=== PATIENT | male | born 1945 | race Caucasian/White ===

== ENCOUNTER → 2020-06-19 11:12 | Outpatient (CLI) | payer MEDICARE, BC, SELFPAY ==
--- NOTE | 2020-06-19 11:21 | XR_ITS ---
PROCEDURE: XR LUMBAR SPINE MIN 4V CLINICAL INDICATION: LOW BACK PAIN AT MULTIPLE SITES COMPARISON: CR PELAP PELVIS AP ONLY from 03/05/2016 FINDINGS: Prior lumbosacral surgery with 2 transverse screws extending from right to left through both SI joints. There has been total left hip prosthesis placement and right hip hemiarthroplasty with 2 screws superior to the hemiarthroplasty 1 of which is fractured Multilevel facet sclerosis and hypertrophy from L1-S1. There is degenerative disc disease at L4-5. Suspected multilevel canal stenosis from L2-S1 worse at L4-5 and L5-S1. No acute fracture or dislocation. IMPRESSION: Severe facet arthritic changes with osteosclerosis and degenerative disc disease with postsurgical changes Postsurgical changes of the pelvis with a fractured screw in the right super acetabular region Dictated by: Juan Alcocer MD 06/19/2020 17:52 Juan Alcocer MD in [place] 06/19/2020 17:52
== END ==
PROVIDERS: PCP Internal Medicine Adolescent Medicine; Visit Provider Internal Medicine Adolescent Medicine
DX: M54.5 Low back pain (principal)
CPT/HCPCS: 72110

== ENCOUNTER → 2020-06-27 13:45 | Outpatient (CLI) | payer MEDICARE, BC, SELFPAY ==
--- NOTE | 2020-06-27 13:47 | CT_ITS ---
PROCEDURE: CT LUMBAR SPINE WO CON CLINICAL HISTORY: LOW BACK PAIN lbp with walking COMPARISON: CR XR LUMBAR SPINE MIN 4V from 06/19/2020 TECHNIQUE: Axial images obtained with sagittal and coronal reformats. All CT scans at the facility use one or more dose reduction, viz: automated exposure control, ma/kV adjustment per patient size (including targeted exams where dose is matched to indication, i.e. head), or iterative reconstruction technique. FINDINGS: There is good alignment. There is multilevel thoracic and lumbar spondylosis. T10-T11: Degenerative disc disease with mild facet hypertrophic change. There is prominent osteophyte along the left costovertebral junction not completely imaged. There is mild bilateral foraminal narrowing. T11-T12: Degenerative disc disease with facet facet hypertrophy with bilateral lateral recess narrowing and bilateral foraminal narrowing greater on the left. There is bulging disc at this level. T12-L1: Unremarkable L1-L2: Mild bulging disc with facet and ligamentum hypertrophy with lateral bridging osteophyte. L2-L3: Moderate to severe right-sided facet and ligamentum hypertrophy and moderate left-sided facet hypertrophy with moderate right-sided lateral recess narrowing, moderate right foraminal narrowing and mild left lateral recess and foraminal narrowing. L3-L4: Severe facet hypertrophic change right greater than left with ligamentum hypertrophy with canal stenosis with moderate right-sided and mild left-sided foraminal narrowing. There is severe canal stenosis at 6 mm with severe bilateral lateral recess narrowing. There is bulging disc also present at this level which is eccentric toward the left L4-5: Degenerative disc disease with concentric bulging disc with severe facet and ligamentum hypertrophy with canal stenosis and moderate to severe bilateral foraminal narrowing. There is moderate bilateral lateral recess narrowing. L5-S1: Bulging disc with severe facet and ligamentum hypertrophy. Postsurgical changes with prior laminectomy at S1. There is severe bilateral lateral recess and foraminal narrowing. There are 2 large transverse screws extending from the right ilium to the left ilium through the S1 segment and through both SI joints with prominent artifact from the large screws. Incidental note is made sigmoid colon diverticulosis. There is atrophy of the right ileo psoas muscle and there are bilateral renal calculi. IMPRESSION: Abnormal CT of the lumbar spine. There is multilevel lumbar spondylosis with bulging disc and severe facet and ligamentum hypertrophy with lateral recess narrowing, foraminal narrowing and canal stenosis. Please see above for detailed description at each level. There are postsurgical changes at the S1 region. Incidental note made of sigmoid diverticulosis and bilateral renal calculi Dictated by: Juan Alcocer MD 06/29/2020 19:30 Juan Alcocer MD in [facility] 06/29/2020 19:30
== END ==
PROVIDERS: PCP Internal Medicine Adolescent Medicine; Visit Provider Internal Medicine Adolescent Medicine
DX: M54.5 Low back pain (principal)
CPT/HCPCS: 72131

== ENCOUNTER 2020-12-19 10:01 | Outpatient (RCR) | payer MEDICARE, BC, SELFPAY | END 2021-03-10 10:47 | disposition home or self-care (01) | LOC: PT 10:01 | PROVIDERS: Visit Provider Internal Medicine Cardiovascular Disease | DX: Z95.1 Presence of aortocoronary bypass graft (principal); Z95.2 Presence of prosthetic heart valve | CPT/HCPCS: 93798 ==

== ENCOUNTER 2021-03-20 15:31 | Outpatient (CLI) | payer MEDICARE, BC, SELFPAY ==
[2021-03-20 15:47] VITALS: BMI 36.8
[2021-03-20 16:20] VITALS: BP 107/63; PULSE 68; RESP 18; TEMP 36.4; O2SAT 97
[2021-03-20 16:29] LABS: Basophils % 0.4 % (0.1-2.0); Eosinophils # 0.2 K/mm3 (0.0-0.4); Eosinophils % 1.7 % (0.1-12.0); Hematocrit 33.9 % (42.0-52.0); Hemoglobin 10.6 g/dL (14.1-18.0); Lymphocytes # 0.8 K/mm3 (0.7-4.5); Mean Corpuscular HGB Conc 31.2 g/dL (31.8-35.4); Mean Corpuscular Hemoglobin 28.4 pg (27.0-31.2); Mean Corpuscular Volume 91.1 fl (80-94); Mean Platelet Volume 9.2 fl (7.4-10.4); Monocytes # 0.8 K/mm3 (0.1-1.0); Monocytes % 7.3 % (1.7-9.3); Neutrophils # 8.5 K/mm3 (1.8-7.8); Neutrophils % 82.7 % (37.0-80.0); Platelet Count 185 K/mm3 (142-424); Red Blood Count 3.72 M/mm3 (4.60-6.20); Red Cell Distribution Width 17.2 % (11.5-17.5); White Blood Count 10.3 K/mm3 (4.8-10.8)
[2021-03-20 16:34] LABS: Anion Gap 14.2 mEq/L (5-15); Blood Urea Nitrogen 20 mg/dl (9-20); Calcium 8.4 mg/dl (8.4-10.2); Carbon Dioxide 25 mmol/L (22.0-30.0); Chloride 103 mmol/L (98-107); Creatinine Clearance Estimated 108 mL/min (50-200); Estimated Glomerular Filt Rate 95 ml/min (>60); GFR (African American) 115 ML/MIN (>60); Glucose 131 mg/dl (74-100); Potassium 4.2 mmoL/L (3.5-5.1); Sodium 138 mmol/L (136-145)
--- NOTE | 2021-03-20 16:47 | XR_ITS ---
PROCEDURE INFORMATION: Exam: XR Abdomen Exam date and time: 03/20/2021 4:47 PM Age: 75 years old Clinical indication: Abdominal pain; Generalized; Additional info: Post op abd. Pain TECHNIQUE: Imaging protocol: XR of the abdomen. Views: Frontal supine view of the abdomen. 1 View. COMPARISON: CT LUMBAR SPINE WO CON 06/27/2020 1:48 PM FINDINGS: Heart/Mediastinum: Postsurgical changes seen the heart rate line mild bibasilar atelectasis and a calcification projects over the right upper quadrant. It measures about 15 mm. It was seen on prior. Gastrointestinal tract: A few loops of mildly distended small bowel are seen. Bones/joints: Orthopedic hardware seen in the pelvis. Fractured screw in the right acetabulum again seen. IMPRESSION: Several mildly dilated loops of small bowel are seen. Favor ileus over obstruction.
--- NOTE | 2021-03-20 17:03 | PC.NURSE ---
radiology with pt to obtain kub.
--- NOTE | 2021-03-20 17:23 | PC.NURSE ---
Dr. Cerna contacted concerning current pt condition, review of labs and kub study. Pt ivf's complete, contacting md to see what the next step in poc would be prior to d/c.
--- NOTE | 2021-03-20 17:29 | PC.NURSE ---
Dr. Cerna spoke with pt's concerning results of tests. states that pt should use a glycerin suppository to facilitate bowel activity-pt may use at home after d/c. Pt given a radiology disc of kub study to take. recommended that pt f/u with surgeon at [facility] if symptoms get worse. Pt refuses to be transferred at this time and wishes to go home.
[2021-03-20 17:34] VITALS: BP 139/68; PULSE 71; RESP 18; O2SAT 98
== END 2021-03-20 17:51 | disposition home or self-care (01) ==
LOC: RAD 15:35
PROVIDERS: PCP Internal Medicine Adolescent Medicine; Visit Provider Internal Medicine Adolescent Medicine
DX: R10.84 Generalized abdominal pain (principal)
CPT/HCPCS: 74018; 80048; 85025; 96360

== ENCOUNTER → 2021-03-21 12:10 | Outpatient (CLI) | payer MEDICARE, BC, SELFPAY ==
[2021-03-21 12:30] VITALS: BP 150/76; PULSE 86; RESP 18; O2SAT 95
[2021-03-21 13:40] VITALS: BP 123/64; PULSE 79; RESP 18
== END ==
PROVIDERS: PCP Internal Medicine Adolescent Medicine; Visit Provider Colon & Rectal Surgery
DX: E86.0 Dehydration (principal); R11.0 Nausea
CPT/HCPCS: 96360; 96375; J2405

== ENCOUNTER 2021-03-22 10:45 | Outpatient (CLI) | payer MEDICARE, BC, SELFPAY ==
[2021-03-22 11:20] VITALS: BP 96/53; PULSE 74; RESP 18; O2SAT 94
== END 2021-03-22 12:25 | disposition home or self-care (01) ==
LOC: INF 10:48
PROVIDERS: PCP Internal Medicine Adolescent Medicine; Visit Provider Colon & Rectal Surgery
DX: E86.0 Dehydration (principal)
CPT/HCPCS: 96360

== ENCOUNTER 2021-03-23 10:28 | Outpatient (CLI) | payer MEDICARE, BC, SELFPAY | END 2021-03-23 11:53 | disposition home or self-care (01) | LOC: INF 10:29 | PROVIDERS: PCP Internal Medicine Adolescent Medicine; Visit Provider Colon & Rectal Surgery | DX: E86.0 Dehydration (principal) | CPT/HCPCS: 96360; 96361 ==

== ENCOUNTER → 2021-03-24 13:51 | Outpatient (CLI) | payer MEDICARE, BC, SELFPAY ==
[2021-03-24 14:15] LABS: Chloride 99 mmol/L (98-107)
[2021-03-24 14:16] LABS: Potassium 3.8 mmoL/L (3.5-5.1); Sodium 134 mmol/L (136-145)
[2021-03-24 14:18] LABS: Blood Urea Nitrogen 15 mg/dl (9-20); Estimated Glomerular Filt Rate 95 ml/min (>60); GFR (African American) 115 ML/MIN (>60)
[2021-03-24 14:19] LABS: Anion Gap 12.8 mEq/L (5-15); Calcium 8.3 mg/dl (8.4-10.2); Carbon Dioxide 26 mmol/L (22.0-30.0); Glucose 104 mg/dl (74-100)
[2021-03-24 14:21] LABS: Basophils % 0.3 % (0.1-2.0); Eosinophils % 0.8 % (0.1-12.0); Hemoglobin 9.7 g/dL (14.1-18.0); Lymphocytes # 0.6 K/mm3 (0.7-4.5); Lymphocytes % 12.6 % (10-50); Mean Corpuscular HGB Conc 31.4 g/dL (31.8-35.4); Monocytes # 0.6 K/mm3 (0.1-1.0); Monocytes % 12.8 % (1.7-9.3); Neutrophils # 3.2 K/mm3 (1.8-7.8); Neutrophils % 73.5 % (37.0-80.0); Platelet Count 165 K/mm3 (142-424); Red Blood Count 3.48 M/mm3 (4.60-6.20); White Blood Count 4.4 K/mm3 (4.8-10.8)
== END ==
PROVIDERS: Visit Provider Colon & Rectal Surgery
DX: E86.0 Dehydration (principal)
CPT/HCPCS: 36415; 80048; 85025

== ENCOUNTER 2022-12-05 21:44 | Emergency (ER) | payer MEDICARE, BC, SELFPAY ==
[2022-12-05 21:45] VITALS: BP 150/77; PULSE 67; RESP 16; TEMP 36.8; O2SAT 96; BMI 40.8
[2022-12-05 21:56] VITALS: BP 154/75; PULSE 65; O2SAT 95
[2022-12-05 22:01] VITALS: BP 150/77; PULSE 64; O2SAT 95
--- NOTE | 2022-12-05 22:05 | CT_ITS ---
PROCEDURE INFORMATION: Exam: CT Abdomen And Pelvis Without Contrast Exam date and time: 12/05/2022 10:21 PM Age: 77 years old Clinical indication: Abdominal pain; Flank; Right; Additional info: RT flank pain TECHNIQUE: Imaging protocol: Computed tomography of the abdomen and pelvis without contrast. Radiation optimization: All CT scans at this facility use at least one of these dose optimization techniques: automated exposure control; mA and/or kV adjustment per patient size (includes targeted exams where dose is matched to clinical indication); or iterative reconstruction. REPORTING DATA: Count of CT and Cardiac NM exams in prior 12 months: This patient has received 0 known CTs and 0 known cardiac nuclear medicine studies in the 12 months prior to the current study. COMPARISON: CR XR KUB 03/20/2021 5:03 PM FINDINGS: Lungs: Bibasilar subsegmental atelectasis in visualized thorax. Liver: Normal. No mass. Gallbladder and bile ducts: Solitary calcified gallstones with mild gallbladder wall thickening. Pancreas: Normal. No ductal dilation. Spleen: Normal. No splenomegaly. Adrenal glands: Normal. No mass. Kidneys and ureters: Mild hydroureter without identifiable ureteral calculus. Scattered bilateral nonobstructive renal calculi measuring up to 0.4 cm right kidney. Can not evaluate for distal ureteral calculus secondary to susceptibility artifacts obscure pelvic basin. Stomach and bowel: Postsurgical changes compatible with partial colonic resection. Sigmoid colonic diverticula without obvious pericolonic fat stranding. Appendix: Appendix not visualized. Intraperitoneal space: Unremarkable. No free air. No significant fluid collection. Vasculature: Atherosclerotic calcification of aortoiliac arteries. Atherosclerotic calcification thoracic aorta and coronary arteries in visualized thorax. Lymph nodes: Unremarkable. No enlarged lymph nodes. Urinary bladder: Urinary bladder suboptimally visualized and evaluated. Can not evaluate for urinary bladder calculus secondary to susceptibility artifacts obscuring pelvic basin. Reproductive: Unremarkable as visualized. Bones/joints: Pelvic basin suboptimally visualized and evaluated secondary to susceptibility artifacts from bilateral hip prostheses and bilateral sacroiliac fixation hardware. Soft tissues: Lower mid anterior abdominal wall defect with fat herniation only defect measures 3.2 cm. IMPRESSION: 1. Mild right hydroureter without obstructive ureteral calculus identified in visualized segment. However, distal ureter and urinary bladder suboptimally visualized and evaluated secondary to susceptibility artifact from hip and sacroiliac joint hardware artifact. Can not evaluate for calculus in obscured areas pelvis. 2. Cholelithiasis with questionable mild gallbladder wall thickening. 3. Anterior abdominal wall fatty herniation. 4. Colonic diverticulosis.
--- NOTE | 2022-12-05 22:20 | PC.NURSE ---
Attempted IV site, blood collected for labs. Patient requested no further sticks at this time. Reports extremely hard stick. Reported to pt's nurse.
[2022-12-05 22:23] LABS: Basophils % 0.5 % (0.1-2.0); Eosinophils # 0.2 K/mm3 (0.0-0.4); Eosinophils % 3.1 % (0.1-12.0); Hematocrit 40.3 % (42.0-52.0); Hemoglobin 13.5 g/dL (14.1-18.0); Lymphocytes # 1.2 K/mm3 (0.7-4.5); Lymphocytes % 16.2 % (10-50); Mean Corpuscular HGB Conc 33.5 g/dL (31.8-35.4); Mean Corpuscular Hemoglobin 30.7 pg (27.0-31.2); Mean Corpuscular Volume 91.7 fl (80-94); Monocytes # 0.8 K/mm3 (0.1-1.0); Monocytes % 10.6 % (1.7-9.3); Neutrophils % 69.4 % (37.0-80.0); Platelet Count 130 K/mm3 (142-424); Red Cell Distribution Width 14.3 % (11.5-17.5); White Blood Count 7.3 K/mm3 (4.8-10.8)
[2022-12-05 22:32] LABS: Alanine Aminotransferase 55 U/L (12-78); Albumin Level 4.5 g/dl (3.5-5.0); Albumin/Globulin Ratio 1.6 (1.1-1.8); Alkaline Phosphatase 74 U/L (38-126); Amylase 64 U/L (30-110); Anion Gap 20.4 mEq/L (5-15); Aspartate Amino Transferase 39 U/L (17-59); Bilirubin,Total 0.8 mg/dl (0.2-1.3); Blood Urea Nitrogen 18 mg/dl (9-20); Calcium 8.7 mg/dl (8.4-10.2); Carbon Dioxide 23 mmol/L (22.0-30.0); Chloride 95 mmol/L (98-107); Creatinine Clearance Estimated 117 mL/min (50-200); Estimated Glomerular Filt Rate 82 ml/min (>60); GFR (African American) 100 ML/MIN (>60); Globulin 2.8 g/dL (1.3-3.2); Glucose 206 mg/dl (74-100); Lipase 140 U/L (23-300); Potassium 4.4 mmoL/L (3.5-5.1); Sodium 134 mmol/L (136-145); Total Protein,Serum 7.3 g/dl (6.3-8.2)
[2022-12-05 22:35] LABS: Microscopic, Urine URINE MICROSCOPIC (MICROSCOPIC)
[2022-12-05 22:38] LABS: C-Reactive Protein 17.7 mg/L (0-4)
[2022-12-05 22:39] LABS: Appearance,Urine CLEAR (Clear); Bilirubin,Urine Negative (Negative); Blood, Urine Negative (Negative); Color,Urine YELLOW (Yellow); Glucose,Urine (UA) 2+ (Negative); Ketones,Urine TRACE (Negative); Leukocyte Esterase,Urine Negative (Negative); Nitrate,Urine Negative (Negative); PH,Urine 5.5 (5.0-8.5); Protein,Urine Negative (Negative); Specific Gravity, Urine >= 1.030 (1.005-1.030); Urobilinogen,Urine 0.2 EU/dl (0.2)
[2022-12-05 22:53] LABS: Squamous Epithelial Cell,Urine Occasional #/hpf (0-5)
[2022-12-05 22:54] LABS: Erythrocyte Sedimentation Rate 16 mm/hr (0-20)
[2022-12-05 22:59] LABS: Acetone, Serum (Rapid) None Detected (None Detect)
--- NOTE | 2022-12-05 23:51 | HMH.EDABDPAI ---
Discharge Plan Disposition Patient Disposition: Home, Self-Care Prescriptions Prescriptions: No Action atorvastatin 80 mg tablet 80 mg PO DAILY Label Comments: TAKE 1 TABLET BY MOUTH EVERY NIGHT carvedilol 12.5 mg tablet 12.5 mg PO BID Label Comments: TAKE 1 TABLET BY MOUTH TWICE DAILY isosorbide mononitrate 30 mg tablet extended release 24 hr 30 mg PO DAILY Label Comments: TAKE 1 TABLET BY MOUTH DAILY ascorbic acid (vitamin C) 500 mg tablet 500 mg PO DAILY Label Comments: TAKE 1 TABLET BY MOUTH EVERY DAY aspirin 81 mg tablet,chewable 81 mg PO DAILY Label Comments: TAKE 1 TABLET BY MOUTH ONCE DAILY ramipril 10 mg capsule 10 mg PO DAILY Label Comments: TAKE 1 CAPSULE BY MOUTH DAILY Referrals Follow up/Referrals: Dez Cerna MD [Primary Care Provider] - See instructions Jose Aguilar MD [Referring] - See instructions Clinical Impressions Clinical Impression: Renal colic on right side Instructions Patient Instructions: DI for Kidney Stones Discharge ED Provider: Raj (ED)Jori Abdominal Pain HPI General Chief Complaint: Abdominal Pain Stated Complaint: back pain Time Seen by Provider: 12/05/22 23:51 Mode of Arrival: Ambulatory Source of Information: Patient and Medical Record Limitations: No Limitations Description of Symptoms (Recalled from ER Triage Doc. by RN): pt c/o rt flank pain that started around 8pm History of Present Illness HPI narrative: acute rt flank pain tonight - no fever/rash or trauma and no known kidney stone complaint: flank pain Onset (ago): hour(s) Consistency: intermittent Location: R flank Severity: moderate Quality: sharp Associated symptoms: denies other symptoms Related Data Home Medications Medication Instructions Recorded Confirmed ascorbic acid (vitamin C) 500 mg 500 mg PO DAILY Supplement 12/05/22 12/05/22 tablet aspirin 81 mg chewable tablet 81 mg PO DAILY heart health 12/05/22 12/05/22 atorvastatin 80 mg tablet 80 mg PO DAILY High cholesterol 12/05/22 12/05/22 carvedilol 12.5 mg tablet 12.5 mg PO BID High blood pressure 12/05/22 12/05/22 isosorbide mononitrate 30 mg 30 mg PO DAILY High blood pressure 12/05/22 12/05/22 tablet,extended release 24 hr ramipril 10 mg capsule 10 mg PO DAILY High blood pressure 05/13/23 05/13/23 Allergies Allergy/AdvReac Type Severity Reaction Status Date / Time No Known Allergies Allergy Unverified 07/13/17 14:25 [facility] Disclaimer: The information contained in this section may have been updated after the patient was seen, as this information can be updated by other users. Social History Smoking Status: Never smoker alcohol intake: never current occupational status: retired Travel in the last 8 weeks: None ROS Obtained: Yes All systems reviewed & no additional complaints except as documented Physical Exam General General appearance: alert Head Head exam: normocephalic Eye Eye exam: Present PERRL and EOMI ENT ENT exam: Present mucous membranes moist Neck Neck exam: Present trachea midline Respiratory Respiratory exam: Absent respiratory distress Cardiovascular Cardiovascular exam: Present regular rate Abdominal Exam Abdominal exam: Present soft; Absent tenderness, guarding or rebound Extremities Exam Extremities exam: Present full ROM Back Exam Back exam: Absent CVA tenderness (R) Neurological Exam Neurological exam: Present alert, oriented X3 and CN II-XII intact; Absent motor sensory deficit Psychiatric Psychiatric exam: Present normal affect Skin Skin exam: Absent rash Medical Decision Making Medical Records Medical records reviewed: Yes I reviewed the patient's medical records. Nigel Inquiry Pt receiving controlled substance: No Vital Signs: 12/05/22 21:45 12/05/22 21:56 12/05/22 22:01 Temperature 98.3 F Temperature Source Oral Pulse Rate 65 64 Pulse Rate [Right] 67 Re
[2022-12-06 00:20] LABS: Hemoglobin A1C 7.8 % (4.0-6.0)
--- NOTE | 2022-12-06 00:41 | PC.NURSE ---
called grade foreman to prepare a disc of ct images
[2022-12-06 00:48] VITALS: BP 147/78; PULSE 61; RESP 16; TEMP 36.8; O2SAT 96
== END 2022-12-06 00:55 | disposition home or self-care (01) ==
PROVIDERS: Emergency Provider Emergency Medicine; PCP Internal Medicine Adolescent Medicine
DX: N23 Unspecified renal colic (principal); R10.9 Unspecified abdominal pain; M54.9 Dorsalgia, unspecified
CPT/HCPCS: 74176; 80053; 81001; 82009; 82150; 83036; 83690; 84145; 85025; 85651; 86140; 96361; 96374; 96375; 99285; J2405

== ENCOUNTER 2025-02-10 00:18 | Emergency (ER) | payer MEDICARE, BC, SELFPAY ==
--- OUTSIDE RECORDS SUMMARY | 2024-10-28 17:30 | XMS_ITS ---
Author Organization [facility] Address [address] [place] [address] Care Team Providers Care Licensed Psychologist Manager Name Role Phone Dez Cerna Primary Care Provider Migration, Provider Unavailable Unavailable REASON FOR VISIT [facility] To [facility] Conversion Encounter Medications Medication SIG (Take, [...] Active Encounters Encounter Location Date Provider Diagnosis [facility] [address] [place] [address] 10/28/2024 Provider Migration Plan Of Treatment Medication Medication Name Sig Start Date Stop Date Notes NGOZI CHILDRENS ASPIRIN 81 MG TAKE 1 TABLET BY MOUTH ONCE DAILY; Duration: 90 DAYS *Please review for potential replacement for e-prescription and drug interaction check* Next Appt Details Provider Name:Dez Cerna, 04/25/2025 09:00:00 AM, [facility] [address], [address], [place], [address], Progress Notes * Everette BOO WDOB:[birth year] (79 yo M)Acc No.[id number]:10/28/2024 Patient: Everette GRAY Provider: Vicky Blackwood :1945 A ge:78 Y S ex:Male Date:10/28/2024 Address:[address] [place] [address], [id number] Pcp:Dez Cerna Subjective: * Chief Complaints: * [facility] * Medical History: * Medications: [...] Electronic signature of Alexandra glasgow Migration on 02/10/2025 at 12:34 AM EDT Sign off status: Pending * Provider: Vicky koenig Migration Date: 0 10/28/2024 Generated for Shayy kimble/Alem/Federicoitting on: 0 02/10/2025 12:34 AM EDT
--- OUTSIDE RECORDS SUMMARY | 2024-12-20 04:45 | XMS_ITS ---
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 Name Role Phone Dez Cerna Primary Care Provider [phone] Allergies No Known Allergies Results Component Value Reference Range Notes LIPID PANEL, STANDARD (7600) Reviewed date:12/25/2024 09:39:56 AM Interpretation: Performing Lab:CB, [employer] [id number], [id number] Nish Squires Notes/Report: NON-FASTING; NON-FASTING; NON-FASTING; NON-FASTING CHOLESTEROL, TOTAL 91 <200 mg/dL HDL CHOLESTEROL 27 > OR = 40 mg/dL TRIGLYCERIDES 281 <150 mg/dL If a non-fasting specimen was collected, consider repeat triglyceride testing on a fasting specimen if clinically indicated. Ilene et al. J. of Clin. Lipidol. 2015;9:129-169. LDL-CHOLESTEROL 31 Reference range: <100 Desirable range <100 mg/dL for primary prevention; <70 mg/dL for patients with CHD or diabetic patients with > or = 2 CHD risk factors. LDL-C is now calculated using the Nuria calculation, which is a validated novel method providing better accuracy than the Friedewald equation in the estimation of LDL-C. Jorge Luis MCNAMARA et al. EUGENIO. 2013;310(19): 0128-0439 (http://education.[employer].Stayhound/faq/UQE724) CHOL/HDLC RATIO 3.4 <5.0 (calc) NON HDL CHOLESTEROL 64 <130 mg/dL (calc) For patients with diabetes plus 1 major ASCVD risk factor, treating to a non-HDL-C goal of <100 mg/dL (LDL-C of <70 mg/dL) is considered a therapeutic option. [facility] ([id number] Reviewed date:12/25/2024 09:39:56 AM Interpretation: Performing Lab:RICO [employer] [id number] [facility], [id number] Nish Squires Notes/Report: NON-FASTING; NON-FASTING; NON-FASTING; NON-FASTING GLUCOSE 124 65-99 mg/dL Fasting reference interval For someone without known diabetes, a glucose value between 100 and 125 mg/dL is consistent with prediabetes and should be confirmed with a follow-up test. UREA NITROGEN (BUN) 15 7-25 mg/dL CREATININE 0.63 0.70-1.28 mg/dL EGFR 98 > OR = 60 mL/min/1.73m2 BUN/CREATININE RATIO 24 6-22 (calc) SODIUM 135 135-146 mmol/L POTASSIUM 4.5 3.5-5.3 mmol/L CHLORIDE 101 98-110 mmol/L CARBON DIOXIDE 24 20-32 mmol/L CALCIUM 9.3 8.6-10.3 mg/dL PROTEIN, TOTAL 7.3 6.1-8.1 g/dL ALBUMIN 4.9 3.6-5.1 g/dL GLOBULIN 2.4 1.9-3.7 g/dL (calc) ALBUMIN/GLOBULIN RATIO 2.0 1.0-2.5 (calc) BILIRUBIN, TOTAL 1.0 0.2-1.2 mg/dL ALKALINE PHOSPHATASE 71 35-144 U/L AST 21 10-35 U/L ALT 30 9-46 U/L CBC (INCLUDES DIFF/PLT) (639 9) Reviewed date:12/25/2024 09:39:56 AM Interpretation: Performing Lab:[facility] [employer], [facility] SystemWkelPQ[address] Nish Squires Notes/Report: NON-FASTING; NON-FASTING; NON-FASTING; NON-FASTING WHITE BLOOD CELL COUNT 6.2 3.8-10.8 Thousand/ uL RED BLOOD CELL COUNT 5.21 4.20-5.80 Million/uL HEMOGLOBIN 15.6 13.2-17.1 g/dL HEMATOCRIT 48.2 38.5-50.0 % MCV 92.5 80.0-100.0 fL MCH 29.9 27.0-33.0 pg MCHC 32.4 32.0-36.0 g/dL For adults, a slight decrease in the calculated MCHC value (in the range of 30 to 32 g/dL) is most likely not clinically significant; however, it should be interpreted with caution in correlation with other red cell parameters and the patient's clinical condition. RDW 13.0 11.0-15.0 % PLATELET COUNT 155 140-400 Thousand/uL MPV 10.8 7.5-12.5 fL ABSOLUTE NEUTROPHILS 4514 0480-7401 cells/uL ABSOLUTE LYMPHOCYTES 708 539-6068 cells/uL ABSOLUTE MONOCYTES 744 200-950 cells/uL ABSOLUTE EOSINOPHILS 174 15-500 cells/uL ABSOLUTE BASOPHILS 43 0-200 cells/uL NEUTROPHILS 72.8 LYMPHOCYTES 11.7 MONOCYTES 12.0 EOSINOPHILS 2.8 BASOPHILS 0.7 HEMOGLOBIN A1c (496) Reviewed date:12/25/2024 09:39:57 AM Interpretation: Performing Lab:CB, [facility] [address], [facility] [id number] Nish Squires Notes/Report: NON-FASTING; NON-FASTING; NON-FASTING; NON-FASTING HEMOGLOBIN A1c 6.9 <5.7 % For someone without known diabetes, a hemoglobin A1c value of 6.5% or greater indicates that they may have diabetes and this should be confirmed with a follow-up test. For someone with known diabetes, a value <7% indicates that their diabetes is well controlled and a value greater than or equal to 7% indicates suboptimal control. A1c targets should be individualized based on duration of diabetes, age, comorbid conditions, and other considerations. Currently, no consensus exists regarding use of hemoglobin A1c for diagnosis of diabetes for children. REASON FOR VISIT 4 month f/u, lt side pain x 3 weeks, c/o when he coughs, his hernia pops out Medications Medication SIG (Take, Route, Frequency, Duration) Notes Start Date End Date Status Xyzal Allergy 24HR 5 MG 1 po Once a day; Duration: 30 days 11/20/2024 Active Promethazine-DM 6.25-15 MG/5ML 5 mL orally every 6 hours; Duration: 10 days 11/20/2024 Active Fluticasone Propionate 50 MCG/ACT 2 spray(s) intranasally once a day; Duration: 30 day(s) 11/20/2024 Active NGOZI CHILDRENS ASPIRIN 81 MG TAKE 1 TABLET BY MOUTH ONCE DAILY; Duration: 90 DAYS *Please review for potential replacement for e-prescription and drug interaction check* Active Jardiance 25 MG 1 tab(s) orally once a day (in the morning); Duration: 90 days Active Co Q-10 100 MG 1 cap(s) orally once a day; Duration: 90 days Active Carvedilol 12.5 MG 1 tab(s) orally 2 times a day; Duration: 90 days Active Ramipril 10 MG 1 cap(s) orally once a day; Duration: 90 days Active Isosorbide Mononitrate ER 30 MG 1 tab(s) orally once a day (in the morning) Active Vitamin C 500 MG TAKE 1 TABLET BY MOUTH EVERY DAY; Duration: 90 Active Atorvastatin Calcium 80 MG 1 tab(s) orally once a day; Duration: 90 days Active Fish Oil 500 MG 1 cap(s) orally once a day Active Social History Tobacco Use: Social History Observation Description Date Details (start date - stop date) Never Smoker NA - NA Smoking: Question Answer Notes Are you a: nonsmoker Problems Problem Type SNOMED Code ICD Code Onset Dates Problem Status W/U Status Risk Notes Problem Sciatica (10228295) Left sciatic nerve pain (M54.32) Active confirmed Vital Signs Temperature 97.6 degrees Fahrenheit 12/21/19 25 Blood pressure systolic 126 mm Hg 12/21/19 25 Blood pressure diastolic 72 mm Hg 025 Heart Rate 78 /min 12/20/2024 Height 5' 9 in 12/20/2024 Weight 256.4 lbs 12/20/2024 BMI 37.86 kg/m2 12/20/2024 Encounters Encounter Location Date Provider Diagnosis [facility] [place] [address] [facility] [address] [place] [address] 12/20/2024 Dez Cerna Hypertension, essent ial I10 ; Hyperlipemia, idiopathic familial E78.5 ; Type 2 diabetes mellitus with other circulatory complications E11.59 ; 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 ; Ventral hernia without obstruction or gangrene K43.9 and Left sciatic nerve pain M54.32 Assessments Encounter Date Diagnosis (ICD Code) Assessment Notes Treatment Notes Treatment Clinical Notes Section Notes 12/20/2024 Hypertension, essential (ICD-10 - I10) Continue current regimen, BP looks good today 12/20/2024 Hyperlipemia, idiopathic familial (ICD-10 - E78.5) Continue current regimen, labs obtained today 12/20/2024 Type 2 diabetes mellitus with other circulatory complications (ICD-10 - E11.59) Continue current regimen, labs obtained today 12/20/2024 Atherosclerotic heart disease of redding coronary artery without angina pectoris (ICD-10 - I25.10) Follows with cardiology in [place], last appointment was in 12/20/2024 Ventral hernia without obstruction or gangrene (ICD-10 - K43.9) No signs of strangulation Educated patients of concerning findings to look out for No intervention neccesary at this time, wear abdominal belt or binder when lifting and continue with breathing through activity 12/20/2024 Left sciatic nerve pain (ICD-10 - M54.32) Exercise is the best remedy at this time, continue with walks daily Plan Of Treatment Treatment Notes Assessment Notes Hypertension, essential Continue current regimen, BP looks good today Hyperlipemia, idiopathic familial Contin ue current regimen, labs obtained today Type 2 diabetes mellitus wit h other circulatory complications Continue current regimen, labs obtained today Atherosclerotic heart diseas e of redding coronary artery without angina pectoris Follows with cardiology in [place], last appointment was in August Ventral hernia without obstr uction or gangrene No signs of strangulation Educated patients of concerning findings to look out for No intervention neccesary at this time, wear abdominal belt or binder when lifting and continue with breathing through activity Left sciatic nerve pain Exercise is the best remedy at this time, continue with walks daily Next Appt Details Follow Up: 3 Months, Reason: Provider Name:Dez Cerna, 04/25/2025 09:00:00 AM, [address], [place], [address], Progress Notes * Everette BOO WDOB:[birth year] (79 yo M)Acc No.[id number]:12/20/2024 Progress Notes Patient: Everette GRAY Provider: Annika Cerna MD :1945 A ge:79 Y S ex:Male Date:12/20/2024 Address:[address], [place], [place]-[id number] Subjective: * Chief Complaints: * 1 . 4 month f/u. 2. Lt side pain x 3 weeks. 3. C/o when he coughs, his hernia pops out. * HPI: g en: Mr. Boo is a 79 year old male presenting to clinic for 4 month follow-up and concerns about left sided pain and hernia. He has noticed worsening left-sided hip pain radiating down to his foot. He has been using tylenol which has been helping. 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 He had similar pain in his right side that improved with exercise. He reports after his abdominal surgery, he noticed a hernia on the left side of his abdomen. His started noticing over the past few weeks that when he coughs the hernia will pop out. He does not have any pain related to the hernia. He reports he has been taking all medications without any concerns. He continues to follow with cardiology in [place] with his last appointment being in August. At this time, the well service floorperson reported from a cardiac standpoint he is doing well. * Medical History: H ypertension, Hypercholestrolemia, CAD (quadruple bypass), Valve replacement, Aortic aneurysm, Pacemaker, Left hand injury-4 digits amputated, Cardiac stent, Negative cologuard test 06/11 - c-scope 04/16 with polyps - 3 year f/u recommended. * Surgical History: o pen heart surgery 2005, bilatateral hip replacement , chest tube, screws in pelvis 02/2016, colonoscopy 2010 with tubular adenoma , Cardiac stent , Heart Cath 10/13, colectomy 02/2021. * Hospitalization/Major Diagno stic Procedure: a ll above surgeries , [facility]-chest tube, screws in pelvis 02/2016, [facility] 02/2016, colectomy 02/2021. * Family History: F ather: , CAD. M other: , CAD. P aternal Grand Father: . P aternal Grand Mother: . M aternal Grand Father: . M aternal Grand Mother: . P aternal uncle: , CAD. P aternal aunt: . M aternal uncle: . S iblings: alive, 1 brother CAD. C edwarden: alive. 5 brother(s) . 3 son(s) , 2 daughter(s) - healthy. . * Social History: S moking: no A re you a: n onsmoker. R ecreational drug use: no. Exercise: yes, farm, walk. Home smoke detector use: yes, Tea and pepsi on occasion. Caffeine: no. Living Will: Yes. Alcohol: no. Sexually active: yes. Travel outside [place]: no. 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 * Medications: T aking Fish Oil 500 [...] cap(s) orally once a day , Taking Vitamin C 500 MG Tablet TAKE 1 TABLET BY MOUTH EVERY DAY , Taking Jardiance 25 MG Tablet 1 tab(s) orally once a day (in the morning) , Taking NGOZI CHILDRENS ASPIRIN 81 MG TABLET, CHEWABLE TAKE 1 TABLET BY MOUTH ONCE DAILY , Notes to Pharmacist: *Please review for potential replacement for e-prescription and drug interaction check*, Taking Promethazine-DM 6.25-15 MG/5ML Syrup 5 mL orally every 6 hours , Taking Xyzal Allergy 24HR 5 MG Tablet 1 po Once a day , Taking Fluticasone Propionate 50 MCG/ACT Suspension 2 spray(s) intranasally once a day , Medication List reviewed and reconciled with the patient * Allergies: N .K.D.A. Objective: * Vitals: N urse: jl, Pain: 8-lt side, Temp: 97.6, RR: 20, HR: 78, BP: 126/72, Ht: 5' 9 , Wt: 256.4, BMI:37.86. * Examination: G eneral Examination: General P leasant and Cooperative, NAD on RA,. Heart: R egular Rate and Rhythm, no murmur, rubs or gallops. Lungs: L CTAB, No wheezes, crackles or rhonchi, Good air movement,. Abdomen: L eft-sided ventral hernia, no tenderness to palpation. Skin: w ithout acute rashes. Extremities: n ormal ROM,, no clubbing, swelling in left foot. Psych N ormal Mood/Affect. Assessment: * Assessment: 1. H ypertension, essential - I10 (Primary) 2 . H yperlipemia, idiopathic familial - E78.5 3 . T ype 2 diabetes mellitus with other circulatory complications - E11.59 4 . 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 V entral hernia without obstruction or gangrene - K43.9 6 . L eft sciatic nerve pain - M54.32 Plan: * Treatment: 2. H yperlipemia, idiopathic familial L AB: LIPID PANEL, STANDARD (7600) Value Reference Range T RIGLYCERIDES 281 H <150 - mg/dL * C HOLESTEROL, TOTAL 91 <200 - mg/dL * H DL CHOLESTEROL 27 L > OR = 40 - mg/dL * L DL-CHOLESTEROL 31 - mg/dL (calc) * C HOL/HDLC RATIO 3.4 <5.0 - (calc) * N ON HDL CHOLESTEROL 64 <130 - mg/dL (calc) * Robyn Tabares 12/25/2024 09: 39:36 AM EDT > pts , Kaylah Huntley lab was reviewed by Robyn Tabares on 12/25/2024 at 09:39 AM EDT ?LAB: COMPREHENSIVE METABOLIC PANEL (53058)* Value Reference Range G LUCOSE 124 H 65-99 - mg/dL * U OUSMANE NITROGEN (BUN) 15 7-25 - mg/dL * C REATININE 0.63 L 0.70-1.28 - mg/dL * B UN/CREATININE RATIO 24 H 6-22 - (calc) * S ODIUM 135 135-146 - mmol/L * P OTASSIUM 4.5 3.5-5.3 - mmol/L * C HLORIDE 101 98-110 - mmol/L * C ARBON DIOXIDE 24 20-32 - mmol/L * C ALCIUM 9.3 8.6-10.3 - mg/dL * P ROTEIN, TOTAL 7.3 6.1-8.1 - g/dL * A LBUMIN 4.9 3.6-5.1 - g/dL * G LOBULIN 2.4 1.9-3.7 - g/dL (calc ) * A LBUMIN/GLOBULIN RATIO 2.0 1.0-2.5 - (calc) * B ILIRUBIN, TOTAL 1.0 0.2-1.2 - mg/dL * A LKALINE PHOSPHATASE 71 35-144 - U/L * A ST 21 10-35 - U/L * A LT 30 9-46 - U/L * E GFR 98 > OR = 60 - mL/min/1 .73m2 * Robyn Tabares 12/25/2024 09: 39:36 AM EDT > pts , Kaylah Huntley lab was reviewed by Robyn Tabares on 12/25/2024 at 09:39 AM EDT ?LAB: CBC (INCLUDES DIFF/PLT) (2650)* Value Reference Range W EDWARD BLOOD CELL COUNT 6.2 3.8-10.8 - Thousan d/uL * R ED BLOOD CELL COUNT 5.21 4.20-5.80 - Million/ uL * H EMOGLOBIN 15.6 13.2-17.1 - g/dL * H EMATOCRIT 48.2 38.5-50.0 - % * M CV 92.5 80.0-100.0 - fL * M CH 29.9 27.0-33.0 - pg * M CHC 32.4 32.0-36.0 - g/dL * R DW 13.0 11.0-15.0 - % * P LATELET COUNT 155 140-400 - Thousand/u L * N EUTROPHILS 72.8 - % * A BSOLUTE NEUTROPHILS 4514 5954-7863 - cells/uL * L YMPHOCYTES 11.7 - % * A BSOLUTE LYMPHOCYTES 725 L 850-3900 - cells/uL * M ONOCYTES 12.0 - % * A BSOLUTE MONOCYTES 744 200-950 - cells/uL * E OSINOPHILS 2.8 - % * A BSOLUTE EOSINOPHILS 174 15-500 - cells/uL * B ASOPHILS 0.7 - % * A BSOLUTE BASOPHILS 43 0-200 - cells/uL * M PV 10.8 7.5-12.5 - fL * Robyn Tabares 12/25/2024 09: 39:36 AM EDT > pts , Kaylah Huntley lab was reviewed by Robyn Tabares on 12/25/2024 at 09:39 AM EDT ?LAB: HEMOGLOBIN A1c (496)* Value Reference Range H EMOGLOBIN A1c 6.9 H <5.7 - % * Robyn Tabares 12/25/2024 09: 39:36 AM EDT > pts , Kaylah Huntley lab was reviewed by Robyn Tabares on 12/25/2024 at 09:39 AM EDT Notes: Continue current regimen, labs obtained today??3.?Type 2 diabetes mellitus with other circulatory complications?LAB: LIPID PANEL, STANDARD (7600)* Value Reference Range T RIGLYCERIDES 281 H <150 - mg/dL * C HOLESTEROL, TOTAL 91 <200 - mg/dL * H DL CHOLESTEROL 27 L > OR = 40 - mg/dL * L DL-CHOLESTEROL 31 - mg/dL (calc) * C HOL/HDLC RATIO 3.4 <5.0 - (calc) * N ON HDL CHOLESTEROL 64 <130 - mg/dL (calc) * Robyn Tabares 12/25/2024 09: 39:36 AM EDT > pts , Kaylah Huntley lab was reviewed by Robyn Tabares on 12/25/2024 at 09:39 AM EDT ?LAB: COMPREHENSIVE METABOLIC PANEL (45235)* Value Reference Range G LUCOSE 124 H 65-99 - mg/dL * U OUSMANE NITROGEN (BUN) 15 7-25 - mg/dL * C REATININE 0.63 L 0.70-1.28 - mg/dL * B UN/CREATININE RATIO 24 H 6-22 - (calc) * S ODIUM 135 135-146 - mmol/L * P OTASSIUM 4.5 3.5-5.3 - mmol/L * C HLORIDE 101 98-110 - mmol/L * C ARBON DIOXIDE 24 20-32 - mmol/L * C ALCIUM 9.3 8.6-10.3 - mg/dL * P ROTEIN, TOTAL 7.3 6.1-8.1 - g/dL * A LBUMIN 4.9 3.6-5.1 - g/dL * G LOBULIN 2.4 1.9-3.7 - g/dL (calc ) * A LBUMIN/GLOBULIN RATIO 2.0 1.0-2.5 - (calc) * B ILIRUBIN, TOTAL 1.0 0.2-1.2 - mg/dL * A LKALINE PHOSPHATASE 71 35-144 - U/L * A ST 21 10-35 - U/L * A LT 30 9-46 - U/L * E GFR 98 > OR = 60 - mL/min/1 .73m2 * Robyn Tabares 12/25/2024 09: 39:36 AM EDT > pts , Kaylah Huntley lab was reviewed by Robyn Tabares on 12/25/2024 at 09:39 AM EDT ?LAB: CBC (INCLUDES DIFF/PLT) (9848)* Value Reference Range W EDWARD BLOOD CELL COUNT 6.2 3.8-10.8 - Thousan d/uL * R ED BLOOD CELL COUNT 5.21 4.20-5.80 - Million/ uL * H EMOGLOBIN 15.6 13.2-17.1 - g/dL * H EMATOCRIT 48.2 38.5-50.0 - % * M CV 92.5 80.0-100.0 - fL * M CH 29.9 27.0-33.0 - pg * M CHC 32.4 32.0-36.0 - g/dL * R DW 13.0 11.0-15.0 - % * P LATELET COUNT 155 140-400 - Thousand/u L * N EUTROPHILS 72.8 - % * A BSOLUTE NEUTROPHILS 4514 4111-4695 - cells/uL * L YMPHOCYTES 11.7 - % * A BSOLUTE LYMPHOCYTES 725 L 850-3900 - cells/uL * M ONOCYTES 12.0 - % * A BSOLUTE MONOCYTES 744 200-950 - cells/uL * E OSINOPHILS 2.8 - % * A BSOLUTE EOSINOPHILS 174 15-500 - cells/uL * B ASOPHILS 0.7 - % * A BSOLUTE BASOPHILS 43 0-200 - cells/uL * M PV 10.8 7.5-12.5 - fL * Rayshawn Robyn Chen 12/25/2024 09: 39:36 AM EDT > pts , Kaylah Huntley lab was reviewed by Robyn Tabares on 12/25/2024 at 09:39 AM EDT ?LAB: HEMOGLOBIN A1c (496)* Value Reference Range H EMOGLOBIN A1c 6.9 H <5.7 - % * Robyn Tabares 12/25/2024 09: 39:36 AM EDT > pts , Kaylah Huntley lab was reviewed by Robyn Tabares on 12/25/2024 at 09:39 AM EDT Notes: Continue current regimen, labs obtained today??4.?Atherosclerotic heart disease of redding coronary artery without angina pectoris?LAB: LIPID PANEL, STANDARD (7600)* Value Reference Range T RIGLYCERIDES 281 H <150 - mg/dL * C HOLESTEROL, TOTAL 91 <200 - mg/dL * H DL CHOLESTEROL 27 L > OR = 40 - mg/dL * L DL-CHOLESTEROL 31 - mg/dL (calc) * C HOL/HDLC RATIO 3.4 <5.0 - (calc) * N ON HDL CHOLESTEROL 64 <130 - mg/dL (calc) * Robyn Tabares 12/25/2024 09: 39:36 AM EDT > pts , Kaylah Huntley lab was reviewed by Robyn Tabares on 12/25/2024 at 09:39 AM EDT ?LAB: COMPREHENSIVE METABOLIC PANEL (66200)* Value Reference Range G LUCOSE 124 H 65-99 - mg/dL * U OUSMANE NITROGEN (BUN) 15 7-25 - mg/dL * C REATININE 0.63 L 0.70-1.28 - mg/dL * B UN/CREATININE RATIO 24 H 6-22 - (calc) * S ODIUM 135 135-146 - mmol/L * P OTASSIUM 4.5 3.5-5.3 - mmol/L * C HLORIDE 101 98-110 - mmol/L * C ARBON DIOXIDE 24 20-32 - mmol/L * C ALCIUM 9.3 8.6-10.3 - mg/dL * P ROTEIN, TOTAL 7.3 6.1-8.1 - g/dL * A LBUMIN 4.9 3.6-5.1 - g/dL * G LOBULIN 2.4 1.9-3.7 - g/dL (calc ) * A LBUMIN/GLOBULIN RATIO 2.0 1.0-2.5 - (calc) * B ILIRUBIN, TOTAL 1.0 0.2-1.2 - mg/dL * A LKALINE PHOSPHATASE 71 35-144 - U/L * A ST 21 10-35 - U/L * A LT 30 9-46 - U/L * E GFR 98 > OR = 60 - mL/min/1 .73m2 * Robyn Tabares 12/25/2024 09: 39:36 AM EDT > pts , Kaylah Huntley lab was reviewed by Robyn Tabares on 12/25/2024 at 09:39 AM EDT ?LAB: CBC (INCLUDES DIFF/PLT) (5700)* Value Reference Range W EDWARD BLOOD CELL COUNT 6.2 3.8-10.8 - Thousan d/uL * R ED BLOOD CELL COUNT 5.21 4.20-5.80 - Million/ uL * H EMOGLOBIN 15.6 13.2-17.1 - g/dL * H EMATOCRIT 48.2 38.5-50.0 - % * M CV 92.5 80.0-100.0 - fL * M CH 29.9 27.0-33.0 - pg * M CHC 32.4 32.0-36.0 - g/dL * R DW 13.0 11.0-15.0 - % * P LATELET COUNT 155 140-400 - Thousand/u L * N EUTROPHILS 72.8 - % * A BSOLUTE NEUTROPHILS 4514 2852-8859 - cells/uL * L YMPHOCYTES 11.7 - % * A BSOLUTE LYMPHOCYTES 725 L 850-3900 - cells/uL * M ONOCYTES 12.0 - % * A BSOLUTE MONOCYTES 744 200-950 - cells/uL * E OSINOPHILS 2.8 - % * A BSOLUTE EOSINOPHILS 174 15-500 - cells/uL * B ASOPHILS 0.7 - % * A BSOLUTE BASOPHILS 43 0-200 - cells/uL * M PV 10.8 7.5-12.5 - fL * Robyn Tabares Gustavo 12/25/2024 09: 39:36 AM EDT > pts , Kaylah Huntley lab was reviewed by Robyn Tabares on 12/25/2024 at 09:39 AM EDT ?LAB: HEMOGLOBIN A1c (496)* Value Reference Range H EMOGLOBIN A1c 6.9 H <5.7 - % * Robyn Tabares Gustavo 12/25/2024 09: 39:36 AM EDT > pts , Kaylah Huntley lab was reviewed by Robyn Tabares on 12/25/2024 at 09:39 AM EDT Notes: Follows with cardiology in [place], last appointment was in August?? 5.?Ventral hernia without obstruction or gangrene? Notes: No signs of strangulation Educated patients of concerning findings to look out for No intervention neccesary at this time, wear abdominal belt or binder when lifting and continue with breathing through activity??6.?Left sciatic nerve pain ? Notes: Exercise is the best remedy at this time, continue with walks daily ?? * Follow Up: 3 Months * * Sign off status: Completed true * Provider: Annika Cerna MD Date: 0 12/20/2024 Generated for Shayy kimble/Alem/eTcristinasmitting on: 0 02/10/2025 12:33 AM EDT History and Physical Notes * HPI (History of Present Illness) Category Sub-Category Detail Notes Category Not es gen Mr. Boo is a 79 year old male presenting to clinic for 4 month follow-up and concerns about left sided pain and hernia. He has noticed worsening left-sided hip pain radiating down to his foot. He has been using tylenol which has been helping. 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 He had similar pain in his right side that improved with exercise. He reports after his abdominal surgery, he noticed a hernia on the left side of his abdomen. His started noticing over the past few weeks that when he coughs the hernia will pop out. He does not have any pain related to the hernia. He reports he has been taking all medications without any concerns. He continues to follow with cardiology in [place] with his last appointment being in August. At this time, the well service floorperson reported from a cardiac standpoint he is doing well. Examination Category Sub-Category Detail Notes Category Not es General Examination Heart: Regular Rate and Rhythm, no murmur, rubs or gallops Lungs: LCTAB, No wheezes, c rackles or rhonchi, Good air movement, Abdomen: Left-sided ventral h ernia, no tenderness to palpation Extremities: normal ROM,, no club dejon, swelling in left foot Skin: without acute rashes General Pleasant and Cooper[place] tive, NAD on RA, Psych Normal Mood/Affect
[2025-02-10] VITALS (9 sets, daily range): BP systolic 120–171; BP diastolic 59–87; PULSE 62–72; RESP 14–18; TEMP 36.6–36.8; O2SAT 94–98; BMI 37.3
--- OUTSIDE RECORDS SUMMARY | 2025-02-10 00:32 | XMS_ITS | Encounter Summary ---
Author Organization [employer] ([place], [place], [place], [place]) Address [address] [place] [address] Care Team Providers Care Field Auditor Name Role Phone Unavailable Primary Care Provider Unavailabl e Encounter Details Date Type Department Care Team (Late st Contact Info) Description 03/27/2021 Transcribed Document [facility] [place] Family Medicine [address] [place] [address] ProviderLele MD [facility] [place] [address] Social History Tobacco Use Types Packs/Day Years Used Date Smoking Tobacco: Never Assessed Sex and Gender Information Value Date Recorded Sex Assigned at Male 01/20/2022 1:57 PM CDT Legal Sex Male 1:57 PM CDT Gender Identity Male 01/20/2022 1:57 PM CDT Sexual Orientation Not on file documented as of this encounter Miscellaneous Notes * Cerner Conversion Note - Lele ProviderMD - 03/27/2021 12:19 PM CDT Evaluation, Physical Therapy Entered On: 03/28/2021 15:16 EDT Performed On: 03/28/2021 14:01 EDT by MARIBEL JARAMILLO, PT Student General Information, PT Visit Type, PT : Initial evaluation Patient Orders : Order Date Order Ordering 03/27/2021 12:19 PT Evaluation and Treatment Ordered By: LAUREN KENDALL MD-INT Active Diagnoses : 03/26/2021 12:00 Abdominal pain 03/26/2021 12:00 Abnormal diagnostic test Therapy Diagnosis, PT : Pt presents with generalized weakness and deconditioning secondary to s/p lapraotomy and small bowel obstruction Onset of Problem, PT : 03/26/2021 EDT Admission Date : 03/26/2021 19:17 Co-treated by, PT : Physical Therapist Personal Devices : Personal Devices No Devices Recorded Assistive Devices : Assistive Devices No Devices Recorded General Information Comment, PT : Dx: S/p exploratory lapraotomy Hx: Colectomy for colon cancer, L hand partial amputation. MARIBEL JARAMILLO PT Student - 03/28/2021 15:10 EDT General Status Patient Received Status : Supine in bed Treatment Start Time : 03/28/2021 13:43 EDT MARIBEL JARAMILLO PT Student - 03/28/2021 15:19 EDT Patient Left Status : Up in chair, Family/Visitors at bedside, All needs met and within reach CHAPIN INIGUEZ, PT - 03/28/2021 15:56 EDT RN/PCT Informed Comment : Nsg Ok'd Nsg contacted after session of pt left sitting upright in chair and that linens need to be changed. Treatment End Time : 03/28/2021 14:01 EDT Treatment Time : 18 Minute(s) MARIBEL JARAMILLO PT Student - 03/28/2021 15:19 EDT History and Environment Living Situation, Therapy : Home Patient Lives With : Spouse Persons Assisting Patient at Home : Spouse Persons Providing Information : Patient, Spouse Home Setup : One story Stairs : No Railing Inside : No Railing Outside : No MARIBEL JARAMILLO PT Student - 03/28/2021 15:19 EDT Prior Level of Function PT GRID Prior LOF Ambulation, Household : Independent Prior LOF Ambulation, Community : Independent Prior LOF Bed Mobility : Independent Prior LOF Toileting : Independent Prior LOF Transfer : Independent MARIBEL JARAMILLO PT Student - 03/28/2021 15:19 EDT Intervention Summary O2 Pre-Intervention : Room air SpO2 Pre-Intervention : 98 % BP Systolic Post-intervention : 126 mmHg BP Diastolic Post-intervention : 78 mmHg O2 Post-Intervention : Room air SpO2 Post-Intervention : 97 % MARIBEL JARAMILLO PT Student - 03/28/2021 15:19 EDT Lower Extremity RLE Active ROM : WFL LLE Active ROM : WFL MARIBEL JARAMILLO PT Student - 03/28/2021 15:19 EDT Lower Extremity Comment : MMT was not performed, but pt was able to sit to stand with min assist, experiencing some dizziness, and able to ambulate to door with min assist. CHAPIN INIGUEZ, PT - 03/28/2021 15:56 EDT Functional Mobility Mobility Grid Sit to Stand : Rehab Minimal assistance (Comment: Ax2 experienced short period of dizziness [MARIBEL JARAMILLO PT Student - 03/28/2021 15:19 EDT] ) Stand to Sit : Rehab Moderate assistance MARIBEL JARAMILLO PT Student - 03/28/2021 15:19 EDT Bed Roll Left : Rehab Minimal assistance Supine to Sit : Rehab Minimal assistance (Comment: Ax2 experienced short period of dizziness. [MARIBEL JARAMILLO PT Student - 03/28/2021 15:19 EDT] ) CHAPIN INIGUEZ, PT - 03/28/2021 15:56 EDT Sit to Stand Device : Belt, gait Stand to Sit Device : Belt, gait MARIBEL JARAMILLO PT Student - 03/28/2021 15:19 EDT Gait Training/Assessment, PT Gait Assistance Level : Assist, minimal Walking Distance : 20 feet (to door and back) MARIBEL JARAMILLO PT Student - 03/28/2021 15:19 EDT Ambulatory Devices : None, Gait belt CHAPIN INIGUEZ, PT - 03/28/2021 15:56 EDT Gait Deviations : Yes Left Lower Gait Deviation : Lesly, decreased Right Lower Gait Deviation : Lesly, decreased Stair Assist : Unable to assess/activity not appropriate MARIBEL JARAMILLO PT Student - 03/28/2021 15:19 EDT Wheelchair Mobility Wheelchair Mobility : Unable to assess/activity not appropriate MARIBEL JARAMILLO PT Student - 03/28/2021 15:19 EDT Cognition Assessment, PT Orientation : Oriented x 4 Attention Assessment : Present MARIBEL JARAMILLO PT Student - 03/28/2021 15:19 EDT Edu Topics Physical Therapy Education Grid Gait Training : Returns demonstration Role of Physical Therapy : Verbalizes understanding MARIBEL JARAMILLO PT Student - 03/28/2021 15:19 EDT Indication Assesessment, PT Physical Therapy Indicated : Yes PT Problem List : Impaired, activities daily living, Impaired, bed mobility, Impaired, endurance tolerance, Impaired, gait, Impaired, strength, Impaired, transfers Potential Barriers To Therapy : Acuity of Illness Rehabilitation Potential : Good MARIBEL JARAMILLO PT Student - 03/28/2021 15:19 EDT Plan of Care, PT PT Tx Plan/Goals Established w Patient : Yes MARIBEL JARAMILLO PT Student - 03/28/2021 15:19 EDT PT Frequency Rehab : Daily CHAPIN INIGUEZ, PT - 03/28/2021 15:56 EDT PT Duration Rehab : Fourteen days PT Treatments Planned : Balance training, Bed mobility training, Caregiver training, Gait training, Safety education, Therapeutic exercises, Transfer training MARIBEL JARAMILLO, PT Student - 03/28/2021 15:19 EDT Short Term Goals Mobility/Bed Mobility STG PT Grid Goal #1 Goal #2 Activity : Sit to stand Supine to sit Assist : Supervision or set-up Supervision or set-up Date to Meet : 04/04/2021 EDT 04/04/2021 EDT Goal Status : Initial goal Initial goal MARIBEL JARAMILLO PT Student - 03/28/2021 15:19 EDT MARIBEL JARAMILLO, PT Student - 03/28/2021 15:19 EDT Ambulation STG Grid Goal #1 Device : Belt, gait Distance : 100ft Assist : Supervision or set-up Date to Meet : 04/04/2021 EDT Goal Status : Intial Goal MARIBEL JARAMILLO PT Student - 03/28/2021 15:19 EDT Fci Goals Mobility/Bed Mobility LTG PT Grid Goal #1 Goal #2 Activity : Sit to stand Supine to sit Assist : Independent, complete Independent, complete Date to Meet : 04/11/2021 EDT 04/11/2021 EDT Goal Status : Intial Goal Intial Goal Comment : See goals below MARIBEL JARAMILLO PT Student - 03/28/2021 15:19 EDT MARIBEL JARAMILLO PT Student - 03/28/2021 15:19 EDT Ambulation LTG Grid Goal #1 Device : None Distance : 200ft Assist : Independent, complete Date to Meet : 04/11/2021 EDT Goal Status : Intial Goal MARIBEL JARAMILLO PT Student - 03/28/2021 15:19 EDT Patient/Geoscience Specialist PT LTG Grid Goal #1 Goal : 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 Date to Meet : 04/11/2021 EDT Goal Status : Intial Goal MARIBEL JARAMILLO PT Student - 03/28/2021 15:19 EDT Treatment Note Subjective Comment : Pt reports he will return home after this hospitalization and would like to be able to get back on his tractor. Additional Objective Information : Sit up at EOB with Minimal assistance and gait belt and ambulated to door and back to chair with assist of 2. Patient's donned his L hand prosthesis. CHAPIN INIGUEZ, PT - 03/28/2021 15:56 EDT Assessment : Pt presents today with deconditioning and is motivated to return home. Pt will benefit from skilled therapy to improve conditioning and functional mobility to progress towards PLOF. MARIBEL JARAMILLO PT Student - 03/28/2021 15:19 EDT Plan for Treatment : Continue PT treatment. PT has reviewed and agrees with note. CHAPIN INIGUEZ, PT - 03/28/2021 15:56 EDT Pain Assessment Pain Scaled Used : 0-10 Pain scale Pain Score Pre-Intervention : 0 Pain Comment : Patient did not state having pain. MARIBEL JARAMILLO PT Student - 03/28/2021 15:19 EDT Image 1 - Images currently included in the form version of this document have not been included in the text rendition version of the form. Anticipated Discharge Needs, OT/PT Anticipated Discharge to : Home, independently Anticipated Home Equipment : None MARIBEL JARAMILLO PT Student - 03/28/2021 15:[address] [facility] PT Charges PT Eval Moderate Complexity : 1 MARIBEL JARAMILLO PT Student - 03/28/2021 15:19 EDT documented in this encounter Plan of Treatment Not on file documented as of this encounter Visit Diagnoses Not on filedocumented in this encounter
--- OUTSIDE RECORDS SUMMARY | 2025-02-10 00:32 | XMS_ITS | Encounter Summary ---
Author Organization [employer] ([place], [place], [place], [place]) Address [address] [place] [id number] Care Team Providers Care Card Clothier Name Role Phone Unavailable Primary Care Provider Unavailabl e Encounter Details Date Type Department Care Team (Late st Contact Info) Description 03/27/2021 Transcribed Document [facility] [place] Family Medicine [address] [place] [address] ProviderLele MD [address] [place] [address] Social History Tobacco Use Types Packs/Day Years Used Date Smoking Tobacco: Never Assessed Sex and Gender Information Value Date Recorded Sex Assigned at Male 01/20/2022 1:57 PM CDT Legal Sex Male 1:57 PM CDT Gender Identity Male 01/20/2022 1:57 PM CDT Sexual Orientation Not on file documented as of this encounter Miscellaneous Notes * Cerner Conversion Note - Historical ProviderMD - 03/27/2021 12:35 PM CDT UM Authorization Entered On: 03/27/2021 12:36 EDT Performed On: 03/27/2021 12:35 EDT by MANUEL HARTMAN RN Primary Insurance Authorization Authorization and Policy Numbers : Insurance 1 Health Plan: MEDICARE Policy Number: [id number] Authorization Number: Insurance 2 Health Plan: [employer] Policy Number: [id number] Authorization Number: Insurance Primary Name : MEDICARE Policy Number: [id number] Authorized Service Begin Date-Primary : 03/26/2021 EDT Historical Authorization Comments-Primary : No Authorization Comments Found MANUEL HARTMAN RN - 03/27/2021 12:35 EDT Electronically signed by F[facility] Conversion Signal Timer Cerner at 11/11/2022 6:33 PM CDT documented in this encounter Plan of Treatment Not on file documented as of this encounter Visit Diagnoses Not on filedocumented in this encounter
--- OUTSIDE RECORDS SUMMARY | 2025-02-10 00:32 | XMS_ITS | Encounter Summary ---
Author Organization [employer] ([place], [place], [place]) Address [address] [place] [id number] Care Team Providers Care Sessions Clerk Name Role Phone Unavailable Primary Care Provider Unavailabl e Encounter Details Date Type Department Care Team (Late st Contact Info) Description 03/27/2021 Transcribed Document [facility] Radiology 1 [place] [address] Kwame Hackett MD [address] [place] [address] [address] [id number] Social History Tobacco Use Types Packs/Day Years Used Date Smoking Tobacco: Never Assessed Sex and Gender Information Value Date Recorded Sex Assigned at Male 01/20/2022 1:57 PM CDT Legal Sex Male 1:57 PM CDT Gender Identity Male 01/20/2022 1:57 PM CDT Sexual Orientation Not on file documented as of this encounter Miscellaneous Notes * Cerner Conversion Note - Kwame Hackett MD - 03/27/2021 1:22 PM EDT Patient: KEMI BOO Age: 75 years Sex: Male : 1945 Associated Diagnoses: None Author: KWAME HACKETT MD-INT Basic Information Source of history: Self, Spouse, Medical record. Chief Complaint Abdominal pain History of Present Illness Very pleasant 75-year-old white male who was recently diagnosed with colon cancer underwent a robotic right colectomy done on 03/12/[address] Jaime subsequently discharged home. Patient was seen and evaluated by Dr. Jaime in the office patient started complaining of diffuse abdominal pain with mildly distended abdomen. An outpatient CT scan abdomen and pelvis preformed results came back consistent with high-grade small bowel obstruction. Subsequently patient underwent exploratory Laparoscopy/laparotomy with laparotomy with excision of ischemic omentum, repair enterostomy and small bowel. Preformed subsequently patient admitted to the hospital for further management. Currently complaining of mild diffuse abdominal pain intensity 3/10. Nasogastric tube as well as Lai catheter in place. Discussed with his at the bedside Review of Systems Constitutional: Fatigue. Eye: Negative. Ear/Nose/Mouth/Throat: Negative. Respiratory: No shortness of breath, No cough. Cardiovascular: Negative. Gastrointestinal: Nausea, No vomiting, No diarrhea. Genitourinary: Negative. Hematology/Lymphatics: Negative. Endocrine: Negative. Immunologic: Negative. Musculoskeletal: Negative. Integumentary: Negative. Neurologic: Alert and oriented X4. Psychiatric: Anxiety. Health Status Allergies: Allergic Reactions (Selected) No Known Allergies, No qualifying data available , No qualifying data available Current medications: (Selected) Inpatient Medications Ordered Dextrose 5% with 0.45% NaCl and KCl 20 mEq/L 1,000 mL: 75 mL/Hr, IntraVENous DuoNeb 0.5 mg-2.5 mg/3 mL inhalation solution: 3 mL, Nebulized Inhalation, RT_Q6H, PRN: Shortness of Breath Fish Oil: 1,000 mg, Oral, Daily MiraLax: 17 Gram, Oral, Daily, PRN: Constipation Mylanta: 30 mL, Oral, Q6H, PRN: Heartburn Nitrostat: 0.4 mg, SubLINgual, Q5Min, PRN: Chest Pain Normal Saline Flush: 10 mL, IV Push, Q12H Pepcid: 20 mg, Oral, BID Reglan: 10 mg, IV Push, QID Theragran: 1 Tab, Oral, Daily acetaminophen: 1,000 mg, Oral, Q6H aspirin: 81 mg, Oral, Daily atorvastatin: 80 mg, Oral, At Bedtime carvedilol: 12.5 mg, Oral, BID cholecalciferol: 5,000 Units, Oral, Daily cloNIDine: 0.1 mg, Oral, Q4H, PRN: Hypertension diazePAM: 5 mg, IV Push, Q6H, PRN: Other (See Comment) heparin: 5,000 Units, SubCutaneous, Q8H hydrALAZINE: 10 mg, IV Push, Q4H, PRN: Hypertension ketorolac: 15 mg, IV Push, Q6H lisinopril: 20 mg, Oral, Daily morphine: 2 mg, IV Push, Q2H, PRN: Pain (Severe 7-10) multivitamin: 1 Tab, Oral, Daily ondansetron: 4 mg, IV Push, Q6H, PRN: Nausea/Vomiting oxyCODONE: 5 mg, Oral, Q6H, PRN: Pain (Moderate 4-6) tamsulosin: 0.4 mg, Oral, At Bedtime Documented Medications Documented Aspir-Low 81 mg oral delayed release tablet: 1 Tab, Oral, Daily, 0 Refill(s) Co-Q10 100 mg oral capsule: 1 Cap, Oral, Daily, 30 Cap, 0 Refill(s) Fish Oil 1000 mg oral capsule: 1 Cap, Oral, Daily, 0 Refill(s) MiraLax: 17 Gram, Oral, Daily, PRN: Constipation, 0 Refill(s) Nitrostat 0.4 mg sublingual tablet: 1 Tab, SubLINgual, Q5Min, not to exceed 3 doses/15 min--if pain persists, seek medical attention, PRN: as needed for chest pain, 25 Tab, 0 Refill(s) Vitamin B Complex oral capsule: 1 Cap, Oral, Daily, 30 Cap, 0 Refill(s) Vitamin C 500 mg oral tablet, chewable: 1 Tab, Chew, Daily, 0 Refill(s) Vitamin D3 5000 units oral capsule: 1 Cap, Oral, Daily, with food, 100 Cap, 0 Refill(s) atorvastatin 80 mg oral tablet: 1 Tab, Oral, At Bedtime, 0 Refill(s) carvedilol 12.5 mg oral tablet: 1 Tab, Oral, BID, 60 Tab, 0 Refill(s) multivitamin: 1 Tab, Oral, Daily, 0 Refill(s) ramipril 10 mg oral capsule: 1 Tab, Oral, Daily, 0 Refill(s) tamsulosin 0.4 mg oral capsule: 1 Cap, Oral, At Bedtime, 0 Refill(s), Medications (26) Active Scheduled: (15) #NaCl 0.9% *FLUSH* inj 10 mL 10 mL, IV Push, Q12H acetaminophen 500 mg tab 1,000 mg 2 Tab, Oral, Q6H aspirin EC 81 mg tab 81 mg 1 Tab, Oral, Daily atorvastatin 40 mg tab 80 mg 2 Tab, Oral, At Bedtime carvedilol 12.5 mg tab 12.5 mg 1 Tab, Oral, BID cholecalciferol 5,000 unit tab 5,000 Units 1 Tab, Oral, Daily famotidine 20 mg tab 20 mg 1 Tab, Oral, BID heparin 5,000 units/1 mL inj 5,000 Units 1 mL, SubCutaneous, Q8H ketorolac 30 mg/1 mL inj 15 mg 0.5 mL, IV Push, Q6H lisinopril 20 mg tab 20 mg 1 Tab, Oral, Daily metoclopramide 10 mg/2 mL inj 10 mg 2 mL, IV Push, QID multiple vitamin (Thera) tab 1 Tab, Oral, Daily multiple vitamin (Thera) tab 1 Tab, Oral, Daily omega-3 fish oil 1,000 mg cap 1,000 mg 1 Cap, Oral, Daily tamsulosin CR 0.4 mg cap 0.4 mg 1 Cap, Oral, At Bedtime Continuous: (1) D5/NaCl 0.45%-KCl 20 mEq 1,000 mL 1,000 mL, IntraVENous, 75 mL/Hr PRN: (10) al hydrox/mag hydrox/simeth 30 mL liq 30 mL, Oral, Q6H albuterol-ipratropium inh 3 mL 3 mL, Nebulized Inhalation, RT_Q6H cloNIDine 0.1 mg tab 0.1 mg 1 Tab, Oral, Q4H diazepam 10 mg/2 mL inj syr 5 mg 1 mL, IV Push, Q6H hydrALAZINE 20 mg/1 mL inj 10 mg 0.5 mL, IV Push, Q4H morphine 2 mg/1 ml inj 2 mg 1 mL, IV Push, Q2H nitroglycerin 0.4 mg tab # 25 btl 0.4 mg 1 Tab, SubLINgual, Q5Min ondansetron 4 mg/2 mL inj 4 mg 2 mL, IV Push, Q6H oxyCODONE 5 mg tab 5 mg 1 Tab, Oral, Q6H polyethylene glycol 3350 pwd 17 g pkt 17 Gram 1 Packet, Oral, Daily , Home Medications (13) Active Aspir-Low 81 mg oral delayed release tablet 81 mg = 1 Tab, Oral, Daily atorvastatin 80 mg oral tablet 80 mg = 1 Tab, Oral, At Bedtime carvedilol 12.5 mg oral tablet 12.5 mg = 1 Tab, Oral, BID Co-Q10 100 mg oral capsule 100 mg = 1 Cap, Oral, Daily Fish Oil 1000 mg oral capsule 1,000 mg = 1 Cap, Oral, Daily MiraLax 17 Gram, PRN, Oral, Daily multivitamin 1 Tab, Oral, Daily Nitrostat 0.4 mg sublingual tablet 0.4 mg = 1 Tab, PRN, SubLINgual, Q5Min ramipril 10 mg oral capsule 1 Tab, Oral, Daily tamsulosin 0.4 mg oral capsule 0.4 mg = 1 Cap, Oral, At Bedtime Vitamin B Complex oral capsule 1 Cap, Oral, Daily Vitamin C 500 mg oral tablet, chewable 500 mg = 1 Tab, Chew, Daily Vitamin D3 5000 units oral capsule 125 mcg = 1 Cap, Oral, Daily Problem list: Medical At risk for sleep apnea / IMO [id number] / Confirmed, Active Problems (8) Amputation d/t trauma Angina Arthritis At risk for sleep apnea Hyperlipidemia Hypertension Nocturia Stented coronary artery Family history. Positive for coronary artery disease in both his father and his mother Histories Past Medical History: No active or resolved past medical history items have been selected or recorded. Procedure history: Colectomy ([id number]) on 03/12/2021 at 75 Years. pacemaker implant - [facility]. cardiac catheterization with pci. aortic valve replaced, pig valve. CABG x4. left hand surgery. bilateral hip replacement. neva placed in pelvis. aortic valve replacement replacement. pacemaker replacement. Colonoscopy ([id number]). Social History Social & Psychosocial Habits Alcohol 07/23/2020 Date/Time of Last Drink 200503/04/2021 Alcohol Use History, Social Habits No Alcohol Use in Last Twelve Months No Substance Abuse 07/23/2020 Recreational Drug Use History No 03/04/2021 Recreational Drug Use History No Recreational Drug Use Last 12 Months No Tobacco 07/23/2020 Month Tobacco Last Used quit smoking 1980 03/04/2021 Smoking Status Former smoker, quit more Smokeless Tobacco Status Former smokeless tobacco Smokeless Tobacco Use History Chewing tobacco, None Month Tobacco Last Used quit cigarettes . quit chewing tobacco a couple years later Second Hand Smoke Exposure No . Physical Examination VS/Measurements Vitals Signs (last 24 hrs) Last Charted Minimum Maximum Temp 98.2 (MAR 27 04:00) 97.0 (MAR 26 13:02) 99.1 (MAR 26 14:00) Mon HR 96 (MAR 27 04:00) 60 (MAR 26 17:15) 96 (MAR 27 04:00) Periph HR 72 (MAR 26 14:35) 72 (MAR 26 14:35) 86 (MAR 26 13:02) Resp Rate H 24 (MAR 26 18:30) 16 (MAR 26 14:35) H 25 (MAR 26 18:15) SBP H 148 (MAR 27 04:00) 110 (MAR 26 17:40) H 149 (MAR 26 14:35) DBP H 92 (MAR 27 04:00) L 56 (MAR 26 18:00) H 92 (MAR 27 04:00) MAP 105 (MAR 27 04:00) 80 (MAR 26 17:20) 105 (MAR 27 04:00) SpO2 94 (MAR 27 08:48) L 92 (MAR 27 04:00) 100 (MAR 26 17:20) General: Alert and oriented, No acute distress. Eye: Pupils are equal, round and reactive to light, Extraocular movements are intact. HENT: Normocephalic, Normal hearing, Nasogastric tube in place. Neck: Supple, Non-tender. Respiratory: Lungs are clear to auscultation, Respirations are non-labored. Cardiovascular: Normal rate, Regular rhythm, No murmur, No edema. Gastrointestinal: Soft, Non-tender, Non-distended, No organomegaly. Genitourinary: Lai catheter in place. Lymphatics: No lymphadenopathy neck, axilla, groin. Musculoskeletal: Normal range of motion, Normal strength, No tenderness, No swelling, No deformity. Integumentary: Warm, Dry, Intact, No pallor. Neurologic: Alert, Oriented, Normal motor function, No focal deficits, Cranial Nerves II-XII are grossly intact. Psychiatric: Cooperative, Appropriate mood & affect. Review / Management Results review: Labs (Last four charted values) WBC H 10.7 (MAR 27) L 2.3 (MAR 26) 4.9 (MAR 26) HB L 11.4 (MAR 27) L 11.6 (MAR 26) L 9.9 (MAR 26) HCT L 35.5 (MAR 27) L 38.2 (MAR 26) L 31.5 (MAR 26) Plt 222 (MAR 27) 277 (MAR 26) 205 (MAR 26) Na L 132 (MAR 27) L 134 (MAR 26) L 134 (MAR 26) K 4.1 (MAR 27) 4.0 (MAR 26) 3.7 (MAR 26) Cl 102 (MAR 27) L 100 (MAR 26) L 99 (MAR 26) CO2 L 19 (MAR 27) 24 (MAR 26) 25 (MAR 26) BUN H 24 (MAR 27) 17 (MAR 26) 17 (MAR 26) Cr 0.80 (MAR 27) 0.80 (MAR 26) 0.70 (MAR 26) Glu R H 203 (MAR 27) 106 (MAR 26) 87 (MAR 26) Ca L 8.0 (MAR 27) L 8.0 (MAR 26) 8.6 (MAR 26) AST 31 (MAR 26) ALT 30 (MAR 26) ALK P 79 (MAR 26) T Bili H 1.4 (MAR 26) PTN 6.8 (MAR 26) ALB L 2.9 (MAR 26) , MAR 27 05:59 L 132 102 H 24 / H 203 4.1 L 19 0.80 \ MAR 27 05:59 \ L 11.4 / H 10.7 222 / L 35.5 \. Radiology results Radiology Results (Last 48 hours) [id number] -- 03/26/2021 19:17 CT Abdomen Pelvis W (03/26/2021 10:17) Result: CT SCAN OF THE ABDOMEN AND PELVIS WITH CONTRAST HISTORY: Colon cancer, status post partial colectomy 2 weeks ago.COMPARISON: February 21, 2020.PROCEDURE: The patient was injected with IV contrast. Oral contrast wasadministered. Axial images were obtained from the lung bases to thepubic symphysis by computed tomography. This study was performed withtechniques to keep radiation doses as low as reasonably achievable,(ALARA). Individualized dose reduction techniques using automatedexposure control or adjustment of mA and/or kV according to the patientsize were employed.FINDINGS: ABDOMEN: The lung bases demonstrate small bilateral pleural effusionsand bibasilar atelectasis. The heart is normal in size. The liverparenchyma is homogeneous. There is a small to moderate amount ofascites. There are densely calcified gallstones gallbladder. The spleenis unremarkable. No adrenal mass is present. The pancreas is normal. Thekidneys are normal. The aorta is normal in caliber. There are multiplemildly dilated small bowel loops measuring up to 4.4 cm in the midabdomen. The colon is decompressed. The distal small bowel appearsdecompressed. The exact point of transition is unclear.There are markedsurgical clips in the right lower quadrant.PELVIS: Imaging evaluation of the pelvis is significantly compromiseddue to extensive orthopedic hardware, bilateral hip prostheses, andtransverse screws securing the SI joints. The appendix is notidentified. The urinary bladder is unremarkable. There is nosignificant free fluid or adenopathy.IMPRESSION: 1. Abnormally dilated proximal and mid small bowel with decompresseddistal small bowel consistent with either high-grade partial or completesmall bowel obstruction.2. Gallstones in the gallbladder.3. Small to moderate amount of ascites.Images reviewed, interpreted, and dictated by Dr. Terry Gauthier.Transcribed by Radha Carty PA-C.I have personally viewed, interpreted and dictated the examination. Ihave read and agree with the above final transcribed report. Medication Changes from Previous Midnight to Current New Medications: acetaminophen 1,000 mg, Oral, Tab, Q6H, order duration: 2 Day(s), Routine, Start 03/26/21 18:00:00 EDT, Stop 03/28/21 12:00:00 EDT, 03/26/21 17:37:00 EDT RAQUEL JAIME MD-PRO Al hydroxide/Mg hydroxide/simethicone (Mylanta) 30 mL, Oral, Liquid, Q6H, PRN for Heartburn, Routine, Start 03/27/21 12:49:00 EDT KWAME HACKETT MD-INT albuterol-ipratropium (DuoNeb 0.5 mg-2.5 mg/3 mL inhalation solution) 3 mL, Nebulized Inhalation, Inh, RT_Q6H, PRN for Shortness of Breath, Routine, Start 03/27/21 12:49:00 EDT KWAME HACKETT MD-INT aspirin 81 mg, Oral, EC Tab, Daily, Routine, Start 03/27/21 11:59:00 EDT, 03/27/21 11:59:00 EDT KWAME HACKETT MD-INT atorvastatin 80 mg, Oral, Tab, At Bedtime, Routine, Start 03/27/21 21:00:00 EDT, 03/27/21 11:59:00 EDT KWAME HACKETT MD-INT carvedilol 12.5 mg, Oral, Tab, BID, Routine, Start 03/27/21 11:59:00 EDT, 03/27/21 11:59:00 EDT KWAME HACKETT MD-INT cholecalciferol 5,000 Units, Oral, Tab, Daily, Start 03/27/21 11:43:00 EDT DANI BATISTA MD cloNIDine 0.1 mg, Oral, Tab, Q4H, PRN for Hypertension, Routine, Start 03/27/21 12:49:00 EDT, 03/27/21 12:49:00 EDT KWAME HACKETT MD-INT diazePAM 5 mg, IV Push, Inj, Q6H, PRN for Other (See Comment), Routine, Start 03/26/21 17:37:00 EDT, 03/26/21 17:37:00 EDT RAQUEL JAIME MD-PRO famotidine (Pepcid) 20 mg, Oral, Tab, BID, Routine, Start 03/27/21 12:49:00 EDT, 03/27/21 12:49:00 EDT KWAME HACKETT MD-INT heparin 5,000 Units, SubCutaneous, Inj, Q8H, Routine, Start 03/26/21 17:37:00 EDT, 03/26/21 17:37:00 EDT RAQUEL JAIME MD-PRO hydrALAZINE 10 mg, IV Push, Inj, Q4H, PRN for Hypertension, Routine, Start 03/27/21 12:49:00 EDT, 03/27/21 12:49:00 EDT KWAME HACKETT MD-INT ketorolac 15 mg, IV Push, Inj, Q6H, order duration: 48 Hour(s), Routine, Start 03/26/21 18:00:00 EDT, Stop 03/28/21 12:00:00 EDT, 03/26/21 17:37:00 EDT RAQUEL JAIME MD-PRO lisinopril 20 mg, Oral, Tab, Daily, Routine, Start 03/27/21 11:59:00 EDT, 03/27/21 11:59:00 EDT KWAME HACKETT MD-INT metoclopramide (Reglan) 10 mg, IV Push, Inj, QID, Routine, Start 03/26/21 17:38:00 EDT, 03/26/21 17:38:00 EDT RAQUEL JAIME MD-PRO morphine 2 mg, IV Push, Inj, Q2H, PRN for Pain (Severe 7-10), Routine, Start 03/26/21 17:37:00 EDT, 03/26/21 17:37:00 EDT RAQUEL JAIME MD-PRO multivitamin 1 Tab, Oral, Tab, Daily, Routine, Start 03/27/21 11:59:00 EDT KWAME HACKETT MD-INT multivitamin (Theragran) 1 Tab, Oral, Tab, Daily, Start 03/27/21 11:44:00 EDT DANI BATISTA MD nitroglycerin (Nitrostat) 0.4 mg, SubLINgual, Tab, Q5Min, PRN for Chest Pain, Routine, Start 03/27/21 11:59:00 EDT, 03/27/21 11:59:00 EDT KWAME HACKETT MD-INT omega-3 polyunsaturated fatty acids (Fish Oil) 1,000 mg, Oral, Cap, Daily, Routine, Start 03/27/21 11:59:00 EDT, 03/27/21 11:59:00 EDT KWAME HACKETT MD-INT ondansetron 4 mg, IV Push, Inj, Q6H, PRN for Nausea/Vomiting, Routine, Start 03/26/21 17:37:00 EDT, 03/26/21 17:37:00 EDT RAQUEL JAIME MD-PRO oxyCODONE 5 mg, Oral, Tab, Q6H, PRN for Pain (Moderate 4-6), Routine, Start 03/26/21 17:37:00 EDT, 03/26/21 17:37:00 EDT RAQUEL JAIME MD-PRO polyethylene glycol 3350 (MiraLax) 17 Gram, Oral, Powder, Daily, PRN for Constipation, Routine, Start 03/27/21 12:49:00 EDT KWAME HACKETT MD-INT potassium chloride 1,000 mL (Dextrose 5% with 0.45% NaCl and KCl 20 mEq/L 1,000 mL) 1,000 mL, Bag Volume (mL) = 1,000, IntraVENous, Rate = 75 mL/Hr, start date 03/27/21 7:42:00 EDT, Routine, Please start this late morning., 2.41, m2 RAQUEL JAIME MD-PRO sodium chloride (Normal Saline Flush) 10 mL, IV Push, Inj, Q12H, Routine, Start 03/27/21 12:49:00 EDT KWAME HACKETT MD-INT tamsulosin 0.4 mg, Oral, CR Cap, At Bedtime, Routine, Start 03/27/21 21:00:00 EDT, 03/27/21 11:59:00 EDT KWAME HACKETT MD-INT Discontinued Medications: albuterol-ipratropium (albuterol-ipratropium 2.5 mg-0.5 mg/3 mL inhalation solution) 3 mL, Nebulized Inhalation, Inh, 1-Time, PRN for Wheezing, STAT, Start 03/26/21 16:28:00 EDT TEVIN DOS SANTOS MD-ANS fentaNYL 25 mcg, IV Push, Inj, Q10Min, PRN for Pain (Moderate 4-6), Routine, Start 03/26/21 16:58:00 EDT, 03/26/21 16:58:00 EDT TEVIN DOS SANTOS MD-ANS fentaNYL 25 mcg, IV Push, Inj, 1-Time, PRN for Pain (Severe 7-10), Routine, Start 03/26/21 16:58:00 EDT, 03/26/21 16:58:00 EDT TEVIN DOS SANTOS MD-ANS hydrALAZINE 2.5 mg, IV Push, Inj, Q10Min, order duration: 8 Time(s), PRN for Hypertension, STAT, Start 03/26/21 16:28:00 EDT, Stop Limited # of times, 03/26/21 16:28:00 EDT TEVIN DOS SANTOS MD-ANS HYDROmorphone 0.25 mg, IV Push, Inj, Q10Min, PRN for Pain (Moderate 4-6), Routine, Start 03/26/21 16:58:00 EDT, 03/26/21 16:58:00 EDT TEVIN DOS SANTOS MD-ANS HYDROmorphone 0.5 mg, IV Push, Inj, Q10Min, PRN for Pain (Severe 7-10), Routine, Start 03/26/21 16:58:00 EDT, 03/26/21 16:58:00 EDT TEVIN DOS SANTOS MD-ANS labetalol 2.5 mg, IV Push, Inj, Q10Min, PRN for Hypertension, Routine, Start 03/26/21 16:58:00 EDT, 03/26/21 16:58:00 EDT TEVIN DOS SANTOS MD-ANS Lactated Ringers Injection intravenous solution 1,000 mL 1,000 mL, Bag Volume (mL) = 1,000, IntraVENous, Rate = 50 mL/Hr, start date 03/26/21 14:52:00 EDT, Routine, 2.41, m2 RAQUEL JAIME MD-PRO magnesium sulfate 2 Gram 50 mL, IV Piggyback, Inj, 1-Time, PRN for Pain (Severe 7-10), STAT, Start 03/26/21 16:28:00 EDT, 25 mL/Hr, Infuse Over: 2 Hour(s), 03/26/21 16:28:00 EDT TEVIN DOS SANTOS MD-ANS ondansetron 4 mg, IV Push, Inj, 1-Time, PRN for Nausea/Vomiting, Routine, Start 03/26/21 16:58:00 EDT, 03/26/21 16:58:00 EDT TEVIN DOS SANTOS MD-ANS oxyCODONE 5 mg, Oral, Tab, 1-Time, PRN for Pain (Moderate 4-6), Routine, Start 03/26/21 16:58:00 EDT, 03/26/21 16:58:00 EDT TEVIN DOS SANTOS MD-ANS potassium chloride 1,000 mL (Dextrose 5% with 0.45% NaCl and KCl 20 mEq/L 1,000 mL) 1,000 mL, Bag Volume (mL) = 1,000, IntraVENous, Rate = 125 mL/Hr, start date 03/26/21 17:37:00 EDT, Routine, 2.41, m2 RAQUEL JAIME MD-PRO Impression and Plan High-grade small bowel obstruction Likely mechanical. Status post recent laparoscopic colectomy. Status post exploratory laparotomy with excision of ischemic omentum., Repair enterostomy and small bowel. Continue NGT Continue IV fluid. Monitor electrolytes and replace. Pain management. Advance diet as per colorectal recommendations Initiate incentive spirometry. Physical therapy evaluation. Colon cancer. Status post robotic right colectomy on 03/12/2021. Coronary artery disease. Status post CABG. Resume home medications. Status post aortic valve replacement. GI and DVT prophylaxis. Physical therapy evaluation CODE STATUS Full code Spent 45 minutes documented in this encounter Plan of Treatment Not on file documented as of this encounter Visit Diagnoses Not on filedocumented in this encounter
--- OUTSIDE RECORDS SUMMARY | 2025-02-10 00:32 | XMS_ITS | Encounter Summary ---
Author Organization [employer] ([place], [place], [place], [place]) Address [address] [place] [id number] Care Team Providers Care Qc Chemist Name Role Phone Unavailable Primary Care Provider Unavailabl e Encounter Details Date Type Department Care Team (Late st Contact Info) Description 03/28/2021 Transcribed Document [facility] Family Medicine [address] [place] [address] ProviderLele MD [address] [place] [address] Social History Tobacco Use Types Packs/Day Years Used Date Smoking Tobacco: Never Assessed Sex and Gender Information Value Date Recorded Sex Assigned at Male 01/20/2022 1:57 PM CDT Legal Sex Male 1:57 PM CDT Gender Identity Male 01/20/2022 1:57 PM CDT Sexual Orientation Not on file documented as of this encounter Miscellaneous Notes * Cerner Conversion Note - Historical ProviderMD - 03/28/2021 5:00 AM CDT Chart Check - Review Order Profile Entered On: 03/28/2021 5:24 EDT Performed On: 03/28/2021 5:00 EDT by Ludin Breen, RN Chart Check Powerplans Initiated/Discontinued as Appropriate : Yes All Active Orders Reviewed : Yes Ludin Breen, PRITESH - 03/28/2021 5:24 EDT Electronically signed by Félix [facility] Conversion Brush Washer Cerner at 11/11/2022 6:54 PM CDT documented in this encounter Plan of Treatment Not on file documented as of this encounter Visit Diagnoses Not on filedocumented in this encounter
--- OUTSIDE RECORDS SUMMARY | 2025-02-10 00:32 | XMS_ITS | Encounter Summary ---
Author Organization [employer] ([place], [place], [place], [place]) Address [address] [place] [address] Care Team Providers Care Cook Fry Name Role Phone Unavailable Primary Care Provider Unavailabl e Encounter Details Date Type Department Care Team (Late st Contact Info) Description 03/28/2021 Transcribed Document [facility] [place] [address] [place] [address] ProviderLele MD [address] [place] [address] Social History Tobacco Use Types Packs/Day Years Used Date Smoking Tobacco: Never Assessed Sex and Gender Information Value Date Recorded Sex Assigned at Male 01/20/2022 1:57 PM CDT Legal Sex Male 1:57 PM CDT Gender Identity Male 01/20/2022 1:57 PM CDT Sexual Orientation Not on file documented as of this encounter Miscellaneous Notes * Cerner Conversion Note - Lele ProviderMD - 03/28/2021 12:00 AM CDT Pain Assessment Entered On: 03/28/2021 5:23 EDT Performed On: 03/28/2021 0:17 EDT by Ludin Breen RN Intervention Information: ketorolac Performed by Ludin Breen RN on 03/27/2021 23:47:00 EDT ketorolac,15mg IV Push,Left Antecubital Emery Pain Assessment Pain Assessment : Follow-up assessment Pain Scale Goal : 4 Pain Scale Used : 0-10 Scale Assume Pain Present : Yes Opioid Adverse Effects : Not applicable Pain Improved by Intervention : Yes Ludin Breen RN - 03/28/2021 5:22 EDT Pain Scale Intensity : 2 Ludin Breen RN - 03/28/2021 5:22 EDT Image 4 - Images currently included in the form version of this document have not been included in the text rendition version of the form. Electronically signed by Félix, [facility] Conversion Design Engineering Specialist Cerner at 11/11/2022 6:51 PM CDT documented in this encounter Plan of Treatment Not on file documented as of this encounter Visit Diagnoses Not on filedocumented in this encounter
--- OUTSIDE RECORDS SUMMARY | 2025-02-10 00:32 | XMS_ITS | Encounter Summary ---
Author Organization [employer] ([place], [place], [place], [place]) Address [address] [place] [address] Care Team Providers Care Police Matron Name Role Phone Unavailable Primary Care Provider Unavailabl e Encounter Details Date Type Department Care Team (Late st Contact Info) Description 03/28/2021 Transcribed Document [facility] [place] Family Medicine [facility] [place] [address] ProviderLele MD [facility] [place] [address] Social History Tobacco Use Types Packs/Day Years Used Date Smoking Tobacco: Never Assessed Sex and Gender Information Value Date Recorded Sex Assigned at Male 01/20/2022 1:57 PM CDT Legal Sex Male 1:57 PM CDT Gender Identity Male 01/20/2022 1:57 PM CDT Sexual Orientation Not on file documented as of this encounter Miscellaneous Notes * Cerner Conversion Note - Lele Shah MD - 03/28/2021 11:24 AM CDT On Going Discharge Planning Entered On: 03/28/2021 11:26 EDT Performed On: 03/28/2021 11:24 EDT by YANCI FERRERA RN-Data Warehousing ManagerPug Machine Operator Progress Note Discharge Arrangements : Patient Post-Acute Information Patient Name: KEMI BOO Gender: Male : 49 Age: 75 Years No Post-Acute Placement(s) Listed No Post-Acute Service(s) Listed No Cur[place]pan Referral(s) Listed Barriers to Discharge Identified : Clinical Condition of Patient Barriers to Discharge Unresolved : Clinical Condition of Patient Patient Discharge Goal : Home Is the Patient Meeting Medical Necessity : Yes YANCI FERRERA RN-Data Warehousing Manager - 03/28/2021 11:24 EDT Narrative Progress Note Narrative Progress Note : RRS: High. Boost: 3. LOS: 2 days. ELOS: 3 days. COVID Neg 03/26/2021. Chart reviewed. NG tube remains in place, clear liquid diet. Continue to wait on bowel function to return. No needs anticipated for home. CM will follow. YANCI FERRERA, RN-Data Warehousing Manager - 03/28/2021 11:27 EDT documented in this encounter Plan of Treatment Not on file documented as of this encounter Visit Diagnoses Not on filedocumented in this encounter
--- OUTSIDE RECORDS SUMMARY | 2025-02-10 00:32 | XMS_ITS | Encounter Summary ---
Author Organization [employer] ([place], [place], [place], [place]) Address [address] [place] [address] Care Team Providers Care Legal Investigator Name Role Phone Unavailable Primary Care Provider Unavailabl e Encounter Details Date Type Department Care Team (Late st Contact Info) Description 03/12/2021 Transcribed Document [facility] [place] Family Medicine [address] [place] [address] ProviderLele MD [address] [place] [address] Social History Tobacco Use Types [...] Conversion Note - Lele Shah MD - 03/12/2021 12:00 PM CDT Pain Assessment Entered On: 03/12/2021 15:10 EDT Performed On: 03/12/2021 14:04 EDT by WILMAN PUGA RN Intervention Information: acetaminophen Performed by WILMAN PUGA RN on 03/12/2021 13:04:00 EDT acetaminophen,1000mg Oral Pain Assessment Pain Assessment : Follow-up assessment Pain Scale Goal : 4 Pain Scale Used : 0-10 Scale Quality : Tender Pain Improved by Intervention : Yes WILMAN PUGA RN - 03/12/2021 15:09 EDT Pain Scale Intensity : 3 WILMAN PUGA RN - 03/12/2021 15:09 EDT Image 4 - Images currently included in the form version of this document have not been included in the text rendition version of the form. Electronically signed by Iglesai Heard Conversion Correction Officer [facility] Cerner at 11/11/2022 6:55 PM CDT documented in this encounter Plan of Treatment Not on file documented as of this encounter Visit Diagnoses Not on filedocumented in this encounter
--- OUTSIDE RECORDS SUMMARY | 2025-02-10 00:32 | XMS_ITS | Encounter Summary ---
Author Organization [employer] ([place], [place], [place], [place]) Address [address] [place] [address] Care Team Providers Care Water Plant Operator Name Role Phone Unavailable Primary Care Provider Unavailabl e Encounter Details Date Type Department Care Team (Late st Contact Info) Description 03/28/2021 Transcribed Document [facility] [place] [address] [place] [address] ProviderLele MD [address] [place] [address] Social History Tobacco Use Types [...] On: 03/28/2021 5:23 EDT Performed On: 03/28/2021 0:47 EDT by Ludin Breen RN Intervention Information: acetaminophen Performed by Ludin Breen RN on 03/27/2021 23:47:00 EDT acetaminophen,1000mg Oral Pain Assessment Pain Assessment : Follow-up assessment Pain Scale Goal : 4 Pain Scale Used : 0-10 Scale Opioid Adverse Effects : Not applicable Pain Improved by Intervention : Yes Ludin Breen RN - 03/28/2021 5:23 EDT Pain Scale Intensity : 2 Ludin Breen RN - 03/28/2021 5:23 EDT Image 4 - Images currently included in the form version of this document have not been included in the text rendition version of the form. Electronically signed by Iglesia Heard Conversion Sr. Vendor Management Associate Cerner at 11/11/2022 6:51 PM CDT documented in this encounter Plan of Treatment Not on file documented as of this encounter Visit Diagnoses Not on filedocumented in this encounter
--- OUTSIDE RECORDS SUMMARY | 2025-02-10 00:32 | XMS_ITS | Encounter Summary ---
Author Organization [employer] ([place], [place], [place], [place]) Address [address] [place] [id number] Care Team Providers Care Intelligence Officer Name Role Phone Unavailable Primary Care Provider Unavailabl e Encounter Details Date Type Department Care Team (Late st Contact Info) Description 03/27/2021 Transcribed Document [facility] [place] Family Medicine [address] [place] [address] ProviderLele MD [address] [place] [address] Social History Tobacco Use Types [...] Conversion Note - Historical ProviderMD - 03/27/2021 6:00 PM CDT Pain Assessment Entered On: 03/27/2021 19:57 EDT Performed On: 03/27/2021 18:27 EDT by Cynthia Aguilar RN Intervention Information: ketorolac Performed by Cynthia Aguilar RN on 03/27/2021 17:57:00 EDT ketorolac,15mg IV Push,Left Antecubital [place]man Pain Assessment Pain Assessment : Follow-up assessment Cynthia Aguilar RN - 03/27/2021 19:57 EDT documented in this encounter Plan of Treatment Not on file documented as of this encounter Visit Diagnoses Not on filedocumented in this encounter
--- OUTSIDE RECORDS SUMMARY | 2025-02-10 00:32 | XMS_ITS | Encounter Summary ---
Author Organization [employer] ([place], [place], [place], [place]) Address [address] [place] [id number] Care Team Providers Care Black Topper Name Role Phone Unavailable Primary Care Provider Unavailabl e Encounter Details Date Type Department Care Team (Late st Contact Info) Description 03/27/2021 Transcribed Document [facility] [place] Family Medicine [address] [place] [address] ProviderLele MD [address] [place] [address] Social History Tobacco Use Types [...] Conversion Note - Historical ProviderMD - 03/27/2021 5:00 PM CDT Chart Check - Review Order Profile Entered On: 03/27/2021 16:28 EDT Performed On: 03/27/2021 17:00 EDT by Cynthia Aguilar RN Chart Check Powerplans Initiated/Discontinued as Appropriate : Yes All Active Orders Reviewed : Yes Cynthia Aguilar RN - 03/27/2021 16:28 EDT Electronically signed by Félix [facility] Conversion Handcrew Foreman Cerner at 11/11/2022 6:43 PM CDT documented in this encounter Plan of Treatment Not on file documented as of this encounter Visit Diagnoses Not on filedocumented in this encounter
--- OUTSIDE RECORDS SUMMARY | 2025-02-10 00:32 | XMS_ITS | Encounter Summary ---
Author Organization [employer] ([place], [place], [place], [place]) Address [address] [place] [address] Care Team Providers Care Conventional Machinist Name Role Phone Unavailable Primary Care Provider Unavailabl e Encounter Details Date Type Department Care Team (Late st Contact Info) Description 03/27/2021 Transcribed Document [facility] [place] [address] [place] [address] ProviderLele MD [address] [place] [address] Social History Tobacco Use Types [...] Conversion Note - Historical ProviderMD - 03/27/2021 7:58 PM CDT Event Note Entered On: 03/27/2021 20:01 EDT Performed On: 03/27/2021 19:58 EDT by Cynthia Aguilar RN Event Note Event Date/Time : 03/27/2021 19:58 EDT Description of Event : Lai removed at 1330. Patient assisted to sit in chair for majority of afternoon. Patient ambulated in room with assist. Patient unable to void on own. Bladder scan at 1930 revealed <100 mL urine retention. No indication to straight cath patient at this time. Communicated this to retail shift supervisor RNLudin. Fluids maintained at 125 mL/hr since patient was unable to void. Cynthia Aguilar RN - 03/27/2021 19:58 EDT Electronically signed by Félix [facility] Conversion Operations Recruiter Jonel at 11/11/2022 6:48 PM CDT documented in this encounter Plan of Treatment Not on file documented as of this encounter Visit Diagnoses Not on filedocumented in this encounter
--- OUTSIDE RECORDS SUMMARY | 2025-02-10 00:32 | XMS_ITS | Encounter Summary ---
Author Organization [employer] [facility] ([place], [place], [place], [place]) Address [address] [place] [address] Care Team Providers Care Art Specialist Name Role Phone Unavailable Primary Care Provider Unavailabl e Encounter Details Date Type Department Care Team (Late st Contact Info) Description 03/28/2021 Transcribed Document [facility] [place] Family Medicine [facility] [place] [address] ProviderLele MD [facility] [place] [address] Social History Tobacco Use Types [...] Conversion Note - Lele ProviderMD - 03/28/2021 4:03 PM CDT Treatment Intervention, PT Entered On: 03/29/2021 16:21 EDT Performed On: 03/29/2021 16:19 EDT by ASHLEIGH COELLO PT General Information, PT Visit Type, PT : Treatment Note Patient Orders : Order Date Order Ordering 03/27/2021 12:19 PT Evaluation and Treatment Ordered By: LAUREN KENDALL MD-INT 03/28/2021 16:03 PT Additional Treatment Ordered By: CHAPIN INIGUEZ PT Active Diagnoses : 03/26/2021 12:00 Abdominal pain 03/26/2021 12:00 Abnormal diagnostic test Therapy Diagnosis, PT : Pt presents with generalized weakness and deconditioning secondary to s/p lapraotomy and small bowel obstruction Admission Date : 03/26/2021 19:17 Personal Devices : Personal Devices No Devices Recorded Assistive Devices : Assistive Devices No Devices Recorded ASHLEIGH COELLO PT - 03/29/2021 16:19 EDT General Status Patient Received Status : Supine in bed Treatment Start Time : 03/29/2021 13:20 EDT Patient Left Status : Up in chair, All needs met and within reach Treatment End Time : 03/29/2021 13:52 EDT Treatment Time : 32 Minute(s) ASHLEIGH COELLO, PT - 03/29/2021 16:19 EDT Functional Mobility Mobility Grid Supine to Sit : Rehab Moderate assistance Sit to Stand : Rehab Minimal assistance (Comment: x 2 [ASHLEIGH COELLO, PT - 03/29/2021 16:21 EDT] ) Stand to Sit : Rehab Minimal assistance ASHLEIGH COELLO, PT - 03/29/2021 16:21 EDT Gait Training/Assessment, PT Weight Bearing Status : Full Gait Assistance Level : Assist, minimal Walking Distance : x 1-2, 20' in room then transferred to chair Ambulatory Devices : Gait belt, Walker, front wheel ASHLEIGH COELLO, PT - 03/29/2021 16:21 EDT Activity Tolerance, PT Activity Comment : Continues to improve ASHLEIGH COELLO PT - 03/29/2021 16:21 EDT Cognitive Treatment, PT Orientation : Oriented x 4 Follows Basic Command Findings, PT : yes ASHLEIGH COELLO PT - 03/29/2021 16:21 EDT Edu Topics Physical Therapy Education Grid Role of Physical Therapy : Returns demonstration Therapeutic Exercises : Returns demonstration Use of Assistive Device : Returns demonstration, Needs reinforcement ASHLEIGH COELLO PT - 03/29/2021 16:21 EDT Plan of Care, PT PT Tx Plan/Goals Established w Patient : Yes ASHLEIGH COELLO PT - 03/29/2021 16:21 EDT Short Term Goals Mobility/Bed Mobility STG PT Grid Goal #1 Goal #2 Activity : Sit to stand Supine to sit Assist : Supervision or set-up Supervision or set-up Date to Meet : 04/04/2021 EDT 04/04/2021 EDT Goal Status : Progressing, continue Progressing, continue ASHLEIGH COELLO, PT - 03/29/2021 16:21 EDT ASHLEIGH COELLO PT - 03/29/2021 16:21 EDT Ambulation STG Grid Goal #1 Device : Belt, gait Distance : 100ft Assist : Supervision or set-up Date to Meet : 04/04/2021 EDT Goal Status : Progressing, continue ASHLEIGH COELLO, PT - 03/29/2021 16:21 EDT Residential Goals Mobility/Bed Mobility LTG PT Grid Goal #1 Goal #2 Activity : Sit to stand Supine to sit Assist : Independent, complete Independent, complete Date to Meet : 04/11/2021 EDT 04/11/2021 EDT Goal Status : Intial Goal Intial Goal Comment : See goals below ASHLEIGH COELLO, PT - 03/29/2021 16:21 EDT ASHLEIGH COELLO, PT - 03/29/2021 16:21 EDT Ambulation LTG Grid Goal #1 Device : None Distance : 200ft Assist : Independent, complete Date to Meet : 04/11/2021 EDT Goal Status : Intial Goal ASHLEIGH COELLO, PT - 03/29/2021 16:21 EDT Patient/Credit Support Specialist PT LTG Grid Goal #1 Goal : 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 Date to Meet : 04/11/2021 EDT Goal Status : Intial Goal ASHLEIGH COELLO, PT - 03/29/2021 16:21 EDT Treatment Note Subjective Comment : Patient initally declines secondary to needing pain medicine or his valium prior to working with PT. With encouragement patient agrees. (pain med due in 45 minutes). States his pain is 5-6/10. Nsg okays to disconnect NG tube during PT. Patient's Response to Treatment : Stable, cooperative Additional Objective Information : Supine to sit rolling to left, mod assist x 1. WHile EOB pt had posterior lean - worked on gentle forward trunk flexion and WB thru bilateral feet. Pt donned left hand prosthetic. Sit to stand, hand held x 2, pt ambulated to door and back to chair, transferred to chair. While PT changed bed linens (soiled) pt performed AROM bilateral UE's and LE's. Assessment : Patient slowly progressing with mobility and endurance. Needs encouragement. Plan for Treatment : Per POC ASHLEIGH COELLO, PT - 03/29/2021 16:21 EDT Pain Assessment Pain Scaled Used : 0-10 Pain scale Pain Score Pre-Intervention : 5 Pain Score Post-Intervention. : 5 ASHLEIGH COELLO, PT - 03/29/2021 16:21 EDT Image 1 - Images currently included in the form version of this document have not been included in the text rendition version of the form. Anticipated Discharge Needs, OT/PT Anticipated Discharge to : Home, with home health ASHLEIGH COELLO, PT - 03/29/2021 16:21 EDT [place] PT Charges PT Therap. Exercise 15 min : 1 PT Ther Activities Ea 15 Min : 1 ASHLEIGH COELLO, PT - 03/29/2021 16:21 EDT Electronically signed by Félix, [facility] Conversion Design Drafter Cerner at 11/13/2022 11:32 AM CDT documented in this encounter Plan of Treatment Not on file documented as of this encounter Visit Diagnoses Not on filedocumented in this encounter
--- OUTSIDE RECORDS SUMMARY | 2025-02-10 00:32 | XMS_ITS | Encounter Summary ---
Author Organization [employer] ([place], [place], [place], [place]) Address [address] [place] [address] Care Team Providers Care Director Acute Name Role Phone Unavailable Primary Care Provider Unavailabl e Encounter Details Date Type Department Care Team (Late st Contact Info) Description 03/28/2021 Transcribed Document [facility] [place] Family Medicine [address] [place] [address] ProviderLele MD [address] [place] [address] Social History Tobacco Use Types [...] Conversion Note - Lele ProviderMD - 03/28/2021 9:53 PM CDT Pain Assessment Entered On: 03/30/2021 3:28 EDT Performed On: 03/29/2021 3:11 EDT by Eduard Arboleda NON EMP RN Intervention Information: acetaminophen Performed by Ludin Breen RN on 03/29/2021 02:11:00 EDT acetaminophen,650mg Oral,Pain (Mild 1-3) Pain Assessment Pain Assessment : Follow-up assessment Pain Scale Goal : 4 Pain Scale Used : 0-10 Scale Pain Improved by Intervention : Yes Eduard Arboleda NON EMP RN - 03/30/2021 3:27 EDT Pain Scale Intensity : 1 Eduard Arboleda NON EMP RN - 03/30/2021 3:27 EDT Image 4 - Images currently included in the form version of this document have not been included in the text rendition version of the form. Electronically signed by Félix, [facility] Conversion Records And Tape Recordings Engineer Cerner at 11/11/2022 6:33 PM CDT documented in this encounter Plan of Treatment Not on file documented as of this encounter Visit Diagnoses Not on filedocumented in this encounter
--- OUTSIDE RECORDS SUMMARY | 2025-02-10 00:32 | XMS_ITS | Encounter Summary ---
Author Organization [employer] ([place], [place], [place], [place]) Address [address] [place] [address] Care Team Providers Care Lorry Weigher Name Role Phone Unavailable Primary Care Provider Unavailabl e Encounter Details Date Type Department Care Team (Late st Contact Info) Description 03/12/2021 Transcribed Document [facility] [place] [address] [place] [address] ProviderLele MD [place] [address] Social History Tobacco Use Types [...] Note - Lele Shah MD - 03/12/2021 12:26 PM CDT Patient: KEMI BOO Age: 75 years Sex: Male : 1945 Associated Diagnoses: None Author: ANNA CAMEJO MD-INT Basic Information ADMISSION HISTORY AND PHYSICAL DATE OF ADMISSION: Admit Date 03/12/2021 06:52 PRIMARY CARE PROVIDER: Primary Care Provider SULLY BLANKENSHIP (REF)ELROY Chief Complaint 1. colon cancer 2. Abdominal pain History of Present Illness This is a 75-year-old white male who was found to have colon cancer patient was referred to colorectal surgery. Patient underwent robotic colectomy 03/12/2021. Patient is seen and evaluated in the recovery room. Abdominal pain is controlled Review of Systems Constitutional: No fever, No chills, No weakness. Eye: No recent visual problem, No discharge. Ear/Nose/Mouth/Throat: No decreased hearing, No nasal congestion, No sore throat. Respiratory: No shortness of breath, No cough, No sputum production, No wheezing. Cardiovascular: No chest pain, No peripheral edema. Gastrointestinal: No nausea, No vomiting, No diarrhea, No heartburn, No abdominal pain, No hematemesis. Genitourinary: No dysuria, No hematuria. Hematology/Lymphatics: No bruising tendency. Endocrine: No excessive thirst, No polyuria, No cold intolerance. Immunologic: Not immunocompromised, No recurrent fevers. Musculoskeletal: No neck pain, No muscle pain. Integumentary: No rash, No pruritus, No dryness. Neurologic: No numbness, No tingling. Psychiatric: No anxiety, No depression, Not suicidal. VASCULAR: No claudication Health Status Allergies: Allergic Reactions (Selected) No Known Allergies, No qualifying data available Current medications: (Selected) Inpatient Medications Ordered Dextrose 5% with 0.45% NaCl and KCl 20 mEq/L 1,000 mL: 125 mL/Hr, IntraVENous HYDROmorphone: 0.25 mg, IV Push, Q10Min, PRN: Pain (Moderate 4-6) HYDROmorphone: 0.5 mg, IV Push, Q10Min, PRN: Pain (Severe 7-10) Lactated Ringers Injection intravenous solution 1,000 mL: 20 mL/Hr, IntraVENous Pepcid: 20 mg, IV Push, BID acetaminophen: 1,000 mg, Oral, Q6H alvimopan: 12 mg, Oral, BID carvedilol: 12.5 mg, Oral, BID cloNIDine: 0.1 mg, Oral, Q3H, PRN: Hypertension diazePAM: 5 mg, IV Push, Q6H, PRN: Other (See Comment) fentaNYL: 25 mcg, IV Push, 1-Time, PRN: Pain (Severe 7-10) fentaNYL: 25 mcg, IV Push, Q10Min, PRN: Pain (Moderate 4-6) heparin: 5,000 Units, SubCutaneous, Q8H hydrALAZINE: 10 mg, IV Push, Q3H, PRN: Hypertension ketorolac: 15 mg, IV Push, Q6H morphine: 2 mg, IV Push, Q2H, PRN: Pain (Severe 7-10) nitroglycerin: 0.4 mg, SubLINgual, Q5Min, PRN: Chest Pain ondansetron: 4 mg, IV Push, 1-Time, PRN: Nausea/Vomiting ondansetron: 4 mg, IV Push, Q6H, PRN: Nausea/Vomiting oxyCODONE: 5 mg, Oral, 1-Time, PRN: Pain (Moderate 4-6) oxyCODONE: 5 mg, Oral, Q6H, PRN: Pain (Moderate 4-6) tamsulosin: 0.4 mg, Oral, At Bedtime Documented Medications Documented Co-Q10: 100 mg, Oral, Daily, 0 Refill(s) Fish Oil: 1,000 mg, Oral, Daily, 0 Refill(s) MiraLax: 17 Gram, Oral, Daily, PRN: Constipation, 0 Refill(s) Vitamin B Complex oral capsule: 1 Cap, Oral, Daily, 30 Cap, 0 Refill(s) Vitamin C: 500 mg, Oral, Daily, 0 Refill(s) Vitamin D3: 5,000 Int Units, Oral, Daily, 0 Refill(s) aspirin: 81 mg, Oral, Daily, 0 Refill(s) atorvastatin 40 mg oral tablet: 1 Tab, Oral, At Bedtime, 0 Refill(s) carvedilol 12.5 mg oral tablet: 1 Tab, Oral, BID, 0 Refill(s) multivitamin: 1 Tab, Oral, Daily, 0 Refill(s) nitroglycerin: 0.4 mg, SubLINgual, Q5Min, PRN: Chest Pain, 0 Refill(s) ramipril 5 mg oral capsule: 1 Cap, Oral, Daily, 0 Refill(s) tamsulosin 0.4 mg oral capsule: 1 Cap, Oral, At Bedtime, 0 Refill(s), Medications (22) Active Scheduled: (7) acetaminophen 500 mg tab 1,000 mg 2 Tab, Oral, Q6H alvimopan 12 mg cap 12 mg 1 Cap, Oral, BID carvedilol 12.5 mg tab 12.5 mg 1 Tab, Oral, BID famotidine 20 mg/2 mL inj 20 mg 2 mL, IV Push, BID heparin 5,000 units/1 mL inj 5,000 Units 1 mL, SubCutaneous, Q8H ketorolac 30 mg/1 mL inj 15 mg 0.5 mL, IV Push, Q6H tamsulosin CR 0.4 mg cap 0.4 mg 1 Cap, Oral, At Bedtime Continuous: (2) D5/NaCl 0.45%-KCl 20 mEq 1,000 mL 1,000 mL, IntraVENous, 125 mL/Hr lactated ringers 1,000 mL 1,000 mL, IntraVENous, 20 mL/Hr PRN: (13) cloNIDine 0.1 mg tab 0.1 mg 1 Tab, Oral, Q3H diazepam 10 mg/2 mL inj syr 5 mg 1 mL, IV Push, Q6H fentaNYL 100 mcg/2 mL inj 25 mcg 0.5 mL, IV Push, Q10Min fentaNYL 100 mcg/2 mL inj 25 mcg 0.5 mL, IV Push, 1-Time hydrALAZINE 20 mg/1 mL inj 10 mg 0.5 mL, IV Push, Q3H HYDROmorphone 1 mg/1 mL inj 0.25 mg 0.25 mL, IV Push, Q10Min HYDROmorphone 1 mg/1 mL inj 0.5 mg 0.5 mL, IV Push, Q10Min morphine 2 mg/1 ml inj 2 mg 1 mL, IV Push, Q2H nitroglycerin 0.4 mg tab # 25 btl 0.4 mg 1 Tab, SubLINgual, Q5Min ondansetron 4 mg/2 mL inj 4 mg 2 mL, IV Push, 1-Time ondansetron 4 mg/2 mL inj 4 mg 2 mL, IV Push, Q6H oxyCODONE 5 mg tab 5 mg 1 Tab, Oral, 1-Time oxyCODONE 5 mg tab 5 mg 1 Tab, Oral, Q6H Problem list: Medical At risk for sleep apnea / IMO [id number] / Confirmed, Active Problems (8) Amputation d/t trauma Angina Arthritis At risk for sleep apnea Hyperlipidemia Hypertension Nocturia Stented coronary artery Histories Past Medical History: No active or resolved past medical history items have been selected or recorded. Family History: No family history items have been selected or recorded., Significant for hypertension Procedure history: pacemaker implant - [facility]. cardiac catheterization with pci. aortic valve replaced, pig valve. CABG x4. left hand surgery. bilateral hip replacement. neva placed in pelvis. aortic valve replacement replacement. pacemaker replacement. Colonoscopy ([id number]). Social History Social & Psychosocial Habits Alcohol 07/23/2020 Date/Time of Last Drink 200503/04/2021 Alcohol Use History, Social Habits No Alcohol Use in Last Twelve Months No Substance Abuse 07/23/2020 Recreational Drug Use History No 03/04/2021 Recreational Drug Use History No Recreational Drug Use Last 12 Months No Tobacco 07/23/2020 Month Tobacco Last Used quit smoking 197903/04/2021 Smoking Status Former smoker, quit more Smokeless Tobacco Status Former smokeless tobacco Smokeless Tobacco Use History Chewing tobacco, None Month Tobacco Last Used quit cigarettes . quit chewing tobacco a couple years later Second Hand Smoke Exposure No . Physical Examination VS/Measurements Vitals Signs (last 24 hrs) Last Charted Minimum Maximum Temp 98.4 (MAR 12 11:30) 98.4 (MAR 12 11:30) 98.3 (MAR 12 06:00) Mon HR 60 (MAR 12 11:50) 60 (MAR 12 10:43) 65 (MAR 12:) Resp Rate 16 (MAR 12 11:50) L 12 (MAR 12 11:00) 18 (MAR 12:) SBP 111 (MAR 12 11:50) 101 (MAR 12 11:00) H 178 (MAR 12:) DBP L 56 (MAR 12 11:50) L 50 (MAR 12 11:00) 75 (MAR 12:) MAP 77 (MAR 12 11:50) 72 (MAR 12 11:00) 112 (MAR 12:) SpO2 95 (MAR 12 11:50) 95 (MAR 12 06:00) 100 (MAR 12:) General: Alert and oriented, No acute distress. Eye: Pupils are equal, round and reactive to light, Extraocular movements are intact, Normal conjunctiva. HENT: Ear: Within normal limits. Nose: Both nostrils, Within normal limits. Neck: Supple, Non-tender, No jugular venous distention, No lymphadenopathy, No thyromegaly. Respiratory: Breath sounds are equal, Symmetrical chest wall expansion, No chest wall tenderness. Respirations: Not tachypneic. Pattern: Regular. Breath sounds: Bilateral, No rales present, No rhonchi present, No wheezes present. Breath sounds: No rales present. Cardiovascular: S1, S2, No murmur, Non-displaced PMI. Arterial pulses: Bilateral, Posterior tibial, Dorsalis pedis, 3+. Capillary refill: Within normal limits. Gastrointestinal: Soft, Non-tender, Non-distended, Normal bowel sounds, No organomegaly. Genitourinary: No costovertebral angle tenderness. Musculoskeletal: Normal range of motion, Normal strength, No tenderness, No swelling. Integumentary: Warm. Neurologic: Alert, Oriented, Normal sensory, Normal motor function, Cranial Nerves II-XII are grossly intact. Cognition and Speech: Oriented, Speech clear and coherent. Psychiatric: Cooperative, Appropriate mood & affect. Review / Management Results review: Labs (Last four charted values) WBC 4.1 (MAR 05) HB L 10.5 (MAR 05) HCT L 33.6 (MAR 05) Plt L 153 (MAR 05) Na 137 (MAR 05) K 4.1 (MAR 05) Cl 106 (MAR 05) CO2 26 (MAR 05) BUN 16 (MAR 05) Cr 0.70 (MAR 05) Glu R 97 (MAR 05) Ca 9.1 (MAR 05) . Radiology results No qualifying data available RADIOLOGIC IMAGING: No Radiology Results Found Impression and Plan ASSESSMENT AND PLANS: Robotic right colectomy for colon cancer Colon cancer status post colectomy Subjective abdominal pain currently controlled Dehydration. Gentle IV hydration postoperatively Aortic Valve replacement Pacemaker Essential hypertension. Resume Coreg. Temporarily hold lisinopril. Monitor vital signs Gastrointestinal ( GI ) prophylaxis : I started the patient on Pepcid DEEP VEIN THROMBOSIS ( DVT ) prophylaxis: Placed on subcutaneous heparin per surgery I placed the patient on sequential compression devices ( Compression Boots ) while in bed. CODE STATUS: FULL code. TIME SPENT : 45 minutes in evaluation documented in this encounter Plan of Treatment Not on file documented as of this encounter Visit Diagnoses Not on filedocumented in this encounter
--- OUTSIDE RECORDS SUMMARY | 2025-02-10 00:32 | XMS_ITS | Encounter Summary ---
Author Organization [employer] ([place], [place], [place], [place]) Address [address] [place] [address] Care Team Providers Care Wireless Architect Name Role Phone Unavailable Primary Care Provider Unavailabl e Encounter Details Date Type Department Care Team (Late st Contact Info) Description 03/27/2021 Transcribed Document [facility] [place] [address] [place] [address] ProviderLele MD [address] [place] [address] Social History Tobacco Use Types [...] Conversion Note - Historical ProviderMD - 03/27/2021 12:00 PM CDT Pain Assessment Entered On: 03/27/2021 16:32 EDT Performed On: 03/27/2021 14:18 EDT by Cynthia Aguilar RN Intervention Information: acetaminophen Performed by Cynthia Aguilar RN on 03/27/2021 13:18:00 EDT acetaminophen,1000mg Oral Pain Assessment Pain Assessment : Follow-up assessment Cynthia Aguilar RN - 03/27/2021 16:32 EDT documented in this encounter Plan of Treatment Not on file documented as of this encounter Visit Diagnoses Not on filedocumented in this encounter
--- OUTSIDE RECORDS SUMMARY | 2025-02-10 00:32 | XMS_ITS | Encounter Summary ---
Author Organization [employer] ([place], [place], [place], [place]) Address [address] [place] [address] Care Team Providers Care Chef Head Name Role Phone Unavailable Primary Care Provider Unavailabl e Encounter Details Date Type Department Care Team (Late st Contact Info) Description 03/27/2021 Transcribed Document [facility] [place] [address] [place] [address] ProviderLele MD [address] [place] [address] Social History Tobacco Use Types [...] Conversion Note - Historical ProviderMD - 03/27/2021 8:33 AM CDT ED Event Note Entered On: 03/27/2021 8:33 EDT Performed On: 03/27/2021 8:33 EDT by Tere Duckworth RN ED Event Note ED Event Date/Time : 03/27/2021 8:33 EDT ED Description of Event : Pt remains on ED board. Per notes - patient went to OR yesterday approx 13:30. Tere Duckworth RN - 03/27/2021 8:33 EDT documented in this encounter Plan of Treatment Not on file documented as of this encounter Visit Diagnoses Not on filedocumented in this encounter
--- OUTSIDE RECORDS SUMMARY | 2025-02-10 00:32 | XMS_ITS | Encounter Summary ---
Author Organization [employer] ([place], [place], [place], [place]) Address [address] [place] [address] Care Team Providers Care Department Of Sociology Chair Name Role Phone Unavailable Primary Care Provider Unavailabl e Encounter Details Date Type Department Care Team (Late st Contact Info) Description 03/27/2021 Transcribed Document [facility] [place] [address] [place] [address] ProviderLele MD [address] [place] [address] Social History Tobacco Use Types [...] Conversion Note - Lele Shah MD - 03/27/2021 1:17 PM CDT Initial Discharge Planning Entered On: 03/27/2021 13:22 EDT Performed On: 03/27/2021 13:17 EDT by YANCI FERRERA RN-Culinary Worker Initial Assessment I Previously Documented Living Environment : No qualifying data available. Patient Lives With : Spouse Emergency Contact #1 : Kaylah Boo Emergency Contact #1 Phone Number : [phone] Emergency Contact #1 Relationship : spouse Emergency Contact #2 : * Emergency Contact #2 Phone Number : * Emergency Contact #2 Relationship : * Enter Doctors Name : Dez Cerna Does Patient have PCP Listed? : Yes Legal Guardian : No Is Guardianship Needed : No YANCI FERRERA RN-Culinary Worker - 03/27/2021 13:17 EDT Initial Assessment II Sensory and Motor Deficits : None Current Home Treatments and Equipment : None Services and Community Resources : Home Health (Comment: Pt states that he has used HH in the past, unable to recall name of agency [YANCI FERRERA RN-Culinary Worker - 03/27/2021 13:17 EDT] ) Services and Community Resources Addl Comments : Pt states that he has beent orehab in the past Does the Patient have a Floor to SNF Benefit? : Yes YANCI FERRERA RN-Culinary Worker - 03/27/2021 13:17 EDT Discharge Needs I Anticipated Discharge Date : 03/29/2021 EDT Anticipated Discharge To, CM : Home with family care Current Home Treatment/Equipment : Current Home Treatment/Equipment No qualifying data available. Post Acute/Home Treatments : None Documentation Status Complete : Yes YANCI FERRERA RN-Culinary Worker - 03/27/2021 13:17 EDT Discharge Needs II Professional Skilled Services : Professional Skilled Services No qualifying data available. Needs Assistance with Transportation : No Patient Discharge Goal : Home YANCI FERRERA RN-Culinary Worker - 03/27/2021 13:17 EDT Narrative Note Narrative Note : Received from PACU s/p exploratory laparotomy, repair of enterotomy and small bowel. Met with Pt at the bedside, sitting up in the chair. Role of CM explained. Pt states that he is ADL independent, lives with his . Plans are to return home when discharged. NG currently clamped with Pt sipping clear liquids. No needs anticipated/verbalized at this time. RRS is high @ 61, boost 3. CM will follow YANCI FERRERA RN-Culinary Worker - 03/27/2021 13:17 EDT documented in this encounter Plan of Treatment Not on file documented as of this encounter Visit Diagnoses Not on filedocumented in this encounter
--- OUTSIDE RECORDS SUMMARY | 2025-02-10 00:32 | XMS_ITS | Encounter Summary ---
Author Organization [employer] ([place], [place], [place], [place]) Address [address] [place] [id number] Care Team Providers Care Sales Performance Manager Name Role Phone Unavailable Primary Care Provider Unavailabl e Encounter Details Date Type Department Care Team (Late st Contact Info) Description 03/27/2021 Transcribed Document [facility] [place] [address] [place] [address] ProviderLele MD [address] [place] [address] Social History Tobacco Use Types [...] On: 03/27/2021 16:32 EDT Performed On: 03/27/2021 13:47 EDT by Cynthia Aguilar RN Intervention Information: ketorolac Performed by Cynthia Aguilar RN on 03/27/2021 13:17:00 EDT ketorolac,15mg IV Push,Left Antecubital Rio Pain Assessment Pain Assessment : Follow-up assessment Cynthia Aguilar RN - 03/27/2021 16:32 EDT documented in this encounter Plan of Treatment Not on file documented as of this encounter Visit Diagnoses Not on filedocumented in this encounter
--- OUTSIDE RECORDS SUMMARY | 2025-02-10 00:32 | XMS_ITS | Encounter Summary ---
Author Organization [employer] ([place], [place], [place], [place]) Address [address] [place] [address] Care Team Providers Care Pbx Wire Chief Name Role Phone Unavailable Primary Care Provider Unavailabl e Encounter Details Date Type Department Care Team (Late st Contact Info) Description 03/28/2021 Transcribed Document [facility] Radiology [address] [place] [address] Kwame Hackett MD [address] [place] [address] [address] [place] [id number] Social History Tobacco Use Types Packs/Day Years Used Date Smoking Tobacco: Never Assessed Sex and Gender Information Value Date Recorded Sex Assigned at Male 01/20/2022 1:57 PM CDT Legal Sex Male 1:57 PM CDT Gender Identity Male 01/20/2022 1:57 PM CDT Sexual Orientation Not on file documented as of this encounter Miscellaneous Notes * Cerner Conversion Note - Kwame Hackett MD - 03/28/2021 12:55 PM EDT Patient: KEMI BOO Age: 75 years Sex: Male : 1945 Associated Diagnoses: None Author: KWAME HACKETT MD-INT Subjective Complaining of mild nausea and mild abdominal pain. Intensity 2/10. Lai catheter removed Continue requiring nasogastric tube. Tolerated clear liquid diet Not passing gas yet Review of Systems Constitutional: Weakness, No fever, No chills. Eye: Negative. Ear/Nose/Mouth/Throat: Negative. Respiratory: No shortness of breath, No cough. Cardiovascular: No chest pain. Gastrointestinal: Nausea, No vomiting, No diarrhea. Genitourinary: No dysuria. Hematology/Lymphatics: Negative. Endocrine Immunologic Musculoskeletal: No back pain. Integumentary: No rash. Neurologic: Negative. Psychiatric: Anxiety. Health Status Allergies: Allergic Reactions [...] IV Push, Q2H, PRN: Pain (Severe 7-10) ondansetron: 4 mg, IV Push, Q6H, PRN: [...] Cap, Oral, At Bedtime, 0 Refill(s), Medications (25) Active Scheduled: (14) #NaCl 0.9% *FLUSH* inj 10 mL 10 [...] pkt 17 Gram 1 Packet, Oral, Daily Problem list: Medical At risk for sleep apnea / IMO [id number] / Confirmed, Active Problems (8) Amputation d/t trauma Angina Arthritis At risk for sleep apnea Hyperlipidemia Hypertension Nocturia Stented coronary artery Objective VS/Measurements Vitals Signs (last 24 hrs) Last Charted Minimum Maximum Temp 97.3 (MAR 28 06:00) 97.3 (MAR 28 06:00) 97.6 (MAR 27 15:00) Apical HR 70 (MAR 28 08:29) 70 (MAR 28 08:29) 70 (MAR 28 08:29) Mon HR 69 (MAR 28 06:00) 69 (MAR 28 06:00) 82 (MAR 27 15:00) Resp Rate 18 (MAR 28 06:00) 15 (MAR 27 18:03) 18 (MAR 28 02:52) SBP H 153 (MAR 28 08:29) 103 (MAR 27 15:00) H 153 (MAR 28 08:29) DBP 85 (MAR 28 08:29) 64 (MAR 28 06:00) 85 (MAR 28 08:29) MAP 84 (MAR 28 06:00) 78 (MAR 27 15:00) 96 (MAR 27 22:57) SpO2 94 (MAR 28 07:40) L 93 (MAR 27 15:00) 96 (MAR 28 06:00) General: Alert and oriented, No acute distress. Eye: Pupils are equal, round and reactive to light, Extraocular movements are intact. HENT: Normocephalic. Neck: Supple, Non-tender. Respiratory: Lungs are clear to auscultation, Breath sounds are equal. Cardiovascular: Normal rate, No murmur, Good pulses equal in all extremities. Gastrointestinal: Soft, bowel sounds diminished, sukhdeep drain in place. Musculoskeletal: Normal range of motion. Integumentary: Warm, No rash. Neurologic: Alert, Oriented, No focal deficits. Psychiatric: Cooperative, Appropriate mood & affect. Review / Management MAR 28 06:07 L 133 106 H 27 / H 129 4.2 21 L 0.60 \ MAR 28 06:07 \ L 8.6 / 8.8 211 / L 27.1 \ No Radiology Results Found Results review: Labs (Last four charted values) WBC 8.8 (MAR 28) H 10.7 (MAR 27) L 2.3 (MAR 26) 4.9 (MAR 26) HB L 8.6 (MAR 28) L 11.4 (MAR 27) L 11.6 (MAR 26) L 9.9 (MAR 26) HCT L 27.1 (MAR 28) L 35.5 (MAR 02) L 38.2 (MAR 26) L 31.5 (MAR 26) Plt 211 (MAR 28) 222 (MAR 02) 277 (MAR 26) 205 (MAR 26) Na L 133 (MAR 28) L 132 (MAR 02) L 134 (MAR 26) L 134 (MAR 26) K 4.2 (MAR 28) 4.1 (MAR 02) 4.0 (MAR 26) 3.7 (MAR 26) Cl 106 (MAR 28) 102 (MAR 02) L 100 (MAR 26) L 99 (MAR 26) CO2 21 (MAR 28) L 19 (MAR 27) 24 (MAR 26) 25 (MAR 26) BUN H 27 (MAR 28) H 24 (MAR 27) 17 (MAR 26) 17 (MAR 26) Cr L 0.60 (MAR 28) 0.80 (MAR 27) 0.80 (MAR 26) 0.70 (MAR 26) Glu R H 129 (MAR 28) H 203 (MAR 27) 106 (MAR 26) 87 (MAR 26) Ca L 7.6 (MAR 28) L 8.0 (MAR 27) L 8.0 (MAR 26) 8.6 (MAR 26) AST 31 (MAR 26) ALT 30 (MAR 26) ALK P 79 (MAR 26) T Bili H 1.4 (MAR 26) PTN 6.8 (MAR 26) ALB L 2.9 (MAR 26) . Medication Changes from Previous Midnight to Current New Medications: Al hydroxide/Mg hydroxide/simethicone (Mylanta) 30 mL, Oral, [...] EDT, 03/27/21 12:49:00 EDT KWAME HACKETT MD-INT famotidine (Pepcid) 20 mg, Oral, Tab, BID, Routine, Start 03/27/21 12:49:00 EDT, 03/27/21 12:49:00 EDT KWAME HACKETT MD-INT hydrALAZINE 10 mg, IV Push, Inj, Q4H, PRN for Hypertension, Routine, Start 03/27/21 12:49:00 EDT, 03/27/21 12:49:00 EDT KWAME HACKETT MD-INT lisinopril 20 mg, Oral, Tab, Daily, Routine, Start 03/27/21 11:59:00 EDT, 03/27/21 11:59:00 EDT KWAME HACKETT MD-INT multivitamin [...] EDT, 03/27/21 11:59:00 EDT KWAME HACKETT MD-INT polyethylene glycol 3350 (MiraLax) 17 Gram, Oral, Powder, Daily, PRN for Constipation, Routine, Start 03/27/21 12:49:00 EDT KWAME HACKETT MD-INT potassium chloride 1,000 mL (Dextrose 5% with 0.45% NaCl and KCl 20 mEq/L 1,000 mL) 1,000 mL, Bag Volume (mL) = 1,000, IntraVENous, Rate = 75 mL/Hr, start date 03/27/21 7:42:00 EDT, Routine, Please start this late morning., 2.41, m2 RAQUEL COOPER MD-PRO sodium chloride (Normal Saline Flush) 10 mL, IV Push, Inj, Q12H, Routine, Start 03/27/21 12:49:00 EDT KWAME HACKETT MD-INT tamsulosin 0.4 mg, Oral, CR Cap, At Bedtime, Routine, Start 03/27/21 21:00:00 EDT, 03/27/21 11:59:00 EDT KWAME HACKETT MD-INT Discontinued Medications: multivitamin 1 Tab, Oral, Tab, Daily, Routine, Start 03/27/21 11:59:00 EDT KWAME HACKETT MD-INT potassium chloride 1,000 mL (Dextrose 5% with 0.45% NaCl and KCl 20 mEq/L 1,000 mL) 1,000 mL, Bag Volume (mL) = 1,000, IntraVENous, Rate = 125 mL/Hr, start date 03/26/21 17:37:00 EDT, Routine, 2.41, m2 RAQUEL COOPER MD-PRO Impression and Plan High-grade small bowel obstruction Likely mechanical. Versus ileus Status post recent laparoscopic colectomy. Status post exploratory laparotomy with excision of ischemic omentum., Repair enterostomy and small bowel. Continue NGT Continue IV fluid. Monitor electrolytes and replace. Pain management. Advance diet as per colorectal recommendations Initiate incentive spirometry. Lai catheter discontinued Physical therapy evaluation. Colon cancer. Status post robotic right colectomy on 03/12/2021. Coronary artery disease. Status post CABG. Resume home medications. Status post aortic valve replacement. GI and DVT prophylaxis. Physical therapy evaluation CODE STATUS Full code Spent 25 minutes documented in this encounter Plan of Treatment Not on file documented as of this encounter Visit Diagnoses Not on filedocumented in this encounter
--- OUTSIDE RECORDS SUMMARY | 2025-02-10 00:32 | XMS_ITS | Encounter Summary ---
Author Organization [employer] ([place], [place], [place], [place]) Address [address] [place] [address] Care Team Providers Care Equipment Lead Name Role Phone Unavailable Primary Care Provider Unavailabl e Encounter Details Date Type Department Care Team (Late st Contact Info) Description 03/12/2021 Transcribed Document [facility] [place] Family Medicine [facility] [place] [address] ProviderLele MD [facility] [place] [address] Social History Tobacco Use Types [...] Note - Lele Shah MD - 03/12/2021 7:21 AM CDT Peripheral Nerve Block Entered On: 03/12/2021 7:22 EDT Performed On: 03/12/2021 7:21 EDT by Marjan Patel RN Peripheral Nerve Block Laterality : Bilateral Peripheral Nerve Block End Date/Time : 03/12/2021 7:26 EDT Marjan Patel RN - 03/12/2021 7:24 EDT Peripheral Nerve Block Start Date/Time : 03/12/2021 7:21 EDT Verbally Confirm Pt, Site, and Procedure : Yes Time Out Pause Time : 03/12/2021 7:19 EDT Site Preparation : Chlorhexidine (Hibiclens) Peripheral Nerve Block : Tap Block Peripheral Nerve Block Performed by : LOBO SO MD-ANS Medication Delivery Method : Single Shot Peripheral Nerve Block Assisted by : Marjan Patel RN Nerve Block Activity, Patient Tolerance : Good Marjan Patel RN - 03/12/2021 7:21 EDT Electronically signed by [facility], [facility] Conversion Licensed Electrician Cerner at 11/11/2022 6:52 PM CDT documented in this encounter Plan of Treatment Not on file documented as of this encounter Visit Diagnoses Not on filedocumented in this encounter
--- OUTSIDE RECORDS SUMMARY | 2025-02-10 00:32 | XMS_ITS | Encounter Summary ---
Author Organization [employer] ([place], [place], [place], [place]) Address [address] [place] [address] Care Team Providers Care Marketing Proposal Specialist Name Role Phone Unavailable Primary Care Provider Unavailabl e Encounter Details Date Type Department Care Team (Late st Contact Info) Description 03/29/2021 Transcribed Document [facility] [place] [address] [place] [address] ProviderLele MD [address] [place] [address] Social History Tobacco Use Types Packs/Day Years Used Date Smoking Tobacco: Never Assessed Sex and Gender Information Value Date Recorded Sex Assigned at Male 01/20/2022 1:57 PM CDT Legal Sex Male 1:57 PM CDT Gender Identity Male 01/20/2022 1:57 PM CDT Sexual Orientation Not on file documented as of this encounter Miscellaneous Notes * Cerner Conversion Note - Historical ProviderMD - 03/29/2021 5:00 AM CDT Chart Check - Review Order Profile Entered On: 03/30/2021 6:24 EDT Performed On: 03/29/2021 5:00 EDT by Eduard Arboleda NON EMP RN Chart Check Powerplans Initiated/Discontinued as Appropriate : Yes All Active Orders Reviewed : Yes Eduard Arboleda NON EMP RN - 03/30/2021 6:24 EDT documented in this encounter Plan of Treatment Not on file documented as of this encounter Visit Diagnoses Not on filedocumented in this encounter
--- OUTSIDE RECORDS SUMMARY | 2025-02-10 00:32 | XMS_ITS | Encounter Summary ---
Author Organization [employer] ([place], [place], [place], [place]) Address [address] [place] [address] Care Team Providers Care Senior Recruiter Name Role Phone Unavailable Primary Care Provider Unavailabl e Encounter Details Date Type Department Care Team (Late st Contact Info) Description 03/28/2021 Transcribed Document [facility] [place] Family Medicine [address] [place] [address] ProviderLele MD [address] [place] [address] Social History Tobacco Use Types [...] Conversion Note - Historical ProviderMD - 03/28/2021 4:07 PM CDT Patient: KEMI BOO Age: 75 Years Sex: Male : 1945 Subjective Expected post op course NGT with clear drainage-tolerating clears No flatus or BM Urinating and walking Intake & Output Intake & Output Totals Last 24 Hours (7a-7a) Intake (36 Events) Continuous Infusions (2325 mL) Medications (1020 mL) Output (9 Events) Lai Catheter (1390 mL) Gastric Tube Output: (775 mL) Surgical Drain/Tube Output: (20 mL) Urine Voided (Volume) (275 mL) Input Total: 3345 mL Output Total: 2460 mL Balance: 885 mL Physical Exam NAD A&Ox3 Breathing easily Abd soft, moderate distention as expected, appropriately tender, Incision ok VTE Risk Total Score VTE Prophylaxis - Surgical Aspirin 81 mg, Oral, EC Tab, Daily, Routine, Start 03/27/21 11:59:00 EDT, 03/27/21 11:59:00 EDT (LAUREN KENDALL) Heparin 5,000 Units, SubCutaneous, Inj, Q8H, Routine, Start 03/26/21 17:37:00 EDT, 03/26/21 17:37:00 EDT (RAQUEL COOPER) Sequential Compression Device Start: 03/27/21 12:19:00 EDT, Bilateral, Continuous Order (LAUREN KENDALL) Assessment/Plan Cont NGT for now, likely will start clamping tomorrow Am labs Cont IVFs for now Abdominal pain [id number] Abnormal diagnostic test [id number] Medications Inpatient aspirin, 81 mg= 1 Tab, Oral, Daily atorvastatin, 80 mg= 2 Tab, Oral, At Bedtime carvedilol, 12.5 mg= 1 Tab, Oral, BID cholecalciferol, 5000 Units= 1 Tab, Oral, Daily cloNIDine, 0.1 mg= 1 Tab, Oral, Q4H, PRN Dextrose 5% with 0.45% NaCl and KCl 20 mEq/L 1,000 mL, 1000 mL, IntraVENous diazePAM, 5 mg= 1 mL, IV Push, Q6H, PRN DuoNeb 0.5 mg-2.5 mg/3 mL inhalation solution, 3 mL, Nebulized Inhalation , RT_Q6H, PRN Fish Oil, 1000 mg= 1 Cap, Oral, Daily heparin, 5000 Units= 1 mL, SubCutaneous, Q8H hydrALAZINE, 10 mg= 0.5 mL, IV Push, Q4H, PRN lisinopril, 20 mg= 1 Tab, Oral, Daily MiraLax, 17 Gram= 1 Packet, Oral, Daily, PRN morphine, 2 mg= 1 mL, IV Push, Q2H, PRN Mylanta, 30 mL, Oral, Q6H, PRN Nitrostat, 0.4 mg= 1 Tab, SubLINgual, Q5Min, PRN Normal Saline Flush, 10 mL, IV Push, Q12H ondansetron, 4 mg= 2 mL, IV Push, Q6H, PRN oxyCODONE, 5 mg= 1 Tab, Oral, Q6H, PRN Pepcid, 20 mg= 1 Tab, Oral, BID Reglan, 10 mg= 2 mL, IV Push, QID tamsulosin, 0.4 mg= 1 Cap, Oral, At Bedtime Theragran, 1 Tab, Oral, Daily Home Aspir-Low 81 mg oral delayed release tablet, 81 mg= 1 Tab, Oral, Daily atorvastatin 80 mg oral tablet, 80 mg= 1 Tab, Oral, At Bedtime carvedilol 12.5 mg oral tablet, 12.5 mg= 1 Tab, Oral, BID Co-Q10 100 mg oral capsule, 100 mg= 1 Cap, Oral, Daily Fish Oil 1000 mg oral capsule, 1000 mg= 1 Cap, Oral, Daily MiraLax, 17 Gram, Oral, Daily, PRN multivitamin, 1 Tab, Oral, Daily Nitrostat 0.4 mg sublingual tablet, 0.4 mg= 1 Tab, SubLINgual, Q5Min, PRN ramipril 10 mg oral capsule, 1 Tab, Oral, Daily tamsulosin 0.4 mg oral capsule, 0.4 mg= 1 Cap, Oral, At Bedtime Vitamin B Complex oral capsule, 1 Cap, Oral, Daily Vitamin C 500 mg oral tablet, chewable, 500 mg= 1 Tab, Chew, Daily Vitamin D3 5000 units oral capsule, 125 mcg= 1 Cap, Oral, Daily Routine Labs - Last 24 Hours MAR 28 06:07 L 133 106 H 27 / H 129 4.2 21 L 0.60 \ MAR 27 05:59 \ L 11.4 / H 10.7 222 / L 35.5 \ Anion Gap: 10 Calcium Level: 7.6 mg/dL Low Magnesium Level: 2.6 mg/dL High Phosphorus: 2.4 mg/dL Low Imaging Results (Last 24 Hours) No Radiology Results Found Problem List/Past Medical History Ongoing Amputation d/t trauma Angina Arthritis At risk for sleep apnea Hyperlipidemia Hypertension Nocturia Stented coronary artery Historical Aortic valve stenosis Procedure/Surgical History Colectomy (03/12/2021), EXCISION OF RIGHT LARGE INTESTINE, PERC ENDO APPROACH (03/12/2021), ISOLATION (03/12/2021), ROBOTIC ASSISTED PROCEDURE OF TRUNK, PERC ENDO APPROACH (03/12/2021), aortic valve replaced, pig valve, aortic valve replacement replacement, bilateral hip replacement, CABG x4, cardiac catheterization with pci, Colonoscopy, left hand surgery, pacemaker implant - [place], pacemaker replacement, neva placed in pelvis. Allergies No Known Allergies Electronically signed by [facility]él[facility] Conversion Immigration Consultant Cerner at 11/11/2022 6:50 PM CDT documented in this encounter Plan of Treatment Not on file documented as of this encounter Visit Diagnoses Not on filedocumented in this encounter
--- OUTSIDE RECORDS SUMMARY | 2025-02-10 00:32 | XMS_ITS | Encounter Summary ---
Author Organization [employer] ([place], [place], [place], [place]) Address [address] [place] [address] Care Team Providers Care Third Miller Name Role Phone Unavailable Primary Care Provider Unavailabl e Encounter Details Date Type Department Care Team (Late st Contact Info) Description 03/27/2021 Transcribed Document [facility] [place] Family Medicine [address] [place] [address] ProviderLele MD [address] [place] [address] Social History Tobacco Use Types [...] Conversion Note - Historical ProviderMD - 03/27/2021 7:09 AM CDT Patient: KEMI ZAPATA Age: 75 Years Sex: Male : 1945 CSGA POST OP NOTE Subjective: Objective: Vitals Signs (last 24 hrs) Last Charted [...] 26 17:20) 105 (MAR 27 04:00) SpO2 L 92 (MAR 27 04:00) L 92 (MAR 27 04:00) 100 (MAR 26 17:20) IV Fluids & Drains Last 24 Hours (7a-7a) Intake (2) Lactated Ringers Injection intravenous solution 1,000 mL 2800 mL Dextrose 5% with 0.45% NaCl and KCl 20 mEq/L 1,000 mL 1375 mL Intake Total: 4175mL Output (1) Surgical Drain/Tube Output: 495 mL Output Total: 495mL Exam: Abdomen soft with mild distention. Wounds clean and intact. SETH drain with serous output. Impression: S/P exploratory laparotomy and excision of ischemic omentum causing small bowel obstruction and repair of small enterotomy. Patient stable overnight. Urine output on the low side. Plan: Clear liquid diet D/C wright later today as urine output picks up. Up and walking 4 times daily. Limit IV narcotic pain medicine. Decrease IVF to 75ml/hr. We will give a fluid bolus this morning to help with urine output. Awaiting return of bowel function. Check labs tomorrow. documented in this encounter Plan of Treatment Not on file documented as of this encounter Visit Diagnoses Not on filedocumented in this encounter
--- OUTSIDE RECORDS SUMMARY | 2025-02-10 00:32 | XMS_ITS | Encounter Summary ---
Author Organization [employer] ([place], [place], [place], [place]) Address [address] [place] [address] Care Team Providers Care Jacquard Loom Card Changer Name Role Phone Unavailable Primary Care Provider Unavailabl e Encounter Details Date Type Department Care Team (Late st Contact Info) Description 03/27/2021 Transcribed Document [facility] [place] [address] [place] [address] ProviderLele MD [address] [place] [address] Social History Tobacco Use Types [...] Conversion Note - Lele ProviderMD - 03/27/2021 8:13 AM CDT UM Authorization Entered On: 03/27/2021 8:14 EDT Performed On: 03/27/2021 8:13 EDT by MANUEL HARTMAN RN Primary Insurance Authorization Authorization and Policy Numbers : Insurance 1 Health Plan: SELF PAY Policy Number: Authorization Number: Insurance Primary Name : SELF PAY Authorized Service Begin Date-Primary : 03/26/2021 EDT Authorization Comments-Primary : SELF PAY at the time of review Historical Authorization Comments-Primary : No Authorization Comments Found MANUEL HARTMAN RN - 03/27/2021 8:13 EDT Electronically signed by Félix [facility] Conversion Validation Specialist Cerner at 11/11/2022 6:43 PM CDT documented in this encounter Plan of Treatment Not on file documented as of this encounter Visit Diagnoses Not on filedocumented in this encounter
--- OUTSIDE RECORDS SUMMARY | 2025-02-10 00:32 | XMS_ITS | Encounter Summary ---
Author Organization [employer] ([place], [place], [place], [place]) Address [address] [place] [address] Care Team Providers Care First Assistant Name Role Phone Unavailable Primary Care Provider Unavailabl e Encounter Details Date Type Department Care Team (Late st Contact Info) Description 03/28/2021 Transcribed Document [facility] [place] [address] [place] [address] ProviderLele MD [address] [place] [address] Social History Tobacco Use Types [...] Conversion Note - Historical ProviderMD - 03/28/2021 2:00 AM CDT Child Therapist Details Entered On: 03/28/2021 5:23 EDT Performed On: 03/28/2021 2:00 EDT by Ludin Breen RN Order Details Transport Mode Order Detail : Stretcher/Gurney Isolation Precautions Order Detail : Standard Precautions Order Detail : N/A Lift/Transfer : Minimal Central Line Order Detail : No Room Service : Appropriate Arterial Line : No Patient Needs Meds Crushed/Liquid : No Ludin Breen RN - 03/28/2021 5:23 EDT documented in this encounter Plan of Treatment Not on file documented as of this encounter Visit Diagnoses Not on filedocumented in this encounter
--- OUTSIDE RECORDS SUMMARY | 2025-02-10 00:33 | XMS_ITS | Encounter Summary ---
Author Organization [employer] ([place], [place], [place], [place]) Address [address] [place] [address] Care Team Providers Care Automation Control Integrator Name Role Phone Unavailable Primary Care Provider Unavailabl e Encounter Details Date Type Department Care Team (Late st Contact Info) Description 03/12/2021 Transcribed Document [facility] [place] [facility] [place] [address] ProviderLele MD [address] [place] [address] Social History Tobacco Use Types Packs/Day Years Used Date Smoking Tobacco: Never Assessed Sex and Gender Information Value Date Recorded Sex Assigned at Male 01/20/2022 1:57 PM CDT Legal Sex Male 1:57 PM CDT Gender Identity Male 01/20/2022 1:57 PM CDT Sexual Orientation Not on file documented as of this encounter Miscellaneous Notes * Cerner Conversion Note - Historical ProviderMD - 03/12/2021 3:48 PM CDT Event Note Entered On: 03/12/2021 15:54 EDT Performed On: 03/12/2021 15:48 EDT by WILMAN PUGA RN Event Note Event Date/Time : 03/12/2021 15:33 EDT Event Location : [facility] Event Details : Change in condition Description of Event : getting patient from recliner to stretcher. 2 RN's and 1 tech at bedside. stood without problem for 2 second. pale. encouraged to lookup and take deep breaths. color to pale. assisted to sit on bedside with Rn hand on patient shoulder and tech at bedside. patient begin to fall backward on stretcher. decreased lOC. hit head on rail of stretcher and wall. no broken skin on raised area noted. vitals taken. paced rhythm 60. BP to 66 systolic by cuff and quickly to 100 systolic. pupils equal and reactive, moves all to instructions. oriented to name and birthday at [birth year]. awake and drowsy. does not remember falling back in stretcher. skin warm and dry. color improved. Dr. Jaime notified. recent labs. hgb, 9 and hct 29.3. 1552 drowsy and talking. denies nausea when asked. sore when asked. BP back to 106/54 with mean 76.. continue and to assigned room. Dr. Jaime notified and updated WILMAN PUGA RN - 03/12/2021 15:48 EDT Electronically signed by Félix [facility] Conversion Audience Development Manager Cerner at 11/11/2022 6:29 PM CDT documented in this encounter Plan of Treatment Not on file documented as of this encounter Visit Diagnoses Not on filedocumented in this encounter
--- OUTSIDE RECORDS SUMMARY | 2025-02-10 00:33 | XMS_ITS | Encounter Summary ---
Author Organization [employer] ([place], [place], [place], [place]) Address [address] [place] [address] Care Team Providers Care Textile Supervisor Name Role Phone Unavailable Primary Care Provider Unavailabl e Encounter Details Date Type Department Care Team (Late st Contact Info) Description 03/12/2021 Transcribed Document [facility] [place] Family Medicine [address] [place] [address] ProviderLele MD [address] [place] [address] Social History Tobacco Use Types Packs/Day Years Used Date Smoking Tobacco: Never Assessed Sex and Gender Information Value Date Recorded Sex Assigned at Male 01/20/2022 1:57 PM CDT Legal Sex Male 1:57 PM CDT Gender Identity Male 01/20/2022 1:57 PM CDT Sexual Orientation Not on file documented as of this encounter Miscellaneous Notes * Cerner Conversion Note - Lele ProviderMD - 03/12/2021 6:52 AM CDT Admission History, Adult Entered On: 03/12/2021 17:12 EDT Performed On: 03/12/2021 6:52 EDT by BYRON DAMON RN Advance Directive Patient has Advance Directive *Q : Yes, Advance Directive with the patient Advance Directive Type : Living will Copy Advance Directive Verified/on Chart : Yes BYRON DAMON RN - 03/12/2021 17:10 EDT Anesthesia/Transfusion History Family History of Anesthesia Reaction : No prior transfusion(s) Blood Transfusion Acceptable to Patient : Yes Transfusion History : Prior anesthesia without reaction Family History of Anesthesia Reaction : None BYRON DAMON RN - 03/12/2021 17:10 EDT Functional Assessment Living Situation : Home Patient Lives With : Spouse Current Home Treatments : None BYRON DAMON RN - 03/12/2021 17:10 EDT General Info Preferred Name : Gildardo Arrived From : Home Mode of Arrival on Unit : Ambulatory Legal Guardian : Spouse Support Person/Patient Field Party Manager : Yes Support Person/Pt Rep Name : Kaylah Lyle Support Person/Pt Rep Contact Information : [phone] Want Family/Rep/Phys Notified of Admit : No Emergency Contact #1 : Kaylah Jo Emergency Contact #1 ` Emergency Contact #1 Relationship : ` Emergency Contact #2 : none` Emergency Contact #2 Phone Number : none` Emergency Contact #2 Relationship : none` Information Obtained From : Patient Primary Language : Burmese Communication Barrier : None Drop Forger Needed : No BYRON DAMON RN - 03/12/2021 17:10 EDT Fall Risk Scales ABCs Fall Injury Risk Identification : None GUZMAN Hx Falls Immediate/Within 3 Months : No Guzman Secondary Diagnosis : Yes GUZMAN Use of Ambulatory Aid : None GUZMAN IV Therapy or IV Access : Yes Guzman Gait/Transferring : Normal, bedrest, immobile Guzman Mental Status : Oriented to own ability Guzman Fall Risk Score : 35 GUZMAN Fall Scale Risk Level : 25-45 Medium Risk [employer] Fall Interventions : Adequate lighting, Personal items within reach BYRON DAMON RN - 03/12/2021 17:10 EDT Health Histories Smoking Status : Former smoker, quit more than 30 days ago Smokeless Tobacco Status : Never Implant/Device Type, Home Health Care Social Worker and Model : cardiac stent cardiac pacemaker aortic valve replacement bilateral hip replacement hardware in hip BYRON DAMON RN - 03/12/2021 17:10 EDT Social History (As Of: 03/12/2021 17:12:31 EDT) Tobacco: Last Used: quit smoking 1979. (Last Updated: 07/23/2020 08:52:23 EST by AURE LINCOLN, RN) Former smoker, quit more than 30 days ago Smoking Status. Former smokeless tobacco user, quit more than 30 days ago Smokeless Tobacco Status. Chewing tobacco, None Smokeless Tobacco Use History. Last Used: quit cigarettes . quit chewing tobacco a couple years later . Second Hand Smoke Exposure: No. (Last Updated: 03/04/2021 10:49:40 EDT by Efrain Ruvalcaba, Rn) Alcohol: Date/Time of Last Drink: 2005. (Last Updated: 07/23/2020 08:52:31 EST by AURE LINCOLN RN) Alcohol Use History No. Use in Last 12 Months: No. (Last Updated: 03/04/2021 10:49:40 EDT by Efrain Ruvalcaba Rn) Substance Abuse: Drug Use Hx: No. (Last Updated: 07/23/2020 08:52:36 EST by AURE LINCOLN RN) Drug Use Hx: No. Use in Last 12 Months: No. (Last Updated: 03/04/2021 10:49:40 EDT by Efrain Ruvalcaba Rn) Height and Weight, Clinical Dosing Height Source : Measured Height Entry Format : [place] Height, Feet : 5 ft(Converted to: 152 cm, 60 Inch) Height, Inches : 9 Inch(Converted to: 0 ft 9 Inch, 22.86 cm) Clinical Height : 175.26 cm Weight Source : Standing scale Weight Entry Format : Mono Clinical Dosing Weight : 118.18 kg Weight, Pounds : 260.0 lb Body Surface Area (BSA) : 2.31 m2 Body Mass Index : 38.5 kg/m2 (HI) [place] Body Weight : 70 kg BYRON DAMON RN - 03/12/2021 17:10 EDT Infectious Disease History Has the patient ever been tested for COVID-19? : Yes, Patient stated results pending Date of COVID-19 test known? : Yes Date of COVID-19 Test : 03/10/2021 EDT Does patient have symptoms of COVID-19? : No COVID19 Screening : No Experiencing Infectious Disease Symptoms : No symptoms Physical contact outside [place] in the last 30 days : No Infectious Disease History : Chicken pox/Shingles Tuberculosis Symptoms : None BYRON DAMON RN - 03/12/2021 17:10 EDT Influenza Vaccine Asmt, Adult Previous Vaccines from Immunization Schedule : No qualifying data available. Influenza Immunization, Current Season : Yes BYRON DAMON RN - 03/12/2021 17:10 EDT Pneumococcal Vaccine Previous Vaccines from Immunization Schedule : No qualifying data available. Pneumonia Immunization Received : Yes BYRON DAMON RN - 03/12/2021 17:10 EDT Order Details Order Detail : N/A Patient Needs Meds Crushed/Liquid : No BYRON DAMON RN - 03/12/2021 17:10 EDT Nutrition History Food Dislikes : fish Eating Poorly Due to Decreased Appetite : No Unplanned Weight Loss in Past 3-6 Months : No Malnutrition Screening Tool Total(mal) : 0 Malnutrition Screening Tool Risk Level : Patient not at risk BYRON DAMON RN - 03/12/2021 17:10 EDT [place] Suicide Severity Rating Scale (C-SSRS) CSSRS Past Month Wish to be : No CSSRS Past Month Suicidal Thoughts : No CSSRS Lifetime Suicide Behavior : No Suicide Severity Rating Score : 0 Suicide Severity Rating : No Additional Care Required at this time BYRON DAMON RN - 03/12/2021 17:10 EDT Psychosocial History Currently in Unsafe Situation : No BYRON DAMON RN - 03/12/2021 17:10 EDT Sleep Apnea Risk Assmt Hx of Obstructive Sleep Apnea Diagnosis : No Snore Loudly : No Tired, Fatigued, or Sleepy During Day : No Observed Stopping Breathing During Sleep : No Have/Are Being Treated for Hypertension : Yes BMI Greater Than 35 kg/m2 : Yes Age over 50 Years Old : Yes Neck Circumference Greater Than 40 cm : Yes Gender Male : Yes STOP-BANG Sleep Apnea Risk Level Score : 5 BYRON DAMON RN - 03/12/2021 17:10 EDT Valuables and Belongings Valuables and Belongings : Clothing, Personal devices, Personal items Clothing : Common streetwear Clothing Disposition : Bedside Personal Device Disposition : Bedside Personal Devices : Glasses Personal Items : Cell phone Personal Items Disposition : Bedside BYRON DAMON RN - 03/12/2021 17:10 EDT documented in this encounter Plan of Treatment Not on file documented as of this encounter Visit Diagnoses Not on filedocumented in this encounter
--- OUTSIDE RECORDS SUMMARY | 2025-02-10 00:33 | XMS_ITS | Encounter Summary ---
Author Organization [employer] ([place], [place], [place], [place]) Address [address] [place] [address] Care Team Providers Care Data Warehousing Specialist Name Role Phone Unavailable Primary Care Provider Unavailabl e Encounter Details Date Type Department Care Team (Late st Contact Info) Description 03/26/2021 Transcribed Document [facility] [place] Family Medicine [address] [place] [address] ProviderLele MD [address] [place] [address] Social History Tobacco Use [...] [employer] Conversion Note - Historical ProviderMD - 03/26/2021 12:49 PM CDT Broset Violence Assessment Entered On: 03/26/2021 13:45 EDT Performed On: 03/26/2021 13:44 EDT by Brit Ceballos RN Broset Violence Assessment Broset Violence Checklist of Symptoms : None Broset Violence Symptoms Subtotal : 0 Broset Violence Symptoms Indicator : Low risk (0) Brit Ceabllos RN - 03/26/2021 13:44 EDT Electronically signed by Iglesia Heard Conversion Vascular Technologist Sonographer Cerner at 11/11/2022 6:55 PM CDT documented in this encounter Plan of Treatment Not on file documented as of this encounter Visit Diagnoses Not on filedocumented in this encounter
--- OUTSIDE RECORDS SUMMARY | 2025-02-10 00:33 | XMS_ITS | Encounter Summary ---
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 Name Role Phone Unavailable Primary Care Provider Unavailabl e Encounter Details Date Type Department Care Team (Late st Contact Info) Description 03/26/2021 Transcribed Document [facility] [address] [place] [address] ProviderLele MD [address] [place] [address] Social History Tobacco Use Types Packs/Day Years Used Date Smoking Tobacco: Never Assessed Sex and Gender Information Value Date Recorded Sex Assigned at Male 01/20/2022 1:57 PM CDT Legal Sex Male 1:57 PM CDT Gender Identity Male 01/20/2022 1:57 PM CDT Sexual Orientation Not on file documented as of this encounter Miscellaneous Notes * Cerner Conversion Note - Lele ProviderMD - 03/26/2021 12:49 PM CDT ED Assessment Entered On: 03/26/2021 13:45 EDT Performed On: 03/26/2021 13:44 EDT by Brit Ceballos RN ED Quick Look Assessment Level of Consciousness : Alert, Awake Affect/Behavior : Appropriate, Calm, Cooperative Orientation : Oriented x 4 Skin Temperature : Warm Skin Description : Normal for ethnicity Brit Ceballos RN - 03/26/2021 13:44 EDT ED General-Functional Assess Information Obtained From : Patient Communication Barrier : None Primary Language : Georgian Any Spiritual/Cultural Needs or Requests : No Currently in Unsafe Situation : No Brit Ceballos RN - 03/26/2021 13:44 EDT Social Habits Smoking Status : Former smoker, quit more than 30 days ago Smokeless Tobacco Status : Never Desires Tobacco Cessation Calc : 0 Brit Ceballos RN - 03/26/2021 13:44 EDT Social History (As Of: 03/26/2021 13:45:41 EDT) Tobacco: Last Used: quit smoking 1979. (Last Updated: 07/23/2020 08:52:23 EST by AURE LINCOLN RN) Former smoker, quit more than 30 days ago Smoking Status. Former smokeless tobacco user, quit more than 30 days ago Smokeless Tobacco Status. Chewing tobacco, None Smokeless Tobacco Use History. Last Used: quit cigarettes . quit chewing tobacco a couple years later . Second Hand Smoke Exposure: No. (Last Updated: 03/04/2021 10:49:40 EDT by Efrain Ruvalcaba Rn) Alcohol: Date/Time of Last Drink: 2005. [...] 03/04/2021 10:49:40 EDT by Efrain Ruvalcaba Rn) Cardiovascular ASMT, ED Cardiovascular Assessment [facility]DL : [facility] Brit Ceballos RN - 03/26/2021 13:44 EDT Respiratory Respiratory Assessment [facility]DL : [facility] Brit Ceballos RN - 03/26/2021 13:44 EDT Gastrointestinal ED Gastrointestinal Assessment WDL : [facility] with exceptions (Comment: known bowel blockage [Brit Ceballos RN - 03/26/2021 13:44 EDT] ) Brit Ceballos RN - 03/26/2021 13:44 EDT Neurologic ASMT, ED Neurologic Assessment WDL : [facility] Leatha Coma Scale Link : Open [facility] Brit Ceballos RN - 03/26/2021 13:44 EDT Gibbs Coma Gibbs Best Motor Response : Obey commands Gibbs Best Verbal Response : Oriented Leatha Eye Opening Response : Spontaneous Leatha Coma Score : 15 Brit Ceballos RN - 03/26/2021 13:44 EDT documented in this encounter Plan of Treatment Not on file documented as of this encounter Visit Diagnoses Not on filedocumented in this encounter
--- OUTSIDE RECORDS SUMMARY | 2025-02-10 00:33 | XMS_ITS | Encounter Summary ---
Author Organization [employer] ([place], [place], [place], [place]) Address [address] [place] [id number] Care Team Providers Care Clinical Data Management Director Name Role Phone Unavailable Primary Care Provider Unavailabl e Encounter Details Date Type Department Care Team (Late st Contact Info) Description 03/26/2021 Transcribed Document [facility] [place] Family Medicine [address] [place] [address] ProviderLele MD [address] [place] [address] Social History Tobacco Use Types [...] Conversion Note - Lele Shah MD - 03/26/2021 3:30 PM CDT [facility] Main OR IntraOp Summary Primary Physician: RAQUEL COOPER MD-PRO Finalized Date/Time: 03/27/21 10:02:16 Pt. Name: KEMI ZAPATA RICKEY /Sex: 1945 Male Med Rec #: [id number] Physician: DANI BATISTA MD Financial #: [id number] Pt. Type: I Room/Bed: [facility]/ Admit/Disch: 03/26/21 19:17:00 - Institution: [facility] IntraOp Case Attendance Entry 1 Entry 2 Entry 3 Case Attendee RAQUEL COOPER MD-PRO Alyx Larson, Pritesh FUENTES, HEIDE, SAP TECHNICAL ARCHITECT Role Performed Surgeon/Proceduralist, Machine Packaging Technician, First Scrub, First First Time In 03/26/21 15:10:00 03/26/21 15:10:00 03/26/21 15:10:00 Time Out 03/26/21 17:03:00 03/26/21 17:03:00 03/26/21 15:15:00 Procedure Colon Resection Colon Resection Colon Resection Laparoscopic Laparoscopic Laparoscopic Other Attendee Superficial Wound Closed By: Last Modified By: Alyx Larson, Rn Alyx Larson, Rn Alyx Larson, Pritesh 03/26/21 17:03:12 03/26/21 17:03:12 03/26/21 17:03:12 Entry 4 Entry 5 Entry 6 Case Attendee PETEY ANGEL Krista, Cezar Johnson, Commercial Truck Driver Role Performed Supervisor Loading, First Machine Packaging Technician, Second Scrub, First Time In 03/26/21 15:10:00 03/26/21 15:10:00 03/26/21 15:13:00 Time Out 03/26/21 15:55:00 03/26/21 15:32:00 03/26/21 17:03:00 Procedure Colon Resection Colon Resection Colon Resection Laparoscopic Laparoscopic Laparoscopic Other Attendee Superficial Wound Closed By: Last Modified By: Alyx Larson, Alyx Patricio, Alyx Patricio, Pritesh 03/26/21 17:03:12 03/26/21 17:03:12 03/26/21 17:03:12 Entry 7 Entry 8 Entry 9 Case Attendee ELSIE TRUONG Sarah, CATALYST SUPERVISOR SALAZAR MUNSON MD-ANS Role Performed Supervisor Loading, First CATALYST SUPERVISOR/Nurse Crutching Contractor Anesthesiologist of Record Time In 03/26/21 15:33:00 03/26/21 15:10:00 03/26/21 15:10:00 Time Out 03/26/21 17:03:00 03/26/21 16:00:00 03/26/21 17:03:00 Procedure Colon Resection Colon Resection Colon Resection Laparoscopic Laparoscopic Laparoscopic Other Attendee Superficial Wound Closed By: Last Modified By: Alyx Larson, Alyx Patricio, Alyx Patricio, Pritesh 03/26/21 17:03:12 03/26/21 17:03:12 03/26/21 17:03:12 Entry 10 Entry 11 Entry 12 Case Attendee LOGAN CONNELL Gordon, Mark, CATALYST SUPERVISOR Poppy Min, REP-[facility] SPECIALTY CARE STAFF Role Performed Skein Yarn Dyer, Ancillary CATALYST SUPERVISOR/Nurse Crutching Contractor Skein Yarn Dyer, Ancillary Time In 03/26/21 15:10:00 03/26/21 16:00:00 03/26/21 15:40:00 Time Out 03/26/21 15:45:00 03/26/21 17:03:00 03/26/21 17:03:00 Procedure Colon Resection Colon Resection Colon Resection Laparoscopic Laparoscopic Laparoscopic Other Attendee SSI SSI Superficial Wound Closed By: Last Modified By: Alyx Larson, Rn Alyx Larson, Rn Alyx Larson, Pritesh 03/26/21 17:03:12 03/26/21 17:03:12 03/26/21 17:03:12 [facility] IntraOp Case Attendance Audit 03/26/21 17:03:12 Claims Service Adjustor: [id number] Modifier: [id number] 1 <+> Time Out 1 <*> Procedure Colon Resection Laparoscopic 2 <+> Time Out 2 <*> Procedure Colon Resection Laparoscopic 3 <*> Procedure Colon Resection Laparoscopic 4 <*> Procedure Colon Resection Laparoscopic 5 <*> Procedure Colon Resection Laparoscopic 6 <+> Time Out 6 <*> Procedure Colon Resection Laparoscopic 7 <+> Time Out 7 <*> Procedure Colon Resection Laparoscopic 8 <*> Procedure Colon Resection Laparoscopic 9 <+> Time Out 9 <*> Procedure Colon Resection Laparoscopic 10 <*> Procedure Colon Resection Laparoscopic 11 <+> Time Out 11 <*> Procedure Colon Resection Laparoscopic 12 <+> Time Out 12 <*> Procedure Colon Resection Laparoscopic 03/26/21 17:01:42 Claims Service Adjustor: [id number] Modifier: [id number] 10 <*> Time Out 03/26/21 15:55:00 10 <*> Procedure Colon Resection Laparoscopic <+> 12 Case Attendee <+> 12 Role Performed <+> 12 Time In <+> 12 Procedure <+> 12 Other Attendee 03/26/21 16:03:39 Claims Service Adjustor: [id number] Modifier: [id number] 9 <*> Case Attendee TEVIN DOS SANTOS MD-ANS 9 <*> Procedure Colon Resection Laparoscopic 03/26/21 16:03:15 Claims Service Adjustor: [id number] Modifier: [id number] 4 <+> Time Out 4 <*> Procedure Colon Resection Laparoscopic 8 <*> Time Out 03/26/21 15:56:00 8 <*> Procedure Colon Resection Laparoscopic 10 <+> Time Out 10 <*> Procedure Colon Resection Laparoscopic 11 <*> Time In 03/26/21 15:56:00 11 <*> Procedure Colon Resection Laparoscopic 03/26/21 15:56:20 Claims Service Adjustor: [id number] Modifier: [id number] 1 <*> Procedure Colon Resection Laparoscopic 2 <*> Procedure Colon Resection Laparoscopic 3 <*> Procedure Colon Resection Laparoscopic 4 <*> Procedure Colon Resection Laparoscopic 5 <+> Time In 5 <*> Procedure Colon Resection Laparoscopic 6 <*> Procedure Colon Resection Laparoscopic 7 <*> Procedure Colon Resection Laparoscopic 8 <+> Time In 8 <+> Time Out 8 <*> Procedure Colon Resection Laparoscopic 9 <+> Time In 9 <*> Procedure Colon Resection Laparoscopic 10 <+> Time In 10 <*> Procedure Colon Resection Laparoscopic <+> 11 Case Attendee <+> 11 Role Performed <+> 11 Time In <+> 11 Procedure 03/26/21 15:34:02 Claims Service Adjustor: [id number] Modifier: [id number] 1 <+> Time In 1 <*> Procedure Colon Resection Laparoscopic 2 <+> Time In 2 <*> Procedure Colon Resection Laparoscopic 3 <+> Time In 3 <+> Time Out 3 <*> Procedure Colon Resection Laparoscopic 4 <+> Time In 4 <*> Procedure Colon Resection Laparoscopic <+> 5 Case Attendee <+> 5 Role Performed <+> 5 Time Out <+> 5 Procedure <+> 6 Case Attendee <+> 6 Role Performed <+> 6 Time In <+> 6 Procedure <+> 7 Case Attendee <+> 7 Role Performed <+> 7 Time In <+> 7 Procedure <+> 8 Case Attendee <+> 8 Role Performed <+> 8 Procedure <+> 9 Case Attendee <+> 9 Role Performed <+> 9 Procedure <+> 10 Case Attendee <+> 10 Role Performed <+> 10 Procedure <+> 10 Other Attendee 03/26/21 14:27:12 Claims Service Adjustor: [id number] Modifier: [id number] <+> 1 Procedure 2 <*> Procedure Colon Resection Laparoscopic 3 <*> Procedure Colon Resection Laparoscopic 4 <*> Procedure Colon Resection Laparoscopic 03/26/21 14:24:52 Claims Service Adjustor: [id number] Modifier: [id number] <+> 4 Case Attendee <+> 4 Role Performed <+> 4 Procedure 03/26/21 14:23:52 Claims Service Adjustor: [id number] Modifier: [id number] <+> 3 Case Attendee <+> 3 Role Performed <+> 3 Procedure 03/26/21 14:23:21 Claims Service Adjustor: [id number] Modifier: [id number] <+> 2 Case Attendee <+> 2 Role Performed <+> 2 Procedure [facility] IntraOp Case Times Entry 1 Patient In Room Time 03/26/21 15:10:00 Out Room Time 03/26/21 17:03:00 Anesthesia Start Time 03/26/21 15:10:00 Stop Time 03/26/21 17:03:00 Surgery / Procedure Times Start Time 03/26/21 15:30:00 Stop Time 03/26/21 16:58:00 Last Modified By: Alyx Larson Rn 03/26/21 17:03:11 [facility] IntraOp Case Times Audit 03/26/21 17:03:11 Claims Service Adjustor: [id number] Modifier: [id number] <+> 1 Out Room Time <+> 1 Stop Time 03/26/21 17:01:49 Claims Service Adjustor: [id number] Modifier: [id number] <+> 1 Stop Time 03/26/21 15:31:51 Claims Service Adjustor: [id number] Modifier: [id number] <+> 1 Start Time [facility] IntraOp Cautery Entry 1 ESU Identification Cautery Type Monopolar ESU ID Number [id number] ID Type Hospital Number Cautery Settings Cut Setting 1 Coag Setting 30 ESU Grounding Pad Ground Pad Type Adult Grounding Pad Site Posterior Grounding Pad Alyx Larson Rn Applied By Grounding Pad Site Warm, Dry, Intact Skin Condition Before Cautery Grounding Pad Site Intact Skin Condition After Cautery Last Modified By: Alyx Larson Rn 03/26/21 14:23:27 [facility] IntraOp Cautery Audit 03/26/21 14:23:27 Claims Service Adjustor: [id number] Modifier: [id number] <+> 1 Grounding Pad Applied By [facility] IntraOp Communication Entry 1 Communication To Family/Significant other Communication By Xochilt Whitt RN Date and Time 03/26/21 15:34:00 Last Modified By: Alyx Larson Rn 03/26/21 15:34:16 [facility] IntraOp Counts Verification Entry 1 Entry 2 Entry 3 Procedure Colon Resection Colon Resection Colon Resection Laparoscopic Laparoscopic Laparoscopic Count Info Count Type Sponge, Sharps, Sponge, Sharps, Sponge, Sharps, Instrument, Instrument, Instrument, Miscellaneous Miscellaneous Miscellaneous Counts Verification Baseline/pre-procedure At time of permanent Before wound closure Sequence relief Count Results Not Applicable Not Applicable Correct, surgeon notified If Incorrect or Waived complete the Counts Action Taken form: If Intentional Retention, complete the Intential Retention form: Counts Performed By Count Performed By HEIDE FUENTES, Cezar Beasley, Cezar Beasley, Scrub (Scrub) TECH Tech Tech Count Performed By Alyx Larson, Alyx Patricio, Alyx Patricio Rn (RN) Last Modified By: Alyx Larson, Alyx Patricio Rn Taylor, Carolyn, Rn 03/26/21 15:35:17 03/26/21 15:35:17 03/26/21 16:35:59 [facility] IntraOp Counts Verification Audit 03/26/21 16:35:59 Claims Service Adjustor: [id number] Modifier: [id number] 3 <*> Procedure Colon Resection Laparoscopic 3 <+> Count Performed By (Scrub) 3 <+> Count Performed By (RN) 03/26/21 15:35:17 Claims Service Adjustor: [id number] Modifier: [id number] 1 <*> Procedure Colon Resection Laparoscopic 1 <*> Count Type Sponge, Sharps, Instrument, Miscellaneous 1 <*> Counts Verification Sequence Baseline/pre-procedure 1 <*> Count Results Not Applicable 1 <*> Count Performed By (Scrub) HEIDE FUENTES, SAP TECHNICAL ARCHITECT 1 <*> Count Performed By (RN) Alyx Larson, Pritesh 2 <*> Procedure Colon Resection Laparoscopic 2 <*> Count Type Sponge, Sharps, Instrument, Miscellaneous 2 <*> Counts Verification Sequence At time of permanent relief 2 <*> Count Results Not Applicable 2 <*> Count Performed By (Scrub) Cezar Landeros, Commercial Truck Driver 2 <*> Count Performed By (RN) Alyx Larson, Pritesh Entry 3 was deleted. Higher numbered entries shifted one position to fill the gap. <-> 3 Procedure Colon Resection Laparoscopic <-> 3 Count Type Sponge, Sharps, Instrument, Miscellaneous <-> 3 Counts Verification Sequence Before wound closure <-> 3 Count Results <-> 3 Count Performed By (Scrub) Cezar Landeros Scrub Tech <-> 3 Count Performed By (RN) Alyx Larson Rn 03/26/21 15:34:48 Claims Service Adjustor: [id number] Modifier: [id number] <+> 2 Procedure <+> 2 Count Type <+> 2 Counts Verification Sequence <+> 2 Count Results <+> 2 Count Performed By (Scrub) <+> 2 Count Performed By (RN) <+> 3 Procedure <+> 3 Count Type <+> 3 Counts Verification Sequence <+> 3 Count Performed By (Scrub) <+> 3 Count Performed By (RN) 03/26/21 14:23:59 Claims Service Adjustor: [id number] Modifier: [id number] 1 <*> Procedure Colon Resection Laparoscopic 1 <+> Count Performed By (Scrub) [facility] IntraOp Counts Final Entry 1 Procedure Colon Resection Laparoscopic Final Count Info Count Type Sponge, Sharps, Miscellaneous Counts Verification Skin Closure/end of Sequence procedure Count Results Correct, surgeon notified Counts Performed By Count Performed By Cezar Landeros Scrub (Scrub) Tech Count Performed By Alyx Larson Rn (RN) Last Modified By: Alyx Larson Rn 03/26/21 16:36:10 [facility] IntraOp Counts Final Audit 03/26/21 16:36:10 Claims Service Adjustor: [id number] Modifier: [id number] 1 <*> Procedure Colon Resection Laparoscopic 1 <+> Count Performed By (Scrub) 1 <+> Count Performed By (RN) [facility] IntraOp Cultures and Spec Summary Entry 1 Cultrures and Specimens Specimen Ordered: Yes Test(s) Routine/Path-Lab Requested/Final Disposition Last Modified By: Alyx Larson Rn 03/26/21 16:36:17 [facility] IntraOp Departure from OR Entry 1 Integumentary Assessment Integumentary WDL Assessment WDL Transfer/Handoff Transfer to PACU Phase I Handoff Method Online nursing summary Post-op Transport Stretcher/Ponchorlemuel Via Patient Transport ELSIE TRUONG, Accompanied by Dani Andino CRNA Last Modified By: Alyx Larson Rn 03/26/21 15:59:35 [facility] IntraOp Departure from OR Audit 03/26/21 15:59:35 Claims Service Adjustor: [id number] Modifier: [id number] 1 <*> Patient Transport Accompanied by Debby Caraballo CRNA 03/26/21 15:35:43 Claims Service Adjustor: [id number] Modifier: [id number] <+> 1 Patient Transport Accompanied by [facility] IntraOp Drains and Tubes Entry 1 Device Type Luc Patel flat drain Size 10FR Drain/Tube Activity Inserted Drain/Tube Suction Bulb Device Location ABD Method of Drainage Compression Chest Tubes Bulb suction Connectivity Tube Dressing Dry, Intact Condition Last Modified By: Alyx Larson Rn 03/26/21 16:36:51 [facility] IntraOp Dressing and Packing Entry 1 Entry 2 Type Dressing Dressing Location abd DRAIN COVERAGE/ABD Wound Dressing Item Skin Closure [place] Wound Packing Type Tape Type Supplemental Applications Applied By ELSIE TRUONG CANDY L. Other Comments COV[employer]M Last Modified By: Alyx Larson Rn Taylor, Carolyn, Rn 03/26/21 16:37:34 03/26/21 16:37:34 [facility] IntraOp Dressing and Packing Audit 03/26/21 16:37:34 Claims Service Adjustor: [id number] Modifier: [id number] 1 <-> Other Comments COVADERM <+> 2 Type <+> 2 Location <+> 2 Wound Dressing Item <+> 2 Applied By <+> 2 Other Comments 03/26/21 15:35:55 Claims Service Adjustor: [id number] Modifier: [id number] 1 <*> Applied By PETEY ANGEL 03/26/21 14:24:57 Claims Service Adjustor: [id number] Modifier: [id number] 1 <*> Applied By RAQUEL COOPER MD-PRO [facility] IntraOp Fire Risk Assessment Entry 1 Fire Info Surgical Site or 0- No Incision Above the Xyphoid Open O2 Source 0- No (Mask or Cannula) Available Ignition 1- Yes (ESU, Laser, Light Source) Fire Risk 1 Assessment Score Fire Score Fire Risk Yes Assessment Complete Fire Risk Xochilt Whitt, transfer clerk Verified By Fire Risk 03/26/21 15:29:00 Assessment Verified Date/Time Fire Risk High Risk Protocol Yes Implemented Standard Fire Yes Safety Precautions Followed Last Modified By: Alyx Larson Rn 03/26/21 15:36:08 [facility] IntraOp Fire Risk Assessment Audit 03/26/21 15:36:08 Claims Service Adjustor: [id number] Modifier: [id number] 1 <*> Fire Risk Assessment Verified By Alyx Larson Rn 1 <+> Fire Risk Assessment Verified Date/Time [facility] IntraOp General Case Wetlands Technician 1 Case Information OR OR 08 [facility] Case Level 1 Room Verified Yes Wound Class III - Contaminated Specialty Gastroenterology Anesthesia Type General ASA Class 4 Diagnosis Preop Diagnosis PARTIAL SMALL BOWEL OBSTRUCTION Postop Diagnosis SEE MD POST OP NOTE Last Modified By: Alyx Larson Rn 03/26/21 15:36:14 [facility] IntraOp General Case Data Audit 03/26/21 15:36:14 Claims Service Adjustor: [id number] Modifier: [id number] 1 <*> ASA Class 3E [facility] IntraOp Intraoperative Assessment Entry 1 Handoff Method Online nursing summary Valid History / Yes Physical in Chart Preoperative Yes Checklist Reviewed/Evaluated Allergies Reviewed Yes Patient is Latex No Sensitive Isolation Not applicable Precautions Noted Level of WDL Consciousness (WDL = Alert, Oriented to Person, Place, and Time) Skin Assessment Yes Verified Present Upon IVs Arrival to OR Last Modified By: Alyx Larson Rn 03/26/21 14:25:38 [facility] IntraOp Intraoperative Equipment Entry 1 Type Equipment Equipment Equipment Cecille Suction System ID Number [id number] Setting H Intraop Monitoring Antiembolic Devices Antiembolic Device NA PER DR Setting Scopes Photo/Video Documentation Last Modified By: Alyx Larson Rn 03/26/21 14:25:56 [facility] IntraOp Medication Admin Entry 1 Entry 2 Entry 3 Medication/Irrigant NS 0.9% 3000ml TAP BLOCK NS 0.9% 1500ml irrigation bag irrigation --[id number] --[id number] Combo Med List Time Administered 03/26/21 16:38:00 03/26/21 15:00:00 03/26/21 16:38:00 Route of IRRIGATION COMPLETED IN PREOP BY IRRIGATION Administration ANES Dose Dose Unit of Measure Volume Administered By RAQUEL COOPER MD-PRO RAQUEL COOPER MD-PRO Procedure Irrigation Irrigant Volume In Irrigant Volume Out Last Modified By: Alyx Larson, Alyx Patricio, Rn Alyx Larson Rn 03/26/21 16:38:27 03/26/21 16:04:29 03/26/21 16:38:27 [facility] IntraOp Medication Admin Audit 03/26/21 16:38:27 Claims Service Adjustor: [id number] Modifier: [id number] 1 <*> Medication/Irrigant Normal Saline 0.9% 1000ml irrigation - [id number] 1 <+> Time Administered <+> 3 Medication/Irrigant <+> 3 Route of Administration <+> 3 Administered By <+> 3 Time Administered 03/26/21 16:04:29 Claims Service Adjustor: [id number] Modifier: [id number] 1 <*> Medication/Irrigant Normal Saline 0.9% 1000ml irrigation - [id number] 1 <*> Route of Administration IRRIGATION 1 <*> Administered By RAQUEL COOPER MD-PRO Entry 2 was deleted. Higher numbered entries shifted one position to fill the gap. <-> 2 Medication/Irrigant TAP BLOCK <-> 2 Route of Administration COMPLETED IN PREOP <-> 2 Administered By Dani Andino CRNA <-> 2 Time Administered 03/26/21 15:00:00 <-> 2 Unit of Measure ml 03/26/21 16:03:28 Claims Service Adjustor: [id number] Modifier: [id number] 2 <*> Administered By TEVIN DOS SANTOS MD-ANS 03/26/21 15:55:55 Claims Service Adjustor: [id number] Modifier: [id number] Entry 1 was deleted. Higher numbered entries shifted one position to fill the gap. <-> 1 Medication/Irrigant Marcaine 0.25% 30ml vial - [id number] <-> 1 Route of Administration LOCAL <-> 1 Administered By RAQUEL COOPER MD-PRO <-> 1 Unit of Measure ml Entry 2 was deleted. Higher numbered entries shifted one position to fill the gap. <-> 2 Medication/Irrigant lidocaine 1% w/ epinephrine 1:200,000 30ml vial - [id number] <-> 2 Route of Administration LOCAL <-> 2 Administered By RAQUEL COOPER MD-PRO <-> 2 Time Administered <-> 2 Unit of Measure ml [facility] IntraOp Patient Positioning Entry 1 Procedure Colon Resection Laparoscopic Body Position Supine Left Arm Position Secured on padded arm board Right Arm Position Secured on padded arm board Left Leg Position Uncrossed, parallel Right Leg Position Uncrossed, parallel Feet Uncrossed Yes Pressure Points Yes Checked Positioning Devices Arm Board, Head Rest, Pad, Elbow, Safety Strap, Thighs, Pillows, Safety Strap, Arm(s) Positioned By Alyx Larson Rn, RAQUEL COOPER MD-PRO, PETEY ANGEL Scharold, Krista, PRITESH, Debby Caraballo, DAVID Position Verified Positioning Yes Verified by Anesthesia Positioning Yes Verified by Surgeon Last Modified By: Alyx Larson Rn 03/26/21 15:36:58 [facility] IntraOp Patient Positioning Audit 03/26/21 15:36:58 Claims Service Adjustor: [id number] Modifier: [id number] 1 <*> Procedure Colon Resection Laparoscopic 1 <*> Positioning Devices Arm Board, Head Rest, Pad, Elbow, Safety Strap, Thighs 1 <*> Positioned By Alyx Larson Rn [facility] IntraOp Sign In Entry 1 Patient, Site, Yes Procedure Identified Surgical Consent Yes Confirmed Relevant Surgical Yes Documents Available Surgical Site N/A Marked by person performing procedure Anesthesia Machine Yes Check Completed Medication Checks Yes Completed Allergies Yes Airway Difficult Yes Airway/Aspiration Risk Difficult Yes Airway/Aspiration Intervention Equipment Available Blood Loss Risk Yes Blood Loss Yes Intervention Equipment Prepared and Ready Blood Identifiers Not applicable Verified Per Policy Hypothermia Risk No Warming Measures Yes Taken Last Modified By: Alyx Larson Rn 03/26/21 15:37:08 [facility] IntraOp Sign In Audit 03/26/21 15:37:08 Claims Service Adjustor: [id number] Modifier: [id number] <+> 1 Difficult Airway/Aspiration Risk 03/26/21 14:26:26 Claims Service Adjustor: [id number] Modifier: [id number] <+> 1 Blood Loss Risk [facility] IntraOp Sign Out Entry 1 RN Confirmation Surgical Yes Procedure(s) Identified Instrument, Sponge Yes and Sharps Counts Correct/Documented Equipment Problems Yes Documented Specimen Labeled Yes Correctly Urinary Catheter Yes Documented in IView Slater Patient Yes Recovery Concerns Reviewed with Anesthesia Provider, Surgeon and RN Slater Patient Yes Management Concerns Reviewed with Anesthesia Provider, Surgeon and RN Safety Checklist Yes Elements Complete? RN Sign Out Alyx Larson Rn Signature RN Sign Out 03/26/21 17:03:00 Signature Date/Time Plan of Care Outcome - Fire Risk OUTCOME STATEMENT: Goal met Patient is free from injury related to surgical fire Plan of Care Outcome - Pt Positioning OUTCOME STATEMENT: Goal met Absence of signs and symptoms of positioning injury. Plan of Care Outcome - Skin Prep OUTCOME STATEMENT: Goal met Intraoperative care is consistent with measures to prevent infection Plan of Care Outcome - Xray/Images OUTCOME STATEMENT: N/A Absence of observable signs or symptoms of radiation injury Plan of Care Outcome - Counts OUTCOME STATEMENT: Goal met Absence of signs and symptoms of injury related to extraneous objects Last Modified By: Alyx Larson Rn 03/26/21 17:03:17 [facility] IntraOp Sign Out Audit 03/26/21 17:03:17 Claims Service Adjustor: [id number] Modifier: [id number] <+> 1 RN Sign Out Signature Date/Time 03/26/21 17:02:21 Claims Service Adjustor: [id number] Modifier: [id number] 1 <*> Specimen Labeled Correctly N/A 03/26/21 15:37:18 Claims Service Adjustor: [id number] Modifier: [id number] <+> 1 Urinary Catheter Documented in IView 03/26/21 14:26:39 Claims Service Adjustor: [id number] Modifier: [id number] 1 <*> Specimen Labeled Correctly Yes [facility] IntraOp Skin Prep Entry 1 Procedure Colon Resection Laparoscopic Prescribed Yes Pre-Surgical Prep Completed Prep Area ABDOMEN Intraop Prep Integumentary WDL Assessment WDL Prep Agents Chloraprep Prep by PETEY ANGEL Hair Removal Methods No hair removal performed Hair Removal By PETEY ANGEL Last Modified By: Alyx Larson Rn 03/26/21 15:37:34 [facility] IntraOp Skin Prep Audit 03/26/21 15:37:34 Claims Service Adjustor: [id number] Modifier: [id number] 1 <*> Methods Clipper/Scissors 1 <-> Hair Removal Site ABD 1 <*> Procedure Colon Resection Laparoscopic 1 <*> Prep by Alyx Larson Rn [facility] IntraOp Surgical Procedures Entry 1 Procedure Colon Resection Laparoscopic Additional HAND-ASSISTED Procedure EXPLORATORY LAPAROSCOPY Description CONVERTED TO LAPAROTOMY, OMENTECTOMY Primary Procedure Yes Primary Surgeon RAQUEL COOPER MD-PRO Start 03/26/21 15:30:00 Stop 03/26/21 16:58:00 Anesthesia Type General Specialty Gastroenterology Wound Class III - Contaminated Last Modified By: Alyx Larson Rn 03/26/21 17:01:51 [facility] IntraOp Surgical Procedures Audit 03/26/21 17:01:51 Claims Service Adjustor: [id number] Modifier: [id number] <+> 1 Stop 03/26/21 16:39:43 Claims Service Adjustor: [id number] Modifier: [id number] 1 <*> Procedure Colon Resection Laparoscopic 1 <*> Additional Procedure Description HAND-ASSISTED EXPLORATORY LAPAROSCOPY 03/26/21 15:38:05 Claims Service Adjustor: [id number] Modifier: [id number] 1 <*> Procedure Colon Resection Laparoscopic 1 <+> Start 1 <*> Additional Procedure Description (EXPLORATORY LAPAROSCOPY [facility] IntraOp Temp Regulation Devices Entry 1 Temp Regulation Temperature Forced Air Warming Regulation Device device, Irrigation solution warmer, Warm blankets Temperature 50536 Regulation Device Serial/Unit Number Temperature Upper body Regulation Site Temperature Device 43 DEGREES CELCUIS Setting Temperature Justice, Debby, CATALYST SUPERVISOR Regulation Device Applied by Last Modified By: Alyx Larson Rn 03/26/21 15:38:15 [facility] IntraOp Temp Regulation Devices Audit 03/26/21 15:38:15 Claims Service Adjustor: [id number] Modifier: [id number] 1 <*> Temperature Regulation Device Alyx Larson Rn Applied by [facility] IntraOP Time Out Entry 1 Procedure to be Colon Resection Performed Laparoscopic Time Out Time Out Pause Time 03/26/21 15:29:00 All activity Yes suspended (unless life threatening emergency) Team Verbally Correct patient Confirms Information identity, Correct side and site are marked, Consent form is present and accurate, Agreement on the procedure to be done, Correct patient position, Relevant images/results properly labeled/appropriately displayed, Confirm antibiotics have been administered, Confirm the skin prep has dried, Performed in location of procedure after prepped/draped, Performed before each procedure if multiple procedures, Reconcile problems if responses among team members differ Antibiotic Yes Prophylaxis Administered Or In Progress Within the Last 60 Minutes Beta Mary Carmen Yes Administered Venous Yes Thromboembolism Prophylaxis Required Anticipated Critical Events Surgeon None expected Anesthesia Provider None expected Nursing Assures Sterility of instruments Essential Imaging Yes Labeled and Displayed Last Modified By: Alyx Larson Rn 03/26/21 15:38:32 [facility] IntraOP Time Out Audit 03/26/21 15:38:32 Claims Service Adjustor: [id number] Modifier: [id number] <+> Time Out Pause Time 1 <*> Procedure to be Performed Colon Resection Laparoscopic Case Comments <None> Finalized By: NORMAN OLIVIER Document Signatures Signed By: Alyx Larson Rn 03/26/21 17:03 NORMAN OLIVIER 03/27/21 10:02 Unfinalized History Date/Time Username Reason for Unfinalizing Freetext Reason for Unfinalizing 03/27/21 09:56 WATTSDR Correct Billing documented in this encounter Plan of Treatment Not on file documented as of this encounter Visit Diagnoses Not on filedocumented in this encounter
--- OUTSIDE RECORDS SUMMARY | 2025-02-10 00:33 | XMS_ITS | Encounter Summary ---
Author Organization [employer] ([place], [place], [place], [place]) Address [address] [place] [address] Care Team Providers Care Cut Out Marker Name Role Phone Unavailable Primary Care Provider Unavailabl e Encounter Details Date Type Department Care Team (Late st Contact Info) Description 03/26/2021 Transcribed Document [facility] [place] [address] [place] [address] ProviderLele MD [address] [place] [address] Social History Tobacco Use Types [...] Conversion Note - Historical ProviderMD - 03/26/2021 5:07 PM CDT Consult Phone Call Documentation Entered On: 03/27/2021 9:13 EDT Performed On: 03/26/2021 17:07 EDT by ALLIE JORDAN Phone Call for Consults Consult Phone Call/Page Attempt : First call Consult Reason : medical management Physician Requesting Consult : RAQUEL COOPER MD-PRO Provider Service Notified Name : Other: hospitalist Date and Time Call Returned : 03/27/2021 9:13 EDT ALLIE JORDAN - 03/27/2021 9:12 EDT Electronically signed by Iglesia Heard Conversion Stripper And Opaquer Apprentice Cerner at 11/11/2022 6:51 PM CDT documented in this encounter Plan of Treatment Not on file documented as of this encounter Visit Diagnoses Not on filedocumented in this encounter
--- OUTSIDE RECORDS SUMMARY | 2025-02-10 00:33 | XMS_ITS | Encounter Summary ---
Author Organization [employer] ([place], [place], [place], [place]) Address [address] [place] [address] Care Team Providers Care Resolution Specialist Name Role Phone Unavailable Primary Care Provider Unavailabl e Encounter Details Date Type Department Care Team (Late st Contact Info) Description 03/26/2021 Transcribed Document [facility] [place] [facility] [place] [address] ProviderLele MD [address] [place] [address] Social History Tobacco Use Types [...] Conversion Note - Lele ProviderMD - 03/26/2021 6:00 PM CDT Pain Assessment Entered On: 03/27/2021 4:17 EDT Performed On: 03/26/2021 18:45 EDT by Kimberlyn Aguilar RN-PATIENT CARE BEDSIDE NON-EXEMPT Intervention Information: ketorolac Performed by Ebony Molina RN-PATIENT CARE BEDSIDE NON-EXEMPT on 03/26/2021 18:15:00 EDT ketorolac,15mg IV Push,Left Antecubital [place] Pain Assessment Pain Assessment : Follow-up assessment Pain Scale Goal : 4 Pain Scale Used : 0-10 Scale Kimberlyn Aguilar RN-PATIENT CARE BEDSIDE NON-EXEMPT - 03/27/2021 4:17 EDT Pain Scale Intensity : 4 Kimberlyn Aguilar RN-PATIENT CARE BEDSIDE NON-EXEMPT - 03/27/2021 4:17 EDT Image 4 - Images currently included in the form version of this document have not been included in the text rendition version of the form. Electronically signed by Iglesia Heard Conversion Alteration Workroom Supervisor Cerner at 11/11/2022 6:48 PM CDT documented in this encounter Plan of Treatment Not on file documented as of this encounter Visit Diagnoses Not on filedocumented in this encounter
--- OUTSIDE RECORDS SUMMARY | 2025-02-10 00:33 | XMS_ITS | Encounter Summary ---
Author Organization [employer] ([place], [place], [place], [place]) Address [address] [place] [address] Care Team Providers Care Prototype Machine Operator Name Role Phone Unavailable Primary Care Provider Unavailabl e Encounter Details Date Type Department Care Team (Late st Contact Info) Description 03/26/2021 Transcribed Document [facility] [place] [address] [place] [address] ProviderLele MD [facility] [place] [address] Social History Tobacco Use Types [...] Conversion Note - Lele ProviderMD - 03/26/2021 1:46 PM CDT ED Discharge Entered On: 03/26/2021 13:47 EDT Performed On: 03/26/2021 13:46 EDT by Brit Ceballos RN Discharge Process Patient Disposition : Admit/Observe Patient Education Completed : Yes Teaching Evaluation : Verbalizes understanding IV Discontinued : No Nursing Documentation Completed : Yes Brit Ceballos RN - 03/26/2021 13:46 EDT Admission, ED Nurse Report Accepted By : or `Nurse Report (Hand Off) : Called Accompanied By, Discharge : Unaccompanied Fluids/Drips Continued on Admission : No Mode Of Departure : Brit Sanchez RN - 03/26/2021 13:46 EDT documented in this encounter Plan of Treatment Not on file documented as of this encounter Visit Diagnoses Not on filedocumented in this encounter
--- OUTSIDE RECORDS SUMMARY | 2025-02-10 00:33 | XMS_ITS | Encounter Summary ---
Author Organization [employer] ([place], [place], [place], [place]) Address [address] [place] [address] Care Team Providers Care Household Appliances Salesperson Name Role Phone Unavailable Primary Care Provider Unavailabl e Encounter Details Date Type Department Care Team (Late st Contact Info) Description 03/26/2021 Transcribed Document [facility] [place] [address] [place] [address] ProviderLele MD [address] [place] [address] Social History Tobacco Use Types [...] Conversion Note - Lele ProviderMD - 03/26/2021 4:50 PM CDT Patient: KEMI BOO Age: 75 Years Sex: Male : 1945 CSGA Pre Op Diagnosis: Small bowel obstruction Post Op Diagnosis: 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 He initially did quite well but over the last week and developed crampy abdominal pain. I checked labs on him on Wednesday which were all unremarkable. I saw him in the office on Wednesday and saw that he looked fairly uncomfortable. He had a mildly distended abdomen. I ordered a CT scan of the abdomen and pelvis which revealed a proximally dilated small bowel with loops up to 4-1/2 cm and a decompressed distal small bowel and colon. There was minimal ascitic fluid. No other notable findings. Since the patient was unable to eat without developing crampy abdominal pain, I talked with him about proceeding to the OR for exploratory laparoscopy/laparotomy. Both he and his agreed to proceed. Findings: At time of laparoscopy I was unable to get adequate insufflation of the abdomen to visualize the entire small bowel because it was rather dilated. I did not see any specific transition point. For this reason I transition to a slightly larger open incision where I could run the small bowel from the ligament of Treitz down to his ileocolic anastomosis. Again I did not see any specific transition point other than to note that his distal small bowel was collapsed in his proximal small bowel quite markedly dilated. The anastomosis was raised up into the field. I noted that the patient had a fairly large leaflet of omentum that was wrapped over the distal small bowel. It did not appear to have good blood supply and as I pulled on it to from the small bowel it actually tore away from the remaining healthy omentum quite well. This led me to the suspicion that this was an omentum that was ischemic and may be causing his ileus/small bowel obstruction. I examined the anastomosis carefully and noted that it was soft and supple and appeared to be quite well-healed. The omentum that was around the anastomosis was thin and soft and pliable and not thickened like the omentum that I removed that had been wrapped around the distal small bowel. While running his small bowel I did make a small enterotomy. I used this as an opportunity to decompress the entire small bowel of about 1 L of enteric contents. Small bowel was repaired in a double layer interrupted technique using 3-0 Vicryl sutures. EBL: Minimal Fluids: 1 L Specimen: Omentum. Sponge, needle, and instrument count: Correct by nursing count at end of case. Procedure in Detail: Patient was correctly identified, brought to the operating room, placed in the supine position on the OR table. He underwent induction of anesthesia was intubated. Had a Lai catheter and an NG tube placed for the case. He was prepped and draped over the abdomen in the usual fashion. An appropriate timeout was performed. I began by making a midline incision that encompassed his previous extraction site in the lower mid abdomen. This was large enough to accommodate a GelPort which was placed after I gained entrance into the peritoneal cavity. I achieved a pneumoperitoneum and then placed a port through the GelPort and a camera to look around. I saw some adhesions of the omentum to the anterior abdominal wall in the right upper quadrant where the anastomosis was. I noted that the patient had dilated loops of small bowel throughout. I did not note any specific transition point and it was difficult for me to run the bowel. I felt it was not worth putting in other laparoscopic instruments to attempt to run the bowel as I did not see any specific transition point from an adhesive process. At this point I removed the laparoscope and the GelPort and extended the incision just above the umbilicus. This allowed me to visualize the small bowel quite well. I ran it from the ligament of Treitz down to the ileocolic anastomosis. I saw no evidence of a specific adhesive band or transition point. As I got to the anastomosis I did note that there was a large leaflet of omentum that was wrapped around the small bowel and it appeared to be somewhat ischemic. I this from the small bowel and noted that it was attached to the transverse omentum. There was a specific transition appearance to it from healthy-appearing omentum that was thin and supple to a thickened and more ischemic appearing omentum that I was holding my hand. As I pulled on it it readily from the normal omentum and I in its Entirety and handed off the field as specimen. Beneath this I noted that the small bowel was decompressed and soft in palpation. I was able to raise the anastomosis into my field and carefully inspected. It was soft and supple and appeared to be well-healed. As I was running the small bowel and replacing it back into the abdomen there was a small enterotomy that was made in the mid jejunum. There was minimal spillage of enteric contents. I used this opportunity to decompress the entire small bowel of 1 L of enteric contents using a pull tip sucker. Once this was complete I closed the enterotomy with 3-0 Vicryl sutures in interrupted technique. A second layer was placed. I then palpated the repair to ensure that there was good integrity. I felt it would be important to irrigate the abdomen at this point and I did so with 3 L of warm saline. There was clear return. Again it should be noted there was minimal contamination. I left a Luc-Patel drain in the right colic gutter through a stab wound in the right lower abdomen. I used a #1 looped PDS to close the fascia in a running fashion. The wound was then irrigated with pulse lavage. I closed Amador's fascia with 3-0 Vicryl sutures in interrupted fashion. 3-0 Monocryl suture was used to close the skin in a subcuticular fashion. A Prineo dressing was placed. The drain was hooked to bulb suction. The patient was awakened, extubated, and brought to recovery room in good condition. documented in this encounter Plan of Treatment Not on file documented as of this encounter Visit Diagnoses Not on filedocumented in this encounter
--- OUTSIDE RECORDS SUMMARY | 2025-02-10 00:33 | XMS_ITS | Encounter Summary ---
Author Organization [employer] ([place], [place], [place], [place]) Address [address] [place] [address] Care Team Providers Care Cooler Servicer Name Role Phone Unavailable Primary Care Provider Unavailabl e Encounter Details Date Type Department Care Team (Late st Contact Info) Description 03/26/2021 Transcribed Document [facility] [place] [address] [place] [address] ProviderLele MD [address] [place] [address] Social History Tobacco Use Types [...] Historical ProviderMD - 03/26/2021 12:49 PM CDT [place] Suicide Severity Rating Scale (C-SSRS) Entered On: 03/26/2021 13:45 EDT Performed On: 03/26/2021 13:44 EDT by Brit Ceballos RN [place] Suicide Severity Rating Scale (C-SSRS) CSSRS Past Month Wish to be : No CSSRS Past Month Suicidal Thoughts : No CSSRS Lifetime Suicide Behavior : No Suicide Severity Rating Score : 0 Suicide Severity Rating : No Additional Care Required at this time Brit Ceballos RN - 03/26/2021 13:44 EDT Electronically signed by Iglesia Heard Conversion Call Center Support Consultant Cerner at 11/11/2022 6:36 PM CDT documented in this encounter Plan of Treatment Not on file documented as of this encounter Visit Diagnoses Not on filedocumented in this encounter
--- OUTSIDE RECORDS SUMMARY | 2025-02-10 00:33 | XMS_ITS | Encounter Summary ---
Author Organization [employer] ([place], [place], [place], [place]) Address [address] [place] [address] Care Team Providers Care Campground Caretaker Name Role Phone Unavailable Primary Care Provider Unavailabl e Encounter Details Date Type Department Care Team (Late st Contact Info) Description 03/12/[address] [facility] [place] [address] [place] [address] ProviderLele MD [address] [place] [address] Social History Tobacco Use Types [...] Conversion Note - Historical ProviderMD - 03/12/2021 11:37 AM CDT Consult Phone Call Documentation Entered On: 03/12/2021 17:33 EDT Performed On: 03/12/2021 11:37 EDT by ALLIE JORDAN Phone Call for Consults Consult Phone Call/Page Attempt : First call Consult Reason : admit and cover medically Physician Requesting Consult : RAQUEL COOPER MD-PRO Physician Requested for Consult : ANNA CAMEJO MD-INT Date and Time Call Returned : 03/12/2021 17:32 EDT Physician Returning Call : ALEJANDRINA STONE MD SEXTON, CRYSTAL - 03/12/2021 17:31 EDT documented in this encounter Plan of Treatment Not on file documented as of this encounter Visit Diagnoses Not on filedocumented in this encounter
--- OUTSIDE RECORDS SUMMARY | 2025-02-10 00:33 | XMS_ITS | Patient Health Record ---
Author Organization [facility] Address [address] [place] [address] Care Team Providers Care Materials Buyer Name Role Phone Dez Cerna Primary Care Provider [phone] CookieDebby alvarez Unavailable [phone] Migration, Provider Unavailable Unavailable Allergies No Known Allergies Results Component Value Reference Range Notes HEMOGLOBIN A1c (496) Reviewed date:12/25/2024 09:39:57 AM Interpretation: Performing Lab:CB, [facility] [address], eBioscienceHxgaMF[address] Nish Squires Notes/Report: NON-FASTING; NON-FASTING; NON-FASTING; NON-FASTING [...] A1c for diagnosis of diabetes for children. LIPID PANEL, STANDARD (7600) Reviewed date:12/25/2024 09:39:56 AM Interpretation: Performing Lab:CB, [facility] [address], eBioscienceCwpxFM[address] Nish Squires Notes/Report: NON-FASTING; NON-FASTING; NON-FASTING; NON-FASTING [...] factors. LDL-C is now calculated using the Jorge Luis-Courtney calculation, which is a validated novel method providing better accuracy than the Friedewald equation in the estimation of LDL-C. Jorge Luis SS et al. EUGENIO. 2013;310(19): 2365-5737 (http://education.[employer].Pin or Peg/faq/HTU871) CHOL/HDLC RATIO 3.4 <5.0 (calc) NON HDL CHOLESTEROL 64 <130 mg/dL (calc) For patients with diabetes plus 1 major ASCVD risk factor, treating to a non-HDL-C goal of <100 mg/dL (LDL-C of <70 mg/dL) is considered a therapeutic option. COMPREHENSIVE METABOLIC MARII Giles (79604) Reviewed date:12/25/2024 09:39:56 AM Interpretation: Performing Lab:[facility] [address] Nish Squires Notes/Report: NON-FASTING; NON-FASTING; NON-FASTING; NON-FASTING [...] 9) Reviewed date:12/25/2024 09:39:56 AM Interpretation: Performing Lab:[facility], [facility], [facility] HealthMmspJI[address] Nish Squires Notes/Report: NON-FASTING; NON-FASTING; NON-FASTING; NON-FASTING [...] MPV 10.8 7.5-12.5 fL ABSOLUTE NEUTROPHILS 4514 6230-4724 cells/uL ABSOLUTE LYMPHOCYTES 245 046-1465 cells/uL ABSOLUTE MONOCYTES 744 200-950 cells/uL ABSOLUTE EOSINOPHILS 174 15-500 cells/uL ABSOLUTE BASOPHILS 43 0-200 cells/uL NEUTROPHILS 72.8 LYMPHOCYTES 11.7 MONOCYTES 12.0 EOSINOPHILS 2.8 BASOPHILS 0.7 Microalbumin (In-House) Reviewed date:08/23/2024 04:57:58 PM Interpretation:Normal Performing Lab: Notes/Report: Normal ALB 10mg/L CRE 50mg/dL A:C <30mg LIPID PANEL, STANDARD (7600) Reviewed date:08/25/2024 10:54:41 AM Interpretation: Performing Lab:[facility] [facility] [address] [facility] [place], [facility] HospitalGkgtYL[address] Nish Squires Notes/Report: NON-FASTING; NON-FASTING; NON-FASTING; NON-FASTING; NON-FAST FASTING:YES FASTING: YES CHOLESTEROL, TOTAL 104 <200 mg/dL HDL CHOLESTEROL 30 > OR = 40 mg/dL TRIGLYCERIDES 286 <150 mg/dL If a non-fasting specimen was collected, consider repeat triglyceride testing on a fasting specimen if clinically indicated. Ilene et al. J. of Clin. Lipidol. 2015;9:129-169. LDL-CHOLESTEROL 40 Reference range: <100 Desirable range <100 mg/dL for primary prevention; <70 mg/dL for patients with CHD or diabetic patients with > or = 2 CHD risk factors. LDL-C is now calculated using the Jorge Luis-Courtney calculation, which is a validated novel method providing better accuracy than the Friedewald equation in the estimation of LDL-C. Jorge Luis MCNAMARA et al. EUGENIO. 2013;310(19): 7470-3006 (http://education.[employer].Pin or Peg/faq/VRP062) CHOL/HDLC RATIO 3.5 <5.0 (calc) NON HDL CHOLESTEROL 74 <130 mg/dL (calc) For patients with diabetes plus 1 major ASCVD risk factor, treating to a non-HDL-C goal of <100 mg/dL (LDL-C of <70 mg/dL) is considered a therapeutic option. COMPREHENSIVE METABOLIC MARII Giles (98582) Reviewed date:08/25/2024 10:54:41 AM Interpretation: Performing Lab:[facility] [address], [facility] HealthLlibPA[address] Nish Squires Notes/Report: NON-FASTING; NON-FASTING; NON-FASTING; NON-FASTING; NON-FAST FASTING:YES FASTING: YES GLUCOSE 162 65-99 mg/dL Fasting reference interval For someone without known diabetes, a glucose value >125 mg/dL indicates that they may have diabetes and this should be confirmed with a follow-up test. UREA NITROGEN (BUN) 22 7-25 mg/dL CREATININE 0.78 0.70-1.28 mg/dL EGFR 92 > OR = 60 mL/min/1.73m2 BUN/CREATININE RATIO SEE NOTE: 6-22 (calc) Not Reported: BUN and Creatinine are within reference range. SODIUM 137 135-146 mmol/L POTASSIUM 4.5 3.5-5.3 mmol/L CHLORIDE 104 98-110 mmol/L CARBON DIOXIDE 22 20-32 mmol/L CALCIUM 9.7 8.6-10.3 mg/dL PROTEIN, TOTAL 7.4 6.1-8.1 g/dL ALBUMIN 5.0 3.6-5.1 g/dL GLOBULIN 2.4 1.9-3.7 g/dL (calc) ALBUMIN/GLOBULIN RATIO 2.1 1.0-2.5 (calc) BILIRUBIN, TOTAL 1.0 0.2-1.2 mg/dL ALKALINE PHOSPHATASE 78 35-144 U/L AST 28 10-35 U/L ALT 43 9-46 U/L CBC (INCLUDES DIFF/PLT) (639 9) Reviewed date:08/25/2024 10:54:41 AM Interpretation: Performing Lab:[place], [facility] [address] [facility] [place], [facility] HealthIvpcWV[address] Nish Squires Notes/Report: NON-FASTING; NON-FASTING; NON-FASTING; NON-FASTING; NON-FAST FASTING:YES FASTING: YES WHITE BLOOD CELL COUNT 5.0 3.8-10.8 Thousand/ uL RED BLOOD CELL COUNT 5.40 4.20-5.80 Million/uL HEMOGLOBIN 16.3 13.2-17.1 g/dL HEMATOCRIT 49.3 38.5-50.0 % MCV 91.3 80.0-100.0 fL MCH 30.2 27.0-33.0 pg MCHC 33.1 32.0-36.0 g/dL For adults, a slight decrease in the calculated MCHC value (in the range of 30 to 32 g/dL) is most likely not clinically significant; however, it should be interpreted with caution in correlation with other red cell parameters and the patient's clinical condition. RDW 13.2 11.0-15.0 % PLATELET COUNT 139 140-400 Thousand/uL MPV 11.1 7.5-12.5 fL ABSOLUTE NEUTROPHILS 3115 1625-4014 cells/uL ABSOLUTE LYMPHOCYTES 300 411-3837 cells/uL ABSOLUTE MONOCYTES 665 200-950 cells/uL ABSOLUTE EOSINOPHILS 200 15-500 cells/uL ABSOLUTE BASOPHILS 40 0-200 cells/uL NEUTROPHILS 62.3 LYMPHOCYTES 19.6 MONOCYTES 13.3 EOSINOPHILS 4.0 BASOPHILS 0.8 HEMOGLOBIN A1c (496) Reviewed date:08/25/2024 10:54:41 AM Interpretation: Performing Lab:[facility], [place] RjdvWL[address] Nish Squires Notes/Report: NON-FASTING; NON-FASTING; NON-FASTING; NON-FASTING; NON-FAST FASTING:YES FASTING: YES HEMOGLOBIN A1c 7.7 <5.7 % of total Hgb For someone without known diabetes, a hemoglobin [...] A1c for diagnosis of diabetes for children. CEA (978) Reviewed date:08/25/2024 10:54:41 AM Interpretation: Performing Lab:[facility] [facility], [place] UwjzSB[address] Nish Squires Notes/Report: NON-FASTING; NON-FASTING; NON-FASTING; NON-FASTING; NON-FAST FASTING:YES FASTING: YES CEA 2.8 See Note: ng/mL Reference Range: Non-Smoker: <2.5 Smoker: <5.0 This test was performed using the Siemens chemiluminescent method. Values obtained from different assay methods cannot be used interchangeably. CEA levels, regardless of value, should not be interpreted as absolute evidence of the presence or absence of disease. PSA, TOTAL (5363) Reviewed date:08/25/2024 10:54:41 AM Interpretation: Performing Lab:[facility] [facility], [place] QwpsHE[address] Nish Squires Notes/Report: NON-FASTING; NON-FASTING; NON-FASTING; NON-FASTING; NON-FAST FASTING:YES FASTING: YES PSA, TOTAL 1.53 < OR = 4.00 ng/mL The total PSA value from this assay system is standardized against the WHO standard. The test result will be approximately 20% lower when compared to the equimolar-standardized total PSA (Alejandra Easton). Comparison of serial PSA results should be interpreted with this fact in mind. This test was performed using the Siemens chemiluminescent method. Values obtained from different assay methods cannot be used interchangeably. PSA levels, regardless of value, should not be interpreted as absolute evidence of the presence or absence of disease. Medications Medication SIG (Take, Route, Frequency, Duration) Notes Start Date End Date Status Co Q-10 100 MG 1 cap(s) orally once a day; Duration: 90 days Active Carvedilol 12.5 MG 1 tab(s) orally 2 times a day; Duration: 90 days Active Ramipril 10 MG 1 cap(s) orally once a day; Duration: 90 days Active Isosorbide Mononitrate ER 30 MG 1 tab(s) orally once a day (in the morning) Active Xyzal Allergy 24HR 5 MG 1 po Once a day; Duration: 30 days 11/20/2024 Active Promethazine-DM 6.25-15 MG/5ML 5 mL orally every 6 hours; Duration: 10 days 11/20/2024 Active Atorvastatin Calcium 80 MG 1 tab(s) orally once a day; Duration: 90 days Active Fish Oil 500 MG 1 cap(s) orally once a day Active Fluticasone Propionate 50 MCG/ACT 2 spray(s) intranasally once a day; Duration: 30 day(s) 11/20/2024 Active NGOZI CHILDRENS ASPIRIN 81 MG TAKE 1 TABLET BY MOUTH ONCE DAILY; Duration: 90 DAYS *Please review for potential replacement for e-prescription and drug interaction check* Active Jardiance 25 MG 1 tab(s) orally once a day (in the morning); Duration: 90 days Active Vitamin C 500 MG TAKE 1 TABLET BY MOUTH EVERY DAY; Duration: 90 Active Immunizations Vaccine Route Administration Date Status Comme nts Prevnar PCV-20 (Pneumococcal conjugate 20) IM Intramuscular 06/21/2023 Administered Prevnar PCV-13 (Pneumococcal conjugate 13) IM Intramuscular 05/28/2017 Administered PPD ID Intradermal 02/22/2009 Administered Influenza (Fluzone)--Medicare only IM Intramuscular 05/28/2017 Administered Fluzone High Dose IM Intramuscular 04/22/2018 Administered Fluzone High Dose IM Intramuscular 06/19/2019 Administered Fluzone High Dose IM Intramuscular 05/10/2020 Administered Fluzone High Dose IM Intramuscular 05/28/2021 Administered Fluzone High Dose IM Intramuscular 04/22/2022 Administered Fluzone High Dose IM Intramuscular 06/21/2023 Administered Fluzone High Dose IM Intramuscular 06/27/2024 Administered Social History Tobacco Use: Social History Observation Description Date Details (start date - stop date) Never Smoker NA - NA Smoking: Question Answer Notes Are you a: nonsmoker Problems Problem Type SNOMED Code ICD Code Onset Dates Problem Status W/U Status Risk Notes Problem 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 Problem Peripheral circulatory disorder associated with diabetes mellitus (992061753) Type 2 diabetes mellitus with other circulatory complications (E11.59) Active confirmed Problem 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 (373700333600225) 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 (I25.10) Active confirmed Problem Chronic rhinitis (13154154) Chronic rhinitis (J31.0) Active confirmed Problem Obstruction of duodenum (29209923) Obstruction of duodenum (K31.5) Active confirmed Problem Obstructive uropathy (5886672) Other obstructive and reflux uropathy (N13.8) Active confirmed Problem Sciatica (30083888) Left sciatic nerve pain (M54.32) Active confirmed Problem Hyperlipidemia (97888738) Hyperlipemia, 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 Problem Essential hypertension (26933197) Hypertension, essential (I10) Active confirmed Problem Pulmonary emphysema (59206704) Pulmonary emphysema, unspecified emphysema type (J43.9) Active confirmed Problem Malignant neoplasm of colon (716652580) Malignant neoplasm of colon, unspecified part of colon (C18.9) Active confirmed Problem Old healed fracture of bone (451087003) Status post fracture of right hip (Z87.81) Active confirmed Problem Lower urinary tract symptoms due to benign prostatic hypertrophy (20077376394076) Benign prostatic hyperplasia with lower urinary tract symptoms (N40.1) Active confirmed Problem Type II diabetes mellitus without complication (625045461) New onset type 2 diabetes mellitus (E11.9) Active confirmed Problem Aortic valve disease (5647172) Aortic valve disease (I35.9) Active confirmed Vital Signs Heart Rate 78 /min 12/20/2024 Temperature 97.6 degrees Fahrenheit 12/20/2024 Blood pressure diastolic 72 mm Hg 12/20/2024 Height 5' 9 in 12/20/2024 Blood pressure systolic 126 mm Hg 12/20/2024 Weight 256.4 lbs 12/20/2024 BMI 37.86 kg/m2 12/20/2024 Encounters Encounter Location Date Provider Diagnosis [facility] [address] [place] [address] 10/28/2024 Provider Migration [facility] [address] [place] [address] 06/27/2024 Debby Cookie Sensation of fullnes s in both ears H93.8X3 ; Bilateral impacted cerumen H61.23 ; Type 2 diabetes mellitus with other circulatory complications E11.59 and Immunization(s) administered Z23 [facility] [address] [place] [address] 08/23/2024 Dez Cerna Type 2 diabetes mellitus with other circulatory complications E11.59 ; Hyperlipemia, idiopathic familial E78.5 ; 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 I25.10 ; Benign prostatic hyperplasia with lower urinary tract symptoms N40.1 ; Pulmonary emphysema, unspecified emphysema type J43.9 ; Malignant neoplasm of colon, unspecified part of colon C18.9 and Routine medical exam Z00.00 [facility] [address] [place] [address] 11/20/2024 Dez Cerna Acute cough R05.1 [facility] [address] [place] [address] 12/20/2024 Dez Cerna Hypertension, essent ial I10 ; Hyperlipemia, idiopathic familial E78.5 ; Type 2 diabetes mellitus with other circulatory complications E11.59 ; 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 I25.10 ; Ventral hernia without obstruction or gangrene K43.9 and Left sciatic nerve pain M54.32 [facility] [address] [place], [place] [address] 11/20/2024 Dezangel Cerna [facility] [address] [place], [place] [address] 12/20/2024 Dez Cerna Assessments Encounter Date Diagnosis (ICD Code) Assessment Notes Treatment Notes Treatment Clinical Notes Section Notes 11/20/2024 Acute cough (ICD-10 - R05.1) 2-3 weeks of cough, post-nasal drip denies fevers/chills, body aches, fatigue. No known sick contacts no TTP over sinuses, no crevical adenopathy, no lower extremity edema Upper respiratory syptoms most likely 2/2 allergic rhinitis Start flonase, anti-histamine, promethazine-DM at bedtime Increase hydration to help break up mucus if symptoms worsen or fever develops come back 12/20/2024 Hyperlipemia, idiopathic familial (ICD-10 - E78.5) Continue current regimen, labs obtained today 12/20/2024 Hypertension, essential (ICD-10 - I10) Continue current regimen, BP looks good today 08/23/2024 Type 2 diabetes mellitus with other circulatory complications (ICD-10 - E11.59) Check A1c. I will review labs personally. Overall good medication. On goal-directed therapy given his heart disease 08/23/2024 Hyperlipemia, idiopathic familial (ICD-10 - E78.5) 06/27/2024 Bilateral impacted cerumen (ICD-10 - H61.23) 06/27/2024 Sensation of fullness in both ears (ICD-10 - H93.8X3) resolved with irrigation 06/27/2024 Type 2 diabetes mellitus with other circulatory complications (ICD-10 - E11.59) he reports reasonable control on recent labs. 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 Off cigarettes 12/20/2024 Ventral hernia without obstruction or gangrene (ICD-10 - K43.9) No signs of strangulation Educated patients of concerning findings to look out for No intervention neccesary at this time, wear abdominal belt or binder when lifting and continue with breathing through activity 12/20/2024 Left sciatic nerve pain (ICD-10 - M54.32) Exercise is the best remedy at this time, continue with walks daily 08/23/2024 Malignant neoplasm of colon, unspecified part of colon (ICD-10 - C18.9) 08/23/2024 Routine medical exam (ICD-10 - Z00.00) Aged out of cancer screening. Check CEA and other labs. No recent falls. Depression screening negative. Up-to-date with vaccinations, does decline shingles vaccine. is healthcare surrogate. Reviewed HRA. Plan Of Treatment Pending Test Test Name Order Date C-CBC 01/14/2021 C-CBC 08/18/2017 C-BASIC METABOLIC 02/11/2010 C-CMP 01/22/2010 C-CMP 08/18/2017 C-CMP 07/27/2013 C-CMP 01/14/2021 C-CMP 11/05/2020 C-CMP 08/26/2020 C-LIPID PANEL 08/26/2020 C-LIPID PANEL 01/14/2021 C-LIPID PANEL 07/27/2013 C-LIPID PANEL 08/18/2017 C-PSA 07/27/2013 C-PSA 01/22/2010 Cardiac Rehab 12/25/2020 Future Test Test Name Order Date C-CBC 07/27/2016 C-CMP 07/27/2016 C-LIPID PANEL 07/27/2016 C-THYROID PROFILE 01/24/2018 C-CBC 08/01/2018 C-CMP 08/01/2018 C-LIPID PANEL 08/01/2018 C-PSA 08/01/2018 C-CBC 03/18/2020 C-CMP 03/18/2020 C-LIPID PANEL 03/18/2020 C-TSH 03/18/2020 C-VITAMIN B12 03/18/2020 C-VITAMIN D, 25-HYDROXY 03/18/2020 Next Appt Details Provider Name:Dez Cerna, 04/25/2025 09:00:00 AM, [address], [place], [address], Insurance Providers Payer Name Payer Address Payer Phone Subscriber Number Group Number Insured Name Patient Relationship to Insured Coverage Start Date Coverage End Date [place] [address] [place] [address] [id number] RajeevEverette Self - patient is the insured [facility] [address] [place] [address] [phone] [id number] Everette Boo Self - patient is the insured [employer] [facility] [address] [facility] [address] [place] [address] ACL Everette Boo Self - patient is the insured Medical (General) History Medical History History ICD Code hypertension hypercholestrolemia CAD (quadruple bypass) valve replacement aortic aneurysm pacemaker left hand injury-4 digits amputated Cardiac stent Negative cologuard test 05/26 7 - c-scope 04/16 with polyps - 3 year f/u recommended Surgical History Surgery Date(Month/Year) open heart surgery 2006 bilatateral hip replacement chest tube, screws in pelvis 02/2016 colonoscopy 2010 with tubular adenoma Cardiac stent Heart Cath 10/13 colectomy 02/2021 Hospitalization History Reason Date(Month/Year) colectomy 02/2021 [facility] 02/2016 [facility]-chest tube, screws in pelvis 02/2016 all above surgeries
--- OUTSIDE RECORDS SUMMARY | 2025-02-10 00:33 | XMS_ITS | Encounter Summary ---
Author Organization [employer] ([place], [place], [place], [place]) Address [address] [place] [address] Care Team Providers Care Mathematical Sciences Professor Name Role Phone Unavailable Primary Care Provider Unavailabl e Encounter Details Date Type Department Care Team (Late st Contact Info) Description 03/12/2021 Transcribed Document [facility] Family Medicine [address] [place] [address] ProviderLele MD [address] [place] [address] Social History Tobacco Use Types [...] Conversion Note - Lele ProviderMD - 03/12/2021 2:00 AM CDT Spiritual Care Assessment Entered On: 03/12/2021 15:59 EDT Performed On: 03/12/2021 6:58 EDT by ELLIOTT PANTOJA General Information Initial Visit : Yes Referred by : Patient Referral Reason Comment : Pre-surgery visit Ministry Provided to : Patient, Family/Significant other Baptist Preference : Anabaptist, independent ELLIOTT PANTOJA - 03/12/2021 15:57 EDT Spiritual Assessment Spiritual Assessment Comment/Summary Points : Provided pre-surgery visit and prayer with patient and . Spirital Assessment Comment/Summary Report : SPIRITUAL ASSESSMENT COMMENT/SUMMARY No qualifying data available. ELLIOTT PANTOJA 03/12/2021 15:57 EDT Interventions Emotional Support : Empathic/Engaged listening, Family/Significant other supported Spiritual and Baptist : Verify wai group connection, Prayer shared, Spiritual/Baptist support provided ELLIOTT PANTOJA 03/12/2021 15:57 EDT Electronically signed by Félix, [facility] Conversion Ship Fastener Cerner at 11/11/2022 6:41 PM CDT documented in this encounter Plan of Treatment Not on file documented as of this encounter Visit Diagnoses Not on filedocumented in this encounter
--- OUTSIDE RECORDS SUMMARY | 2025-02-10 00:33 | XMS_ITS | Encounter Summary ---
Author Organization [employer] ([place], [place], [place], [place]) Address [address] [place] [id number] Care Team Providers Care Checking Clerk Name Role Phone Unavailable Primary Care Provider Unavailabl e Encounter Details Date Type Department Care Team (Late st Contact Info) Description 03/12/2021 Transcribed Document [facility] [place] [address] [place] [address] ProviderLele [place] [address] Social History Tobacco Use Types [...] Note - Lele Shah MD - 03/12/2021 8:05 AM CDT [facility] Main OR IntraOp Summary Primary Physician: RAQUEL COOPER MD- Finalized Date/Time: 03/13/21 10:47:08 Pt. Name: MALLIKANORRISKEMI /Sex: 1945 Male Med Rec #: [id number] Physician: RAQUEL COOPER MD-PRO Financial #: [id number] Pt. Type: I Room/Bed: [facility]/ Admit/Disch: 03/12/21 06:52:00 - Institution: [facility] IntraOp Case Attendance Entry 1 Entry 2 Entry 3 Case Attendee RAQUEL COOPER MD-PRO Kim Apodaca, HEIDE OLIVEROS, SIX HORSE HITCH DRIVER Role Performed Surgeon/Proceduralist, Bobbin Inspector, First Scrub, First First Time In 03/12/21 07:39:00 03/12/21 07:39:00 03/12/21 07:39:00 Time Out 03/12/21 10:42:00 03/12/21 10:42:00 03/12/21 10:42:00 Procedure Colon Resection Colon Resection Colon Resection Robotic(Right) Robotic(Right) Robotic(Right) Other Attendee Superficial Wound Closed By: Last Modified By: Kim Apodaca, Kim Nguyen, Kim Nguyen, PRITESH 03/12/21 10:41:06 03/12/21 10:41:06 03/12/21 10:41:06 Entry 4 Entry 5 Entry 6 Case Attendee FELICITY CAGE CSTFA MCDANIEL, KELLY, NA CORNEA, MIHAELA, MD-ANS Role Performed Automotive Tire Technician, First ELECTRICAL SYSTEM SPECIALIST/Nurse Molder Bench Anesthesiologist of Record Time In 03/12/21 07:39:00 03/12/21 07:39:00 03/12/21 07:39:00 Time Out 03/12/21 10:42:00 03/12/21 10:42:00 03/12/21 10:42:00 Procedure Colon Resection Colon Resection Colon Resection Robotic(Right) Robotic(Right) Robotic(Right) Other Attendee Superficial Wound Closed By: Last Modified By: Kim Apodaca, Kim Nguyen, Kim Nguyen, PRITESH 03/12/21 10:41:06 03/12/21 10:41:06 03/12/21 10:41:06 Entry 7 Entry 8 Case Attendee NABIL EARLY SSI GINTER, WENDY J, RN Role Performed Maintenance Services Dispatcher, Ancillary Bobbin Inspector, Second Time In 03/12/21 07:39:00 03/12/21 07:39:00 Time Out 03/12/21 10:42:00 03/12/21 10:42:00 Procedure Colon Resection Colon Resection Robotic(Right) Robotic(Right) Other Attendee ORIENT Superficial Wound Closed By: Last Modified By: Kim Apodaca, Kim Nguyen, PRITESH 03/12/21 10:41:06 03/12/21 08:01:29 [facility] IntraOp Case Attendance Audit 03/12/21 10:41:06 Nocturnist Physician: LAFAVEHM Modifier: LAFAVEHM 1 <+> Time Out 1 <*> Procedure Colon Resection Robotic(Right) 2 <+> Time In 2 <+> Time Out 2 <*> Procedure Colon Resection Robotic(Right) 3 <+> Time In 3 <+> Time Out 3 <*> Procedure Colon Resection Robotic(Right) 4 <+> Time In 4 <+> Time Out 4 <*> Procedure Colon Resection Robotic(Right) 5 <+> Time In 5 <+> Time Out 5 <*> Procedure Colon Resection Robotic(Right) 6 <+> Time In 6 <+> Time Out 6 <*> Procedure Colon Resection Robotic(Right) 7 <+> Time In 7 <+> Time Out 7 <*> Procedure Colon Resection Robotic(Right) 8 <+> Time In 8 <+> Time Out 8 <*> Procedure Colon Resection Robotic(Right) [facility] IntraOp Case Times Entry 1 Patient In Room Time 03/12/21 07:39:00 Out Room Time 03/12/21 10:42:00 Anesthesia Start Time 03/12/21 07:39:00 Stop Time 03/12/21 10:42:00 Surgery / Procedure Times Start Time 03/12/21 08:05:00 Stop Time 03/12/21 10:36:00 Last Modified By: Kim Apodaca RN 03/12/21 10:40:47 [facility] IntraOp Case Times Audit 03/12/21 10:40:47 Nocturnist Physician: LAFAVEHM Modifier: LAFAVEHM <+> 1 Out Room Time <+> 1 Stop Time <+> 1 Stop Time 03/12/21 08:07:52 Nocturnist Physician: LAFAVEHM Modifier: LAFAVEHM <+> 1 Start Time [facility] IntraOp Cautery Entry 1 ESU Identification Cautery Type Monopolar ESU ID Number [id number] ID Type Hospital Number Cautery Settings Cut Setting 3 Coag Setting 3 Bipolar Setting 4 ESU Grounding Pad Ground Pad Type Adult Grounding Pad Site Right Flank Grounding Pad Kim Apodaca, PRITESH Applied By Grounding Pad Site Dry, Warm, Intact Skin Condition Before Cautery Grounding Pad Site Unchanged Skin Condition After Cautery Last Modified By: Kim Apodaca RN 03/12/21 08:08:39 [facility] IntraOp Communication Entry 1 Entry 2 Entry 3 Communication To Family/Significant other Family/Significant other Family/Significant other Comment Communication By Kim Apodaca RN Montgomery, Hazel, Kim Nguyen RN Date and Time 03/12/21 08:08:00 03/12/21 09:15:00 03/12/21 10:23:00 Last Modified By: Kim Apodaca RN Montgomery, Hazel, RN Montgomery, Hazel, RN 03/12/21 08:08:08 03/12/21 09:16:21 03/12/21 10:23:48 [facility] IntraOp Communication Audit 03/12/21 10:23:48 Nocturnist Physician: LAFAVEHM Modifier: LAFAVEHM <+> 3 Communication By <+> 3 Date and Time <+> 3 Communication To 03/12/21 09:16:21 Nocturnist Physician: LAFAVEHM Modifier: LAFAVEHM <+> 2 Communication By <+> 2 Date and Time <+> 2 Communication To [facility] IntraOp Counts Verification Entry 1 Procedure Colon Resection Robotic(Right) Count Info Count Type Sponge, Sharps, Instrument, Miscellaneous Counts Verification Closure of cavity Sequence within a cavity Counts Performed By Count Performed By HEIDE FUENTES SCRUB (Scrub) TECH Count Performed By Kim Apodaca RN (RN) Last Modified By: Kim Apodaca RN 03/12/21 08:08:53 [facility] IntraOp Counts Final Entry 1 Procedure Colon Resection Robotic(Right) Final Count Info Count Type Sponge, Sharps, Miscellaneous Counts Verification Skin Closure/end of Sequence procedure Count Results Correct, surgeon notified Counts Performed By Count Performed By HEIDE FUENTES SCRUB (Scrub) TECH Count Performed By BENITA CERON RN (RN) Last Modified By: Kim Apodaca RN 03/12/21 08:09:02 [facility] IntraOp Counts Final Audit 03/12/21 10:25:42 Nocturnist Physician: LAFAVEHM Modifier: LAFAVEHM 1 <*> Procedure Colon Resection Robotic(Right) 1 <+> Count Performed By (Scrub) 1 <+> Count Performed By (RN) [facility] IntraOp Cultures and Spec Summary Entry 1 Cultrures and Specimens Specimen Ordered: Yes Test(s) Routine/Path-Lab Requested/Final Disposition Last Modified By: Kim Apodaca RN 03/12/21 08:09:09 [facility] IntraOp Delays Entry 1 Delay Reason Ancillary department delay Duration 9 Minute(s) Comment MIKE BLOCK DELAY Last Modified By: Kim Apodaca RN 03/12/21 08:09:33 [facility] IntraOp Departure from OR Entry 1 Integumentary Assessment Transfer/Handoff Transfer to PACU Phase I Handoff Method Bedside/Face to face, Phone call, Online nursing summary Post-op Transport Stretcher/Gurney Via Patient Transport CAMRON PAT NA, Accompanied by FELICITY CAGE CSTFA Last Modified By: Kim Apodaca RN 03/12/21 08:09:40 [facility] IntraOp Dressing and Packing Entry 1 Type Dressing Location OPSITE Wound Dressing Item Skin Closure Glue Applied By FELICITY CAGE CSTFA Other Comments PRINEO Last Modified By: Kim Apodaca RN 03/12/21 08:09:52 [facility] Intra[facility] Fire Risk Assessment Entry 1 Fire Info Surgical Site or 0- No Incision Above the Xyphoid Open O2 Source 0- No (Mask or Cannula) Available Ignition 1- Yes (ESU, Laser, Light Source) Fire Risk 1 Assessment Score Fire Score Fire Risk Yes Assessment Complete Fire Risk Kim Apodaca RN Assessment Verified By Fire Risk 03/12/21 07:39:00 Assessment Verified Date/Time Fire Risk Standard Fire Yes Safety Precautions Followed Last Modified By: Kim Apodaca RN 03/12/21 08:02:44 [facility] IntraOp Fire Risk Assessment Audit 03/12/21 08:08:01 Nocturnist Physician: DANIELLE Modifier: DANIELLE <+> 1 Fire Risk Assessment Verified Date/Time [facility] IntraOp General Case Esthetician 1 Case Information OR OR 12 [facility] Case Level 1 Room Verified Yes Wound Class II - Clean-Contaminated Specialty Anesthesia Anesthesia Type General ASA Class 4 Diagnosis Preop Diagnosis ASCENDING COLON NEOPLASM Postop Same As Preop No Postop Diagnosis SEE MD POST OP NOTES Last Modified By: Kim Apodaca RN 03/12/21 08:10:44 [facility] Intra[facility] Intraoperative Assessment Entry 1 Handoff Method Online nursing summary Valid History / Yes Physical in Chart Preoperative Yes Checklist Reviewed/Evaluated Allergies Reviewed Yes Patient is Latex No Sensitive Isolation Not applicable Precautions Noted Level of WDL Consciousness (WDL = Alert, Oriented to Person, Place, and Time) Skin Assessment No Verified Present Upon IVs, Oxygen Arrival to OR Last Modified By: Kim Apodaca RN 03/12/21 08:10:54 [facility] IntraOp Intraoperative Equipment Entry 1 Type Monitoring Equipment Equipment Cecille Suction System Intraop Monitoring Antiembolic Devices Scopes Photo/Video Documentation Last Modified By: Kim Apodaca RN 03/12/21 08:10:59 [facility] IntraOp Medication Admin Entry 1 Entry 2 Medication/Irrigant INDOCYANINE GREEN .9%NaCl 25MG/VIAL Combo Med List Time Administered Route of CONTRAST IRRIGATION Administration Dose Dose 10 Unit of Measure ml Volume Administered By RAQUEL COOPER MD-PRO RAQUEL COOPER MD-PRO Procedure Irrigation Irrigant Volume In 100 mL Irrigant Volume Out Last Modified By: Kim Apodaca RN Montgomery, Hazel, RN 03/12/21 08:11:06 03/12/21 10:26:46 [facility] IntraOp Medication Admin Audit 03/12/21 10:26:46 Nocturnist Physician: DANIELLE Modifier: LAFAVEHM <+> 1 Route of Administration <+> 1 Dose <+> 2 Medication/Irrigant <+> 2 Route of Administration <+> 2 Administered By <+> 2 Irrigant Volume In [facility] IntraOp Patient Positioning Entry 1 Procedure Colon Resection Robotic(Right) Body Position Supine Left Arm Position Tucked and padded at side Right Arm Position Secured on padded arm board Left Leg Position Uncrossed, parallel Right Leg Position Uncrossed, parallel Feet Uncrossed Yes Pressure Points Yes Checked Positioning Devices Head Rest, Pad, Arm, Pad, Mattress, Pillows, Safety Strap, Chest, Safety Strap, Thighs Device Position PIGAZZI PAD, PILLOW UNDER PATIENT KNEES FOR COMFORT Positioned By Kim Apodaca RN, BENITA CERON RN, CAMRON PAT NA, FELICITY CAGE, DOMINIC, RAQUEL COOPER MD-PRO Position Verified Positioning Yes Verified by Anesthesia Positioning Yes Verified by Surgeon Last Modified By: Kim Apodaca RN 03/12/21 08:11:38 [facility] IntraOp Sign In Entry 1 Patient, Site, Yes Procedure Identified Surgical Consent Yes Confirmed Relevant Surgical Yes Documents Available Surgical Site N/A Marked by person performing procedure Anesthesia Machine Yes Check Completed Medication Checks Yes Completed Allergies Yes Airway Difficult Yes Airway/Aspiration Risk Difficult Yes Airway/Aspiration Intervention Equipment Available Blood Loss Risk Yes Blood Loss Yes Intervention Equipment Prepared and Ready Blood Identifiers Yes Verified Per Policy Hypothermia Risk Yes Warming Measures Yes Taken Last Modified By: Kim Apodaca RN 03/12/21 08:11:41 [facility] Intra[facility] Sign Out Entry 1 RN Confirmation Surgical Yes Procedure(s) Identified Instrument, Sponge Yes and Sharps Counts Correct/Documented Equipment Problems N/A Documented Specimen Labeled Yes Correctly Urinary Catheter Yes Documented in IView Slater Patient Yes Recovery Concerns Reviewed with Anesthesia Provider, Surgeon and RN Slater Patient Yes Management Concerns Reviewed with Anesthesia Provider, Surgeon and RN Safety Checklist Yes Elements Complete? RN Sign Out Kim Apodaca RN Signature RN Sign Out 03/12/21 10:42:00 Signature Date/Time Plan of Care Outcome - [...] related to extraneous objects Last Modified By: Kim Apodaca RN 03/12/21 08:11:44 [facility] Intra[facility] Sign Out Audit 03/12/21 10:40:54 Nocturnist Physician: DANIELLE Modifier: [email or web address] <+> 1 RN Sign Out Signature Date/Time [facility] IntraOp Skin Prep Entry 1 Procedure Colon Resection Robotic(Right) Prescribed Yes Pre-Surgical Prep Completed Prep Area ABDOMEN Intraop Prep Prep Agents Chloraprep Prep by Kim Apodaca RN Hair Removal Methods Clipper/Scissors Hair Removal Site OPSITE Hair Removal By RAQUEL COOPER MD-PRO Last Modified By: Kim Apodaca RN 03/12/21 08:12:01 [facility] IntraOp Surgical Procedures Entry 1 Procedure Colon Resection Robotic Modifiers Right Additional ROBOTIC RIGHT COLECTOMY Procedure Description Primary Procedure Yes Primary Surgeon RAQUEL COOPER MD-PRO Start 03/12/21 08:05:00 Stop 03/12/21 10:36:00 Anesthesia Type General Specialty Colorectal Wound Class II - Clean-Contaminated Last Modified By: Kim Apodaca RN 03/12/21 08:12:10 [facility] IntraOp Surgical Procedures Audit 03/12/21 10:41:04 Nocturnist Physician: DANIELLE Modifier: LAFAVEHM 1 <*> Procedure Colon Resection Robotic 1 <*> Additional Procedure Description (ROBOTIC RT COLECTOMY) 03/12/21 10:40:48 Nocturnist Physician: DANIELLE Modifier: [email or web address] <+> 1 Stop [facility] Intra[facility] Temp Regulation Devices Entry 1 Temp Regulation Temperature Forced Air Warming Regulation Device device, Irrigation solution warmer, Warm blankets Temperature 29861 Regulation Device Serial/Unit Number Temperature Upper body Regulation Site Temperature Device SET AND MONITORED BY Setting ANESTHESIA Temperature CAMRON PAT NA Regulation Device Applied by Last Modified By: Kim Apodaca RN 03/12/21 08:13:35 [facility] IntraOP Time Out Entry 1 Procedure to be Colon Resection Performed Robotic(Right) Time Out Time Out Pause Time 03/12/21 08:04:00 All activity Yes suspended (unless life threatening emergency) Team Verbally Correct patient Confirms Information identity, Consent form is present and accurate, Agreement on the procedure to be done, Correct patient position, Relevant images/results properly labeled/appropriately displayed, Confirm antibiotics have been administered, Confirm the skin prep has dried, Confirm prosthesis/implant/devic e is present, Performed in location of procedure after prepped/draped Antibiotic Yes Prophylaxis Administered Or In Progress Within the Last 60 Minutes Beta Mary Carmen Yes Administered Venous Yes Thromboembolism Prophylaxis Required Anticipated Critical Events Surgeon None expected, Special equipment need, Special instrumentation need Anesthesia Provider Patient specific concerns, None expected Nursing Assures Sterility of instruments Essential Imaging N/A Labeled and Displayed Last Modified By: Kim Apodaca RN 03/12/21 08:05:13 [facility] Intra[facility] Time Out Audit 03/12/21 08:05:13 Nocturnist Physician: DANIELLE Modifier: DANIELLE 1 <*> Beta Mary Carmen Administered N/A 1 <+> Time Out Pause Time 1 <*> Procedure to be Performed Colon Resection Robotic(Right) Case Comments <None> Finalized By: NORMAN OLIVIER Document Signatures Signed By: Kim Apodaca RN 03/12/21 10:41 NORMAN OLIVIER 03/13/21 10:47 Unfinalized History Date/Time Username Reason for Unfinalizing Freetext Reason for Unfinalizing 03/13/21 10:44 RYAN Correct Billing documented in this encounter Plan of Treatment Not on file documented as of this encounter Visit Diagnoses Not on filedocumented in this encounter
--- OUTSIDE RECORDS SUMMARY | 2025-02-10 00:33 | XMS_ITS | Encounter Summary ---
Author Organization [employer] ([employer] ([place], [place], [place], [place]) Address [address] [place] [address] Care Team Providers Care Teacher Of Family And Consumer Science Name Role Phone Unavailable Primary Care Provider Unavailabl e Encounter Details Date Type Department Care Team (Late st Contact Info) Description 03/26/2021 Transcribed Document [facility] [place] [address] ProviderLele [place] [address] Social History Tobacco Use Types [...] Note - Lele Shah MD - 03/26/2021 3:09 PM CDT Peripheral Nerve Block Entered On: 03/26/2021 15:10 EDT Performed On: 03/26/2021 15:09 EDT by Kiara Forrest RN Peripheral Nerve Block Peripheral Nerve Block Start Date/Time : 03/26/2021 14:30 EDT Verbally Confirm Pt, Site, and Procedure : Yes Time Out Pause Time : 03/26/2021 14:30 EDT Site Marked and Visible : Yes Site Preparation : Chlorhexidine (Hibiclens) Peripheral Nerve Block : Tap Block Laterality : Bilateral Peripheral Nerve Block Performed by : SALAZAR MUNSON MD-ANS Medication Delivery Method : Single Shot Peripheral Nerve Block Assisted by : Zahraa Joseph RN Ultra sound used during insertion : Yes Nerve Block Activity, Patient Tolerance : Good Peripheral Nerve Block End Date/Time : 07/25/2021 14:35 EST Kiara Forrest RN - 03/26/2021 15:09 EDT Electronically signed by Félix, [facility] Conversion Relationship Mgr Cerner at 11/11/2022 6:50 PM CDT documented in this encounter Plan of Treatment Not on file documented as of this encounter Visit Diagnoses Not on filedocumented in this encounter
--- OUTSIDE RECORDS SUMMARY | 2025-02-10 00:33 | XMS_ITS | Encounter Summary ---
Author Organization [email or web address] ([place], [place], [place], [place]) Address [address] [place] [address] Care Team Providers Care Manager [employer] Name Role Phone Unavailable Primary Care Provider Unavailabl e Encounter Details Date Type Department Care Team (Late st Contact Info) Description 03/13/[address] [facility] [place] Family Medicine [address] [place] [address] ProviderLele MD [address] [place] [address] Social History Tobacco Use Types [...] Conversion Note - Lele Shah MD - 03/13/2021 5:20 PM CDT Patient: KEMI BOO Age: 75 years Sex: Male : 1945 Associated Diagnoses: None Author: ANNA CAMEJO MD-INT DATE OF SERVICE [ DOS ]: 03/13/2021 Basic Information SUBJECTIVE: Patient is seen and evaluated Passed gas on clears Tolerates diet Review of Systems Constitutional: No fever, No chills. Eye: No recent visual problem, No icterus, No blurring, No visual disturbances. Ear/Nose/Mouth/Throat: No decreased hearing, No sore throat. Respiratory: No shortness of breath, No cough. Cardiovascular: No chest pain, No palpitations, No syncope. Gastrointestinal: No nausea, No vomiting, No hematemesis. Genitourinary: No dysuria, No hematuria. Hematology/Lymphatics: No bleeding tendency, No swollen lymph glands. Endocrine: No cold intolerance, No heat intolerance. Musculoskeletal: No joint pain, No muscle pain. Integumentary: No rash, No pruritus, No breakdown. Neurologic: No confusion, No numbness. Psychiatric: No depression, Not delusional. Health Status Allergies: Allergic Reactions (Selected) No Known Allergies, No qualifying data available Current medications: (Selected) Inpatient Medications Ordered Dextrose 5% with 0.45% NaCl and KCl 20 mEq/L 1,000 mL: 75 mL/Hr, IntraVENous Pepcid: 20 mg, IV Push, BID alvimopan: 12 mg, Oral, BID carvedilol: 12.5 mg, Oral, BID cloNIDine: 0.1 mg, Oral, Q3H, PRN: Hypertension diazePAM: 5 mg, IV Push, Q6H, PRN: Other (See Comment) hydrALAZINE: 10 mg, IV Push, Q3H, PRN: Hypertension morphine: 2 mg, IV Push, Q2H, PRN: Pain (Severe 7-10) nitroglycerin: 0.4 mg, SubLINgual, Q5Min, PRN: Chest Pain ondansetron: 4 mg, IV Push, Q6H, PRN: [...] Cap, Oral, At Bedtime, 0 Refill(s), Medications (12) Active Scheduled: (4) alvimopan 12 mg cap 12 mg 1 Cap, Oral, BID carvedilol 12.5 mg tab 12.5 mg 1 Tab, Oral, BID famotidine 20 mg/2 mL inj 20 mg 2 mL, IV Push, BID tamsulosin CR 0.4 mg cap 0.4 mg 1 Cap, Oral, At Bedtime Continuous: (1) D5/NaCl 0.45%-KCl 20 mEq 1,000 mL 1,000 mL, IntraVENous, 75 mL/Hr PRN: (7) cloNIDine 0.1 mg tab 0.1 mg 1 Tab, Oral, Q3H diazepam 10 mg/2 mL inj syr 5 mg 1 mL, IV Push, Q6H hydrALAZINE 20 mg/1 mL inj 10 mg 0.5 mL, IV Push, Q3H morphine 2 mg/1 ml inj 2 mg 1 mL, IV Push, Q2H nitroglycerin 0.4 mg tab # 25 btl 0.4 mg 1 Tab, SubLINgual, Q5Min ondansetron 4 mg/2 mL inj 4 mg 2 mL, IV Push, Q6H oxyCODONE 5 mg tab 5 mg 1 Tab, Oral, Q6H Problem list: Medical At risk for sleep apnea / IMO [id number] / Confirmed, Active Problems (8) Amputation d/t trauma Angina Arthritis At risk for sleep apnea Hyperlipidemia Hypertension Nocturia Stented coronary artery OBJECTIVE: Physical Examination General: Alert and oriented, No acute distress. Eye: Extraocular movements are intact, Normal conjunctiva. Sclera: Not icteric. HENT: Normocephalic, Normal hearing, Oral mucosa is moist. Neck: Supple, Non-tender, No jugular venous distention, No lymphadenopathy. Respiratory: Lungs are clear to auscultation, Respirations are non-labored, Breath sounds are equal, Symmetrical chest wall expansion. Cardiovascular: Normal rate, Regular rhythm, No murmur, No gallop, Good pulses equal in all extremities, No edema. Gastrointestinal: Soft, Non-tender, Non-distended, Normal bowel sounds, No organomegaly. Genitourinary: No costovertebral angle tenderness. Lymphatics: No lymphadenopathy neck, axilla, groin. Musculoskeletal: Normal range of motion, Normal strength, No tenderness, No swelling, No deformity. Integumentary: Warm, Rivanna, Moist, No rash. Neurologic: Alert, Oriented, Normal sensory, Normal motor function, No focal deficits, Cranial Nerves II-XII are grossly intact, Normal deep tendon reflexes. Psychiatric: Cooperative, Appropriate mood & affect, Normal judgment. Review / Management Results review: Labs (Last four charted values) , L 135 108 H 36 / H 113 4.5 23 1.00 \ \ L 6.0 / 7.1 L 120 / L 19.8 \, No Radiology Results Found. Impression and Plan Robotic right colectomy for colon cancer on 03/12/2021 Colon cancer status post colectomy Subjective abdominal [...] while in bed. CODE STATUS: FULL code. Continue IV fluids Monitor labs Ambulates DISPOSITION: Anticipate discharge home in 1-2 days if tolerates diet TIME SPENT : 20 minutes Electronically signed by Iglesia Heard Conversion Transit Proof Machine Operator Gladisner at 11/11/2022 6:34 PM CDT documented in this encounter Plan of Treatment Not on file documented as of this encounter Visit Diagnoses Not on filedocumented in this encounter
--- OUTSIDE RECORDS SUMMARY | 2025-02-10 00:33 | XMS_ITS | Encounter Summary ---
Author Organization [employer] ([place], [place], [place], [place]) Address [address] [place] [address] Care Team Providers Care Database Operator Name Role Phone Unavailable Primary Care Provider Unavailabl e Encounter Details Date Type Department Care Team (Late st Contact Info) Description 03/12/2021 Transcribed Document [facility] [place] Medicine [address] [place] [address] ProviderLeel MD [address] [place] [address] Social History Tobacco Use Types [...] Conversion Note - Lele ProviderMD - 03/12/2021 11:15 AM CDT Pain Assessment Entered On: 03/12/2021 15:47 EDT Performed On: 03/12/2021 13:43 EDT by WILMAN PUGA RN Intervention Information: morphine Performed by WILMAN PUGA RN on 03/12/2021 13:13:00 EDT morphine,2mg IV Push,Right Wrist,Pain (Severe 7-10) Pain Assessment Pain Assessment : Follow-up assessment Pain Scale Goal : 4 Pain Scale Used : 0-10 Scale WILMAN PUGA RN - 03/12/2021 15:47 EDT Pain Scale Intensity : 3 WILMAN PUGA RN - 03/12/2021 15:47 EDT Image 4 - Images currently included in the form version of this document have not been included in the text rendition version of the form. documented in this encounter Plan of Treatment Not on file documented as of this encounter Visit Diagnoses Not on filedocumented in this encounter
--- OUTSIDE RECORDS SUMMARY | 2025-02-10 00:33 | XMS_ITS | Encounter Summary ---
Author Organization [employer] ([place], [place], [place], [place]) Address [address] [place] [address] Care Team Providers Care Engineering Drawings Checker Name Role Phone Unavailable Primary Care Provider Unavailabl e Encounter Details Date Type Department Care Team (Late st Contact Info) Description 03/13/2021 Transcribed Document [facility] [place] [address] [place] [address] ProviderLele MD [address] [place] [address] Social History Tobacco Use Types Packs/Day Years Used Date Smoking Tobacco: Never Assessed Sex and Gender Information Value Date Recorded Sex Assigned at Male 01/20/2022 1:57 PM CDT Legal Sex Male 1:57 PM CDT Gender Identity Male 01/20/2022 1:57 PM CDT Sexual Orientation Not on file documented as of this encounter Miscellaneous Notes * Cerner Conversion Note - Historical ProviderMD - 03/13/2021 2:02 PM CDT UM Authorization Entered On: 03/13/2021 14:02 EDT Performed On: 03/13/2021 14:02 EDT by MANUEL HARTMAN RN Primary Insurance Authorization Authorization and Policy Numbers : Insurance 1 Health Plan: MEDICARE Policy Number: [id number] Authorization Number: Insurance 2 Health Plan: [employer] Policy Number: [id number] Authorization Number: Insurance Primary Name : MEDICARE Policy Number: [id number] Authorized Service Begin Date-Primary : 03/12/2021 EDT Historical Authorization Comments-Primary : No Authorization Comments Found MANUEL HARTMAN RN - 03/13/2021 14:02 EDT Electronically signed by Félix [facility] Conversion Chief Lifestyle Officer Cerner at 11/11/2022 6:49 PM CDT documented in this encounter Plan of Treatment Not on file documented as of this encounter Visit Diagnoses Not on filedocumented in this encounter
--- OUTSIDE RECORDS SUMMARY | 2025-02-10 00:33 | XMS_ITS | Encounter Summary ---
Author Organization [employer] ([place], [place], [place], [place]) Address [address] [place] [address] Care Team Providers Care Gasket Winder Name Role Phone Unavailable Primary Care Provider Unavailabl e Encounter Details Date Type Department Care Team (Late st Contact Info) Description 03/12/2021 Transcribed Document [facility] [place] [address] [place] [address] ProviderLele MD [address] [place] [address] Social History Tobacco Use Types [...] Conversion Note - Lele ProviderMD - 03/12/2021 10:36 AM CDT Patient: KEMI BOO Age: 75 Years Sex: Male : 1945 CSGA Pre Op Diagnosis: Right colon polyp, probable cancer Post Op Diagnosis: Same Procedure: Robotic right colectomy Fluid Pump Operator: Callie Arreaga Indications: Pleasant 75-year-old gentleman with significant cardiac disease including prosthetic aortic valve replacement, [employer] pacemaker. He had a positive Cologuard test which led to a colonoscopy which diagnosed him as having several polyps in the colon. However there was a large polyp in the base of the cecum that was unresectable and I had the appearance of a cancer. Pathology on this revealed villous adenoma and this could have been sampling error. I have talked with the patient and his about proceeding with robotic right colectomy to manage this polyp and he is agreed. Findings: At time of operation patient had a number of adhesions of the transverse colon to the ascending colon making it somewhat challenging to identify the ileocolic vessel. However, we were ultimately able to do this and divided and perform a medial to lateral dissection to mobilize the entire right colon. A standard [id number] antiperistaltic anastomosis was performed with robotic staplers. There were also adhesions of the omentum to the gallbladder which were carefully dissected off as the proximal transverse colon omentum was removed with the specimen. There is no evidence of metastatic disease in the liver. There was no visible enlarged lymph nodes along the ileocolic pedicle. EBL: Minimal. Fluids: 1 L Specimen: Right colon. Sponge, needle, and instrument count: Correct by nursing count at end of case. Procedure in Detail: Patient was correctly identified, brought to the operating room, placed in a supine position on the OR table. They underwent induction of anesthesia and were intubated. An OG tube and Lai catheter were placed for the case. The right arm was positioned on an arm board and the left arm was tucked by the patient's side. All pressure points were checked. An appropriate timeout was performed. The procedure began with placement of an Optiview port in the left midabdomen through which a pneumoperitoneum was achieved under direct vision. Subsequent to this the remaining robotic ports were placed. An initial survey of the abdomen was performed which confirmed the the procedure could be done. I noted that the transverse colon was stuck to the ascending colon with adhesions. I noted that the proximal transverse colon and the omentum associated with it were also adherent to the dome of a normal-appearing gallbladder. The patient was tipped in slight Trendelenburg position and slight left side down. Small bowel swept out of the pelvis and the omentum flipped over the transverse colon. The robot was docked to the patient. I went to the console and began a medial to lateral dissection. We began by incising the medial peritoneum underneath the Ileocolic pedicle, and identifying the duodenum. The ileocolic vessels were isolated and divided with vessel seal. Subsequent to this I continued a medial to lateral dissection over Gerota's fascia up to the Hepatocolic ligaments. These were divided with vessel seal allowing the hepatic flexure to be freed up. I carried dissection medial to lateral down toward the ceucm. I chose a suitable spot in the mid transverse colon. This was isolated and divided with 3 loads of a 45 thick tissue load robotic stapler. I then moved to the pelvis and identified the terminal ileum. The small bowel mesentery was divided with vessel seal to this point and the ileum divided with a 45 mm thick tissue load robotic stapler. The specimen was moved off to the right upper quadrant. The small bowel and transverse colon were then lined up in an antiperistaltic fashion and 3-0 Vicryl sutures used to approximate them over the course of 4 cm. Enterotomies were made in the small bowel and transverse colon. A subsequent fire of a 45 thin tissue load robotic stapler was used to create a common anastomosis. Once this was done we used a subsequent load of the thick tissue load stapler across the common enterotomy thus completing the anastomosis. 10 mL of Isonene Green was injected. Firefly turned on and confirmed good blood supply to the anastomosis. Once a good anastomosis was confirmed, the robot was undocked from the patient, the specimen was removed through an extraction site in the lower mid abdomen with a wound protector. A pneumoperitoneum reachieved. We did a thorough irrigation of the abdomen with 1 L fluid. There was clear return and no bleeding noted. Pneumoperitoneum was released and the extraction site was closed in 2 layers. First we closed the peritoneal layer with a #1 Vicryl in a running fashion. Second we closed the fascia with a #1 PDS in a running fashion. All wounds were closed with 3-0 Monocryl sutures in a running subcuticular fashion and Perineo dressings placed. The patient was awakened, extubated, and brought to recovery room in good condition. documented in this encounter Plan of Treatment Not on file documented as of this encounter Visit Diagnoses Not on filedocumented in this encounter
--- OUTSIDE RECORDS SUMMARY | 2025-02-10 00:33 | XMS_ITS | Encounter Summary ---
Author Organization [facility] ([place], [place], [place], [place]) Address [address] [place] [address] Care Team Providers Care Miniature Model Maker Name Role Phone Unavailable Primary Care Provider Unavailabl e Encounter Details Date Type Department Care Team (Late st Contact Info) Description 03/12/2021 Transcribed Document [facility] [place] Medicine [address] [place] [address] ProviderLele MD [address] [place] [address] Social History Tobacco Use Types [...] Conversion Note - Lele ProviderMD - 03/12/2021 7:30 AM CDT [facility] Main OR Preop Summary Primary Physician: RAQUEL COOPER MD-PRO Finalized Date/Time: 03/12/21 07:38:57 Pt. Name: KEMI ZAPATA /Sex: 1945 Male Med Rec #: [id number] Physician: RAQUEL COOPER MD-PRO Financial #: [id number] Pt. Type: I Room/Bed: ASA/5 Admit/Disch: 03/12/21 06:52:00 - Institution: [facility] PreOp Case Times Entry 1 In Preop 03/12/21 05:32:00 Ready for Holding n/a Room Patient Ready for 03/12/21 07:35:00 Surgery Patient Out of Preop 03/12/21 07:36:00 Patient Out of n/a Holding Room Last Modified By: Marjan Patel RN 03/12/21 07:37:24 Finalized By: Marjan Patel, RN Document Signatures Signed By: Marjan Patel RN 03/12/21 07:38 Electronically signed by Félix [facility] Conversion Director Transportation Cerner at 11/11/2022 6:40 PM CDT documented in this encounter Plan of Treatment Not on file documented as of this encounter Visit Diagnoses Not on filedocumented in this encounter
--- OUTSIDE RECORDS SUMMARY | 2025-02-10 00:33 | XMS_ITS | Encounter Summary ---
Author Organization [employer] ([place], [place], [place], [place]) Address [address] [place] [address] Care Team Providers Care Silverer Name Role Phone Unavailable Primary Care Provider Unavailabl e Encounter Details Date Type Department Care Team (Late st Contact Info) Description 03/26/2021 Transcribed Document [facility] [place] [address] [place] [address] ProviderLele MD [address] [place] [address] Social History Tobacco Use Types [...] Conversion Note - Lele ProviderMD - 03/26/2021 3:30 PM CDT [facility] Main OR PACU Summary Primary Physician: RAQUEL COOPER MD-PRO Finalized Date/Time: 03/27/21 15:18:00 Pt. Name: KEMI BOO /Sex: 1945 Male Med Rec #: [id number] Physician: DANI BATISTA MD Financial #: [id number] Pt. Type: I Room/Bed: [facility]/ Admit/Disch: 03/26/21 19:17:00 - Institution: [facility] Main OR PACU I Case Times Entry 1 In PACU I 03/26/21 17:05:00 Ready for PACU 03/26/21 18:05:00 Discharge Discharge from PACU 03/26/21 18:50:00 I Last Modified By: Ebony Molina RN-PATIENT CARE BEDSIDE NON-EXEMPT 03/26/21 19:12:42 [facility] Main OR PACU Acuity Entry 1 Start Time 03/26/21 18:05:00 Stop Time 03/26/21 18:50:00 Acuity Level [facility] PACU Acuity I Last Modified By: Ebony Molina RN-PATIENT CARE BEDSIDE NON-EXEMPT 03/26/21 19:13:07 [facility] Main OR PACU Acuity Audit 03/27/21 15:17:57 Industrial Commercial Groundskeeper: [id number] Modifier: [id number] <*> Start Time 03/26/21 17:05:00 Finalized By: Skylar Barrientos, Nurse Cro Signatures Signed By: Ebony Molina RN-PATIENT CARE BEDSIDE NON-EXEMPT 03/26/21 19:13 Skylar Barrientos, Nurse Application Software Engineer 03/27/21 15:18 Unfinalized History Date/Time Username Reason for Unfinalizing Freetext Reason for Unfinalizing 03/27/21 15:17 [id number] Correct Billing Electronically signed by Félix [facility] Conversion Senior Technical Writer Cerner at 11/11/2022 6:45 PM CDT documented in this encounter Plan of Treatment Not on file documented as of this encounter Visit Diagnoses Not on filedocumented in this encounter
--- NOTE | 2025-02-10 00:34 | ECG_ITS ---
APPROVED REPORT Exam: Resting ECG HR:64 bpm ECG Measurements Heart Rate 64 AXES AZ 174 P -6 QRSd 162 QRS -70 QT 492 T 90 QTc 501 Conclusion ELECTRONIC VENTRICULAR PACEMAKER ABNORMAL RHYTHM ECG No STEMI Electronically signed by : OSCAR RIVAS, 02/10/2025 06:11:25
--- OUTSIDE RECORDS SUMMARY | 2025-02-10 00:34 | XMS_ITS | Encounter Summary ---
Author Organization [employer] ([place], [place], [place], [place]) Address [address] [place] [address] Care Team Providers Care Child Adolescent Psychiatrist Name Role Phone Unavailable Primary Care Provider Unavailabl e Encounter Details Date Type Department Care Team (Late st Contact Info) Description 03/14/2021 Transcribed Document [facility] [place] [address] [place] [address] ProviderLele MD [address] [place] [address] Social History Tobacco Use Types [...] Conversion Note - Lele Shah MD - 03/14/2021 6:29 PM CDT Nursing Discharge Summary Entered On: 03/14/2021 18:31 EDT Performed On: 03/14/2021 18:29 EDT by Tasneem Pineda RN-PATIENT CARE BEDSIDE NON-EXEMPT Discharge Documentation Discharge To : Home with ambulatory/outpatient follow-up Mode Of Departure, General Discharge : Private vehicle Accompanied By, Discharge : Spouse IV Discontinued : Yes Personal Belongings With Patient : Yes Pt's Own Supply of Medications Returned : No patient supply of medications to return Prescriptions Given to Patient : Electronically sent Medications Given to Patient : No Discharge Instructions Reviewed With, Opportunity For Questions Given : Patient, Spouse Patient Education Completed : Yes Teaching Method : Explanation, Printed materials Teaching Evaluation : Verbalizes understanding Education Comment : Pt relaxing in bed, denies any reactions. Tasneem Pineda RN-PATIENT CARE BEDSIDE NON-EXEMPT - 03/14/2021 18:29 EDT documented in this encounter Plan of Treatment Not on file documented as of this encounter Visit Diagnoses Not on filedocumented in this encounter
--- OUTSIDE RECORDS SUMMARY | 2025-02-10 00:34 | XMS_ITS | Encounter Summary ---
Author Organization [employer] ([place], [place], [place], [place]) Address [address] [place] [address] Care Team Providers Care Garage Construction Equipment Mechanic Name Role Phone Unavailable Primary Care Provider Unavailabl e Encounter Details Date Type Department Care Team (Late st Contact Info) Description 04/01/2021 Transcribed Document [facility] [place] [address] [place] [address] ProviderLele MD [address] [place] [address] Social History Tobacco Use Types Packs/Day Years Used Date Smoking Tobacco: Never Assessed Sex and Gender Information Value Date Recorded Sex Assigned at Male 01/20/2022 1:57 PM CDT Legal Sex Male 1:57 PM CDT Gender Identity Male 01/20/2022 1:57 PM CDT Sexual Orientation Not on file documented as of this encounter Miscellaneous Notes * Cerner Conversion Note - Lele ProviderMD - 04/01/2021 11:51 AM CDT Nursing Discharge Summary Entered On: 04/01/2021 11:52 EDT Performed On: 04/01/2021 11:51 EDT by Moraima Stevenson RN Discharge Documentation Patient Disposition, General : Discharge Teaching Method : Explanation, Printed materials Teaching Evaluation : Verbalizes understanding Education Comment : patient verbal understanding re: medication, POC, safety condition, procedure, medication, activity diet and follow up appointment Moraima Stevenson RN - 04/01/2021 11:51 EDT documented in this encounter Plan of Treatment Not on file documented as of this encounter Visit Diagnoses Not on filedocumented in this encounter
--- OUTSIDE RECORDS SUMMARY | 2025-02-10 00:34 | XMS_ITS | Encounter Summary ---
Author Organization [employer] ([place], [place], [place], [place]) Address [address] [place] [address] Care Team Providers Care Accounting Reconciliation Clerk Name Role Phone Unavailable Primary Care Provider Unavailabl e Encounter Details Date Type Department Care Team (Late st Contact Info) Description 03/04/2021 Transcribed Document [facility] Family Medicine [address] [place] [address] ProviderLele MD [address] [place] [address] Social History Tobacco Use Types Packs/Day Years Used Date Smoking Tobacco: Never Assessed Sex and Gender Information Value Date Recorded Sex Assigned at Male 01/20/2022 1:57 PM CDT Legal Sex Male 1:57 PM CDT Gender Identity Male 01/20/2022 1:57 PM CDT Sexual Orientation Not on file documented as of this encounter Miscellaneous Notes * Cerner Conversion Note - Lele ProviderMD - 03/04/2021 10:49 AM CDT PAT Adult Entered On: 03/04/2021 10:55 EDT Performed On: 03/04/2021 10:49 EDT by Efrain Ruvalcaba Rn Vital Measurements Temperature Source : Temporal artery scanning Temperature Mode : Fahrenheit Temperature, Fahrenheit : 98.9 Deg F Clinical Temperature, C : 37.2 Deg C Pulse Method : Palpation Pulse Source : Radial, Right Heart Rate, Apical : 69 bpm Pulse Rhythm : Regular Blood Pressure Location : Arm, right upper Blood Pressure Source : Non-Invasive BP Device Blood Pressure Position : Sitting Systolic Blood Pressure : 130 mmHg Diastolic Blood Pressure : 79 mmHg Oxygen Saturation : 99 % Oxygen Therapy Mode : Room air VIRGINIA MOREL RN - 03/05/2021 10:22 EDT Height and Weight, Clinical Dosing Height Source : Measured Height Entry Format : [place] Height, Feet : 5 ft(Converted to: 152 cm, 60 Inch) Height, Inches : 9 Inch(Converted to: 0 ft 9 Inch, 22.86 cm) Clinical Height : 175.26 cm Weight Source : Standing scale Weight Entry Format : [place] Clinical Dosing Weight : 118.18 kg Weight, Pounds : 260.0 lb Body Surface Area (BSA) : 2.31 m2 Body Mass Index : 38.5 kg/m2 ([place]) [place] Body Weight : 70 kg VIRGINIA MOREL RN - 03/05/2021 10:22 EDT Health Histories Smoking Status : Former smoker, quit more than 30 days ago Smokeless Tobacco Status : Never Implant/Device Type, Tyre Builder and Model : cardiac stent cardiac pacemaker aortic valve replacement bilateral hip replacement hardware in hip Efrain Ruvalcaba Rn - 03/04/2021 10:49 EDT Social History (As Of: 03/04/2021 10:55:28 EDT) Tobacco: Last Used: quit smoking 1979. [...] Ruvalcaba Rn) Alcohol: Date/Time of Last Drink: 2006. (Last Updated: 07/23/2020 08:52:31 EST by AURE LINCOLN RN) Alcohol Use History No. Use in Last 12 Months: No. (Last Updated: 03/04/2021 10:49:40 EDT by Efrain Ruvalcaba Rn) Substance Abuse: Drug Use Hx: No. (Last Updated: 07/23/2020 08:52:36 EST by AURE LINCOLN RN) Drug Use Hx: No. Use in Last 12 Months: No. (Last Updated: 03/04/2021 10:49:40 EDT by Efrain Ruvalcaba Rn) Infectious Disease History Date of COVID-19 test known? : Yes Date of COVID-19 Test : 03/10/2021 EDT Marjan Patel RN - 03/12/2021 6:29 EDT Has the patient ever been tested for COVID-19? : Yes, Patient stated results pending Does patient have symptoms of COVID-19? : No COVID19 Screening : No Experiencing Infectious Disease Symptoms : No symptoms Physical contact outside [place] in the last 30 days : No Infectious Disease History : Chicken pox/Shingles Tuberculosis Symptoms : None VIRGINIA MOREL RN - 03/05/2021 10:22 EDT COVID19 PreProcedure Screening Date PreProcedure COVID-19 test known? : Yes Date of PreProcedure COVID-19 : 03/10/2021 EDT Has patient been isolated since the test : Yes Exposed to COVID19 symptoms since test? : No Marjan Patel RN - 03/12/2021 6:29 EDT Is this an Emergent or Add on Procedure? : No VIRGINIA MOREL RN - 03/05/2021 10:22 EDT Anesthesia/Transfusion History Family History of Anesthesia Reaction : No prior transfusion(s) Blood Transfusion Acceptable to Patient : Yes Transfusion History : Prior anesthesia without reaction Family History of Anesthesia Reaction : None Efrain Ruvalcaba Rn - 03/04/2021 10:49 EDT Functional Assessment Functional ADL Evaluation Index EBN Bathing : Independent (2) Dressing : Independent (2) Toileting : Independent (2) Transferring Bed or Chair : Independent (2) Continence : Independent (2) Feeding : Independent (2) Efrain Ruvalcaba Rn - 03/04/2021 10:49 EDT ADL Index Score : 12 Efrain Ruvalcaba Rn - 03/04/2021 10:49 EDT Advance Directive Copy Advance Directive Verified/on Chart : Yes Marjan Patel RN - 03/12/2021 6:29 EDT Patient has Advance Directive *Q : Yes, Advance Directive with the patient Advance Directive Type : Living will Efrain Ruvalcaba Rn - 03/04/2021 10:49 EDT Spiritual/Cultural Needs Any Spiritual/Cultural Needs or Requests : Yes Spiritual/Cultural Needs Comment : 03/12 Episcopal Preference : Bahai, independent Spiritual/Cultural Needs Comment : 03/12 Efrain Ruvalcaba Rn - 03/04/2021 10:49 EDT [place] Suicide Severity Rating Scale (C-SSRS) CSSRS Past Month Wish to be : No CSSRS Past Month Suicidal Thoughts : No CSSRS Lifetime Suicide Behavior : No Suicide Severity Rating Score : 0 Suicide Severity Rating : No Additional Care Required at this time Efrain Ruvalcaba Rn - 03/04/2021 10:49 EDT Psychosocial History Currently in Unsafe Situation : Efrain Coulter Rn - 03/04/2021 10:49 EDT General Info Preferred Name : Gildardo Arrived From : Home Mode of Arrival on Unit : Ambulatory Marjan Patel RN - 03/12/2021 6:29 EDT Legal Guardian : Spouse Support Person/Patient Pan Pusher : Yes Support Person/Pt Rep Name : Kaylah Boo - Support Person/Pt Rep Contact Information : [phone] Want Family/Rep/Phys Notified of Admit : Efrain Coulter Rn - 03/04/2021 10:49 EDT Emergency Contact #1 : Kaylah Libradovannanano Emergency Contact #1 ` Emergency Contact #1 Relationship : ` Emergency Contact #2 : none` Emergency Contact #2 Phone Number : none` Emergency Contact #2 Relationship : none` Marjan Patel RN - 03/12/2021 6:29 EDT Information Obtained From : Patient Primary Language : Greenlandic Communication Barrier : None Academic Success Coordinator Needed : Efrain Coulter Rn - 03/04/2021 10:49 EDT Gilbert Scale Gilbert Sensory Perception : No impairment Gilbert Moisture : Occasionally moist Gilbert Activity : Walks frequently Gilbert Mobility : No limitation Gilbert Nutrition : Adequate Gilbert Friction and Shear : No apparent problem Gilbert Score : 21 Efrain Ruvalcaba Rn - 03/04/2021 10:49 EDT Sleep Apnea Risk Assmt BMI Greater Than 35 kg/m2 : Yes Neck Circumference Greater Than 40 cm : Yes STOP-BANG Sleep Apnea Risk Level Score : 5 VIRGINIA MOREL RN - 03/05/2021 10:22 EDT Hx of Obstructive Sleep Apnea Diagnosis : No Snore Loudly : No Tired, Fatigued, or Sleepy During Day : No Observed Stopping Breathing During Sleep : No Have/Are Being Treated for Hypertension : Yes Age over 50 Years Old : Yes Gender Male : Yes Efrain Ruvalcaba Rn - 03/04/2021 10:49 EDT documented in this encounter Plan of Treatment Not on file documented as of this encounter Visit Diagnoses Not on filedocumented in this encounter
--- OUTSIDE RECORDS SUMMARY | 2025-02-10 00:34 | XMS_ITS | Clinical Summary ---
Author Organization [facility] Address [address] [place] [address] Care Team Providers Care Cyber Security Systems Engineer Name Role Phone Dez Cerna MD Primary Care Provider [phone] Allergies No known active allergies Medications aspirin 81 MG EC tablet Take 1 tablet by mouth Daily. Active [place]-3 Fatty Acids (FISH OIL) 1000 MG capsule capsule Take 1 capsule by mouth As Needed. Active vitamin C (ASCORBIC ACID) 500 MG tablet Take 1 tablet by mouth Daily. Active coenzyme Q10 100 MG capsule Take 1 capsule by mouth Daily. Active Jardiance 25 MG tablet tablet Take 1 tablet by mouth Every Morning. Active nitroglycerin (NITROSTAT) 0.[address] 1 tablet under the tongue As Needed for Chest Pain. Take no more than 3 doses in 15 minutes. 25 tablet 3 09/29/2023 Active atorvastatin (LIPITOR) 80 MG tablet Take 1 tablet by mouth Every Night. 90 tablet 3 08/16/2024 Active isosorbide mononitrate (IMDUR) 30 MG 24 hr tablet Take 1 tablet by mouth Daily. 90 tablet 3 08/16/2024 Active ramipril (ALTACE) 10 MG capsule Take 1 capsule by mouth Daily. 90 capsule 3 08/16/2024 Active carvedilol (COREG) 12.5 MG tablet Take 1 tablet by mouth 2 (Two) Times a Day. 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 Hyperlipidemia 12/04/2021 Thoracic ascending aortic an eurysm s/p aortoplasty repair 200512/04/2021 Carotid artery stenosis, asymptomatic, left 11/23 Iron deficiency anemia 11/11/2020 TAVR 11/04/20 10/25/2020 Coronary artery disease invo lving upper sioux coronary artery of upper [place] heart without angina pectoris 10/14/2020 S/P AVR (aortic valve replacement) 200509/25/19 Chronic systolic (congestive) heart failure 09/2018 Complete AV block s/p PPM 2005; Upgrade to BiV 2 019 09/02/2017 Overview (11/05/2020): PPM 2005; change out to [facility] BiV in 2018 Essential hypertension 07/16/2016 Obesity 07/16/2016 Resolved Problems Problem Noted Date Diagnosed Date Resolved Date Aortic valve disease 07/01/2023 024 Family History Medical History Relation Name Comments Coronary artery disease Father Coronary artery disease Mother Relation Name Status Comments Brother 1 Rayshawn Alive Brother 2 Aamir Alive Brother 3 Srinivasa Alive Father Mother Social History Tobacco Use Types Packs/Day Years Used Date Smoking Tobacco: Former Cigarettes 1 10 0 08/18/1966 - 08/18/1976 Passive Smoke Exposure: Past Smokeless Tobacco: Former Chew Quit: 10/14/1965 Tobacco Cessation:Counseling Given: Not Answered Alcohol Use Standard Drinks/Week Comments No 0 (1 standard drink = 0.6 oz pur e alcohol) AUDIT-C Answer Date Recorded Q1: How often do you have a drink containing alcohol? Never 05/15/2024 Q2: How many drinks containi ng alcohol do you have on a typical day when you are drinking? Patient does not drink Q3: How often do you have si x or more drinks on one occasion? Never 05/15/2024 Abuse Screen Answer Date Recorded Feels Unsafe at Home or Work/School no 05/15/2024 Feels Threatened by Someone no 04/26 Does Anyone Try to Keep You From Having Contact with Others or Doing Things Outside Your Home? no 05/15/2024 Physical Signs of Abuse Present no 05/15/2024 Housing Stability Answer Date Recorded Current Living Arrangements home 04/26 Potentially Unsafe Housing Conditions Not on alexis e 05/15/2024 Disabilities Answer Date Recorded Difficulty Concentrating, Remembering or Making Decisions no 05/15/2024 Difficulty Managing Errands Independently no 05/15/2024 Sex and Gender Information Value Date Recorded Sex Assigned at Not on file Legal Sex Male 12:26 PM EDT Gender Identity Not on file Sexual Orientation Not on file Occupation Industry Job Start Date Job End Date [place] Not on file Not on file Not on file Last Filed Vital Signs Vital Sign Reading Time Taken Comments Blood Pressure 124/84 11/08/2024 3:52 PM EDT Pulse 82 11/08/2024 3:52 PM EDT Temperature 36.2 C (97.1 F) 05/15/2024 6:40 AM EDT Respiratory Rate 12 05/15/2024 8:29 AM EDT Oxygen Saturation 91% 11/08/2024 3:52 PM EDT Inhaled Oxygen Concentration - - Weight 121 kg (267 lb 3.2 oz) 11/08/2024 3:52 PM EDT Height 177.8 cm (5' 10 ) 11/08/2024 3:52 PM EDT Body Mass Index 38.34 11/08/2024 3:52 PM EDT Plan of Treatment Upcoming Encounters Date Type Department Care Team (Late st Contact Info) Description 04/25/2025 11:00 AM EDT Appointment [facility] [address] [place] [id number] 04/25/2025 1:30 PM EDT Office Visit [facility] [address] [place] [id number] Noelle Maciel MD [address] [place] [address] 01/30/2026 1:30 PM EDT Office Visit [facility] [address] [place] [address] Marcus Wyman MD [address] [place] [address] Health Maintenance Due Date Last Done Comments TDAP/TD VACCINES (1 - Tdap) 11/05/1966 ZOSTER VACCINE (1 of 2) 11/05/1997 ANNUAL WELLNESS VISIT 12/29/2016 HEPATITIS C SCREENING 12/29/2016 LIPID PANEL 10/04/2021 10/04/2020, 08/26/2016 RSV Vaccine - Adults (1 - 1- dose 75+ series) 11/05/2022 COVID-19 Vaccine (2 - 2023-2 5 season) 2024 07/14/2021 INFLUENZA VACCINE 04/25/2025 06/27/2024, , 04/22/2022, Additional history exists COLOGUARD Discontinued 11/14/2020 COLORECTAL CANCER SCREENING Discontinued Pneumococcal Vaccine 50+ Completed 023, 05/28/2017, 03/13/2016 HEMOGLOBIN A1C Discontinued 05/15/2024, 04/0 03/2021, 10/04/2020, Additional history exists COLON CANCER SCREENING 5 YEA R SIGMOIDOSCOPY Discontinued COLONOSCOPY Discontinued CT COLONOGRAPHY Discontinued FECAL OCCULT BLOOD TEST Discontinued FIT Testing (1 year) Discontinued Medical Devices Implanted Type Area Boring Machine Operator Production Device Identifier Shelf Expiration Date Model / Serial / Lot Implant Implant Description:Bilateral hip im plant Implant Implant Description:Pig valve Vlv Heart Trnscath Sapien3 26mm - [id number] - [id number] Implanted:Qty: 1 on 11/04/2020 by Nish Barrow MD at [facility] Implant N/A: Aorta [employer] 11/21/2021 [id number] / [id number] / Ld Quartet Retail Assistant Store Manager Vent Lng Spacing 86cm - [id number] - [id number] Implanted:Qty: 1 on 11/22/2018 by Marcus Wyman MD at [facility] Lead [employer] 07/25/2021 [id number] / [id number] / [id number] Pacemaker- 006 Implanted:2005 by Yonny Heaton MD (Quantity not on file) Explanted:2018 (Quantity not on file) Pacemaker [employer] SJM IDENTITY ADX [id number] / [id number] / Gen Pm Allure Quadra Bivent Rf Crtp [id number] - [id number] - [id number] Implanted:Qty: 1 on 11/22/2018 by Marcus Wyman MD at [facility] Pacemaker [employer] 03/25/2020 PM3 [id number] / [id number] / [id number] Description:Last interrogati on 10/16/2020 with battery life of 4.5 years Gen Pm Quadra Allure Mp Crtp [id number] - [id number] - [id number] Implanted:Qty: 1 on 05/15/2024 by Marcus Wyman MD at [facility] Pacemaker Left: Chest [employer] [id number] / [id number] / Stent Xience Alpine Kerwin Rx [id number] - [id number] Implanted:Qty: 1 on 08/26/2016 by Jori Zamora MD at [facility] BETTS VASCULAR [id number] / / Procedures Procedure Name Priority Date/Time Associated Diagnosis Comments REMOTE DEVICE CHECK 02/01/2025 2 :00 AM EDT HEMOGLOBIN A1C STAT 05/15/2024 6:51 AM EDT LIPID PANEL STAT 10/04/2020 8:31 AM EST from Last 3 Months or Most Recently Relevant to Health Maintenance Results * Remote Device Check (02/01/2025 2:00 AM EDT) Date Time Interrogation Session [id number] [facility] Type Interrogation Session Remote Scheduled [facility] Implantable Pulse Generator Boring Machine Operator Production [employer] [facility] Implantable Pulse Generator Type VENEER DEPARTMENT MANAGER-P [facility] Implantable Pulse Generator Model 3562 Quadra Allure MP(TM) [facility] Implantable Pulse Generator Serial Number [id number] [facility] Implantable Pulse Generator Implant Date [id number] [facility] Battery Remaining Percentage 90.00 % [facility] Battery Remaining Longevity 77.0 mo [facility] Battery Voltage 2.990 [facility] Battery LENS GAUGER Trigger 2.620 [facility] Battery Status Middle of Service [facility] Mukesh Statistic RA Percent Paced 2.80 [facility] Mukesh Statistic RV Percent Paced 98.40 [facility] VENEER DEPARTMENT MANAGER Statistic VENEER DEPARTMENT MANAGER Percent Paced 99.00 [facility] Atrial Tachy Statistic AT/AF Center [place] Percent 1.00 [facility] [employer] RADIOLOGY Lead Channel RA Sensing Intrinsic Amplitude 1.700 [facility] [employer] RADIOLOGY Lead Channel Setting RA Sensing Sensitivity 0.50 [facility] [employer] RADIOLOGY Lead Channel RA Impedance Value 450 [facility] [employer] RADIOLOGY Lead Channel RA Pacing Threshold Amplitude 1.125 [facility] [employer] RADIOLOGY Lead Channel RA Pacing Threshold Pulse Width 0.5 [facility] [employer] RADIOLOGY Lead Channel RA Measurements Date and Time [id number] [facility] [employer] RADIOLOGY Lead Channel Setting RA Pacing Amplitude 2.500 [facility] [employer] RADIOLOGY Lead Channel Setting RA Pacing Pulse Width 0.5 [facility] [employer] RADIOLOGY Lead Channel RV Sensing Intrinsic Amplitude 6.500 [facility] [employer] RADIOLOGY Lead Channel Setting RV Sensing Sensitivity 2.00 [facility] [employer] RADIOLOGY Lead Channel RV Impedance Value 400 [facility] [employer] RADIOLOGY Lead Channel Setting RV Pacing Amplitude 2.000 [facility] [employer] RADIOLOGY Lead Channel Setting RV Pacing Pulse Width 0.5 [facility] [employer] RADIOLOGY Lead Channel LV Impedance Value 560 [facility] [employer] RADIOLOGY Lead Channel Setting LV Pacing Amplitude 2.500 [facility] [employer] RADIOLOGY Lead Channel Setting LV Pacing Pulse Width 0.5 [facility] Mukesh Setting Mode (NBG Code) DDD [facility] Ventricular chambers paced during VENEER DEPARTMENT MANAGER pacing. BiV [facility] Mukesh Setting Lower Rate Limit 60 [facility] Mukesh Setting AT Mode Switch Rate 180 [facility] Mukesh Setting Maximum Tracking Rate 130 [facility] Mukesh Setting Maximum Sensor Rate 130 [facility] Mukesh Setting PAV Delay 180 [facility] Mukesh Setting KANDACE Delay 130 [facility] VENEER DEPARTMENT MANAGER LV-RV Delay 0 [facility] Lead Channel Setting RA Sensing Polarity Bipolar [facility] Lead Channel Setting RV Sensing Polarity Bipolar [facility] Lead Channel Setting RA Pacing Polarity Bipolar [facility] Lead Channel Setting RV Pacing Polarity Bipolar [facility] Lead Channel Setting LV Pacing Polarity Bipolar [facility] Lead Channel RA Pacing Threshold Polarity Bipolar [facility] Lead Channel RV Pacing Threshold Polarity Bipolar [facility] Lead Channel LV Pacing Threshold Polarity Bipolar [facility] 02/01/2025 2:00 AM EDT Marcus Wyman MD CV IMPLANTABLE CARDIAC DEVIC E Final Result [facility] * (ABNORMAL) Hemoglobin A1c (05/15/2024 6:51 AM EDT) Hemoglobin A1C 7.00(H) 4.80 - 5.60 % 05/15/2024 7:35 AM EDT [facility] Blood Line / Unknown 05/15/2024 6: 51 AM EDT 05/15/2024 6:57 AM EDT Narrative [facility] - 05/15/2024 7:35 AM EDT Hemoglobin A1C Ranges: Increased Risk for Diabetes 5.7% to 6.4% Diabetes >= 6.5% Diabetic Goal < 7.0% Priscilla Santana APRN LAB BLOOD ORDERABLES Final Result [facility]
[address] [place] [address], * (ABNORMAL) Lipid Panel (10/04/2020 8:31 AM EST) Total Cholesterol 101 0 - 200 mg/dL 10/04/2020 9:22 AM EST [facility] Triglycerides 168(H) 0 - 150 mg/dL 10/04/2020 9:22 AM EST [facility] HDL Cholesterol 36(L) 40 - 60 mg/dL 10/04/2020 9:22 AM EST [facility] LDL Cholesterol 37 0 - 100 mg/dL 10/04/2020 9:22 AM EST [facility] VLDL Cholesterol 28 5 - 40 mg/dL 10/04/2020 9:22 AM EST [facility] LDL/HDL Ratio 0.87 10/04/2020 9:22 AM EST [facility] Blood Line / Unknown 10/04/2020 8: 31 AM EST 10/04/2020 8:37 AM EST [facility] - 10/04/2020 9:22 AM EST Cholesterol Reference Ranges (U.S. Department of Health and Human Services ATP III Classifications) Desirable <200 mg/dL Borderline High 200-239 mg/dL High Risk >240 mg/dL Triglyceride Reference Ranges (U.S. Department of Health and Human Services ATP III Classifications) Normal <150 mg/dL Borderline High 150-199 mg/dL High 200-499 mg/dL Very High >500 mg/dL HDL Reference Ranges (U.S. Department of Health and Human Services ATP III Classifcations) Low <40 mg/dl (major risk factor for CHD) High >60 mg/dl ('negative' risk factor for CHD) LDL Reference Ranges (U.S. Department of Health and Human Services ATP III Classifcations) Optimal <100 mg/dL Near Optimal 100-129 mg/dL Borderline High 130-159 mg/dL High 160-189 mg/dL Very High >189 mg/dL Marzena Cummins PA-C LAB BLOOD ORDERABLES Final Result [facility]
[address] [place] [address], from Last 3 Months or Most Recently Relevant to Health Maintenance Insurance MEDICARE A & B [employer] [place] [employer] Advance Directives Documents on File Type Date Recorded Patient Dock Builder Expl anation LIVING WILL - SCAN 11/28/2018 9:18 AM 2005 POWER OF SLEEVE SEWER - SCAN 11/28/2018 9:18 AM 09/16/2005 * CPR (Attempt to Resuscitate) (Latest Code Status on File) Date Activated Date Inactivated Comments 05/15/2024 8:48 AM 05/15/2024 12:20 PM Question Answer Comments Code Status (Patient has no pulse and is not breathing): CPR (Attempt to Resuscitate) Medical Interventions (Patie nt has pulse or is breathing): Full Support Level Of Support Discussed With: Patient * CPR (Attempt to Resuscitate) Date Activated Date Inactivated Comments 11/04/2020 8:54 AM 11/05/2020 3:03 PM Question Answer Comments Code Status (Patient has no pulse and is not breathing): CPR (Attempt to Resuscitate) Medical Interventions (Patie nt has pulse or is breathing): Full * CPR (Attempt to Resuscitate) Date Activated Date Inactivated Comments 10/04/2020 2:29 PM 10/04/2020 8:32 PM Question Answer Comments Code Status (Patient has no pulse and is not breathing): CPR (Attempt to Resuscitate) Medical Interventions (Patie nt has pulse or is breathing): Full Level Of Support Discussed With: Patient * Full Code Date Activated Date Inactivated Comments 08/26/2016 12:38 PM 08/26/2016 8:16 PM Healthcare Agents on File Name Relationship Healthcare Agent Relationship Communication Kaylah Pavonmk Spouse Power of Attorn ey for Healthcare Care Teams Cyber Security Systems Engineer Relationship Specialty Start Date End Date Dez Cerna MD [address] [place] [facility] [address] [id number] PCP - General 03/07/15
--- OUTSIDE RECORDS SUMMARY | 2025-02-10 00:34 | XMS_ITS | Encounter Summary ---
Author Organization [employer] ([place], [place], [place], [place]) Address [address] [place] [address] Care Team Providers Care Log Truck Driver Name Role Phone Unavailable Primary Care Provider Unavailabl e Encounter Details Date Type Department Care Team (Late st Contact Info) Description 03/14/2021 Transcribed Document [facility] [place] [address] [place] [address] ProviderLele MD [address] [place] [address] Social History Tobacco Use Types Packs/Day Years Used Date Smoking Tobacco: Never Assessed Sex and Gender Information Value Date Recorded Sex Assigned at Male 01/20/2022 1:57 PM CDT Legal Sex Male 1:57 PM CDT Gender Identity Male 01/20/2022 1:57 PM CDT Sexual Orientation Not on file documented as of this encounter Miscellaneous Notes * Cerner Conversion Note - Historical ProviderMD - 03/14/2021 2:00 AM CDT Hourly Shift Details Entered On: 03/14/2021 8:04 EDT Performed On: 03/14/2021 2:00 EDT by Adore Shepherd RN Order Details Transport Mode Order Detail : Wheelchair Isolation Precautions Order Detail : Standard Precautions Order Detail : N/A IV Order Detail : 0 Oxygen Order Detail : 0 Nurse Collect Order Detail : 0 Lift/Transfer : Minimal Central Line Order Detail : No Room Service : Appropriate Arterial Line : No Patient Needs Meds Crushed/Liquid : No Adore Shepherd RN - 03/14/2021 8:04 EDT Electronically signed by Iglesia Heard Conversion Absence Management Consultant Cerner at 11/11/2022 6:45 PM CDT documented in this encounter Plan of Treatment Not on file documented as of this encounter Visit Diagnoses Not on filedocumented in this encounter
--- OUTSIDE RECORDS SUMMARY | 2025-02-10 00:34 | XMS_ITS | Encounter Summary ---
Author Organization [employer] ([place], [place], [place], [place]) Address [address] [place] [address] Care Team Providers Care Straightedge Man Name Role Phone Unavailable Primary Care Provider Unavailabl e Encounter Details Date Type Department Care Team (Late st Contact Info) Description 03/14/2021 Transcribed Document [facility] [place] [address] [place] [address] ProviderLele MD [address] [place] [address] Social History Tobacco Use Types [...] Conversion Note - Historical ProviderMD - 03/14/2021 7:36 AM CDT Patient: KEMI ZAPATA Age: 75 Years Sex: Male : 1945 [employer] POST OP NOTE Subjective: Objective: Vitals Signs (last 24 hrs) Last Charted Minimum Maximum Temp 97.6 (MAR 14 05:43) 97.6 (MAR 14 05:43) 98 (MAR 13 11:00) Mon HR 81 (MAR 14 05:43) 76 (MAR 13 11:00) 84 (MAR 13 18:32) Resp Rate 16 (MAR 14 05:43) 16 (MAR 14 03:50) 18 (MAR 13 09:12) SBP H 141 (MAR 14 05:43) 113 (MAR 13 22:20) H 141 (MAR 14 05:43) DBP 63 (MAR 14 05:43) L 56 (MAR 13 18:32) 63 (MAR 14 05:43) MAP 79 (MAR 14 05:43) 71 (MAR 13 18:32) 82 (MAR 13 11:00) SpO2 95 (MAR 14 05:43) 95 (MAR 14 05:43) 99 (MAR 13 22:20) IV Fluids & Drains Last 24 Hours (7a-7a) Intake (0) No IV fluid intake events found in the last 24 hours. Output (0) No drain output events found in the last 24 hours. Exam: Abdomen soft, nondistended. Wounds clean and intact. I see no hematoma on the abdominal wall. Impression: S/P robotic right colectomy for likely cancer. Patient has had an H&H that is gradually trending down. This morning at that 6.0 and 19. I have told him that that is too low for comfort. I do not suspect that he is bleeding (abdomen is soft, there is no abdominal wall hematoma, and he is not having blood per rectum) , but rather suspect that this is from chronic anemia and dilution. He has lost IV access. I have spoken with the nurse today about placing a midline and giving him 2 units of blood. If he does well with this, then he can be discharged home later today. Patient is motivated to go home today. He is asymptomatic from his current anemia, but I am concerned about my anastomosis if he does not have a good blood supply. Plan: Continue to hold anticoagulation. I would hold any anticoagulation for 1 week. If doing well after lunch may D/C home. Follow up with Dr. Jaime in the office in 1 week. May shower at home. Have sent a prescription for Percocet to his pharmacy. documented in this encounter Plan of Treatment Not on file documented as of this encounter Visit Diagnoses Not on filedocumented in this encounter
--- OUTSIDE RECORDS SUMMARY | 2025-02-10 00:34 | XMS_ITS | Encounter Summary ---
Author Organization [employer] ([place], [place], [place], [place]) Address [address] [place] [address] Care Team Providers Care Nuclear Medicine Pet Ct Technologist Name Role Phone Unavailable Primary Care Provider Unavailabl e Encounter Details Date Type Department Care Team (Late st Contact Info) Description 07/23/2020 Transcribed Document [facility] [place] [address] [place] [address] ProviderLele MD [address] [place] [address] Social History Tobacco Use Types Packs/Day Years Used Date Smoking Tobacco: Never Assessed Sex and Gender Information Value Date Recorded Sex Assigned at Male 01/20/2022 1:57 PM CDT Legal Sex Male 1:57 PM CDT Gender Identity Male 01/20/2022 1:57 PM CDT Sexual Orientation Not on file documented as of this encounter Miscellaneous Notes * Cerner Conversion Note - Lele ProviderMD - 07/23/2020 2:30 PM STRIKE OUT MACHINE OPERATOR Nursing Discharge Summary Entered On: 07/23/2020 14:36 EST Performed On: 07/23/2020 14:30 EST by AURE LINCOLN RN Discharge Documentation Discharge Date/Time : 07/23/2020 14:30 EST Patient Disposition, General : Discharge Discharge To : Home with ambulatory/outpatient follow-up Mode Of Departure, General Discharge : Wheelchair with adult Accompanied By, Discharge : Spouse IV Discontinued : Not applicable Personal Belongings With Patient : Yes Pt's Own Supply of Medications Returned : No patient supply of medications to return Prescriptions Given to Patient : No Discharge Instructions Reviewed With, Opportunity For Questions Given : Patient, Spouse Patient Education Completed : Yes Teaching Method : Explanation, Printed materials Teaching Evaluation : Verbalizes understanding Education Comment : Post Myelogram teaching with patient and patient's spouse. Signs and symptoms that warrant attention and when to seek help. All verbalized understanding. AURE LINCOLN RN - 07/23/2020 14:36 EST Electronically signed by Félix, [facility] Conversion Outside Cutter Hand Cerner at 11/11/2022 6:34 PM CDT documented in this encounter Plan of Treatment Not on file documented as of this encounter Visit Diagnoses Not on filedocumented in this encounter
--- OUTSIDE RECORDS SUMMARY | 2025-02-10 00:34 | XMS_ITS | Clinical Summary ---
Author Organization [facility] Address [address] [place] [address] Care Team Providers Care Roofing Apprentice Name Role Phone Unavailable Primary Care Provider Unavailabl e Immunizations Immunization Administration Dates Next Due Pneumococcal Polysaccharide PPV23 03/13/2016 Social History Tobacco Use Types Packs/Day Years Used Date Smoking Tobacco: Never Alcohol Use Standard Drinks/Week Comments Not Currently 0 (1 standard drink = 0.6 oz pure alcohol) Alcoholic Drinks/day: Former consumption of alcohol Sex and Gender Information Value Date Recorded Sex Assigned at Not on file Legal Sex Male 6:07 PM EDT Gender Identity Not on file Sexual Orientation Not on file Last Filed Vital Signs Vital Sign Reading Time Taken Comments Blood Pressure - - Pulse - - Temperature - - Respiratory Rate - - Oxygen Saturation - - Inhaled Oxygen Concentration - - Weight 114 kg (252 lb 0.1 oz) 05/06/2016 8:52 AM EDT Height 175.3 cm (5' 9 ) 05/06/2016 8:52 AM EDT Body Mass Index 37.22 05/06/2016 8:52 AM EDT Plan of Treatment Not on file
--- OUTSIDE RECORDS SUMMARY | 2025-02-10 00:34 | XMS_ITS ---
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 Hyperlipidemia 12/04/2021 Thoracic ascending aortic an eurysm s/p aortoplasty repair 200512/04/2021 Carotid artery stenosis, asymptomatic, left 11/23 Iron deficiency anemia 11/11/2020 TAVR 11/04/20 10/25/2020 Coronary artery disease invo lving [place] coronary artery of [place] heart without angina pectoris 10/14/2020 S/P AVR (aortic valve replacement) 200509/25/19 Chronic systolic (congestive) heart failure 09/2018 Complete AV block s/p PPM 2005; Upgrade to BiV 2 019 09/02/2017 Overview (11/05/2020): PPM 2005; change out to [facility] BiV in 2019 Essential hypertension 07/16/2016 Obesity 07/16/2016 Current Treatment and Therapy Plans No current plan information found. Past Treatment and Therapy Plans No past plan information found. Lifetime Dose Tracking * Chemical Lifetime Dose Automatic Entry Manual Entr y Cumulative Air Kerma 8,495 mGy 0 mGy 8,495 m Gy Resolved Problems Problem Noted Date Diagnosed Date Resolved Date Aortic valve disease 07/01/2023 024
--- OUTSIDE RECORDS SUMMARY | 2025-02-10 00:34 | XMS_ITS | Encounter Summary ---
Author Organization [employer] ([place], [place], [place], [place]) Address [address] [place] [address] Care Team Providers Care Bill Collector Name Role Phone Unavailable Primary Care Provider Unavailabl e Encounter Details Date Type Department Care Team (Late st Contact Info) Description 07/23/2020 Transcribed Document [facility] [place] Family Medicine [address] [place] [address] ProviderLele MD [address] [place] [address] Social History Tobacco Use Types [...] Conversion Note - Lele Shah MD - 07/23/2020 8:55 AM TRAFFIC SERGEANT Patient Education Materials Follows: Myelogram A myelogram is an imaging study of the spinal cord and the places where nerves attach to the spinal cord (nerve roots). A dye (contrast material) is injected into the spine before the X-ray. This provides a clearer image for your health care provider to see. You may need this study done if you have a spinal cord problem that cannot be diagnosed with other imaging studies, such as a CT scan or an MRI. You may also have this study to check your spine after surgery. Tell a health care provider about: ??? Any allergies you have, especially to iodine. ??? All medicines you are taking, including vitamins, herbs, eye drops, creams, and ucle-xlp-vqljcrw medicines. ??? Any problems you or family members have had with anesthetic medicines or contrast material. ??? Any blood disorders you have. ??? Any surgeries you have had. ??? Any medical conditions you have or have had, including asthma. ??? Whether you are or may be . What are the risks? Generally, this is a safe procedure. However, problems may occur, including: ??? Infection. ??? Bleeding. ??? Allergic reaction to medicines or dyes. ??? Damage to your spinal cord or nerves. ??? Loss or leaking of spinal fluid. This can lead to headaches. ??? Damage to kidneys. ??? Seizures. This is rare. What happens before the procedure? Follow instructions from your health care provider about eating or drinking restrictions. You may be asked to drink more fluids. ??? Ask your health care provider about changing or stopping your regular medicines. This is especially important if you are taking diabetes medicines or blood thinners. ??? Plan to have someone take you home from the hospital or clinic. ??? If you will be going home right after the procedure, plan to have someone with you for 24 hours. What happens during the procedure? You will lie face down on a table. ??? Your health care provider will locate the best injection site on your spine. This is most often in the lower back. ??? The area of injection will be washed with soap. ??? You will be given a medicine to numb the area (local anesthetic). ??? Your health care provider will insert a long needle into the space around your spinal cord (subarachnoid space). ??? A sample of spinal fluid may be taken and sent to the lab for testing. ??? The contrast material will be injected into the subarachnoid space. ??? The exam table may be tilted to help the contrast material flow up or down your spine. ??? The X-ray will take images of your spinal cord for your health care provider to examine. ??? A bandage (dressing) may be placed over the injection site. The procedure may vary among health care providers and hospitals. What can I expect after this procedure? Your blood pressure, heart rate, breathing rate, and blood oxygen level may be monitored until you leave the hospital or clinic. ??? You may have: ? Soreness on your injection site. ? A mild headache. ??? You will be asked to lie down with your head raised (elevated). This reduces the risk of a headache. ??? It is up to you to get the results of your procedure. Ask your health care provider, or the department that is doing the procedure, when your results will be ready. Follow these instructions at home: ??? Rest as told by your health care provider. Lie flat with your head slightly elevated to reduce the risk of a headache. ??? Do not bend, lift, or do hard work for 24?48 hours, or as told by your health care provider. ??? Take anhm-gcv-covxlxy and prescription medicines only as told by your health care provider. ??? Take care of your dressing as told by your health care provider. ??? Drink enough fluid to keep your urine pale yellow. ??? Bathe or shower as told by your health care provider. Contact a health care provider if: ??? You have a fever. ??? You have a headache that lasts longer than 24 hours. ??? You feel nauseous or vomit. ??? You have a stiff neck or numbness in your legs. ??? You are unable to urinate or have a bowel movement. ??? You develop a rash, itching, or sneezing. Get help right away if: ??? You have new symptoms or your symptoms get worse. ??? You have a seizure. ??? You have trouble breathing. Summary ??? A myelogram is an imaging study of the spinal cord and the places where nerves attach to the spinal cord (nerve roots). ??? Before the procedure, follow instructions from your health care provider about changing or stopping your regular medicines, and eating and drinking restrictions. ??? After this procedure, you will be asked to lie down with your head raised (elevated). This reduces your risk of a headache. ??? Do not bend, lift, or do hard work for 24?48 hours, or as told by your health care provider. ??? Contact a health care provider if you have a stiff neck or numbness in your legs. Get help right away if symptoms get worse, or you have a seizure or trouble breathing. This information is not intended to replace advice given to you by your health care provider. Make sure you discuss any questions you have with your health care provider. Document Released: 03/04/2005 Document Revised: 09/20/2019 Document Reviewed: 09/21/2019 Elsevier Patient Education ? 2019 [employer] documented in this encounter Plan of Treatment Not on file documented as of this encounter Visit Diagnoses Not on filedocumented in this encounter
--- OUTSIDE RECORDS SUMMARY | 2025-02-10 00:34 | XMS_ITS | Encounter Summary ---
Author Organization [employer] ([place], [place], [place], [place]) Address [address] [place] [address] Care Team Providers Care Reservations Clerk Name Role Phone Unavailable Primary Care Provider Unavailabl e Encounter Details Date Type Department Care Team (Late st Contact Info) Description 07/23/2020 Transcribed Document [facility] [place] [address] [place] [address] ProviderLele MD [address] [place] [address] Social History Tobacco Use Types Packs/Day Years Used Date Smoking Tobacco: Never Assessed Sex and Gender Information Value Date Recorded Sex Assigned at Male 01/20/2022 1:57 PM CDT Legal Sex Male 1:57 PM CDT Gender Identity Male 01/20/2022 1:57 PM CDT Sexual Orientation Not on file documented as of this encounter Miscellaneous Notes * [employer] Conversion Note - Historical ProviderMD - 07/23/2020 11:34 AM PRODUCTION ILLUSTRATOR Patient: KEMI ZAPATA Age: 74 years Sex: Male : 1945 Associated Diagnoses: None Author: ROGER KIRKLAND PA-C Fluoroscopically guided lumbar puncture was performed at the L4-5 level and 12 mls of contrast injected. The patient tolerated the procedure well. Lumbar myelogram was then performed. CT and report to follow. Electronically signed by Iglesia Heard Conversion Executive Talent Acquisition Consultant [employer] at 11/11/2022 6:54 PM CDT documented in this encounter Plan of Treatment Not on file documented as of this encounter Visit Diagnoses Not on filedocumented in this encounter
--- OUTSIDE RECORDS SUMMARY | 2025-02-10 00:34 | XMS_ITS | Encounter Summary ---
Author Organization [employer] ([place], [place], [place], [place]) Address [address] [place] [address] Care Team Providers Care Communication Coordinator Name Role Phone Unavailable Primary Care Provider Unavailabl e Encounter Details Date Type Department Care Team (Late st Contact Info) Description 03/14/2021 Transcribed Document [facility] [place] [address] [place] [address] ProviderLele MD [address] [place] [address] Social History Tobacco Use Types [...] Conversion Note - Historical ProviderMD - 03/14/2021 6:50 PM CDT Nursing Discharge Summary Entered On: 03/14/2021 18:51 EDT Performed On: 03/14/2021 18:50 EDT by Tasneem Pineda RN-PATIENT CARE BEDSIDE NON-EXEMPT Discharge Documentation Discharge Date/Time : 03/14/2021 18:45 EDT Patient Disposition, General : Discharge Discharge To : Home with ambulatory/outpatient follow-up Education Comment : Pt relaxing in bed, denies any reactions. Tasneem Pineda RN-PATIENT CARE BEDSIDE NON-EXEMPT - 03/14/2021 18:50 EDT Electronically signed by Iglesia Heard Conversion Linux Network Systems Administrator [employer] at 11/11/2022 6:54 PM CDT documented in this encounter Plan of Treatment Not on file documented as of this encounter Visit Diagnoses Not on filedocumented in this encounter
--- OUTSIDE RECORDS SUMMARY | 2025-02-10 00:34 | XMS_ITS | Encounter Summary ---
Author Organization [employer] ([place], [place], [place], [place]) Address [address] [place] [address] Care Team Providers Care Tanker Driver Name Role Phone Unavailable Primary Care Provider Unavailabl e Encounter Details Date Type Department Care Team (Late st Contact Info) Description 03/14/2021 Transcribed Document [facility] [place] Family Medicine [address] [place] [address] ProviderLele MD [address] [place] [address] Social History Tobacco Use Types Packs/Day Years Used Date Smoking Tobacco: Never Assessed Sex and Gender Information Value Date Recorded Sex Assigned at Male 01/20/2022 1:57 PM CDT Legal Sex Male 1:57 PM CDT Gender Identity Male 01/20/2022 1:57 PM CDT Sexual Orientation Not on file documented as of this encounter Miscellaneous Notes * [employer] Conversion Note - Lele ProviderMD - 03/14/2021 11:24 AM CDT Initial Discharge Planning Entered On: 03/14/2021 11:29 EDT Performed On: 03/14/2021 11:24 EDT by YANCI FERRERA RN-Dyed Raw Stock Blower Feeder Initial Assessment I Previously Documented Living Environment : No qualifying data available. Living Situation : Home Patient Lives With : Spouse Is the Patient a Caregiver at Home? : No Emergency Contact #1 : Kaylah Jo Emergency Contact #1 ` Emergency Contact #1 Relationship : ` Emergency Contact #2 : none` Emergency Contact #2 Phone Number : none` Emergency Contact #2 Relationship : none` Enter Doctors Name : Dez Cerna Does Patient have PCP Listed? : Yes Legal Guardian : No Is Guardianship Needed : No YANCI FERRERA RN-Dyed Raw Stock Blower Feeder - 03/14/2021 11:24 EDT Initial Assessment II Sensory and Motor Deficits : None Current Home Treatments and Equipment : None Services and Community Resources : Home Health (Comment: Pt states that he has used [facility] in the past [YANCI FERRERA RN-Dyed Raw Stock Blower Feeder - 03/14/2021 11:24 EDT] ) Services and Community Resources Addl Comments : [facility] Does the Patient have a Floor to SNF Benefit? : Yes YANCI FERRERA RN-Dyed Raw Stock Blower Feeder - 03/14/2021 11:24 EDT Discharge Needs I Anticipated Discharge Date : 03/15/2021 EDT Anticipated Discharge To, CM : Home with family care Current Home Treatment/Equipment : Current Home Treatment/Equipment No qualifying data available. Post Acute/Home Treatments : None Documentation Status Complete : Yes YANCI FERRERA RN-Dyed Raw Stock Blower Feeder - 03/14/2021 11:24 EDT Discharge Needs II Professional Skilled Services : Professional Skilled Services No qualifying data available. Needs Assistance with Transportation : No Patient Discharge Goal : Home YANCI FERRERA RN-Dyed Raw Stock Blower Feeder - 03/14/2021 11:24 EDT Narrative Note Narrative Note : Received from PACU s/p robotic right colectomy. MDR held. Met with Pt and his , Kaylah, at the bedside. Role of CM explained. Pt states that he is ADL independent, lives with his . Plans are to return home when discharged. Per PRITESH Boateng, Pt having a midline placed today and will receive 2 units PRBC's due to H/H 01/11.8. Pt will possibly discharge home after transfusions completed. No needs antcipated/verbalized at this time. RRS is low @ 28, boost 4. CM will follow. YANCI FERRERA RN-Dyed Raw Stock Blower Feeder - 03/14/2021 11:24 EDT documented in this encounter Plan of Treatment Not on file documented as of this encounter Visit Diagnoses Not on filedocumented in this encounter
--- OUTSIDE RECORDS SUMMARY | 2025-02-10 00:34 | XMS_ITS | Encounter Summary ---
Author Organization [employer] ([place], [place], [place], [place]) Address [address] [place] [address] Care Team Providers Care Associate Professor Of Medicine Name Role Phone Unavailable Primary Care Provider Unavailabl e Encounter Details Date Type Department Care Team (Late st Contact Info) Description 03/14/2021 Transcribed Document [facility] [place] [address] [place] [address] ProviderLele MD [address] [place] [address] Social History Tobacco Use Types [...] Note - Lele Shah MD - 03/14/2021 3:25 PM CDT Patient Resource Center Entered On: 03/14/2021 15:26 EDT Performed On: 03/14/2021 15:25 EDT by Isi Heredia, Rag Collector Patient Resource Center Provider Status : EST Other Established Provider Name : SULLY CARROLL Patient Phone Number : [phone] Patient Insurance Type : Medicare Source of Referral : Case management Location of Patient : Case management referral Primary Care Scheduled : Yes Primary Care Scheduled Type : Non CMG Primary Care Provider Name : SULLY CARRERAULISES Primary Care Appointment Date/Time : 03/20/2021 14:45 EDT Specialty Care Scheduled : Yes Specialty Type Scheduled1 : Colorectal Surgery Colorectal Provider Name : RAQUEL JAIME Colorectal Appointment Date/Time : 03/25/2021 13:00 EDT Qualify for Diabetes and/or Nutrition Referral : No Wound Care Appointment Made : No Why Patient Visited ED- Specialty spent : Other How Patient Arrived at ED : Other Primary Language : [place]i Patient Resource Center Comment : Patient needs follow up appointments. Called offices and scheduled appointments with Dr. Jaime and Dr. Carroll Follow Up Needed : Isi Dillard, Rag Collector - 03/14/2021 15:25 EDT Electronically signed by [facility] Conversion Electronics Warfare Technician Cerner at 11/11/2022 6:54 PM CDT documented in this encounter Plan of Treatment Not on file documented as of this encounter Visit Diagnoses Not on filedocumented in this encounter
--- OUTSIDE RECORDS SUMMARY | 2025-02-10 00:34 | XMS_ITS | Encounter Summary ---
Author Organization [email or web address] ([place], [place], [place], [place]) Address [address] [place] [address] Care Team Providers Care Rabbit Fancier Name Role Phone Unavailable Primary Care Provider Unavailabl e Encounter Details Date Type Department Care Team (Late st Contact Info) Description 04/01/2021 Transcribed Document [facility] [place] [address] [place] [address] ProviderLele MD [address] [place] [address] Social History Tobacco Use Types Packs/Day Years Used Date Smoking Tobacco: Never Assessed Sex and Gender Information Value Date Recorded Sex Assigned at Male 01/20/2022 1:57 PM CDT Legal Sex Male 1:57 PM CDT Gender Identity Male 01/20/2022 1:57 PM CDT Sexual Orientation Not on file documented as of this encounter Miscellaneous Notes * [employer] Conversion Note - Historical ProviderMD - 04/01/2021 2:55 PM CDT Discharge Summary, PT Entered On: 04/01/2021 14:58 EDT Performed On: 04/01/2021 14:55 EDT by NATALIE FIELDS, PT Discharge Summary Discharge Summary Provider Notified : Physical Therapy Reason for Discharge : Discharged from hospital Discharged to, Therapy : Home, with home health Discharge Summary Comment, PT : 0/7 goals met. Pt amb x 40 ft with min A during last session. He can benefit from cont. PTx with home health. NATALIE FIELDS, PT - 04/01/2021 14:55 EDT Short Term Goals Mobility/Bed Mobility STG PT Grid Goal #1 Goal #2 Activity : Sit to stand Supine to sit Assist : Supervision or set-up Supervision or set-up Date to Meet : 04/04/2021 EDT 04/04/2021 EDT Goal Status : Not met Not met NATALIE FIELDS, PT - 04/01/2021 14:55 EDT NATALIE FIELDS, PT - 04/01/2021 14:55 EDT Ambulation STG Grid Goal #1 Device : Belt, gait Distance : 100ft Assist : Supervision or set-up Date to Meet : 04/04/2021 EDT Goal Status : Not met NATALIE FIELDS, PT - 04/01/2021 14:55 EDT Senior Living Goals Mobility/Bed Mobility LTG PT Grid Goal #1 Goal #2 Activity : Sit to stand Supine to sit Assist : Independent, complete Independent, complete Date to Meet : 04/11/2021 EDT 04/11/2021 EDT Goal Status : Not met Not met Comment : See goals below NATALIE FIELDS, PT - 04/01/2021 14:55 EDT NATALIE FIELDS, PT - 04/01/2021 14:55 EDT Ambulation LTG Grid Goal #1 Device : None Distance : 200ft Assist : Independent, complete Date to Meet : 04/11/2021 EDT Goal Status : Not met NATALIE FIELDS, PT - 04/01/2021 14:55 EDT Patient/Ground Support Equipment Mechanic PT LTG Grid Goal #1 Goal : 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 Date to Meet : 04/11/2021 EDT Goal Status : Not met NATALIE FIELDS, PT - 04/01/2021 14:55 EDT documented in this encounter Plan of Treatment Not on file documented as of this encounter Visit Diagnoses Not on filedocumented in this encounter
--- OUTSIDE RECORDS SUMMARY | 2025-02-10 00:34 | XMS_ITS | Encounter Summary ---
Author Organization [employer] ([place], [place], [place], [place]) Address [address] [place] [address] Care Team Providers Care Head Start Teacher Name Role Phone Unavailable Primary Care Provider Unavailabl e Encounter Details Date Type Department Care Team (Late st Contact Info) Description 03/26/2021 Transcribed Document [facility] [place] [address] [place] [address] ProviderLele MD [address] [place] [address] Social History Tobacco Use Types [...] Conversion Note - Lele ProviderMD - 03/26/2021 12:28 PM CDT Patient: KEMI ZAPATA Age: 75 Years Sex: Male : 1945 Reason for Consultation small bowel obstruction. History of Present Illness 75-year-old gentleman underwent robotic right colectomy for cancer on 03/12. Had a short uncomplicated hospitalization was discharged home. This past weekend patient acutely developed a crampy abdominal pain with nausea. I have maintained him on fluids over the weekend and check labs Wednesday morning. His labs were all unremarkable. Upon seeing him in the office yesterday afternoon he continued to be weak. He was tolerating fluids, but not food. I ordered a CT scan which was done this morning and patient appears to have a high-grade partial small bowel obstruction. In speaking with him on the phone this morning, he continues to be weak and only tolerating liquids. He is passing gas, but has not had a bowel movement. I have asked him to come to the hospital and have talked with he and his about a planned laparoscopy to see if there is an adhesive band that could be causing his problem. He is waited this out over the weekend and has not improved, I think the best course of action is to proceed with laparoscopy to see if this can be fixed for him. I have reviewed the CT scan and contrast does not make it to the anastomosis. The ileocolic anastomosis appears intact without surrounding fluid or evidence of leak. I do see the decompressed colon down to the rectum all the way to the anastomosis. Patient has decompressed small bowel from the anastomosis extending a fair ways back. I am unable to determine the exact point of transition. Review of Systems 12 point review of systems otherwise unremarkable. Vital Signs Oxygen Settings (Last) No qualifying data available. Physical Exam Patient appears weak. Able to walk. Alert and oriented x3. HEENT: Unremarkable. Heart regular in rate and rhythm. Lungs clear to auscultation bilaterally. Abdomen: Patient has a mildly distended abdomen. He is tympanic to percussion. Wounds are clean and intact. Extremities are without cyanosis clubbing or edema. Skin is warm and dry to the touch. Assessment/Plan Patient symptomatic from what appears to be high-grade partial small bowel obstruction. Able to tolerate liquids, but unable to tolerate food without development of crampy abdominal pain. Labs are all unremarkable. I have spoken with the patient and his about proceeding to the operating room for diagnostic laparoscopy and insertion of a hand port to see if we can find an adhesive band that may be causing his obstructive symptoms. He is agreeable to this as he has not progressed at home. I have explained the risks, benefits, alternatives of this to the patient. I believe this is his best course of action given his ongoing symptoms and failure of the resolution. VTE Prophylaxis - Medical No VTE Prophylaxis Orders. Provider Information Primary Care Physician - SONIA, UNKNOWN Attending Physician - RAQUEL COOPER MD-PRO Admitting Physician - RAQUEL COOPER MD-PRO Referring Physician - RAQUEL COOPER MD-PRO Problem List/Past Medical History Ongoing Amputation d/t trauma Angina Arthritis At risk for sleep apnea Hyperlipidemia Hypertension Nocturia Stented coronary artery Historical Aortic valve stenosis Procedure/Surgical History EXCISION OF RIGHT LARGE INTESTINE, PERC ENDO APPROACH (03/12/2021), ISOLATION (03/12/2021), ROBOTIC ASSISTED PROCEDURE OF TRUNK, PERC ENDO APPROACH (03/12/2021), aortic valve replaced, pig valve, aortic valve replacement replacement, bilateral hip replacement, CABG x4, cardiac catheterization with pci, Colonoscopy, left hand surgery, pacemaker implant - [facility] j[facility], pacemaker replacement, neva placed in pelvis. Medications Inpatient No active inpatient medications Home aspirin, 81 mg, Oral, Daily atorvastatin 40 mg oral tablet, 40 mg= 1 Tab, Oral, At Bedtime carvedilol 12.5 mg oral tablet, 12.5 mg= 1 Tab, Oral, BID Co-Q10, 100 mg, Oral, Daily Fish Oil, 1000 mg, Oral, Daily MiraLax, 17 Gram, Oral, Daily, PRN multivitamin, 1 Tab, Oral, Daily nitroglycerin, 0.4 mg, SubLINgual, Q5Min, PRN pantoprazole 40 mg oral delayed release tablet, 40 mg= 1 Tab, Oral, BID ramipril 5 mg oral capsule, 5 mg= 1 Cap, Oral, Daily tamsulosin 0.4 mg oral capsule, 0.4 mg= 1 Cap, Oral, At Bedtime Vitamin B Complex oral capsule, 1 Cap, Oral, Daily Vitamin C, 500 mg, Oral, Daily Vitamin D3, 5000 Int Units, Oral, Daily Allergies No Known Allergies Social History Alcohol Alcohol Use History No. Use in Last 12 Months: No. Date/Time of Last Drink: 2005. Substance Abuse Drug Use Hx: No. Use in Last 12 Months: No. Drug Use Hx: No. Tobacco Former smoker, quit more than 30 days ago Smoking Status. Former smokeless tobacco user, quit more than 30 days ago Smokeless Tobacco Status. Chewing tobacco, None Smokeless Tobacco Use History. Last Used: quit cigarettes . quit chewing tobacco a couple years later . Second Hand Smoke Exposure: No. Last Used: quit smoking 1979. documented in this encounter Plan of Treatment Not on file documented as of this encounter Visit Diagnoses Not on filedocumented in this encounter
--- OUTSIDE RECORDS SUMMARY | 2025-02-10 00:34 | XMS_ITS | Encounter Summary ---
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 [address] [address] KEMI ZAPATA :1945 Visit Time:07/23/2020 Your Visit Summary Your Care Team Admitting Physician - CARMELITA GUTHRIE MD-ORT Attending Physician - CARMELITA GUTHRIE MD-ORT Primary Care Physician - SONIA, NOT LISTED Referring Physician - CARMELITA GUTHRIE MD-ORT What to do next Follow-Up Appointments Follow Up with CARMELITA GUTHRIE MD-ORT When Within 2 to 3 days Comments Follow-up as instructed: CD has been placed in discharge folder to take with you to next appointment Where: [address] [facility] [address] [place] [address]- Medications What How Much When Instructions Next Dose ascorbic acid (Vitamin C) 500 Milligram(s) Oral Every Day 07/24 aspirin 81 Milligram(s) Oral Every Day 07/24 atorvastatin (atorvastatin 40 mg oral tablet) 1 Tablet(s) Oral At Bedtime 07/23 carvedilol (carvedilol 12.5 mg oral tablet) 1 Tablet(s) Oral Two Times A Day 07/23 cholecalciferol (Vitamin D3) 5,000 International Units Oral Every Day 07/24 clopidogrel (clopidogrel 75 mg oral tablet) 1 Tablet(s) Oral Every Day 07/24 multivitamin 1 Tablet(s) Oral Every Day 07/24 multivitamin (Vitamin B Complex oral capsule) 1 Capsule(s) Oral Every Day 07/24 nitroglycerin 0.4 Milligram(s) SubLINgual Every 5 minutes as needed for Chest Pain As needed omega-3 polyunsaturated fatty acids (Fish Oil) 1,000 Milligram(s) Oral Every Day 07/24 polyethylene glycol 3350 (MiraLax) 17 Gram(s) Oral Every Day as needed for Constipation As needed ramipril (ramipril 5 mg oral capsule) 1 Capsule(s) Oral Every Day 07/24 tamsulosin (tamsulosin 0.4 mg oral capsule) 1 Capsule(s) Oral At Bedtime 07/23 ubiquinone (Co-Q10) 100 Milligram(s) Oral Every Day 07/24 Take your medications faithfully. Do NOT skip medication. Do NOT stop taking medications without the direction of a physician. Carry a list of your medications with you at all times, and take this medication list with you to your first follow up visit. Report any side effects. Avoid herbal remedies unless discussed with your physician. As part of your treatment plan, your physician may have prescribed a limited course of a controlled substance. This medication may be given to help people with moderate or severe pain or for other medical conditions, but there are risks involved with treatment. Common side effects may include nausea, constipation, drowsiness, sweating, itching, dry mouth, and rash. More serious side effects may include cognitive and motor impairment, like problems with thinking, concentrating, alertness, and movement (e.g. slowed reflexes), and driving and operating heavy machinery can be dangerous. It is important for you to talk to your physician if you have these side effects or questions. These controlled substances can produce physical dependence and be habit-forming if taken for an extended period of time, which means that the body has gotten used to them and may experience withdrawal symptoms if they are abruptly stopped. Withdrawal symptoms can include runny nose, sweating, goose bumps, diarrhea, abdominal cramping, rapid heartbeat, difficulty sleeping, and nervousness. Please dispose of unused and medications per your retail pharmacy guidance. Allergies No Known Allergies Immunizations This Visit No Immunizations Found Education Materials Myelogram A myelogram is an imaging study [...] including vitamins, herbs, eye drops, creams, and [id number]-fhlagwb medicines. ??? Any problems you or family [...] bend, lift, or do hard work for 24???48 hours, or as told by your health care provider. ??? Take wdst-czh-zlfmnzi and prescription medicines only as told by [...] bend, lift, or do hard work for 24???48 hours, or as told by your health [...] 03/04/2005 Document Revised: 09/20/2019 Document Reviewed: 09/21/2019 [employer] Patient Education ?? 2020 [employer] Emergency Awareness and Preventative Care STROKE is an EMERGENCY Every Minute Counts Act FAST and Check for these signs: FACE Does the face look uneven? ARM Does one arm drift down? SPEECH Does their speech sound strange? TIME Call at any sign of stroke Stroke Risk Factors Atrial Fibrillation (irregular heartbeat) Diabetes Family history of stroke Heart Disease Heavy alcohol use High Blood Pressure High Cholesterol Physical inactivity and obesity Smoking Cigarette Smoking The facts are clear, cigarette smoking will shorten your life. Smoking can cause many illnesses along the way. As a healthcare provider, we recommend that you stop smoking. Assistance with quitting is available by contacting 0-661-WYPK-NOW. This is a free resource providing counseling, support, and referral. Or you may contact your personal physician. National Suicide Prevention Lifeline: The National Suicide Prevention Lifeline is a national network of local crisis centers that provides free and confidential emotional support to people in suicidal crisis or emotional distress 24 hours a day, 7 days a week. Don't Wait! Stop a Heart Attack Before it Starts What is a heart attack? A heart attack is damage or to a part of the heart from severely decreased or lack of blood flow to the heart. Over time, arteries can become narrow from the buildup of fat and cholesterol, which is called plaque. The plaque can rupture causing a blood clot to form. When the blood clot forms, the artery can become severely narrowed or completely blocked, causing a heart attack. Heart attack is the leading cause of in the [place]. 85% of muscle damage occurs within the first 2 hours. Delay in the recognition of heart attack symptoms increases the chances of . Know the early symptoms of a heart attack: Nausea Feeling of fullness in chest Jaw Pain Pain that travels down one or both arms Fatigue/being tired Anxiety Back Pain Chest pressure, squeezing, or discomfort Shortness of breath Sweating, or a cold sweat Feeling of impending doom There are unusual signs of a heart attack, too! Women, the elderly, and diabetics may present with atypical symptoms: Fainting/dizziness Weakness Confusion Risk Factors for a Heart Attack Some heart disease risk factors, such as age and family history, cannot be changed. Others, like smoking and lack of exercise, can be changed. Smoking High Cholesterol High Blood Pressure Family History Obesity Age Gender (Males are at higher risk) Lack of Exercise Diabetes Diet Stress Excessive Alcohol Intake If you or someone you know is experiencing the signs and symptoms of a heart attack, DON???T DELAY. Call immediately and seek help. If someone collapses, perform CPR! Do not attempt to drive if you are having symptoms of heart attack. Hands-Only CPR Why Hands-Only CPR? Hands-Only CPR has been shown to be as effective as conventional CPR for cardiac arrests that occur outside of a hospital. Survival depends on immediately receiving CPR from someone nearby. How do you perform Hands-Only CPR? There are two easy steps: Call if you see a teen or adult collapse Push hard and fast in the center of the chest at a beat of 100 beats per minute. Save a life! 4 WAYS TO GET AHEAD OF SEPSIS SEPSIS is a MEDICAL EMERGENCY. Time matters! Infections put you and your family at risk for a life-threatening condition called sepsis. Sepsis is the body's extreme response to an infection. It is life-threatening, and without timely treatment, sepsis can rapidly lead to tissue damage, organ failure, and . Sepsis happens when an infection you already have-in your skin, lungs, urinary tract or somewhere else-triggers a chain reaction throughout your body. 1 PREVENT INFECTIONS Take good care of chronic conditions. Talk to your doctor about getting the recommended vaccines. 2 PRACTICE GOOD HYGIENE Wash your hands frequently. Keep cuts or open sores clean and covered until they are healed. 3 KNOW THE SYMPTOMS Confusion or disorientation Shortness of breath High heart rate Fever, shivering, or feeling very cold Extreme pain or discomfort Clammy or sweaty skin 4 ACT FAST Get medical care IMMEDIATELY if you suspect sepsis or if you have an infection that is not getting better or is getting worse. To learn more about sepsis and how to prevent infections, visit www.cdc.gov/sepsis. Test Results Laboratory or Other Results This Visit (last charted value for your 07/23/2020 visit) No Laboratory or Other Results This Visit Patient Name:KEMI ZAPATA I have received and understand this information and was given the opportunity to ask questions. Patient/Paramedic Rn Name: Patient/Paramedic Rn Signature: Relationship to Patient: Clinician/Hospital Paramedic Rn Signature: Date: documented in this encounter Plan of Treatment Not on file documented as of this encounter Visit Diagnoses Not on filedocumented in this encounter
--- OUTSIDE RECORDS SUMMARY | 2025-02-10 00:34 | XMS_ITS | Encounter Summary ---
Author Organization [employer] ([place], [place], [place], [place]) Address [address] [place] [address] Care Team Providers Care Jewelry Department Supervisor Name Role Phone Unavailable Primary Care Provider Unavailabl e Encounter Details Date Type Department Care Team (Late st Contact Info) Description 03/14/2021 Transcribed Document [facility] [place] [address] [place] [address] ProviderLele MD [address] [place] [address] Social History Tobacco Use Types [...] Conversion Note - Historical ProviderMD - 03/14/2021 2:45 PM CDT Stroke/Warfarin Instructions Entered On: 03/14/2021 14:45 EDT Performed On: 03/14/2021 14:45 EDT by Genia Pham RN Stroke/Warfarin Instructions Stroke/TIA Discharge Ins : N/A Warfarin Discharge Ins : N/A Genia Pham RN - 03/14/2021 14:45 EDT Stroke/TIA Discharge Instructions My LDL Level: : LDL Level No qualifying data available. Genia Pham RN - 03/14/2021 14:45 EDT documented in this encounter Plan of Treatment Not on file documented as of this encounter Visit Diagnoses Not on filedocumented in this encounter
--- OUTSIDE RECORDS SUMMARY | 2025-02-10 00:34 | XMS_ITS | Encounter Summary ---
Author Organization [employer] ([place], [place], [place], [place]) Address [address] [place] [address] Care Team Providers Care Flue Lining Dipper Name Role Phone Unavailable Primary Care Provider Unavailabl e Encounter Details Date Type Department Care Team (Late st Contact Info) Description 03/13/2021 Transcribed Document [facility] [place] [address] [place] [address] ProviderLele MD [address] [place] [address] Social History Tobacco Use Types [...] Conversion Note - Historical ProviderMD - 03/13/2021 5:57 AM CDT Patient: KEMI ZAPATA Age: 75 Years Sex: Male : 1945 [employer] POST OP NOTE Subjective: Objective: Vitals Signs (last 24 hrs) Last Charted Minimum Maximum Temp 97.8 (MAR 13 05:37) 97.8 (MAR 13 05:37) 98.3 (MAR 12 06:00) Mon HR 76 (MAR 13 05:37) 60 (MAR 12 10:43) 79 (MAR 12 15:35) Resp Rate 18 (MAR 13 05:37) L 12 (MAR 12 11:00) H 23 (MAR 12 15:25) SBP H 144 (MAR 13 05:37) L 66 (MAR 12 15:35) H 178 (MAR 12 07:27) DBP 87 (MAR 13 05:37) L 30 (MAR 12 15:35) 87 (MAR 13 05:37) MAP 98 (MAR 13 05:37) 43 (MAR 12 15:35) 112 (MAR 12 07:27) SpO2 94 (MAR 13 05:37) 94 (MAR 12 15:15) 100 (MAR 12 07:27) IV Fluids & Drains Last 24 Hours (7a-7a) Intake (1) Dextrose 5% with 0.45% NaCl and KCl 20 mEq/L 1,000 mL 1625 mL Intake Total: 1625mL Output (0) No drain output events found in the last 24 hours. Exam: Abdomen soft. Wounds clean and intact. Impression: S/P right colectomy for endoscopically unresectable colon polyp, likely cancer. Patient had one episode of fainting down in the recovery room upon attempting ambulation. However, once up on the floor he has done well. Tolerating p.o.'s, pain in good control, has been up and walking. Plan: Soft GI Diet. D/C wright. Up and walking 4 times daily. Limit IV narcotic pain medicine. Decrease IVF to 75ml/hr. have talked with the nurse about taking him down to 75 mL's per hour at noon today to give him a few more hours of fluid. May shower. Given that he has significant cardiac disease, I would keep him today. Anticipate discharge home tomorrow. documented in this encounter Plan of Treatment Not on file documented as of this encounter Visit Diagnoses Not on filedocumented in this encounter
--- OUTSIDE RECORDS SUMMARY | 2025-02-10 00:34 | XMS_ITS | Encounter Summary ---
Author Organization [employer] ([place], [place], [place], [place]) Address [address] [place] [address] Care Team Providers Care Manager Statistical Programming Name Role Phone Unavailable Primary Care Provider Unavailabl e Encounter Details Date Type Department Care Team (Late st Contact Info) Description 03/26/2021 Transcribed Document [facility] [place] [address] [place] [address] ProviderLele MD [address] [place] [address] Social History Tobacco Use Types [...] Conversion Note - Lele ProviderMD - 03/26/2021 1:30 PM CDT [facility] Main OR Preop Summary Primary Physician: RAQUEL COOPER MD-PRO Finalized Date/Time: 03/26/21 15:09:01 Pt. Name: KEMI BOO /Sex: 1945 Male Med Rec #: [id number] Physician: KALIA SCOTT Financial #: [id number] Pt. Type: E Room/Bed: / Admit/Disch: 03/26/21 12:49:00 - Institution: [facility] PreOp Case Times Entry 1 In Preop 03/26/21 13:45:00 Ready for Holding n/a Room Patient Ready for 03/26/21 14:40:00 Surgery Patient Out of Preop 03/26/21 15:07:00 Patient Out of n/a Holding Room Last Modified By: Kiara Forrest RN 03/26/21 15:07:15 [facility] PreOp Case Times Audit 03/26/21 15:07:15 Technical Advisor: [id number] Modifier: [id number] 1 <*> Patient Out of Preop 03/26/21 15:03:00 03/26/21 15:07:09 Technical Advisor: [id number] Modifier: [id number] <+> 1 Patient Out of Preop 03/26/21 14:59:05 Technical Advisor: [id number] Modifier: [id number] <+> 1 Patient Ready for Surgery Finalized By: Kiara Forrest, RN Document Signatures Signed By: Kiara Forrest RN 03/26/21 15:09 Electronically signed by [facility] Conversion Silver Cleaner Cerner at 11/11/2022 6:28 PM CDT documented in this encounter Plan of Treatment Not on file documented as of this encounter Visit Diagnoses Not on filedocumented in this encounter
--- OUTSIDE RECORDS SUMMARY | 2025-02-10 00:34 | XMS_ITS | Encounter Summary ---
Author Organization [employer] ([place], [place], [place], [place]) Address [address] [place] [address] Care Team Providers Care Drum Loader And Unloader Name Role Phone Unavailable Primary Care Provider Unavailabl e Encounter Details Date Type Department Care Team (Late st Contact Info) Description 03/14/2021 Transcribed Document [facility] [place] [facility] [place] [address] ProviderLele MD [facility] [address] Social History Tobacco Use Types [...] Conversion Note - Lele ProviderMD - 03/14/2021 7:16 PM CDT Patient: KEMI BOO Age: 75 Years Sex: Male : 1945 Admit Date 03/12/2021 06:52 Discharge Date 03/14/2021 19:00 Primary Care Provider SONIA, UNKNOWN Discharge Diagnosis S/P colectomy 03/12/2021 Z90.49 ICD-10-CM At risk for sleep apnea 03/12/2021 Z91.89 ICD-10-CM Procedures SN - Proc - Procedure: Colon Resection Robotic (03/12/21 10:41:04) Reason for Hospitalization This is a 75-year-old white male who was found to have colon cancer patient was referred to colorectal surgery. Patient underwent robotic colectomy 03/12/2021. Patient is seen and evaluated in the recovery room. Abdominal pain is controlled Hospital Course /P robotic right colectomy for likely cancer. Patient has had an H&H that is gradually trending down. Dr Jaime do not suspect that he is bleeding [...] does not have a good blood supply. Robotic right colectomy for colon cancer on 03/12/2021 Postoerpative Blood loss anemia but no active Bleeding Dr. Jaime transfuse the patient 2 units of packed red blood cells. He cleared the patient for discharge today Colon cancer status post colectomy Subjective abdominal pain currently controlled Dehydration. Gentle IV hydration postoperatively Aortic Valve replacement Pacemaker Essential hypertension. Resumee Coreg. resumed lisinopril. Exam: Abdomen soft, nondistended. Wounds clean and intact. no hematoma on the abdominal wall. Plan: Continue to hold anticoagulation. hold any anticoagulation for [address] week[address] Follow up with Dr. Jaime in the office in 1 week. May shower at home. Have sent a prescription for Percocet to his pharmacy. Vital Signs Oxygen Settings (Last) Oxygen Therapy Mode: Room air (03/14/21 17:02:00) Oxygen Flow Rate: 1 Liter/Min (03/13/21 20:16:00) Physical Exam Vitals Signs (last 24 hrs) Last Charted [...] events found in the last 24 hours. GENERAL: Awake, alert, and oriented to time, place, and person. HEENT: Head is atraumatic, normocephalic. Mucous membranes are dry. No pallor. No jaundice. No cyanosis NECK: Supple. No jugular vein distention. HEART: Regular rate and rhythm. No gallop, rub, or murmur. Normal first and second sounds. No third or fourth sounds. CHEST: Clear to auscultation bilaterally. No wheezes, rales, or crackles. ABDOMEN: Soft, active bowel sounds. No hepatosplenomegaly. No masses. No tenderness. No abdominal distention. Audible bowel sounds in all four abdominal quadrants. GENITOURINARY: No suprapubic tenderness. No suprapubic fullness. No CVA tenderness bilaterally. EXTREMITIES: No clubbing, no cyanosis, no edema. VASCULAR: 2+ pulses dorsalis pedis and posterior tibialis arteries bilaterally. PSYCHIATRIC: Not depressed or anxious. NEUROLOGIC EXAMINATION: Cranial nerves 2 through 12 grossly intact. There is no apparent motor focal weakness in the upper or lower extremities. No facial droop bilaterally. No neurological deficits in upper or lower or lower extremities. MUSCULOSKELETAL: No joint deformity in both knees or both ankles. SKIN: No hematomas. No purpura. No bruises. ENDOCRINE: No thyroid enlargement or nodules. Discharge Disposition Home Discharge Follow Up [facility] (REF)MD-FAM - 02:45 PM RAQUEL JAIME MD- - 01:00 PM Discharge Medications (13) Active Aspir-Low 81 mg oral [...] 125 mcg = 1 Cap, Oral, Daily Code Status full code Condition on Discharge stable Consulting Physicians Dr. Jaime Current Diet Order No qualifying data available. Follow Up Labs/Studies Labs (Last four charted values) , L 135 108 H 36 / H 113 4.5 23 1.00 \ \ L 6.0 / 7.1 L 120 / L 19.8 \, Pending Labs No Labs on Record Time Spent on Discharge 32 minutes Electronically signed by Iglesia Heard Conversion Engineering And Scientific Programmer Cerner at 11/11/2022 6:54 PM CDT documented in this encounter Plan of Treatment Not on file documented as of this encounter Visit Diagnoses Not on filedocumented in this encounter
--- OUTSIDE RECORDS SUMMARY | 2025-02-10 00:34 | XMS_ITS | Encounter Summary ---
Author Organization [employer] ([place], [place], [place], [place]) Address [address] [place] [address] Care Team Providers Care Advanced Clinical Specialist Name Role Phone Unavailable Primary Care Provider Unavailabl e Encounter Details Date Type Department Care Team (Late st Contact Info) Description 03/14/2021 Transcribed Document [facility] [place] [address] [place] [address] ProviderLele MD [address] [place] [address] Social History Tobacco Use Types [...] Note - Lele Shah MD - 03/14/2021 1:21 PM CDT Final Discharge Planning Entered On: 03/14/2021 13:22 EDT Performed On: 03/14/2021 13:21 EDT by YANCI FERRERA RN-Director Talent Final Discharge Planning Discharge Arrangements : Patient Post-Acute Information Patient Name: KEMI BOO Gender: Male : [birth year] Age: 75 Years No Post-Acute Placement(s) Listed No Post-Acute Service(s) Listed No [place] Referral(s) Listed Transportation Needs : Family/Friend Follow Up Appointment Scheduled : Yes Is Patient High/Moderate Readmission Risk? : No Patient/Family Notified of Plan : Yes Support Person/Pt Rep Notified of Plan : Yes Patient/Family Notified : Kaylah, , at the bedside Is Patient Ready for Discharge? : Yes Physician Notified Patient is Ready for Discharge? : Yes Discharge To Care Management : Home/Residential/[facility] or Self Care -01 YANCI FERRERA RN-Director Talent - 03/14/2021 13:21 EDT Final Narrative Note Final Narrative Note : Discharged to home, after transfusion completed, agreeable. No needs verbalized at this time. YANCI FERRERA RN-Director Talent - 03/14/2021 13:21 EDT Electronically signed by Iglesia Heard Conversion Rehabilitation Program Coordinator Cerner at 11/11/2022 6:44 PM CDT documented in this encounter Plan of Treatment Not on file documented as of this encounter Visit Diagnoses Not on filedocumented in this encounter
--- OUTSIDE RECORDS SUMMARY | 2025-02-10 00:34 | XMS_ITS | Encounter Summary ---
Author Organization [employer] ([place], [place], [place], [place]) Address [address] [place] [address] Care Team Providers Care Road Marker Name Role Phone Unavailable Primary Care Provider Unavailabl e Encounter Details Date Type Department Care Team (Late st Contact Info) Description 03/14/2021 Transcribed Document [facility] [place] [address] [place] [address] ProviderLele MD [address] [place] [address] Social History Tobacco Use Types [...] Conversion Note - Lele ProviderMD - 03/14/2021 6:19 AM CDT Rapid Response Team Documentation Entered On: 03/14/2021 6:20 EDT Performed On: 03/14/2021 6:19 EDT by MAREK LOVING RN Rapid Response Event Time Rapid Response Team Called : 03/14/2021 6:19 EDT Rapid Response Team Arrival Time : 03/14/2021 6:19 EDT Rapid Response Team Event End Time : 03/14/2021 6:19 EDT Rapid Response Event Intiated By : Hospital Staff Rapid Response Team Initiation Reason : Peripheral IV start Rapid Response Event Location Type : Other: 3B Room 377 Rapid Response Team Initiation Reason Details : 3B staff attempted PIV 3 times. VIRTUAL OFFICE ASSISTANT RN attempted 2 more sticks without success. RN to notify MD. 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) Angina (Patient Stated) Arthritis (Patient Stated) At risk for sleep apnea (Medical) Hyperlipidemia (Patient Stated) Hypertension (Patient Stated) Nocturia (Patient Stated) Stented coronary artery (Patient Stated) Rapid Response Allergies : Substance Category Reactions Severity No Known Allergies Drug Rapid Response Recent Vital Signs : 03/14/2021 05:43 Systolic Blood Pressure 141 03/14/2021 05:43 Diastolic Blood Pressure 63 03/14/2021 05:43 Heart Rate Monitored 81 03/14/2021 05:43 Respiratory Rate 16 03/14/2021 05:43 Temperature, Fahrenheit 97.6 03/14/2021 05:43 Oxygen Saturation 95 Rapid Response Recent Lab Results : 03/13/2021 08:16 Sodium Level LOW 135 (136-146) 03/13/2021 08:16 Potassium Level 5.0 (3.5-5.1) 03/13/2021 08:16 Calcium Level LOW 8.0 (8.4-10.1) 03/13/2021 08:16 Magnesium Level HI 2.6 (1.5-2.4) 03/05/2021 10:00 eAVG Glucose NA 117 03/12/2021 07:12 Glucose POC HI 123 (70-105) 03/13/2021 08:16 Chloride Level 106 (102-112) 03/13/2021 08:16 Carbon Dioxide Level 21 (21-32) 03/13/2021 08:16 Blood Urea Nitrogen HI 34 (7-22) 03/13/2021 08:16 Creatinine Level HI 1.60 (0.70-1.30) 03/05/2021 10:00 Hgb A1C NA 5.7 03/13/2021 08:16 Hgb LOW 7.3 (13.5-17.3) 03/13/2021 08:16 Hct LOW 23.8 (40.1-51.0) 03/13/2021 08:16 RBC LOW 2.65 (4.20-5.70) 03/13/2021 08:16 WBC HI 11.3 (3.6-9.5) 03/13/2021 08:16 Platelet Count 171 (163-369) Weight/BMI : Clinical Weight/BMI CLINICALWEIGHT: 118.18 kg (03/12/21 06:52:00) CLINICALWEIGHT: 118.18 kg (03/04/21 10:49:00) Body Mass Index: 38.5 kg/m2 High (03/12/21 06:52:00) Body Mass Index: 38.5 kg/m2 High (03/04/21 10:49:00) Rapid Response Road Marker #1 : MAREK LOVING RN MAREK LOVING RN - 03/14/2021 6:19 EDT Electronically signed by Tony Heard Conversion Publications Production Supervisor Cerner at 11/11/2022 6:28 PM CDT documented in this encounter Plan of Treatment Not on file documented as of this encounter Visit Diagnoses Not on filedocumented in this encounter
--- OUTSIDE RECORDS SUMMARY | 2025-02-10 00:34 | XMS_ITS | Referral Summary ---
Author Organization [employer] ([place], [place], [place], [place]) Address [address] [place] [address] Care Team Providers Care Bleach Boiler Packer Name Role Phone Unavailable Primary Care Provider Unavailabl e Social History Tobacco Use Types Packs/Day Years Used Date Smoking Tobacco: Never Assessed Sex and Gender Information Value Date Recorded Sex Assigned at Male 01/20/2022 1:57 PM CDT Legal Sex Male 1:57 PM CDT Gender Identity Male 01/20/2022 1:57 PM CDT Sexual Orientation Not on file Plan of Treatment Not on file
--- OUTSIDE RECORDS SUMMARY | 2025-02-10 00:34 | XMS_ITS | Encounter Summary ---
Author Organization [employer] ([place], [place], [place], [place]) Address [address] [place] [address] Care Team Providers Care Natural Gas Trader Name Role Phone Unavailable Primary Care Provider Unavailabl e Encounter Details Date Type Department Care Team (Late st Contact Info) Description 03/26/2021 Transcribed Document [facility] [place] [address] [place] [address] ProviderLele MD [address] [place] [address] Social History Tobacco Use Types [...] Conversion Note - Lele ProviderMD - 03/26/2021 7:55 PM CDT Admission History, Adult Entered On: 03/26/2021 20:51 EDT Performed On: 03/26/2021 19:55 EDT by Kimberlyn Aguilar RN-PATIENT CARE BEDSIDE NON-EXEMPT Advance Directive Patient has Advance Directive *Q : Yes, Advance Directive on file Advance Directive Type : Living will Copy Advance Directive Verified/on Chart : Yes Kimberlyn Aguilar RN-PATIENT CARE BEDSIDE NON-EXEMPT - 03/26/2021 20:44 EDT Anesthesia/Transfusion History Family History of Anesthesia Reaction : Prior transfusion without reaction Transfusion History : Prior anesthesia without reaction Family History of Anesthesia Reaction : None Kimberlyn Aguilar RN-PATIENT CARE BEDSIDE NON-EXEMPT - 03/26/2021 20:44 EDT Functional Assessment Living Situation : Home Current Home Treatments : None Kimberlyn Aguilar RN-PATIENT CARE BEDSIDE NON-EXEMPT - 03/26/2021 20:44 EDT General Info Want Family/Rep/Phys Notified of Admit : No Emergency Contact #1 : Kaylah Rajeev Emergency Contact #1 Phone Number : [phone] Emergency Contact #1 Relationship : spouse Emergency Contact #2 : * Emergency Contact #2 Phone Number : * Emergency Contact #2 Relationship : * Primary Language : Filipino Communication Barrier : None Investigator Operator Needed : No Kimberlyn Aguilar RN-PATIENT CARE BEDSIDE NON-EXEMPT - 03/26/2021 20:44 EDT Fall Risk Scales ABCs Fall Injury Risk Identification : Surgery Kimberlyn Aguilar RN-PATIENT CARE BEDSIDE NON-EXEMPT - 03/26/2021 20:44 EDT documented in this encounter Plan of Treatment Not on file documented as of this encounter Visit Diagnoses Not on filedocumented in this encounter
--- OUTSIDE RECORDS SUMMARY | 2025-02-10 00:34 | XMS_ITS | Encounter Summary ---
Author Organization [employer] ([place], [place], [place], [place]) Address [address] [place] [address] Care Team Providers Care Tool Machine Setup Operator Name Role Phone Unavailable Primary Care Provider Unavailabl e Encounter Details Date Type Department Care Team (Late st Contact Info) Description 04/01/2021 Transcribed Document [facility] [place] [address] [place] [address] ProviderLele MD [address] [place] [address] Social History Tobacco Use Types [...] Conversion Note - Historical ProviderMD - 04/01/2021 9:20 AM CDT Attempt to Treat, PT Entered On: 04/01/2021 14:55 EDT Performed On: 04/01/2021 9:20 EDT by NATALIE FIELDS PT Attempt to Treat Unable to Treat Due To : Fatigue, Patient Refusal Inability to Treat Comment : Pt asleep when PTentered then had difficulty keeping eyes open. Family member stated he had a rough night & reported he did not sleep well. Pt plesantly refused, reporting he would like to rest & is supposed to discharge. NATALIE FIELDS PT - 04/01/2021 14:52 EDT Electronically signed by Félix [facility] Conversion Credit Or Loans Officer Cerner at 11/11/2022 6:53 PM CDT documented in this encounter Plan of Treatment Not on file documented as of this encounter Visit Diagnoses Not on filedocumented in this encounter
--- OUTSIDE RECORDS SUMMARY | 2025-02-10 00:34 | XMS_ITS | Encounter Summary ---
Author Organization [employer] ([place], [place], [place], [place]) Address [address] [place] [address] Care Team Providers Care Administrative Office Assistant Name Role Phone Unavailable Primary Care Provider Unavailabl e Encounter Details Date Type Department Care Team (Late st Contact Info) Description 07/23/2020 Transcribed Document [facility] [place] [address] [place] [address] ProviderLele MD [address] [place] [address] Social History Tobacco Use Types [...] Conversion Note - Historical ProviderMD - 07/23/2020 8:51 AM MED ADMIN Pre Procedure Adult Entered On: 07/23/2020 8:54 EST Performed On: 07/23/2020 8:51 EST by AURE LINCOLN RN Height and Weight, Clinical Dosing Height Source : Stated Height Entry Format : [place] Height, Feet : 5 ft(Converted to: 152 cm, 60 Inch) Height, Inches : 10 Inch(Converted to: 0 ft 10 Inch, 25.40 cm) Clinical Height : 177.8 cm Weight Source : Standing scale Weight Entry Format : [place] Clinical Dosing Weight : 113.64 kg Weight, Pounds : 250 lb Body Surface Area (BSA) : 2.3 m2 Body Mass Index : 35.9 kg/m2 (HI) [place] Body Weight : 72 kg AURE LINCOLN RN - 07/23/2020 8:51 EST Health Histories Smoking Status : Former smoker, quit more than 30 days ago Smokeless Tobacco Status : Never AURE LINCOLN RN - 07/23/2020 8:51 EST Social History (As Of: 07/23/2020 08:54:12 EST) Tobacco: Last Used: quit smoking 1979. (Last Updated: 07/23/2020 08:52:23 EST by AURE LINCOLN RN) Alcohol: Date/Time of Last Drink: 2005. (Last Updated: 07/23/2020 08:52:31 EST by AURE LINCOLN RN) Substance Abuse: Drug Use Hx: No. (Last Updated: 07/23/2020 08:52:36 EST by AURE LINCOLN RN) Infectious Disease History Has the patient ever been tested for COVID-19? : No, Patient stated Does patient have symptoms of COVID-19? : No COVID19 Screening : No Experiencing Infectious Disease Symptoms : No symptoms Physical contact outside [place] in the last 30 days : No Infectious Disease History : Chicken pox/Shingles Tuberculosis Symptoms : None AURE LINCOLN RN - 07/23/2020 8:51 EST COVID19 PreProcedure Screening Is this an Emergent or Add on Procedure? : No Date PreProcedure COVID-19 test known? : No Has patient been isolated since the test : N/A - PreProcedure, in-person visit Exposed to COVID19 symptoms since test? : N/A - PreProcedure, in-person visit AURE LINCOLN RN - 07/23/2020 8:51 EST Anesthesia/Transfusion History Transfusion History : Prior anesthesia without reaction Family History of Anesthesia Reaction : None ALLIE BRIDGES RN - 07/23/2020 8:55 EST Family History of Anesthesia Reaction : No prior transfusion(s) AURE LINCOLN RN - 07/23/2020 8:51 EST Functional Assessment Living Situation : Home Patient Lives With : Spouse Current Home Treatments : None ALLIE BRIDGES RN - 07/23/2020 8:55 EST [place] Suicide Severity Rating Scale (C-SSRS) CSSRS Past Month Wish to be : No CSSRS Past Month Suicidal Thoughts : No CSSRS Lifetime Suicide Behavior : No Suicide Severity Rating Score : 0 Suicide Severity Rating : No Additional Care Required at this time ALLIE BRIDGES RN - 07/23/2020 8:55 EST Psychosocial History Currently in Unsafe Situation : No ALLIE BRIDGES RN - 07/23/2020 8:55 EST Advance Directive Patient has Advance Directive *Q : Yes, Advance Directive not with the patient Advance Directive Type : Living will Copy Advance Directive Verified/on Chart : No ALLIE BRIDGES RN - 07/23/2020 8:55 EST Teaching/Learning Assessment Barriers To Learning : None evident Individuals Taught : Patient, Spouse Readiness to Learn : Cooperative Baseline Knowledge of Topic : Limited Readiness to Learn : Demonstration, Explanation Learning Style Preferences Patient : None Learning Style Preferences Family : None ALLIE BRIDGES RN - 07/23/2020 8:55 EST Education Topics, Periop Preadmission Perioperative Education Grid Arrival Time/Place : Verbalizes understanding, Returns demonstration CHG Preoperative Bathing/Cloths : Verbalizes understanding, Returns demonstration Falls : Verbalizes understanding, Returns demonstration Infection Control : Verbalizes understanding, Returns demonstration IV's : Verbalizes understanding, Returns demonstration NPO Status/Directions : Verbalizes understanding, Returns demonstration Pain Management : Verbalizes understanding, Returns demonstration Postoperative Care Preparations : Verbalizes understanding, Returns demonstration Preprocedure Preparations : Verbalizes understanding, Returns demonstration Preprocedure Tests/Labs : Verbalizes understanding, Returns demonstration Remove Body Piercings : Verbalizes understanding, Returns demonstration Responsible Adult : Verbalizes understanding, Returns demonstration Take/Hold Medications Pre-Procedure : Verbalizes understanding, Returns demonstration Other : Verbalizes understanding, Returns demonstration ALLIE BRIDGES RN - 07/23/2020 8:55 EST General Info Arrived From : Home Mode of Arrival on Unit : Ambulatory Legal Guardian : Spouse Support Person/Pt Rep Name : Kanwal Boo spouse Support Person/Pt Rep Contact Information : [phone] Want Family/Rep/Phys Notified of Admit : No Emergency Contact #1 : see above Emergency Contact #1 Phone Number : na Emergency Contact #1 Relationship : na Emergency Contact #2 : na Emergency Contact #2 Phone Number : na Emergency Contact #2 Relationship : na Primary Language : Kyrgyz Communication Barrier : None Retail Pos Specialist Needed : No ALLIE BRIDGES RN - 07/23/2020 8:55 EST Vital Measurements Temperature Source : Temporal artery scanning Temperature Mode : Fahrenheit Temperature, Fahrenheit : 97.0 Deg F Clinical Temperature, C : 36.1 Deg C Peripheral Pulse Rate : 63 bpm Respiratory Rate : 18 Breaths/Min Systolic Blood Pressure : 130 mmHg Diastolic Blood Pressure : 79 mmHg Oxygen Saturation : 96 % ALLIE BRIDGES RN - 07/23/2020 8:55 EST Sleep Apnea Risk Assmt Hx of Obstructive [...] Sleep Apnea Risk Level Score : 5 ALLIE BRIDGES RN - 07/23/2020 8:55 EST Gilbert Scale Gilbert Sensory Perception : No impairment Gilbert Moisture : Rarely moist Gilbert Activity : Walks occasionally Gilbert Mobility : Slightly limited Gilbert Nutrition : Adequate Gilbert Friction and Shear : No apparent problem Gilbert Scale Comment : pt ambulates using a cane Gilbert Score : 20 ALLIE BRIDGES RN - 07/23/2020 8:55 EST Oxygen Therapy Oxygen Therapy Mode : Room air ALLIE BRIDGES RN - 07/23/2020 8:55 EST Pain Assessment Pain Assessment : Initial assessment Pain Scale Used : 0-10 Scale ALLIE BRIDGES RN - 07/23/2020 8:55 EST Fall Risk Scales ABCs Fall Injury Risk Identification : None GUZMAN Hx Falls Immediate/Within 3 Months : No Guzman Secondary Diagnosis : Yes GUZMAN Use of Ambulatory Aid : Crutches/Cane/Walker GUZMAN IV Therapy or IV Access : Yes Guzman Gait/Transferring : Normal, bedrest, immobile Guzman Mental Status : Oriented to own ability Guzman Fall Risk Score : 50 GUZMAN Fall Scale Risk Level : 46 or > High Risk [place] Fall Interventions : Adequate lighting, Bed in low position, Call device within reach, Hourly comfort/safety rounds, Non-slip footwear, Personal items within reach, Room free of clutter/spills, Wheels locked, Wires/Cords secured ALLIE BRIDGES RN - 07/23/2020 8:55 EST Valuables and Belongings Valuables and Belongings : Clothing, Personal items, Assistive devices, No comfort items, No jewelry, No respiratory devices, No medications Clothing : Common streetwear Clothing Disposition : Bedside Personal Items : Wallet Personal Items Disposition : Bedside, With family, Declines to send to security/safe Assistive Devices From Home : Brace, Cane Assistive Device Disposition : With patient, Declines to send to security/safe ALILE BRIDGES RN - 07/23/2020 8:55 EST Pain Scale Intensity : 1 ALLIE BRIDGES RN - 07/23/2020 8:55 EST Image 4 - Images currently included in the form version of this document have not been included in the text rendition version of the form. Electronically signed by Félix [facility] Conversion Bow Maker Cerner at 11/11/2022 6:54 PM CDT documented in this encounter Plan of Treatment Not on file documented as of this encounter Visit Diagnoses Not on filedocumented in this encounter
--- OUTSIDE RECORDS SUMMARY | 2025-02-10 00:34 | XMS_ITS | Encounter Summary ---
Author Organization [employer] ([place], [place], [place], [place]) Address [address] [place] [address] Care Team Providers Care Flavor Tank Tender Name Role Phone Unavailable Primary Care Provider Unavailabl e Encounter Details Date Type Department Care Team (Late st Contact Info) Description 04/01/2021 Transcribed Document [facility] [place] [address] [place] [address] ProviderLele MD [address] [place] [address] Social History Tobacco Use Types [...] Conversion Note - Historical ProviderMD - 04/01/2021 5:00 AM CDT Chart Check - Review Order Profile Entered On: 04/01/2021 4:52 EDT Performed On: 04/01/2021 5:00 EDT by Mariann Zamora Lpn Chart Check Power[employer] Initiated/Discontinued as Appropriate : Yes All Active Orders Reviewed : Yes Mariann Zamora Lpn - 04/01/2021 4:52 EDT Electronically signed by Félix [facility] Conversion Medical Unit Secretary Cerner at 11/11/2022 6:49 PM CDT documented in this encounter Plan of Treatment Not on file documented as of this encounter Visit Diagnoses Not on filedocumented in this encounter
--- OUTSIDE RECORDS SUMMARY | 2025-02-10 00:34 | XMS_ITS | Encounter Summary ---
Author Organization [employer] ([place], [place], [place], [place]) Address [address] [place] [address] Care Team Providers Care Programmer Operator Numerical Control Name Role Phone Unavailable Primary Care Provider Unavailabl e Encounter Details Date Type Department Care Team (Late st Contact Info) Description 04/01/2021 Transcribed Document [facility] [place] Family Medicine [address] [place] [address] ProviderLele MD [address] [place] [address] Social History Tobacco Use Types [...] Conversion Note - Lele ProviderMD - 04/01/2021 10:51 AM CDT Patient Education Materials Follows: Low Residue Diet A low residue diet is a diet often used to reduce the frequency and volumes of bowel movements (stools) while prolonging intestinal transit times ( the amount of time it takes for food to pass from our bodies). It is similar to a low fiber diet, but usually restricts foods that increase bowel activity. A low residue diet typically contains less than 7-10 grams of fiber per day. parts counterman use of this diet may not provide needed nutrients due to its emphasis on processed foods and reduced intake of fruits and vegetables. Conditions that may require a low residue diet: Gastroparesis Before and after abdominal or intestinal surgery Bowel inflammation Olga???s disease Diverticulitis Ulcerative colitis Radiation therapy to the pelvis and lower bowel General guidelines Foods that are included: White bread, pastas, cereals and white rice Limited servings of canned or well-cooked vegetables that do NOT include skins Moderate amounts of fresh fruits without peels or seeds, some canned or well-cooked fruits Tender, ground, well cooked meat, fish, eggs and poultry Milk and yogurt (usually limited to 2 cups per day) mild cheese, ricotta, cottage cheese Butter, mayonnaise, vegetable oils, margarine, plain gravies and dressings Broth and strained soups from allowed foods Pulp free, strained or clear juices Foods to avoid: Whole grain breads & pastas, corn bread, products made with whole grain products or bran Strong cheeses or yogurt containing fruit skins or seeds Raw vegetables, except lettuce and other leaves Tough meat or meat with gristle Peanut butter (however up to 2 tablespoons a day of creamy peanut butter is generally allowed) Purdy, buckwheat, flax, oatmeal Dried beans, peas, and legumes Dried fruits, berries or other fruits with skin or seeds Chocolate with cocoa powder (white chocolate has no fiber) Food containing whole coconut Juices with pulp Highly spiced food and dressings, pepper, hot sauces Coffee and other foods with caffeine Popcorn, nuts and seeds Gastroenterology Laparoscopic Colectomy, Care After This sheet gives you information about how to care for yourself after your procedure. Your health care provider may also give you more specific instructions. If you have problems or questions, contact your health care provider. What can I expect after the procedure? After your procedure, it is common to have the following: ??? Pain in your abdomen, especially in the incision areas. You will be given medicine to control the pain. ??? Tiredness. This is a normal part of the recovery process. Your energy level will return to normal over the next several weeks. ??? Changes in your bowel movements, such as constipation or needing to go more often. Talk with your health care provider about how to manage this. Follow these instructions at home: Medicines ??? Take jrnb-[id number] and prescription medicines only as told by your health care provider. ??? Do not drive or use heavy machinery while taking prescription pain medicine. ??? Do not drink alcohol while taking prescription pain medicine. ??? If you were prescribed an antibiotic medicine, use it as told by your health care provider. Do not stop using the antibiotic even if you start to feel better. Incision care ??? Follow instructions from your health care provider about how to take care of your incision areas. Make sure you: ? Keep your incisions clean and dry. ? Wash your hands with soap and water before and after applying medicine to the areas, and before and after changing your bandage (dressing). If soap and water are not available, use hand corn husker machine operator. ? Change your dressing as told by your health care provider. ? Leave stitches (sutures), skin glue, or adhesive strips in place. These skin closures may need to stay in place for 2 weeks or longer. If adhesive strip edges start to loosen and curl up, you may trim the loose edges. Do not remove adhesive strips completely unless your health care provider tells you to do that. ??? Do not wear tight clothing over the incisions. Tight clothing may rub and irritate the incision areas, which may cause the incisions to open. ??? Do not take baths, swim, or use a hot tub until your health care provider approves. Ask your health care provider if you can take showers. You may only be allowed to take sponge baths for bathing. ??? Check your incision area every day for signs of infection. Check for: ? More redness, swelling, or pain. ? More fluid or blood. ? Warmth. ? Pus or a bad smell. Activity ??? Avoid lifting anything that is heavier than 10 lb (4.5 kg) for 2 weeks or until your health care provider says it is okay. ??? You may resume normal activities as told by your health care provider. Ask your health care provider what activities are safe for you. ??? Take rest breaks during the day as needed. Eating and drinking ??? Follow instructions from your health care provider about what you can eat after surgery. ??? To prevent or treat constipation while you are taking prescription pain medicine, your health care provider may recommend that you: ? Drink enough fluid to keep your urine clear or pale yellow. ? Take vfkd-ipz-huivsoo or prescription medicines. ? Eat foods that are high in fiber, such as fresh fruits and vegetables, whole grains, and beans. ? Limit foods that are high in fat and processed sugars, such as fried and sweet foods. General instructions ??? Ask your health care provider when you will need an appointment to get your sutures or imelda removed. ??? Keep all follow-up visits as told by your health care provider. This is important. Contact a health care provider if: ??? You have more redness, swelling, or pain around your incisions. ??? You have more fluid or blood coming from the incisions. ??? Your incisions feel warm to the touch. ??? You have pus or a bad smell coming from your incisions or your dressing. ??? You have a fever. ??? You have an incision that breaks open (edges not staying together) after sutures or imelda have been removed. Get help right away if: ??? You develop a rash. ??? You have chest pain or difficulty breathing. ??? You have pain or swelling in your legs. ??? You feel light-headed or you faint. ??? Your abdomen swells (becomes distended). ??? You have nausea or vomiting. ??? You have blood in your stool (feces). This information is not intended to replace advice given to you by your health care provider. Make sure you discuss any questions you have with your health care provider. Document Revised: 03/31/2019 Document Reviewed: 04/12/2017 [employer] Patient Education ? 2019 [employer] documented in this encounter Plan of Treatment Not on file documented as of this encounter Visit Diagnoses Not on filedocumented in this encounter
--- OUTSIDE RECORDS SUMMARY | 2025-02-10 00:34 | XMS_ITS | Encounter Summary ---
Author Organization [employer] ([place], [place], [place], [place]) Address [address] [place] [address] Care Team Providers Care Iron Worker Apprentice Name Role Phone Unavailable Primary Care Provider Unavailabl e Encounter Details Date Type Department Care Team (Late st Contact Info) Description 03/12/2021 Transcribed Document [facility] [place] [address] [place] [address] ProviderLeel MD [address] [place] [address] Social History Tobacco Use Types [...] Shah MD - 03/12/2021 8:05 AM CDT [facility] Main OR PACU Summary Primary Physician: RAQUEL COOPER MD-PRO Finalized Date/Time: 03/12/21 18:05:22 Pt. Name: KEMI BOO /Sex: 1945 Male Med Rec #: [id number] Physician: RAQUEL COOPER MD-PRO Financial #: [id number] Pt. Type: I Room/Bed: [facility]/ Admit/Disch: 03/12/21 06:52:00 - Institution: [facility] Main OR PACU I Case Times Entry 1 In PACU I 03/12/21 10:43:00 Ready for PACU 03/12/21 11:50:00 Discharge Discharge from PACU 03/12/21 16:45:00 I Last Modified By: WILMAN PUGA RN 03/12/21 17:45:15 [facility] Main OR PACU I Case Times Audit 03/12/21 17:45:15 Industrial Technology Teacher: EMILIE Modifier: BRANDEP <+> 1 Ready for PACU Discharge <+> 1 Discharge from PACU I [facility] Main OR PACU Acuity Entry 1 Start Time 03/12/21 11:50:00 Stop Time 03/12/21 16:45:00 Acuity Level [facility] PACU Acuity I Last Modified By: WILMAN PUGA RN 03/12/21 18:05:21 Finalized By: WILMAN PUGA RN Document Signatures Signed By: WILMAN PUGA RN 03/12/21 18:05 Electronically signed by Fél[facility] Conversion Supply Chain Generalist Cerner at 11/11/2022 6:50 PM CDT documented in this encounter Plan of Treatment Not on file documented as of this encounter Visit Diagnoses Not on filedocumented in this encounter
--- OUTSIDE RECORDS SUMMARY | 2025-02-10 00:34 | XMS_ITS | Encounter Summary ---
Author Organization [employer] ([place], [place], [place], [place]) Address [address] [place] [id number] Care Team Providers Care Therapy Administrative Assistant Name Role Phone Unavailable Primary Care Provider Unavailabl e Encounter Details Date Type Department Care Team (Late st Contact Info) Description 03/26/2021 Transcribed Document [facility] [place] [address] [place] [address] ProviderLele MD [address] [place] [address] Social History Tobacco Use Types [...] Conversion Note - Lele ProviderMD - 03/26/2021 8:50 PM CDT Admission History, Adult Entered On: 03/26/2021 21:11 EDT Performed On: 03/26/2021 20:50 EDT by Kimberlyn Aguilar RN-PATIENT CARE BEDSIDE NON-EXEMPT Advance Directive Patient has Advance Directive *Q : Yes, Advance Directive on file Advance Directive Type : Living will Copy Advance Directive Verified/on Chart : Yes Kimberlyn Aguilar RN-PATIENT CARE BEDSIDE NON-EXEMPT - 03/26/2021 21:02 EDT Anesthesia/Transfusion History Family History of Anesthesia Reaction : Prior transfusion without reaction Transfusion History : Prior anesthesia without reaction Family History of Anesthesia Reaction : None Kimberlyn Aguilar RN-PATIENT CARE BEDSIDE NON-EXEMPT - 03/26/2021 21:02 EDT Functional Assessment Living Situation : Home Current Home Treatments : None Kimberlyn Aguilar RN-PATIENT CARE BEDSIDE NON-EXEMPT - 03/26/2021 21:02 EDT General Info Preferred Name : Gildardo Mode of Arrival on Unit : Ambulatory Legal Guardian : Significant other Legal Guardian : No Support Person/Patient Process Safety Management Engineer : Yes Support Person/Pt Rep Name : Kaylah Boo - Support Person/Pt Rep Contact Information : [phone] Want Family/Rep/Phys Notified of Admit : No Emergency Contact #1 : Kaylah Boo Emergency Contact #1 Phone Number : [phone] Emergency Contact #1 Relationship : spouse Emergency Contact #2 : * Emergency Contact #2 Phone Number : * Emergency Contact #2 Relationship : * Chief Complaint : had colon surgery 2 weeks ago here by dr vazquez. 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, showed bowel blockage, sent here for further eval Information Obtained From : Patient Primary Language : Yoruba Communication Barrier : None Admissions Consultant Needed : Kimberlyn Griffin RN-PATIENT CARE BEDSIDE NON-EXEMPT - 03/26/2021 21:02 EDT Fall Risk Scales ABCs Fall Injury Risk Identification : Age, Surgery ABC Fall Injury Risk : Moderate to high injury risk Injury Moderate to High Risk Interventions : Transport methods appropriate to patient GUZMAN Hx Falls Immediate/Within 3 Months : No Guzman Secondary Diagnosis : Yes GUZMAN Use of Ambulatory Aid : Bed rest/Nurse assist GUZMAN IV Therapy or IV Access : Yes Guzman Gait/Transferring : Normal, bedrest, immobile Guzman Mental Status : Oriented to own ability Guzman Fall Risk Score : 35 GUZMAN Fall Scale Risk Level : 25-45 Medium Risk [place] Fall Interventions : Adequate lighting, Assistive devices within reach, Bed in low position, Call device within reach, Fall prevention handout/education per facility policy, Hourly comfort/safety rounds, Non-slip footwear, Personal items within reach, Reinforced to call for assistance before getting out of bed, Room free of clutter/spills, Upper side-rails up, Wheels locked, Wires/Cords secured Fall Risk Scale Calc Temp : 0 Kimberlyn Aguilar RN-PATIENT CARE BEDSIDE NON-EXEMPT - 03/26/2021 21:02 EDT Health Histories Smoking Status : Former smoker, quit more than 30 days ago Smokeless Tobacco Status : Never Implant/Device Type, Diesel Mechanic Farm and Model : cardiac stent 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 [...] Source : Stated Height Entry Format : [place] Height, Feet : 5 ft(Converted to: 152 cm, 60 Inch) Height, Inches : 10 Inch(Converted to: 0 ft 10 Inch, 25.40 cm) Clinical Height : 177.8 cm Weight Source : Stated [place] Body Weight : 72 kg Kimberlyn Aguilar RN-PATIENT CARE BEDSIDE NON-EXEMPT - 03/26/2021 21:02 EDT Estimated Weight Type of Weight Measurement Est : [place] Weight, est lb : 258 lb(Converted to: 117 kg) Estimated Clinical Dosing Weight : 117.27 kg Kimberlyn Aguilar RN-PATIENT CARE BEDSIDE NON-EXEMPT - 03/26/2021 21:02 EDT Infectious Disease History Has the patient ever been tested for COVID-19? : Yes, Patient stated results Negative Date of COVID-19 test known? : No Does patient have symptoms of COVID-19? : Unable to obtain or unsure COVID19 Screening : No Experiencing Infectious Disease Symptoms : No symptoms Physical contact outside [place] in the last 30 days : No Infectious Disease History : Chicken pox/Shingles Tuberculosis Symptoms : None Kimberlyn Aguilar RN-PATIENT CARE BEDSIDE NON-EXEMPT - 03/26/2021 21:02 EDT Influenza Vaccine Asmt, Adult Previous Vaccines from Immunization Schedule : No qualifying data available. Influenza Immunization, Current Season : No Inactivated Flu Vaccine Contraindications : No contraindications to inactivated influenza vaccine Transplant Workup/Recent Transplant : No Order for Influenza Vaccine : Declined Vaccination Kimberlyn Aguilar RN-PATIENT CARE BEDSIDE NON-EXEMPT - 03/26/2021 21:02 EDT Pneumococcal Vaccine Previous Vaccines from Immunization Schedule : No qualifying data available. Pneumonia Immunization Received : No Pneumococcal Risk Assessment < Age 65 : N/A- Patient 65 years of age or older Pneumococcal Vaccine Contraindications : No contraindications to pneumococcal vaccine Transplant Workup/Recent Transplant : No Order for Pneumococcal Vaccine : Declined Vaccination Kimberlyn Aguilar RN-PATIENT CARE BEDSIDE NON-EXEMPT - 03/26/2021 21:02 EDT Order Details Transport Mode Order Detail : Stretcher/Gurney Isolation Precautions Order Detail : Standard Precautions Order Detail : N/A IV Order Detail : 1 Oxygen Order Detail : 0 Nurse Collect Order Detail : 0 Lift/Transfer : Minimal Central Line Order Detail : No Room Service : Appropriate Arterial Line : No Patient Needs Meds Crushed/Liquid : No Kimberlyn Aguilar RN-PATIENT CARE BEDSIDE NON-EXEMPT - 03/26/2021 21:02 EDT Nutrition History Eating Poorly Due to Decreased Appetite : No Unplanned Weight Loss in Past 3-6 Months : No Malnutrition Screening Tool Total(mal) : 0 Malnutrition Screening Tool Risk Level : Patient not at risk Mariann Zamora Lpn - 03/31/2021 20:14 EDT [place] Suicide Severity Rating Scale (C-SSRS) CSSRS Past Month Wish to be : No CSSRS Past Month Suicidal Thoughts : No CSSRS Lifetime Suicide Behavior : No Suicide Severity Rating Score : 0 Suicide Severity Rating : No Additional Care Required at this time Mariann Zamora Lpn - 03/31/2021 20:14 EDT Psychosocial History Does Someone Depend on You for Care? : No Currently in Unsafe Situation : No Mariann Zamora Lpn - 03/31/2021 20:14 EDT Sleep Apnea Risk Assmt Hx of [...] Sleep Apnea Risk Level Score : 5 Mariann Zamora Lpn - 03/31/2021 20:14 EDT Spiritual/Cultural Needs Any Spiritual/Cultural Needs or Requests : No Spiritual/Cultural Needs Comment : 03/12 Mariann Zamora Lpn - 03/31/2021 20:14 EDT Valuables and Belongings Valuables and Belongings : Clothing Clothing : Common streetwear Clothing Disposition : Bedside Mariann Zamora Lpn - 03/31/2021 20:14 EDT documented in this encounter Plan of Treatment Not on file documented as of this encounter Visit Diagnoses Not on filedocumented in this encounter
--- OUTSIDE RECORDS SUMMARY | 2025-02-10 00:34 | XMS_ITS | Encounter Summary ---
Author Organization [employer] ([place], [place], [place], [place]) Address [address] [place] [address] Care Team Providers Care Infection Control Nurse Name Role Phone Unavailable Primary Care Provider Unavailabl e Encounter Details Date Type Department Care Team (Late st Contact Info) Description 03/12/2021 Transcribed Document [facility] [place] [facility] [place] [address] ProviderLele MD [facility] [place] [address] Social History Tobacco Use Types [...] Note - Lele Shah MD - 03/12/2021 10:05 AM CDT Peripheral Nerve Block Entered On: 03/12/2021 10:05 EDT Performed On: 03/12/2021 10:05 EDT by Marjan Patel RN Peripheral Nerve Block Peripheral Nerve Block Start Date/Time : 03/12/2021 7:21 EDT Verbally Confirm Pt, Site, and Procedure : Yes Time Out Pause Time : 03/12/2021 7:20 EDT Site Marked and Visible : Yes Site Preparation : Chlorhexidine (Hibiclens) Peripheral Nerve Block : Tap Block Laterality : Bilateral Peripheral Nerve Block Performed by : LOBO SO MD-ANS Medication Delivery Method : Single Shot Peripheral Nerve Block Assisted by : Marjan Patel RN Ultra sound used during insertion : Yes Nerve Block Activity, Patient Tolerance : Good Peripheral Nerve Block End Date/Time : 03/12/2021 7:30 EDT Marjan Patel RN - 03/12/2021 10:05 EDT documented in this encounter Plan of Treatment Not on file documented as of this encounter Visit Diagnoses Not on filedocumented in this encounter
--- OUTSIDE RECORDS SUMMARY | 2025-02-10 00:34 | XMS_ITS | Encounter Summary ---
Author Organization [employer] ([place], [place], [place], [place]) Address [address] [place] [address] Care Team Providers Care Natural Resource Economist Name Role Phone Unavailable Primary Care Provider Unavailabl e Encounter Details Date Type Department Care Team (Late st Contact Info) Description 03/26/2021 Transcribed Document [facility] [place] Family Medicine [facility] [place] [address] ProviderLele MD [facility] [place] [address] Social History Tobacco Use Types [...] ProviderMD - 03/26/2021 12:49 PM CDT ED Triage Entered On: 03/26/2021 13:04 EDT Performed On: 03/26/2021 13:02 EDT by Sana Napier DROSSER Triage Across the Room Chief Complaint : had colon surgery 2 weeks ago here by dr vazquez. had ct scan service captain, showed bowel blockage, sent here for further eval Triage Date/Time : 03/26/2021 13:02 EDT Sana Napier RN - 03/26/2021 13:02 EDT DCP GENERIC CODE Tracking Acuity : 3 - Urgent Tracking Group : [facility] ED Sana Napier RN - 03/26/2021 13:02 EDT Mode of Arrival : Ambulatory Transported to ED by : Private vehicle To Room Via : Ambulate Accompanied By : Significant other ED Vital Signs : Document Height & Weight : Document ED Allergies : Document ED Reason for Visit : Document Tetanus Immunization : Unknown Global Marketing Manager Needed : No Sana Napier RN - 03/26/2021 13:02 EDT Infectious Disease History Has the patient [...] : Chicken pox/Shingles Tuberculosis Symptoms : None Sana Napier RN - 03/26/2021 13:02 EDT Vital Signs ED Temperature Source : Tympanic Temperature Mode : Fahrenheit Temperature, Fahrenheit : 97.0 Deg F Clinical Temperature, C : 36.1 Deg C Oxygen Therapy Mode : Room air Peripheral Pulse Rate : 86 bpm Respiratory Rate : 22 Breaths/Min (HI) Systolic Blood Pressure : 119 mmHg Diastolic Blood Pressure : 60 mmHg Oxygen Saturation : 96 % Sana Napier RN - 03/26/2021 13:02 EDT Allergy (As Of: 03/26/2021 13:04:06 EDT) Allergies (Active) No Known Allergies Estimated Onset Date: Unspecified ; Created By: Mariana_SHADE du; Reaction Status: Active ; Category: Drug ; Substance: No Known Allergies ; Type: Allergy ; Updated By: SHADE Gonzalez; Reviewed Date: 03/26/2021 13:03 EDT Diagnosis Control ED (As Of: 03/26/2021 13:04:06 EDT) Problems(Active) Amputation d/t trauma (SNOMED CT :943480397 ) Name of Problem: Amputation d/t trauma ; Recorder: AURE LINCOLN RN; Confirmation: Confirmed ; Classification: Patient Stated ; Code: [id number] ; Contributor System: MicroSolar ; Last Updated: 07/23/2020 8:50 EST ; Life Cycle Date: 07/23/2020 ; Life Cycle Status: Active ; Vocabulary: SNOMED CT Angina (SNOMED CT :945779614 ) Name of Problem: Angina ; Recorder: AURE LINCOLN RN; Confirmation: Confirmed ; Classification: Patient Stated ; Code: [id number] ; Contributor System: LogLogicChart ; Last Updated: 07/23/2020 8:47 EST ; Life Cycle Date: 07/23/2020 ; Life Cycle Status: Active ; Vocabulary: SNOMED CT Arthritis (SNOMED CT :7527800 ) Name of Problem: Arthritis ; Recorder: AURE LINCOLN RN; Confirmation: Confirmed ; Classification: Patient Stated ; Code: [id number] ; Contributor System: PowerChart ; Last Updated: 07/23/2020 8:50 EST ; Life Cycle Date: 07/23/2020 ; Life Cycle Status: Active ; Vocabulary: SNOMED CT At risk for sleep apnea (IMO :14459543 ) Name of Problem: At risk for sleep apnea ; Recorder: SYSTEM, SYSTEM; Confirmation: Confirmed ; Classification: Medical ; Code: [id number] ; Last Updated: 07/23/2020 9:00 EST ; Life Cycle Date: 07/23/2020 ; Life Cycle Status: Active ; Vocabulary: IMO Hyperlipidemia (SNOMED CT :35758393 ) Name of Problem: Hyperlipidemia ; Recorder: AURE LINCOLN RN; Confirmation: Confirmed ; Classification: Patient Stated ; Code: 70951267 ; Contributor System: PowerChart ; Last Updated: 07/23/2020 8:47 EST ; Life Cycle Date: 07/23/2020 ; Life Cycle Status: Active ; Vocabulary: SNOMED CT Hypertension (SNOMED CT :10743190 ) Name of Problem: Hypertension ; Recorder: AURE LINCOLN RN; Confirmation: Confirmed ; Classification: Patient Stated ; Code: 45614083 ; Contributor System: PowerChart ; Last Updated: 07/23/2020 8:47 EST ; Life Cycle Date: 07/23/2020 ; Life Cycle Status: Active ; Vocabulary: SNOMED CT Nocturia (SNOMED CT :339477008 ) Name of Problem: Nocturia ; Recorder: AURE LINCOLN RN; Confirmation: Confirmed ; Classification: Patient Stated ; Code: 142902787 ; Contributor System: PowerChart ; Last Updated: 07/23/2020 8:50 EST ; Life Cycle Date: 07/23/2020 ; Life Cycle Status: Active ; Vocabulary: SNOMED CT Stented coronary artery (SNOMED CT :5760637715 ) Name of Problem: Stented coronary artery ; Recorder: AURE LINCOLN RN; Confirmation: Confirmed ; Classification: Patient Stated ; Code: [id number] ; Contributor System: PowerChart ; Last Updated: 07/23/2020 8:46 EST ; Life Cycle Date: 07/23/2020 ; Life Cycle Status: Active ; Vocabulary: SNOMED CT Diagnoses(Active) Abdominal pain Date: 03/26/2021 ; Diagnosis Type: Reason For Visit ; Confirmation: Complaint of ; Clinical Dx: Abdominal pain ; Classification: Medical ; Clinical Service: Emergency medicine ; Code: PNED ; Probability: 0 ; Diagnosis Code: [id number] Abnormal diagnostic test Date: 03/26/2021 ; Diagnosis Type: Reason For Visit ; Confirmation: Complaint of ; Clinical Dx: Abnormal diagnostic test ; Classification: Medical ; Clinical Service: Emergency medicine ; Code: PNED ; Probability: 0 ; Diagnosis Code: [id number] Height and Weight Height Source : Stated Height Entry Format : [place] Height, Feet : 5 ft(Converted to: 152 cm, 60 Inch) Height, Inches : 10 Inch(Converted to: 0 ft 10 Inch, 25.40 cm) Clinical Height : 177.8 cm Weight Source, ED : Critical estimated dosing weight Weight Entry Format : [place] Weight, Pounds : 258 lb Clinical Dosing Weight : 117.27 kg Body Surface Area (BSA) : 2.33 m2 Body Mass Index : 37.1 kg/m2 (HI) [place] Body Weight (IBW) : 72.02 kg Sana Napier RN - 03/26/2021 13:02 EDT documented in this encounter Plan of Treatment Not on file documented as of this encounter Visit Diagnoses Not on filedocumented in this encounter
--- OUTSIDE RECORDS SUMMARY | 2025-02-10 00:34 | XMS_ITS | Encounter Summary ---
Author Organization [employer] ([place], [place], [place], [place]) Address [address] [place] [address] Care Team Providers Care School Admissions Representative Name Role Phone Unavailable Primary Care Provider Unavailabl e Encounter Details Date Type Department Care Team (Late st Contact Info) Description 04/01/2021 Transcribed Document [facility] Family Medicine [address] [place] [address] ProviderLele MD [address] [place] [address] Social History Tobacco Use Types [...] Conversion Note - Lele Shah MD - 04/01/2021 10:52 AM CDT Patient Resource Center Entered On: 04/01/2021 10:53 EDT Performed On: 04/01/2021 10:52 EDT by Isi Heredia, Service Delivery Supervisor Patient Resource Center Provider Status : EST Other Established Provider Name : SULLY BLANKENSHIP Patient Phone Number : [phone] Patient Insurance Type : Medicare Source of Referral : Case management Location of Patient : Case management referral Primary Care Scheduled : Yes Primary Care Scheduled Type : Non CMG Primary Care Provider Name : SULLY CARRERAFOREIGN Primary Care Appointment Date/Time : 04/07/2021 10:30 EDT Specialty Care Scheduled : Yes Specialty Type Scheduled1 : Colorectal Surgery Colorectal Provider Name : RAQUEL JAIME Colorectal Appointment Date/Time : 04/08/2021 9:15 EDT Qualify for Diabetes and/or Nutrition Referral : No Wound Care Appointment Made : No Why Patient Visited ED- Specialty spent : Other How Patient Arrived at ED : Other Primary Language : Micronesian Patient Resource Center Comment : Patient needs follow up appointments. Called offices and scheduled appointments with Dr. Jaime and Dr. Blankenship Follow Up Needed : Isi Dillard, Service Delivery Supervisor - 04/01/2021 10:52 EDT Electronically signed by Félix [facility] Conversion House Dec[employer] Cerner at 11/11/2022 6:28 PM CDT documented in this encounter Plan of Treatment Not on file documented as of this encounter Visit Diagnoses Not on filedocumented in this encounter
--- OUTSIDE RECORDS SUMMARY | 2025-02-10 00:34 | XMS_ITS | Encounter Summary ---
Author Organization [email or web address] ([place], [place], [place], [place]) Address [address] [place] [address] Care Team Providers Care Arm Maker Name Role Phone Unavailable Primary Care Provider Unavailabl e Encounter Details Date Type Department Care Team (Late st Contact Info) Description 03/14/2021 Transcribed Document [facility] [place] Family Medicine [address] [place] [address] ProviderLele MD [address] [place] [address] Social History Tobacco Use Types [...] Conversion Note - Lele ProviderMD - 03/14/2021 4:58 PM CDT Patient Education Materials Follows: Low Residue [...] than 7-10 grams of fiber per day. senior care use of this diet may not provide [...] these instructions at home: Medicines ??? Take jwhs-zqe-qmqport and prescription medicines only as told by [...] and water are not available, use hand restaurant maintenance technician. ? Change your dressing as told by [...] urine clear or pale yellow. ? Take gnvg-hdy-rdaizvh or prescription medicines. ? Eat foods that [...] (edges not staying together) after sutures or iemlda have been removed. Get help right away [...] provider. Document Revised: 03/31/2019 Document Reviewed: 04/12/2017 [employer] Patient Education ? 2020 [employer] Low-Fiber Eating Plan Fiber is found in fruits, vegetables, whole grains, and beans. Eating a diet low in fiber helps to reduce how often you have bowel movements and how much you produce during a bowel movement. A low-fiber eating plan may help your digestive system heal if: ??? You have certain conditions, such as Crohn's disease or diverticulitis. ??? You recently had radiation therapy on your pelvis or bowel. ??? You recently had intestinal surgery. ??? You have a new surgical opening in your abdomen (colostomy or ileostomy). ??? Your intestine is narrowed (stricture). Your health care provider will determine how long you need to stay on this diet. Your health care provider may recommend that you work with a diet and apartment leasing specialist (dietitian). What are tips for following this plan? General guidelines ??? Follow recommendations from your dietitian about how much fiber you should have each day. ??? Most people on this eating plan should try to eat less than 10 grams (g) of fiber each day. Your daily fiber goal is g. ??? Take vitamin and mineral supplements as told by your health care provider or dietitian. Chewable or liquid forms are best when on this eating plan. Reading food labels ??? Check food labels for the amount of dietary fiber. ??? Choose foods that have less than 2 grams of fiber in one serving. Cooking ??? Use white flour and other allowed grains for baking and cooking. ??? Cook meat using methods that keep it tender, such as braising or poaching. ??? Cook eggs until the yolk is completely solid. ??? Cook with healthy oils, such as olive oil or canola oil. Meal planning ??? Eat 5-6 small meals throughout the day instead of 3 large meals. ??? If you are lactose intolerant: ? Choose low-lactose dairy foods. ? Do not eat dairy foods, if told by your dietitian. ??? Limit fat and oils to less than 8 teaspoons a day. ??? Eat small portions of desserts. What foods are allowed? The items listed below may not be a complete list. Talk with your dietitian about what dietary choices are best for you. Grains All bread and crackers made with white flour. Waffles, pancakes, and Israeli toast. Bagels. Pretzels. [place] toast, zwieback, and matzoh. Cooked and dried cereals that do not contain whole grains, added fiber, seeds, or dried fruit. Cornmeal. [place]. Hot and cold cereals made with refined corn, wheat, rice, or oats. Plain pasta and noodles. White rice. Vegetables Well-cooked or canned vegetables without skin, seeds, or stems. Cooked potatoes without skins. Vegetable juice. Fruits Soft-cooked or canned fruits without skin and seeds. Peeled ripe banana. Applesauce. Fruit juice without pulp. Meats and other protein foods Ground meat. Tender cuts of meat or poultry. Eggs. Fish, seafood, and shellfish. Smooth nut butters. Tofu. Dairy All milk products and drinks. Lactose-free milks, including rice, soy, and almond milks. Yogurt without fruit, nuts, chocolate, or granola mix-ins. Sour cream. Cottage cheese. Cheese. Beverages Decaf coffee. Fruit and vegetable juices or smoothies (in small amounts, with no pulp or skins, and with fruits from allowed list). Sports drinks. Herbal tea. Fats and oils [place] oil, canola oil, sunflower oil, flaxseed oil, and grapeseed oil. Mayonnaise. Cream cheese. Margarine. Butter. Sweets and desserts Plain cakes and cookies. Cream pies and pies made with allowed fruits. Pudding. Custard. Fruit gelatin. Sherbet. Popsicles. Ice cream without nuts. Plain hard candy. Honey. Jelly. Molasses. Syrups, including chocolate syrup. Chocolate. Marshmallows. Gumdrops. Seasoning and other foods Bouillon. Broth. Cream soups made from allowed foods. Strained soup. Casseroles made with allowed foods. Ketchup. Mild mustard. Mild salad dressings. Plain gravies. Vinegar. Spices in moderation. Salt. Sugar. What foods are not allowed? The items listed below may not be a complete list. Talk with your dietitian about what dietary choices are best for you. Grains Whole wheat and whole grain breads and crackers. Multigrain breads and crackers. [place] bread. Whole grain or multigrain cereals. Cereals with nuts, raisins, or coconut. Bran. Coarse wheat cereals. Granola. High-fiber cereals. Cornmeal or corn bread. Whole grain pasta. Wild or brown rice. Quinoa. Popcorn. Buckwheat. Wheat germ. Vegetables Potato skins. Raw or undercooked vegetables. All beans and rojas sprouts. Cooked greens. [place]. Peas. Cabbage. Beets. Broccoli. [place] sprouts. Cauliflower. Mushrooms. Onions. Peppers. Parsnips. Okra. Sauerkraut. Fruit Raw or dried fruit. Berries. Fruit juice with pulp. Prune juice. Meats and other protein foods Tough, fibrous meats with gristle. Fatty meat. Poultry with skin. Fried meat, poultry, or fish. Deli or lunch meats. Sausage, yousif, and hot dogs. Nuts and chunky nut butter. Dried peas, beans, and lentils. Dairy Yogurt with fruit, nuts, chocolate, or granola mix-ins. Beverages Caffeinated coffee and teas. Fats and oils Avocado. Coconut. Sweets and desserts Desserts, cookies, or candies that contain nuts or coconut. Dried fruit. Jams and preserves with seeds. Marmalade. Any dessert made with fruits or grains that are not allowed. Seasoning and other foods [place] tortilla chips. Soups made with vegetables or grains that are not allowed. Relish. Horseradish. Pickles. Olives. Summary ??? Most people on a low-fiber eating plan should eat less than 10 grams of fiber a day. Follow recommendations from your dietitian about how much fiber you should have each day. ??? Always check food labels to see the dietary fiber content of packaged foods. In general, a low-fiber food will have fewer than 2 grams of fiber per serving. ??? In general, try to avoid whole grains, raw fruits and vegetables, dried fruit, tough cuts of meat, nuts, and seeds. ??? Take a vitamin and mineral supplement as told by your health care provider or dietitian. This information is not intended to replace advice given to you by your health care provider. Make sure you discuss any questions you have with your health care provider. Document Revised: 11/03/2019 Document Reviewed: 09/14/2017 [employer] Patient Education ? 2019 [employer]. Oncology Colorectal Cancer Colorectal cancer is an abnormal growth of cells and tissue (tumor) in the colon or rectum, which are parts of the large intestine. The cancer can spread (metastasize) to other parts of the body. What are the causes? Most cases of colorectal cancer start as abnormal growths called polyps on the inner wall of the colon or rectum. Other times, abnormal changes to genes (genetic mutations) can cause cells to form cancer. What increases the risk? You are more likely to develop this condition if: ??? You are older than age 50. ??? You have multiple polyps in the colon or rectum. ??? You have diabetes. ??? You are . ??? You have a family history of Joe syndrome. ??? You have had cancer before. ??? You have certain hereditary conditions, such as: ? Familial adenomatous polyposis. ? Turcot syndrome. ? Peutz?Jeghers syndrome. ??? You eat a diet that is high in fat (especially animal fat) and low in fiber, fruits, and vegetables. ??? You have an inactive (sedentary) lifestyle. ??? You have an inflammatory bowel disease or Crohn's disease. ??? You smoke. ??? You drink alcohol excessively. What are the signs or symptoms? Early colorectal cancer often does not cause symptoms. As the cancer grows, symptoms may include: ??? Changes in bowel habits. ??? Feeling like the bowel does not empty completely after a bowel movement. ??? Stools that are narrower than usual. ??? Blood in the stool. ??? Diarrhea. ??? Constipation. ??? Anemia. ??? Discomfort, pain, bloating, fullness, or cramps in the abdomen. ??? Frequent gas pain. ??? Unexplained weight loss. ??? Constant fatigue. ??? Nausea and vomiting. How is this diagnosed? This condition may be diagnosed with: ??? A medical history. ??? A physical exam. ??? Tests. These may include: ? A digital rectal exam. ? A stool test called a fecal occult blood test. ? Blood tests. ? A test in which a tissue sample is taken from the colon or rectum and examined under a microscope (biopsy). ? Imaging tests, such as: ? X-rays. ? A barium enema. ? CT scans. ? MRIs. ? A sigmoidoscopy. This test is done to view the inside of the rectum. ? A colonoscopy. This test is done to view the inside of the colon. During this test, small polyps can be removed or biopsies may be taken. ? An endorectal ultrasound. This test checks how deep a tumor in the rectum has grown and whether the cancer has spread to lymph nodes or other nearby tissues. Your health care provider may order additional tests to find out whether the cancer has spread to other parts of the body (what stage it is). The stages of cancer include: ??? Stage 0. At this stage, the cancer is found only in the innermost lining of the colon or rectum. ??? Stage I. At this stage, the cancer has grown into the inner wall of the colon or rectum. ??? Stage II. At this stage, the cancer has gone more deeply into the wall of the colon or rectum or through the wall. It may have invaded nearby tissue. ??? Stage III. At this stage, the cancer has spread to nearby lymph nodes. ??? Stage IV. At this stage, the cancer has spread to other parts of the body, such as the liver or lungs. How is this treated? Treatment for this condition depends on the type and stage of the cancer. Treatment may include: ??? Surgery. In the early stages of the cancer, surgery may be done to remove polyps or small tumors from the colon. In later stages, surgery may be done to remove part of the colon. ??? Chemotherapy. This treatment uses medicines to kill cancer cells. ??? Targeted therapy. This treatment targets specific gene mutations or proteins that the cancer expresses in order to kill tumor cells. ??? Radiation therapy. This treatment uses radiation to kill cancer cells or shrink tumors. ??? Radiofrequency ablation. This treatment uses radio waves to destroy the tumors that may have spread to other areas of the body, such as the liver. Follow these instructions at home: ??? Take nill-zkf-wzsxwmt and prescription medicines only as told by your health care provider. ??? Try to eat regular, healthy meals. Some of your treatments might affect your appetite. If you are having problems eating or with your appetite, ask to meet with a food and apartment leasing specialist (dietitian). ??? Consider joining a support group. This may help you learn about your diagnosis and cope with the stress of having colorectal cancer. ??? If you are admitted to the hospital, inform your cancer care team. ??? Keep all follow-up visits as told by your health care provider. This is important. How is this prevented? Colorectal cancer can be prevented with screening tests that find polyps so they can be removed before they develop into cancer. ??? All adults should have screening for colorectal cancer starting at age 50 and continuing until age 75. Your health care provider may recommend screening at age 45. People at increased risk should start screening at an earlier age. Where to find more information ??? [place] [employer]: https://www.cancer.org ??? National Cancer [place] (NCI): https://www.cancer.gov Contact a health care provider if: ??? Your diarrhea or constipation does not go away. ??? You have blood in your stool. ??? Your bowel habits change. ??? You have increased pain in your abdomen. ??? You notice new fatigue or weakness. ??? You lose weight. Get help right away if: ??? You have increased bleeding from your rectum. ??? You have any uncontrollable or severe abdomen (abdominal) symptoms. Summary ??? Colorectal cancer is an abnormal growth of cells and tissue (tumor) in the colon or rectum. ??? Common risk factors for this condition include having a relative with colon cancer, being older in age, having an inflammatory bowel disease, and being . ??? This condition may be diagnosed with tests, such as a colonoscopy and biopsy. ??? Treatment depends on the type and stage of the cancer. Commonly, treatment includes surgery to remove the tumor along with chemotherapy or targeted therapy. ??? Keep all follow-up visits as told by your health care provider. This is important. This information is not intended to replace advice given to you by your health care provider. Make sure you discuss any questions you have with your health care provider. Document Revised: 09/01/2018 Document Reviewed: 08/13/2017 [employer] Patient Education ? 2020 [employer] documented in this encounter Plan of Treatment Not on file documented as of this encounter Visit Diagnoses Not on filedocumented in this encounter
--- OUTSIDE RECORDS SUMMARY | 2025-02-10 00:34 | XMS_ITS | Encounter Summary ---
Author Organization [employer] ([place], [place], [place], [place]) Address [address] [place] [id number] Care Team Providers Care Wall Crane Operator Name Role Phone Unavailable Primary Care Provider Unavailabl e Encounter Details Date Type Department Care Team (Late st Contact Info) Description 03/26/2021 Transcribed Document [facility] Family Medicine [address] [place] [address] ProviderLele MD [address] [place] [address] Social History Tobacco Use Types [...] Conversion Note - Historical ProviderMD - 03/26/2021 3:25 PM CDT SARS-CoV-2 (COVID19 PCR) - - Negative 03/26/2021 14:54 03/26/2021 15:25 (TIFFANY LÓPEZ APRN) Reviewed by Provider, No further action required, Called and Left Message Electronically signed by Félix [facility] Conversion [employer] at 11/11/2022 6:32 PM CDT documented in this encounter Plan of Treatment Not on file documented as of this encounter Visit Diagnoses Not on filedocumented in this encounter
--- OUTSIDE RECORDS SUMMARY | 2025-02-10 00:34 | XMS_ITS | Encounter Summary ---
Author Organization [employer] ([place], [place], [place], [place]) Address [address] [place] [address] Care Team Providers Care Messenger Office Name Role Phone Unavailable Primary Care Provider Unavailabl e Encounter Details Date Type Department Care Team (Late st Contact Info) Description 07/23/2020 Transcribed Document [facility] [place] Family Medicine [address] [place] [address] ProviderLele MD [address] [place] [address] Social History Tobacco Use Types [...] Conversion Note - Historical ProviderMD - 07/23/2020 8:55 AM SURGERY TEACHER Stroke/Warfarin Instructions Entered On: 07/23/2020 8:55 EST Performed On: 07/23/2020 8:55 EST by AURE LINCOLN RN Stroke/Warfarin Instructions Stroke/TIA Discharge Ins : N/A Warfarin Discharge Ins : N/A AURE LINCOLN RN - 07/23/2020 8:55 EST documented in this encounter Plan of Treatment Not on file documented as of this encounter Visit Diagnoses Not on filedocumented in this encounter
--- OUTSIDE RECORDS SUMMARY | 2025-02-10 00:34 | XMS_ITS | Encounter Summary ---
Author Organization [employer] ([place], [place], [place], [place]) Address [address] [place] [id number] Care Team Providers Care Manager Contract Name Role Phone Unavailable Primary Care Provider Unavailabl e Encounter Details Date Type Department Care Team (Late st Contact Info) Description 04/01/2021 Transcribed Document [facility] Radiology [address] [place] [address] Kwame Hackett MD [address] [place] [address] [address] [id number] Social History Tobacco Use Types Packs/Day Years Used Date Smoking Tobacco: Never Assessed Sex and Gender Information Value Date Recorded Sex Assigned at Male 01/20/2022 1:57 PM CDT Legal Sex Male 1:57 PM CDT Gender Identity Male 01/20/2022 1:57 PM CDT Sexual Orientation Not on file documented as of this encounter Miscellaneous Notes * Cerner Conversion Note - Kwame Hackett MD - 04/01/2021 4:00 PM EDT Patient: KEMI BOO Age: 75 Years Sex: Male : 1945 Admit Date 03/26/2021 19:17 Discharge Date 04/01/2021 13:05 Primary Care Provider SULLY BLANKENSHIP (MD [facility] Discharge Diagnosis High-grade small bowel obstruction Status post exploratory laparotomy with excision of ischemic omentum., Repair enterostomy and small bowel. Colon cancer. Coronary artery disease. Status post aortic valve replacement. Procedures SN - Proc - Procedure: Colon Resection Laparoscopic (03/26/21 16:39:43) Hospital Course Very pleasant 75-year-old white male who was [...] place. Discussed with his at the bedside Patient underwent exploratory laparotomy with excision of ischemic omentum and repair enterostomy and small bowel. Subsequently admitted to the hospital. Nasogastric tube clamped subsequently discontinued. Abdominal SETH drain removed. Patient started on clear liquid diet which was advanced as tolerated. Patient had multiple bowel movements. Patient continue complaining of generalized weakness fatigue lack of energy and depression. Physical therapy evaluate the patient. Patient ambulate few steps with help. Patient was seen and evaluated by Dr. Jaime. Recommend okay to discharge home on Keflex and close follow-up with him after 2 weeks. Last internal medicine note: High-grade small bowel obstruction Likely mechanical. Versus ileus Status post recent laparoscopic colectomy. Status post exploratory laparotomy with excision of ischemic omentum., Repair enterostomy and small bowel. NGT. Removed Continue IV fluid. Monitor electrolytes and replace. Pain management. Advance diet as per colorectal recommendations Initiate incentive spirometry. Lai catheter discontinued Physical therapy evaluation. Colon cancer. Status post robotic right colectomy on 03/12/2021. Coronary artery disease. Status post CABG. Resume home medications. Status post aortic valve replacement. GI and DVT prophylaxis. Physical therapy evaluation CODE STATUS Full code Vital Signs Oxygen Settings (Last) Oxygen Therapy Mode: Room air (04/01/21 08:03:00) Oxygen Flow Rate: 2 Liter/Min (03/27/21 08:48:00) Physical Exam Chest clear to auscultation bilaterally Discharge Disposition Home with Home Care Discharge Follow Up SULLY BLANKENSHIP (REF)MD-FAM - 10:30 AM RAQUEL JAIME MD-PRO - 09:15 AM Discharge Medications (14) Active Aspir-Low 81 mg oral delayed release tablet 81 mg = 1 Tab, Oral, Daily atorvastatin 80 mg oral tablet 80 mg = 1 Tab, Oral, At Bedtime carvedilol 12.5 mg oral tablet 12.5 mg = 1 Tab, Oral, BID Fish Oil 1000 mg oral capsule 1,000 mg = 1 Cap, Oral, Daily Keflex 500 mg oral capsule 500 mg = 1 Cap, Oral, Q8H MiraLax 17 Gram, PRN, Oral, Daily multivitamin 1 Tab, Oral, Daily Nitrostat 0.4 mg sublingual tablet 0.4 mg = 1 Tab, PRN, SubLINgual, Q5Min Pepcid 20 mg oral tablet 20 mg = 1 Tab, Oral, BID Percocet 5/325 oral tablet 1 Tab, PRN, Oral, Q6H ramipril 10 mg oral capsule 1 Tab, Oral, Daily tamsulosin 0.4 mg oral capsule 0.4 mg = 1 Cap, Oral, At Bedtime Vitamin C 500 mg oral tablet, chewable 500 mg = 1 Tab, Chew, Daily Vitamin D3 5000 units oral capsule 125 mcg = 1 Cap, Oral, Daily Code Status Full code Condition on Discharge Stable to be discharged home with home health Consulting Physicians AMBROSE DELGADO MD-ANS OUSMANE, MD FLORES-PRO Current Diet Order No qualifying data available. Pending Labs No Labs on Record Time Spent on Discharge 45 minutes documented in this encounter Plan of Treatment Not on file documented as of this encounter Visit Diagnoses Not on filedocumented in this encounter
--- OUTSIDE RECORDS SUMMARY | 2025-02-10 00:34 | XMS_ITS | Encounter Summary ---
Author Organization [employer] ([place], [place], [place], [place]) Address [address] [place] [address] Care Team Providers Care Nail Machine Operator Name Role Phone Unavailable Primary Care Provider Unavailabl e Encounter Details Date Type Department Care Team (Late st Contact Info) Description 03/14/2021 Transcribed Document [facility] [place] [address] [place] [address] ProviderLele MD [address] [place] [address] Social History Tobacco Use Types [...] Conversion Note - Historical ProviderMD - 03/14/2021 5:00 AM CDT Chart Check - Review Order Profile Entered On: 03/14/2021 8:04 EDT Performed On: 03/14/2021 5:00 EDT by Adore Shepherd RN Chart Check Powerplans Initiated/Discontinued as Appropriate : Yes All Active Orders Reviewed : Yes Adore Shepherd RN - 03/14/2021 8:04 EDT Electronically signed by Félix [facility] Conversion Rating Examiner Cerner at 11/11/2022 6:43 PM CDT documented in this encounter Plan of Treatment Not on file documented as of this encounter Visit Diagnoses Not on filedocumented in this encounter
--- OUTSIDE RECORDS SUMMARY | 2025-02-10 00:34 | XMS_ITS | Encounter Summary ---
Author Organization [employer] ([place], [place], [place], [place]) Address [address] [place] [address] Care Team Providers Care Bioinformatics Specialist Name Role Phone Unavailable Primary Care Provider Unavailabl e Encounter Details Date Type Department Care Team (Late st Contact Info) Description 04/01/2021 Transcribed Document [facility] [place] Family Medicine [address] [place] [address] ProviderLele MD [address] [place] [address] Social History Tobacco Use Types [...] Conversion Note - Lele ProviderMD - 04/01/2021 12:07 PM CDT Final Discharge Planning Entered On: 04/01/2021 12:10 EDT Performed On: 04/01/2021 12:07 EDT by YANCI FERRERA RN-Alley Worker Final Discharge Planning Discharge Arrangements : Patient Post-Acute Information Patient Name: KEMI ZAPATA Gender: Male : [birth year] Age: 75 Years No Post-Acute Placement(s) Listed No Post-Acute Service(s) Listed No [place] Referral(s) Listed Patient Offered Choice/Affiliations Explained : Yes Designation of Choice Signed : Yes Important Medicare Message Reviewed With : Patient, Spouse Important Medicare Message Reviewed D/T : 04/01/2021 11:00 EDT Transportation Needs : Family/Friend Follow Up Appointment Scheduled : Yes Is Patient High/Moderate Readmission Risk? : Yes High Readmission Risk - Home, no Home Health : Make post-discharge physician appointment within 72 hours of discharge Patient/Family Notified of Plan : Yes Support Person/Pt Rep Notified of Plan : Yes Patient/Family Notified : Kaylah, , at the bedside Is Patient Ready for Discharge? : Yes Physician Notified Patient is Ready for Discharge? : Yes Discharge To Care Management : Home Health Services (Related/SOC within 3 days)-06 YANCI FERRERA RN-Alley Worker - 04/01/2021 12:07 EDT Final Narrative Note Final Narrative Note : Discharged to home, agreeable. Orders noted for home health, quality and resource use information provided to Pt and his , [facility] was chosen as they had used them in the past. Referral sent via [facility] and call was placed. No other needs verbalized at this time. YANCI FERRERA RN-Alley Worker - 04/01/2021 12:07 EDT documented in this encounter Plan of Treatment Not on file documented as of this encounter Visit Diagnoses Not on filedocumented in this encounter
--- OUTSIDE RECORDS SUMMARY | 2025-02-10 00:34 | XMS_ITS | Clinical Summary ---
Author Organization [employer] ([place], [place], [place], [place]) Address [address] [place] [address] Care Team Providers Care Properties Supervisor Name Role Phone Unavailable Primary Care [...]
--- OUTSIDE RECORDS SUMMARY | 2025-02-10 00:34 | XMS_ITS | Encounter Summary ---
Author Organization [employer] ([place], [place], [place], [place]) Address [address] [place] [address] Care Team Providers Care Cognos Lead Name Role Phone Unavailable Primary Care Provider Unavailabl e Encounter Details Date Type Department Care Team (Late st Contact Info) Description 04/01/2021 Transcribed Document [facility] [place] Family Medicine [address] [place] [address] ProviderLele MD [address] [place] [address] Social History Tobacco Use Types [...] Note - Lele Shah MD - 04/01/2021 10:41 AM CDT Stroke/Warfarin Instructions Entered On: 04/01/2021 10:41 EDT Performed On: 04/01/2021 10:41 EDT by Moraima Stevenson RN Stroke/Warfarin Instructions Stroke/TIA Discharge Ins : N/A Warfarin Discharge Ins : N/A Moraima Stevenson RN - 04/01/2021 10:41 EDT Education Topics: Anticoagulant Education Anticoagulant : Anticoagulant other than warfarin Compliance Issues *Q : Verbalizes understanding Diet *Q : Verbalizes understanding Adverse drug reactions/interactions *Q : Verbalizes understanding Action/Interaction with Other Drugs : Verbalizes understanding Follow-up care/monitoring *Q : Verbalizes understanding Follow-up Care Details : Not applicable Moraima Stevenson RN - 04/01/2021 10:41 EDT documented in this encounter Plan of Treatment Not on file documented as of this encounter Visit Diagnoses Not on filedocumented in this encounter
--- OUTSIDE RECORDS SUMMARY | 2025-02-10 00:34 | XMS_ITS | Encounter Summary ---
Author Organization [employer] ([place], [place], [place], [place]) Address [address] [place] [address] Care Team Providers Care Vp Scientific Name Role Phone Unavailable Primary Care Provider Unavailabl e Encounter Details Date Type Department Care Team (Late st Contact Info) Description 03/14/2021 Transcribed Document [facility] [address] [place] [address] ProviderLele MD [address] [place] [address] Social History Tobacco Use [...] Note - Lele Shah MD - 03/14/2021 4:58 PM CDT [facility] [place], [place] [id number] KEMI BOO :1945 Visit Time:03/12/2021 Your Visit Summary Your Care Team Admitting Physician - RAQUEL JAIME MD-PRO Attending Physician - RAQUEL JAIME MD-PRO Primary Care Physician - SULLY BLANKENSHIP (REF)[facility] Referring Physician - SONIA, NOT LISTED Your Diagnosis At risk for sleep apnea Malignant neoplasm of ascending colon, Malignant neoplasm of ascending colon S/P colectomy, S/P colectomy These Are Your Goals Patient Discharge Goal Patient Discharge Goal: Home Discharge Vitals Temperature 36.6 ??C Heart Rate (Monitored) 76 Respiratory Rate 16 Blood Pressure 95/42 What to do next Instructions From Your Care Team Discharge Follow Up Instructions: HOLD aspirin for TWO weeks Follow Up Instructions: discharge After Blood transfusion and if O K with Dr. Jaime Discharge Activity: Activity as tolerated Discharge Diet: GI Soft/Low Residuel/Low Fiber Follow-Up Appointments Follow Up with RAQUEL JAIME MD-PRO When 03/25/2021 01:00 PM EDT Comments Colorectal surgery follow up Appointment has been made Bring discharge instructions with you Where: [address] [place] [address]- Follow Up with SULLY BLANKENSHIP (MD KARRIE-FAM When 03/20/2021 02:45 PM EDT Comments PCP follow up Appointment has been made Bring discharge instructions with you Where: [address] [place] [address] [place] [address]- Medications What How Much When Instructions Next Dose acetaminophen-oxyCODONE (Percocet 5 mg-325 mg oral tablet) 1 Tablet(s) Oral Every 4 Hours as needed for as needed for pain Pickup at [id number] as needed pantoprazole (pantoprazole 40 mg oral delayed release tablet) 1 Tablet(s) Oral Two Times A Day Duration: 7 Day(s) Pickup at [facility] #[id number] this evening ascorbic acid (Vitamin C) 500 Milligram(s) Oral Every Day tomorrow aspirin 81 Milligram(s) Oral Every Day RESUME in 1 week, on atorvastatin (atorvastatin 40 mg oral tablet) 1 Tablet(s) Oral At Bedtime at bedtime carvedilol (carvedilol 12.5 mg oral tablet) 1 Tablet(s) Oral Two Times A Day this evening cholecalciferol (Vitamin D3) 5,000 International Units Oral Every Day this evening multivitamin 1 Tablet(s) Oral Every Day tomorrow multivitamin (Vitamin B Complex oral capsule) 1 Capsule(s) Oral Every Day tomorrow nitroglycerin 0.4 Milligram(s) SubLINgual Every 5 minutes as needed for Chest Pain as needed per instructions omega-3 polyunsaturated fatty acids (Fish Oil) 1,000 Milligram(s) Oral Every Day tomorrow polyethylene glycol 3350 (MiraLax) 17 Gram(s) Oral Every Day as needed for Constipation as needed ramipril (ramipril 5 mg oral capsule) 1 Capsule(s) Oral Every Day tomorrow tamsulosin (tamsulosin 0.4 mg oral capsule) 1 Capsule(s) Oral At Bedtime at bedtime ubiquinone (Co-Q10) 100 Milligram(s) Oral Every Day tomorrow Pharmacy Information [id number]: [address] [place] [phone] Take your medications faithfully. Do NOT skip [...] Allergies Immunizations This Visit No Immunizations Found Stroke/TIA Instructions Mutually Agreed Upon Goals My LDL Level: My LDL Level: Education Materials Colorectal Cancer Colorectal cancer is an abnormal [...] Familial adenomatous polyposis. ? Turcot syndrome. ? Peutz???Jeghers syndrome. ??? You eat a diet that [...] Follow these instructions at home: ??? Take thbk-plu-jrtsldf and prescription medicines only as told by your health care provider. ??? Try to eat regular, healthy meals. Some of your treatments might affect your appetite. If you are having problems eating or with your appetite, ask to meet with a food and sports nutritionist (dietitian). ??? Consider joining a support group. [...] age. Where to find more information ??? [place] [employer]: https://www.cancer.org ??? National Cancer [place] (NCI): https://www.cancer.gov Contact a health care provider [...] provider. Document Revised: 09/01/2018 Document Reviewed: 08/13/2017 [employer] Patient Education ?? 2020 [employer] Laparoscopic Colectomy, Care After This sheet gives [...] these instructions at home: Medicines ??? Take wzae-qcc-dwsaxpc and prescription medicines only as told by [...] and water are not available, use hand dynamo tender. ? Change your dressing as told by [...] urine clear or pale yellow. ? Take pbxb-zqi-txjscts or prescription medicines. ? Eat foods that [...] provider. Document Revised: 03/31/2019 Document Reviewed: 04/12/2017 [employer] Patient Education ?? 2020 [employer] Low-Fiber Eating Plan Fiber is found [...] that you work with a diet and sports nutritionist (dietitian). What are tips for following this [...] made with white flour. Waffles, pancakes, and Kyrgyz toast. Bagels. Pretzels. [place] toast, zwieback, and matzoh. Cooked and dried cereals that do not contain whole grains, added fiber, seeds, or dried fruit. Cornmeal. Lindrith. Hot and cold cereals made with refined [...] Sports drinks. Herbal tea. Fats and oils Bryant oil, canola oil, sunflower oil, flaxseed oil, [...] breads and crackers. Multigrain breads and crackers. [place] bread. Whole grain or multigrain cereals. Cereals with nuts, raisins, or coconut. Bran. Coarse wheat cereals. Granola. High-fiber cereals. Cornmeal or corn bread. Whole grain pasta. Wild or brown rice. Quinoa. Popcorn. Buckwheat. Wheat germ. Vegetables Potato skins. Raw or undercooked vegetables. All beans and rojas sprouts. Cooked greens. [place]. Peas. Cabbage. Beets. Broccoli. Kosse sprouts. Cauliflower. Mushrooms. Onions. Peppers. Parsnips. Okra. [...] are not allowed. Seasoning and other foods [place] tortilla chips. Soups made with vegetables or [...] provider. Document Revised: 11/03/2019 Document Reviewed: 09/14/2017 [employer] Patient Education ?? 2020 [employer] Low Residue Diet A low residue diet [...] than 7-10 grams of fiber per day. 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 Pantoprazole can cause kidney problems. Tell your doctor if you are urinating less than usual, or if you have blood in your urine. Diarrhea may be a sign of a new infection. Call your doctor if you have diarrhea that is watery or has blood in it. Pantoprazole may cause new or worsening symptoms of lupus. Tell your doctor if you have joint pain and a skin rash on your cheeks or arms that worsens in sunlight. You may be more likely to have a broken bone while taking this medicine half-way or more than once per day. What is pantoprazole? Pantoprazole is used to treat erosive esophagitis (damage to the esophagus from stomach acid caused by gastroesophageal reflux disease, or GERD) in adults and children who are at least 5 years old. Pantoprazole is usually given for up to 8 weeks at a time while your esophagus heals. Pantoprazole is also used to treat Bianca-Hinojosa syndrome and other conditions involving excess stomach acid. Pantoprazole is not for immediate relief of heartburn. Pantoprazole may also be used for purposes not listed in this medication guide. What should I discuss with my healthcare provider before using pantoprazole? Heartburn can mimic early symptoms of a heart attack. Get emergency medical help if you have chest pain that spreads to your jaw or shoulder and you feel anxious or light-headed. You should not use this medicine if: ?? you also take medicine that contains rilpivirine (Edurant, Complera, Juluca, Odefsey); ?? if you had breathing problems, kidney problems, or a severe allergic reaction after taking pantoprazole in the past; ?? you are allergic to pantoprazole or similar medicines (lansoprazole, omeprazole, Nexium, Prevacid, Prilosec, and others). Tell your doctor if you have ever had: ?? low levels of magnesium in your blood; ?? lupus; or ?? osteoporosis or low bone mineral density. You may be more likely to have a broken bone in your hip, wrist, or spine while taking a proton pump inhibitor long-term or more than once per day. Talk with your doctor about ways to keep your bones healthy. Tell your doctor if you are or . Pantoprazole is not approved for use by anyone younger than 5 years old. How should I use pantoprazole? Follow all directions on your prescription label and read all medication guides or instruction sheets. Use the medicine exactly as directed. Use the lowest dose for the shortest amount of time needed to treat your condition. Pantoprazole is taken by mouth (oral) or given as an infusion into a vein (injection). A healthcare provider may teach you how to properly use pantoprazole injection by yourself. Pantoprazole tablets are taken by mouth, with or without food. Pantoprazole oral granules should be taken 30 minutes before a meal. Do not crush, chew, or break the tablet. Swallow it whole. The oral granules should be mixed with applesauce or apple juice and given either by mouth or through a nasogastric (NG) tube. Read and carefully follow any Instructions for Use provided with your medicine. Ask your doctor or pharmacist if you do not understand these instructions. Use this medicine for the full prescribed length of time, even if your symptoms quickly improve. Call your doctor if your symptoms do not improve or if they get worse while you are using this medicine. This medicine can affect the results of certain medical tests. Tell any doctor who treats you that you are using pantoprazole. Pantoprazole may also affect a drug-screening urine test and you may have false results. Tell the laboratory staff that you use this medicine. Store this medicine at room temperature away from moisture, heat, and light. What happens if I miss a dose? Use the medicine as soon as you can, but skip the missed dose if it is almost time for your next dose. Do not use two doses at one time. What happens if I overdose? Seek emergency medical attention or call the Poison Help line at . What should I avoid while using pantoprazole? This medicine can cause diarrhea, which may be a sign of a new infection. If you have diarrhea that is watery or bloody, call your doctor. Do not use anti-diarrhea medicine unless your doctor tells you to. What are the possible side effects of pantoprazole? Get emergency medical help if you have signs of an allergic reaction: hives; difficulty breathing; swelling of your face, lips, tongue, or throat. Call your doctor at once if you have: ?? severe stomach pain, diarrhea that is watery or bloody; ?? sudden pain or trouble moving your hip, wrist, or back; ?? bruising or swelling where intravenous pantoprazole was injected; ?? kidney problems-- fever, rash, nausea, loss of appetite, joint pain, urinating less than usual, blood in your urine, weight gain; ?? low magnesium--dizziness, fast or irregular heart rate, tremors (shaking) or jerking muscle movements, feeling jittery, muscle cramps, muscle spasms in your hands and feet, cough or choking feeling; or ?? new or worsening symptoms of lupus--joint pain, and a skin rash on your cheeks or arms that worsens in sunlight. Taking pantoprazole long-term may cause you to develop stomach growths called fundic gland polyps. Talk with your doctor about this risk. If you use pantoprazole for longer than 3 years, you could develop a vitamin B-12 deficiency. Talk to your doctor about how to manage this condition if you develop it. Common side effects may include: ?? headache, dizziness; ?? stomach pain, gas, nausea, vomiting, diarrhea; ?? joint pain; or ?? fever, rash, or cold symptoms (most common in children). This is not a complete list of side effects and others may occur. Call your doctor for medical advice about side effects. You may report side effects to FDA at 6-786-CMI-7790. What other drugs will affect pantoprazole? Tell your doctor about all your other medicines, especially: ?? digoxin; ?? methotrexate; or ?? a diuretic or 'water pill.' This list is not complete. Other drugs may affect pantoprazole, including prescription and iggu-upx-unpqbfz medicines, vitamins, and herbal products. Not all possible drug interactions are listed here. Where can I get more information? Your pharmacist can provide more information about pantoprazole. Remember, keep this and all other medicines out of the reach of children, never share your medicines with others, and use this medication only for the indication prescribed. Every effort has been made to ensure that the information provided by [employer]') is accurate, up-to-date, and complete, but no guarantee is made to that effect. Drug information contained herein may be time sensitive. [employer] information has been compiled for use by healthcare practitioners and consumers in the [place] and therefore [employer] does not warrant that uses outside of the [place] are appropriate, unless specifically indicated otherwise. [employer]'s drug information does not endorse drugs, diagnose patients or recommend therapy. [employer] drug information is an informational resource designed to assist licensed healthcare practitioners in caring for their patients and/or to serve consumers viewing this service as a supplement to, and not a substitute for, the expertise, skill, knowledge and judgment of healthcare practitioners. The absence of a warning for a given drug or drug combination in no way should be construed to indicate that the drug or drug combination is safe, effective or appropriate for any given patient. [facility] does not assume any responsibility for any aspect of healthcare administered with the aid of information [facility] provides. The information contained herein is not intended to cover all possible uses, directions, precautions, warnings, drug interactions, allergic reactions, or adverse effects. If you have questions about the drugs you are taking, check with your doctor, nurse or pharmacist. Copyright [id number] [facility]. Version: .. Revision Date: 07/29/2020. acetaminophen and oxycodone (a SEET a MIN oh fen and OX i KOE done) Endocet 10/325, Endocet 2.5/325, Endocet 5/325, Endocet 7.5/325, Nalocet, Percocet, Primlev What is the most important information I should know about acetaminophen and oxycodone? MISUSE OF OPIOID MEDICINE CAN CAUSE ADDICTION, OVERDOSE, OR . Keep the medication in a place where others cannot get to it. Taking opioid medicine during may cause life-threatening withdrawal symptoms in the . Fatal side effects can occur if you use opioid medicine with alcohol, or with other drugs that cause drowsiness or slow your breathing. Stop taking this medicine and call your doctor right away if you have skin redness or a rash that spreads and causes blistering and peeling. What is acetaminophen and oxycodone? Acetaminophen and oxycodone is a combination medicine used to relieve moderate to severe pain. Acetaminophen and oxycodone contains an opioide medicine and may be habit-forming. Acetaminophen and oxycodone may also be used for purposes not listed in this medication guide. What should I discuss with my healthcare provider before taking acetaminophen and oxycodone? You should not use this medicine if you are allergic to acetaminophen or oxycodone, or if you have: ?? severe asthma or breathing problems; or ?? a blockage in your stomach or intestines. Tell your doctor if you have ever had: ?? breathing problems, sleep apnea; ?? liver disease; ?? a drug or alcohol addiction; ?? kidney disease; ?? a head injury or seizures; ?? urination problems; or ?? problems with your thyroid, pancreas, or gallbladder. If you use opioid medicine while you are , your baby could become dependent on the drug. This can cause life-threatening withdrawal symptoms in the baby after it is born. Babies born dependent on opioids may need medical treatment for several weeks. Ask a doctor before using opioid medicine if you are . Tell your doctor if you notice severe drowsiness or slow breathing in the nursing baby. How should I take acetaminophen and oxycodone? Follow all directions on your prescription label. Never take this medicine in larger amounts, or for longer than prescribed. An overdose can damage your liver or cause . Tell your doctor if you feel an increased urge to use more of this medicine. Never share opioid medicine with another person, especially someone with a history of drug abuse or addiction. MISUSE CAN CAUSE ADDICTION, OVERDOSE, OR . Keep the medicine in a place where others cannot get to it. Selling or giving away opioid medicine is against the law. Measure liquid medicine carefully. Use the dosing syringe provided, or use a medicine dose-measuring device (not a kitchen spoon). If you need surgery or medical tests, tell the doctor ahead of time that you are using this medicine. You should not stop using this medicine suddenly. Follow your doctor's instructions about tapering your dose. Store at room temperature away from moisture and heat. Keep track of your medicine. You should be aware if anyone is using it improperly or without a prescription. Do not keep leftover opioid medication. Just one dose can cause in someone using this medicine accidentally or improperly. Ask your pharmacist where to locate a drug take-back disposal program. If there is no take-back program, flush the unused medicine down the toilet. What happens if I miss a dose? Since this medicine is used for pain, you are not likely to miss a dose. Skip any missed dose if it is almost time for your next dose. Do not use two doses at one time. What happens if I overdose? Seek emergency medical attention or call the Poison Help line at . An overdose of this medicine can be fatal, especially in a child or other person using the medicine without a prescription. Overdose symptoms may include nausea, vomiting, sweating, severe drowsiness, pinpoint pupils, slow breathing, or no breathing. Your doctor may recommend you get naloxone (a medicine to reverse an opioid overdose) and keep it with you at all times. A person caring for you can give the naloxone if you stop breathing or don't wake up. Your caregiver must still get emergency medical help and may need to perform CPR (cardiopulmonary resuscitation) on you while waiting for help to arrive. Anyone can buy naloxone from a pharmacy or local health department. Make sure any person caring for you knows where you keep naloxone and how to use it. What should I avoid while taking acetaminophen and oxycodone? Avoid driving or operating machinery until you know how this medicine will affect you. Dizziness or drowsiness can cause falls, accidents, or severe injuries. Do not drink alcohol. Dangerous side effects or could occur. Ask a doctor or pharmacist before using any other medicine that may contain acetaminophen (sometimes abbreviated as APAP). Taking certain medications together can lead to a fatal overdose. What are the possible side effects of acetaminophen and oxycodone? Get emergency medical help if you have signs of an allergic reaction: hives; difficulty breathing; swelling of your face, lips, tongue, or throat. Opioid medicine can slow or stop your breathing, and may occur. A person caring for you should give naloxone and/or seek emergency medical attention if you have slow breathing with long pauses, blue colored lips, or if you are hard to wake up. In rare cases, acetaminophen may cause a severe skin reaction that can be fatal. This could occur even if you have taken acetaminophen in the past and had no reaction. Stop taking this medicine and call your doctor right away if you have skin redness or a rash that spreads and causes blistering and peeling. Call your doctor at once if you have: ?? noisy breathing, sighing, shallow breathing, breathing that stops; ?? a light-headed feeling, like you might pass out; ?? weakness, tiredness, fever, unusual bruising or bleeding; ?? confusion, unusual thoughts or behavior; ?? problems with urination; ?? liver problems--nausea, upper stomach pain, tiredness, loss of appetite, dark urine, dinora-colored stools, jaundice (yellowing of the skin or eyes); ?? low cortisol levels-- nausea, vomiting, loss of appetite, dizziness, worsening tiredness or weakness; or ?? high levels of serotonin in the body--agitation, hallucinations, fever, sweating, shivering, fast heart rate, muscle stiffness, twitching, loss of coordination, nausea, vomiting, diarrhea. Serious breathing problems may be more likely in older adults and in those who are debilitated or have wasting syndrome or chronic breathing disorders. Common side effects include: ?? dizziness, drowsiness, feeling tired; ?? feelings of extreme happiness or sadness; ?? nausea, vomiting, stomach pain; ?? constipation; or ?? headache. This is not a complete list of side effects and others may occur. Call your doctor for medical advice about side effects. You may report side effects to FDA at 6-553-POP-0495. What other drugs will affect acetaminophen and oxycodone? You may have breathing problems or withdrawal symptoms if you start or stop taking certain other medicines. Tell your doctor if you also use an antibiotic, antifungal medication, heart or blood pressure medication, seizure medication, or medicine to treat HIV or hepatitis C. Opioid medication can interact with many other drugs and cause dangerous side effects or . Be sure your doctor knows if you also use: ?? cold or allergy medicines, bronchodilator asthma/COPD medication, or a diuretic ('water pill'); ?? medicines for motion sickness, irritable bowel syndrome, or overactive bladder; ?? other opioids--opioid pain medicine or prescription cough medicine; ?? a sedative like Valium--diazepam, alprazolam, lorazepam, Xanax, Klonopin, Versed, and others; ?? drugs that make you sleepy or slow your breathing--a sleeping pill, muscle relaxer, medicine to treat mood disorders or mental illness; ?? drugs that affect serotonin levels in your body--a stimulant, or medicine for depression, Parkinson's disease, migraine headaches, serious infections, or nausea and vomiting. This list is not complete. Other drugs may affect acetaminophen and oxycodone, including prescription and bokb-fcr-kubpklx medicines, vitamins, and herbal products. Not all possible interactions are listed here. Where can I get more information? Your doctor or pharmacist can provide more information about acetaminophen and oxycodone. Remember, keep this and all other medicines out of the reach of children, never share your medicines with others, and use this medication only for the indication prescribed. Every effort has been made to ensure that the information provided by [employer]') is accurate, up-to-date, and complete, but no guarantee is made to that effect. Drug information contained herein may be time sensitive. [employer] information has been compiled for use by healthcare practitioners and consumers in the [place] and therefore [employer] does not warrant that uses outside of the [place] are appropriate, unless specifically indicated otherwise. [employer] drug information does not endorse drugs, diagnose patients or recommend therapy. [employer] drug information is an informational resource designed to assist licensed healthcare practitioners in caring for their patients and/or to serve consumers viewing this service as a supplement to, and not a substitute for, the expertise, skill, knowledge and judgment of healthcare practitioners. The absence of a warning for a given drug or drug combination in no way should be construed to indicate that the drug or drug combination is safe, effective or appropriate for any given patient. [employer] does not assume any responsibility for any aspect of healthcare administered with the aid of information [employer] provides. The information contained herein is not intended to cover all possible uses, directions, precautions, warnings, drug interactions, allergic reactions, or adverse effects. If you have questions about the drugs you are taking, check with your doctor, nurse or pharmacist. Copyright 1471-2627 [employer] Version: 20.03. Revision Date: 08/30/2020. Emergency Awareness and Preventative Care STROKE is [...] Assistance with quitting is available by contacting 2-621-IUOE-NOW. This is a free resource providing counseling, [...] This Visit (last charted value for your 03/12/2021 visit) Hematology 03/14/2021 6:25 AM WBC: 7.1 K/uL -- Normal range between ( 3.6 and 9.5 ) RBC: 2.23 Million/uL -- Normal range between ( 4.20 and 5.70 ) Hct: 19.8 % -- Normal range between ( 40.1 and 51.0 ) Hgb: 6.0 g/dL -- Normal range between ( 13.5 and 17.3 ) Platelet Count: 120 K/uL -- Normal range between ( 163 and 369 ) MCH: 26.9 pg -- Normal range between ( 25.6 and 32.2 ) MCHC: 30.3 Gram/dL -- Normal range between ( 32.2 and 36.5 ) MCV: 88.8 fL -- Normal range between ( 79.0 and 94.8 ) Slide Review: No RDW: 14.4 % -- Normal range between ( 11.7 and 14.9 ) MPV: 10.3 fL -- Normal range between ( 9.4 and 12.4 ) 03/05/2021 9:53 AM Band Percent Man: 2 % -- Normal range between ( 5 and 11 ) RBC Morphology: Abnormal Polychromasia: 1+ Hand Percent Man: 20 % -- Normal range between ( 4 and 5 ) Ovalocytes: 1+ Baso Percent Man: 0 % -- Normal range between ( 0 and 1 ) Neutrophil Percent Man: 54 % -- Normal range between ( 50 and 65 ) Eos Percent Man: 2 % -- Normal range between ( 0 and 3 ) Platelet Ct Estimate: Adequate Lymph Percent Man: 22 % -- Normal range between ( 24 and 44 ) Microbiology 03/10/2021 10:31 AM SARS-CoV-2 (COVID19 PCR): Negative Blood Bank 03/14/2021 11:30 AM RBC Product Ready: RBC Ready # of Units:: 2 Units 03/12/2021 6:56 AM ABO/Rh (ECHO): B POS Antibody Screen: Negative ABSC Crossmatch: Computer XM OK 03/05/2021 9:53 AM ABO/Rh Repeat: B POS General Chemistry 03/14/2021 6:25 AM Creatinine Level: 1.00 mg/dL -- Normal range between ( 0.70 and 1.30 ) Sodium Level: 135 mmol/L -- Normal range between ( 136 and 146 ) Potassium Level: 4.5 mmol/L -- Normal range between ( 3.5 and 5.1 ) Chloride Level: 108 mmol/L -- Normal range between ( 102 and 112 ) Carbon Dioxide Level: 23 mmol/L -- Normal range between ( 21 and 32 ) Anion Gap: 8 -- Normal range between ( 9 and 20 ) Bun/Creatinine: 36.0 -- Normal range between ( 8.0 and 20.0 ) Calcium Level: 7.5 mg/dL -- Normal range between ( 8.4 and 10.1 ) eGFR : >60 mL/min/1.73m2 eGFR NonAfrican: >60 mL/min/1.73m2 Glucose Level: 113 mg/dL -- Normal range between ( 74 and 106 ) Magnesium Level: 2.6 mg/dL -- Normal range between ( 1.5 and 2.4 ) Blood Urea Nitrogen: 36 mg/dL -- Normal range between ( 7 and 22 ) 03/12/2021 7:12 AM Potassium POC: 4.0 mmol/L -- Normal range between ( 3.5 and 4.9 ) Glucose POC: 123 mg/dL -- Normal range between ( 70 and 105 ) 03/05/2021 10:00 AM Hgb A1C: 5.7 % eAVG Glucose: 117 mg/dL Diagnostic Radiology 03/05/2021 12:02 PM CR Chest 2 Vws: CR Chest 2 Vws Patient Name:KEMI BOO I have received and understand this information and was given the opportunity to ask questions. Patient/Assistant Program Director Name: Patient/Assistant Program Director Signature: Relationship to Patient: Clinician/Hospital Assistant Program Director Signature: Date: documented in this encounter Plan of Treatment Not on file documented as of this encounter Visit Diagnoses Not on filedocumented in this encounter
--- OUTSIDE RECORDS SUMMARY | 2025-02-10 00:34 | XMS_ITS | Encounter Summary ---
Author Organization [employer] ([place], [place], [place], [place]) Address [address] [place] [address] Care Team Providers Care Optometric Tech Name Role Phone Unavailable Primary Care Provider Unavailabl e Encounter Details Date Type Department Care Team (Late st Contact Info) Description 04/01/2021 Transcribed Document [facility] [place] Family Medicine [address] [place] [address] ProviderLele MD [address] [place] [address] Social History Tobacco Use Types [...] Conversion Note - Historical ProviderMD - 04/01/2021 6:13 AM CDT Patient: KEMI BOO Age: 75 Years Sex: Male : 1945 CS[employer] POST OP NOTE Subjective: Objective: Vitals Signs (last 24 hrs) Last Charted Minimum Maximum Temp 97.4 (APR 01 06:00) 97.4 (APR 01 06:00) 98.1 (MAR 31 22:31) Mon HR 81 (APR 01 06:00) 79 (MAR 31 10:30) 84 (APR 01 02:10) Resp Rate 18 (APR 01 06:00) 18 (MAR 31 22:31) 18 (MAR 31 22:31) SBP H 147 (APR 01 06:00) 92 (MAR 31 10:30) H 147 (APR 01 06:00) DBP H 92 (APR 01 06:00) L 58 (MAR 31 10:30) H 92 (SEP 07 06:00) MAP 108 (APR 01 06:00) 66 (MAR 31 10:30) 108 (MAR 07 06:00) SpO2 95 (APR 01 06:00) 94 (APR 01 02:10) 96 (MAR 31 20:00) IV Fluids & Drains Last 24 Hours (7a-7a) Intake (1) Dextrose 5% with 0.45% NaCl and KCl 20 mEq/L 1,000 mL 1200 mL Intake Total: 1200mL Output (0) No drain output events found in the last 24 hours. Exam: Abdomen soft. Wounds clean and intact. Impression: S/P exploratory laparotomy and excision of ischemic omentum and repair of enterotomy. Patient has made slow progress. He continues to be weak. Last night he managed to walk out in the [place] with his for the first time in several days. He is continuing to move his bowels and these are slowly thickening up. He is tolerating p.o.'s. SETH drain removed. Patient has been up and down urinating. A.m. labs pending. I think he can be discharged home today. Plan: If doing well after lunch may D/C home. Follow up with Dr. Jaime in the office in 1 week. May shower at home. Have sent a prescription of Percocet to the patient's pharmacy. I have sent a prescription home with the patient for antibiotics given the repair of enterotomy and possible wound infection. Electronically signed by Iglesia Heard Conversion Thread Milling Machine Set Up Operator Cerner at 11/11/2022 6:39 PM CDT documented in this encounter Plan of Treatment Not on file documented as of this encounter Visit Diagnoses Not on filedocumented in this encounter
--- OUTSIDE RECORDS SUMMARY | 2025-02-10 00:35 | XMS_ITS | Encounter Summary ---
Author Organization [employer] ([place], [place], [place], [place]) Address [address] [place] [address] Care Team Providers Care Farm Machinery Mechanic Name Role Phone Unavailable Primary Care Provider Unavailabl e Encounter Details Date Type Department Care Team (Late st Contact Info) Description 03/29/2021 Transcribed Document [facility] [place] [address] [place] [address] ProviderLele MD [address] [place] [address] Social History Tobacco Use Types [...] Conversion Note - Historical ProviderMD - 03/29/2021 2:00 AM CDT Ruling Technician Details Entered On: 03/30/2021 3:27 EDT Performed On: 03/29/2021 2:00 EDT by Eduard Arboleda NON EMP RN Order Details Transport Mode Order Detail : Stretcher/Gurney Isolation Precautions Order Detail : Standard Precautions Order Detail : N/A IV Order Detail : 1 Oxygen Order Detail : 0 Nurse Collect Order Detail : 0 Lift/Transfer : Minimal Central Line Order Detail : No Room Service : Appropriate Arterial Line : No Patient Needs Meds Crushed/Liquid : No Eduard Arboleda NON EMP RN - 03/30/2021 3:27 EDT documented in this encounter Plan of Treatment Not on file documented as of this encounter Visit Diagnoses Not on filedocumented in this encounter
--- OUTSIDE RECORDS SUMMARY | 2025-02-10 00:35 | XMS_ITS | Encounter Summary ---
Author Organization [employer] ([place], [place], [place], [place]) Address [address] [place] [id number] Care Team Providers Care Software Intern Name Role Phone Unavailable Primary Care Provider Unavailabl e Encounter Details Date Type Department Care Team (Late st Contact Info) Description 03/31/[address] [facility] Radiology [address] [place] [address] Kwame Hackett MD [address] [place] [address] [address] [place] [id number] Social History Tobacco Use Types Packs/Day Years Used Date Smoking Tobacco: Never Assessed Sex and Gender Information Value Date Recorded Sex Assigned at Male 01/20/2022 1:57 PM CDT Legal Sex Male 1:57 PM CDT Gender Identity Male 01/20/2022 1:57 PM CDT Sexual Orientation Not on file documented as of this encounter Miscellaneous Notes * Cerner Conversion Note - Kwame Hackett MD - 03/31/2021 10:58 AM EDT Patient: KEMI BOO Age: 75 years Sex: Male : 1945 Associated Diagnoses: None Author: KWAME HACKETT MD-INT Subjective Had bowel movement x2. Passing gas Ambulate few steps to the chair Weak tired lethargic more than usual No fever or chills No abdominal pain. Nasogastric tube removed. Review of Systems Constitutional: Weakness, No fever, [...] Push, QID Theragran: 1 Tab, Oral, Daily Tylenol: 650 mg, Oral, Q6H, PRN: Pain (Mild 1-3) aspirin: 81 mg, Oral, Daily atorvastatin: 80 mg, Oral, At Bedtime carvedilol: 12.5 mg, Oral, BID cholecalciferol: 5,000 Units, Oral, Daily cloNIDine: 0.1 mg, Oral, Q4H, PRN: Hypertension diazePAM: 5 mg, IV Push, Q6H, PRN: Other (See Comment) heparin: 5,000 Units, SubCutaneous, Q8H hydrALAZINE: 10 mg, IV Push, Q4H, PRN: Hypertension lisinopril: 20 mg, Oral, Daily morphine: 2 mg, IV Push, Q2H, PRN: Pain (Severe 7-10) ondansetron: 4 mg, IV Push, Q6H, PRN: Nausea/Vomiting oxyCODONE: 5 mg, Oral, Q6H, PRN: Pain (Moderate 4-6) tamsulosin: 0.4 mg, Oral, At Bedtime Prescriptions Prescribed Percocet 5/325 oral tablet: 1 Tab, Oral, Q6H, PRN: for pain, 20 Tab, 0 Refill(s) Documented Medications Documented Aspir-Low 81 mg oral [...] Cap, Oral, At Bedtime, 0 Refill(s), Medications (24) Active Scheduled: (12) #NaCl 0.9% *FLUSH* inj 10 mL 10 mL, IV Push, Q12H aspirin EC 81 mg tab 81 mg 1 Tab, Oral, Daily atorvastatin 40 mg tab 80 mg 2 Tab, Oral, At Bedtime carvedilol 12.5 mg tab 12.5 mg 1 Tab, Oral, BID cholecalciferol 5,000 unit tab 5,000 Units 1 Tab, Oral, Daily famotidine 20 mg tab 20 mg 1 Tab, Oral, BID heparin 5,000 units/1 mL inj 5,000 Units 1 mL, SubCutaneous, Q8H lisinopril 20 mg tab 20 mg 1 [...] mL 1,000 mL, IntraVENous, 75 mL/Hr PRN: (11) acetaminophen 325 mg tab 650 mg 2 Tab, Oral, Q6H al hydrox/mag hydrox/simeth 30 mL liq 30 [...] At risk for sleep apnea / IMO [id number] / Confirmed, Active Problems (8) Amputation d/t trauma Angina Arthritis At risk for sleep apnea Hyperlipidemia Hypertension Nocturia Stented coronary artery Objective VS/Measurements Vitals Signs (last 24 hrs) Last Charted Minimum Maximum Temp 97.6 (MAR 31 06:00) 97.6 (MAR 31 06:00) 98.2 (MAR 30 10:00) Mon HR 77 (MAR 31 06:00) 76 (MAR 30 15:00) 80 (MAR 30 21:00) Resp Rate 16 (MAR 31 06:00) 15 (MAR 30 21:00) 16 (MAR 31 03:00) SBP 124 (MAR 31 06:00) 114 (MAR 31 03:00) H 168 (MAR 30 10:00) DBP 73 (MAR 31 06:00) 69 (MAR 31 03:00) H 99 (MAR 30 10:00) MAP 94 (MAR 31 06:00) 82 (MAR 31 03:00) 117 (MAR 30 10:00) SpO2 L 92 (MAR 31 06:00) L 91 (MAR 30 21:00) 95 (MAR 30 10:00) General: Alert and oriented, No acute distress. Eye: Pupils are equal, round and reactive to light, Extraocular movements are intact. HENT: Normocephalic. Neck: Supple, Non-tender. Respiratory: Lungs are clear to auscultation, Breath sounds are equal. Cardiovascular: Normal rate, No murmur, Good pulses equal in all extremities. Gastrointestinal: Soft, bowel sounds diminished. Musculoskeletal: Normal range of motion. Integumentary: Warm, No rash. Neurologic: Alert, Oriented, No focal deficits. Psychiatric: Cooperative, Appropriate mood & affect. Review / Management MAR 31 06:55 L 134 102 10 / H 122 4.5 26 L 0.60 \ MAR 31 06:55 \ L 9.7 / H 9.7 279 / L 31.1 \ No Radiology Results Found Results review: Labs (Last four charted values) WBC H 9.7 (MAR 31) 8.2 (MAR 05) 6.9 (MAR 29) 8.8 (MAR 03) HB L 9.7 (MAR 31) L 8.9 (MAR 05) L 8.3 (MAR 29) L 8.6 (MAR 28) HCT L 31.1 (MAR 06) L 28.8 (MAR 05) L 27.1 (MAR 04) L 27.1 (MAR 03) Plt 279 (MAR 31) 245 (MAR 05) 218 (MAR 29) 211 (MAR 03) Na L 134 (MAR 06) L 134 (MAR 05) L 133 (MAR 29) L 133 (MAR 28) K 4.5 (MAR 06) 4.5 (MAR 05) 4.2 (MAR 29) 4.2 (MAR 03) Cl 102 (MAR 06) 104 (MAR 05) 109 (MAR 04) 106 (MAR 03) CO2 26 (MAR 31) 25 (MAR 30) 24 (MAR 29) 21 (SEP 03) BUN 10 (MAR 31) 11 (MAR 30) 16 (MAR 29) H 27 (MAR 28) Cr L 0.60 (MAR 31) L 0.50 (MAR 30) L 0.50 (MAR 29) L 0.60 (MAR 28) Glu R H 122 (MAR 31) H 110 (MAR 30) 101 (MAR 29) H 129 (MAR 28) Ca 8.5 (MAR 31) L 8.0 (MAR 30) L 7.6 (MAR 29) L 7.6 (MAR 28) AST 31 (MAR 26) ALT 30 (MAR 26) ALK P 79 (MAR 26) T Bili H 1.4 (MAR 26) PTN 6.8 (MAR 26) ALB L 2.9 (MAR 26) . Medication Changes from Previous Midnight to Current New Medications: No Qualifying New Meds Discontinued Medications: No Qualifying Discontinued Meds Impression and Plan High-grade small bowel obstruction [...] Physical therapy evaluation CODE STATUS Full code Disposition. Likely discharge home in a.m. Continue physical therapy. May need home health arrangement prior to discharge. Spent 25 minutes documented in this encounter Plan of Treatment Not on file documented as of this encounter Visit Diagnoses Not on filedocumented in this encounter
--- OUTSIDE RECORDS SUMMARY | 2025-02-10 00:35 | XMS_ITS | Encounter Summary ---
Author Organization [employer] ([place], [place], [place], [place]) Address [address] [place] [address] Care Team Providers Care Filterer Name Role Phone Unavailable Primary Care Provider Unavailabl e Encounter Details Date Type Department Care Team (Late st Contact Info) Description 04/01/2021 Transcribed Document [facility] [place] Medicine [facility] [place] [address] ProviderLele MD [facility] [place] [address] Social History Tobacco Use Types [...] Conversion Note - Lele ProviderMD - 04/01/2021 12:26 PM CDT Nursing Discharge Summary Entered On: 04/01/2021 12:27 EDT Performed On: 04/01/2021 12:26 EDT by Osei Lopez RN-PATIENT CARE BEDSIDE NON-EXEMPT Discharge Documentation Discharge Date/Time : 04/01/2021 12:26 EDT Transporter Signature : BYRON DAMON RN Patient Disposition, General : Discharge Discharge To : Home with ambulatory/outpatient follow-up Mode Of Departure, General Discharge : Wheelchair Accompanied By, Discharge : Spouse IV Discontinued [...] medication, activity diet and follow up appointment Osei Lopez RN-PATIENT CARE BEDSIDE NON-EXEMPT - 04/01/2021 12:26 EDT documented in this encounter Plan of Treatment Not on file documented as of this encounter Visit Diagnoses Not on filedocumented in this encounter
--- OUTSIDE RECORDS SUMMARY | 2025-02-10 00:35 | XMS_ITS | Encounter Summary ---
Author Organization [employer] ([place], [place], [place], [place]) Address [address] [place] [address] Care Team Providers Care Slot Machine Key Person Name Role Phone Unavailable Primary Care Provider Unavailabl e Encounter Details Date Type Department Care Team (Late st Contact Info) Description 03/31/2021 Transcribed Document [facility] [place] [address] [place] [address] ProviderLele MD [address] [place] [address] Social History Tobacco Use Types Packs/Day Years Used Date Smoking Tobacco: Never Assessed Sex and Gender Information Value Date Recorded Sex Assigned at Male 01/20/2022 1:57 PM CDT Legal Sex Male 1:57 PM CDT Gender Identity Male 01/20/2022 1:57 PM CDT Sexual Orientation Not on file documented as of this encounter Miscellaneous Notes * Cerner Conversion Note - Historical ProviderMD - 03/31/2021 2:00 AM CDT Family Resource Coordinator Details Entered On: 03/31/2021 2:28 EDT Performed On: 03/31/2021 2:00 EDT by Pal Recinos RN-PATIENT CARE BEDSIDE NON-EXEMPT Order Details Transport Mode Order Detail : Stretcher/Gurney Isolation Precautions Order Detail : Standard Precautions Order Detail : N/A Lift/Transfer : Minimal Central Line Order Detail : No Room Service : Appropriate Arterial Line : No Patient Needs Meds Crushed/Liquid : No Pal Recinos RN-PATIENT CARE BEDSIDE NON-EXEMPT - 03/31/2021 2:28 EDT documented in this encounter Plan of Treatment Not on file documented as of this encounter Visit Diagnoses Not on filedocumented in this encounter
--- OUTSIDE RECORDS SUMMARY | 2025-02-10 00:35 | XMS_ITS | Encounter Summary ---
Author Organization [employer] ([place], [place], [place], [place]) Address [address] [place] [address] Care Team Providers Care Clinical Informatics Strategist Name Role Phone Unavailable Primary Care Provider Unavailabl e Encounter Details Date Type Department Care Team (Late st Contact Info) Description 04/01/2021 Transcribed Document [facility] [place] Family Medicine [address] [place] [address] ProviderLele MD [address] [place] [address] Social History Tobacco Use Types [...] Conversion Note - Historical ProviderMD - 04/01/2021 2:00 AM CDT Cattle Dipper Details Entered On: 04/01/2021 1:10 EDT Performed On: 04/01/2021 2:00 EDT by Mariann Zamora Lpn Order Details Transport Mode Order Detail : Stretcher/Gurney Isolation Precautions Order Detail : Standard Precautions Order Detail : N/A IV Order Detail : 1 Oxygen Order Detail : 0 Nurse Collect Order Detail : 0 Lift/Transfer : Minimal Central Line Order Detail : No Room Service : Appropriate Arterial Line : No Patient Needs Meds Crushed/Liquid : No Mariann Zamora Lpn - 04/01/2021 1:09 EDT documented in this encounter Plan of Treatment Not on file documented as of this encounter Visit Diagnoses Not on filedocumented in this encounter
--- OUTSIDE RECORDS SUMMARY | 2025-02-10 00:35 | XMS_ITS | Encounter Summary ---
Author Organization [employer] ([place], [place], [place], [place]) Address [address] [place] [address] Care Team Providers Care Contracting Executive Name Role Phone Unavailable Primary Care Provider Unavailabl e Encounter Details Date Type Department Care Team (Late st Contact Info) Description 04/01/2021 Transcribed Document [facility] [place] [address] [place] [address] ProviderLele MD [address] [place] [address] Social History Tobacco Use Types [...] Conversion Note - Historical ProviderMD - 04/01/2021 4:00 AM CDT Height and Weight, Routine Entered On: 04/01/2021 6:08 EDT Performed On: 04/01/2021 4:00 EDT by Mariann Zamora Lpn Height and Weight, Routine Routine Weight Source : Bed scale Routine Weight Entry Format : Metric Routine Weight, Kilograms : 115 kg(Converted to: 253 lb 9 oz) Routine Weight Calculation : 115 kg Height Source : Stated Height Entry Format : [place] Height, Feet : 5 ft Height, Inches : 10 Inch Clinical Height : 177.8 cm Body Surface Area (BSA), Routine : 2.31 m2 Body Mass Index (BMI), Routine : 36.38 kg/m2 Mariann Zamora Lpn - 04/01/2021 6:07 EDT documented in this encounter Plan of Treatment Not on file documented as of this encounter Visit Diagnoses Not on filedocumented in this encounter
--- OUTSIDE RECORDS SUMMARY | 2025-02-10 00:35 | XMS_ITS | Encounter Summary ---
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 Name Role Phone Unavailable Primary Care Provider Unavailabl e Encounter Details Date Type Department Care Team (Late st Contact Info) Description 04/01/2021 Transcribed Document [facility] [place] [facility] [address] [place] [address] ProviderLele MD [address] [place] [address] Social History Tobacco Use Types [...] Note - Lele Shah MD - 04/01/2021 11:25 AM CDT [facility] [place], [place] [id number] JODI KEMI LANG :1945 Visit Time:03/26/2021 Your Visit Summary Your Care Team Admitting Physician - DANI ABTISTA MD Attending Physician - DANI BATISTA MD Primary Care Physician - SULLY BLANKENSHIP (REF)[facility] Referring Physician - RAQUEL COOPER MD-PRO Your Diagnosis Abdominal pain Abnormal diagnostic test These Are Your Goals Patient Discharge Goal Patient Discharge Goal: Home Discharge Vitals Temperature 36.3 ??C Heart Rate (Monitored) 81 Respiratory Rate 18 Blood Pressure 147/92 What to do next Instructions From Your Care Team Discharge Activity: Discharge Activity: Activity as tolerated limit weight lifting to 10 pounds Diet: Discharge Diet: Heart healthy diet Follow-Up Appointments Follow Up with RAQUEL COOPER MD-PRO When 04/08/2021 09:15 AM EDT Comments Colorectal surgical follow up Appointment has been made Bring discharge instructions with you Where: [address] [facility] [address] [place] [id number]- Follow Up with SULLY BLANKENSHIP MD (REF)-FAM When 04/07/2021 10:30 AM EDT Comments PCP follow up Appointment has been made Bring discharge instructions with you Where: [address] [place] [id number]- Medications What How Much When Instructions Next Dose acetaminophen-oxyCODONE (Percocet 5/ 325 oral tablet) 1 Tablet(s) Oral Every 6 Hours as needed for for pain Pickup at [facility] #[id number] as needed cephalexin (Keflex 500 mg oral capsule) 1 Capsule(s) Oral Every 8 Hours Pickup at [facility] #[id number] this afternoon and bedtime famotidine (Pepcid 20 mg oral tablet) 1 Tablet(s) Oral Two Times A Day Pickup at [facility] #[id number] tonight ascorbic acid (Vitamin C 500 mg oral tablet, chewable) 1 Tablet(s) Chew Every Day tomorrow aspirin (Aspir-Low 81 mg oral delayed release tablet) 1 Tablet(s) Oral Every Day tomorrow atorvastatin (atorvastatin 80 mg oral tablet) 1 Tablet(s) Oral At Bedtime bedtime carvedilol (carvedilol 12.5 mg oral tablet) 1 Tablet(s) Oral Two Times A Day tonight cholecalciferol (Vitamin D3 5000 units oral capsule) 1 Capsule(s) Oral Every Day with food tomorrow multivitamin 1 Tablet(s) Oral Every Day tomorrow nitroglycerin (Nitrostat 0.4 mg sublingual tablet) 1 Tablet(s) SubLINgual Every 5 minutes as needed for as needed for chest pain not to exceed 3 doses/ 15 min--if pain persists, seek medical attention as needed omega-3 polyunsaturated fatty acids (Fish Oil 1000 mg oral capsule) 1 Capsule(s) Oral Every Day tomorrow ramipril (ramipril 10 mg oral capsule) 1 Tablet(s) Oral Every Day tomorrow polyethylene glycol 3350 (MiraLax) 17 Gram(s) Oral Every Day as needed for Constipation as needed tamsulosin (tamsulosin 0.4 mg oral capsule) 1 Capsule(s) Oral At Bedtime bedtime Pharmacy Information [id number]: [address] [address] [address] Ben[address]z [phone] Take your medications faithfully. Do NOT skip [...] This Visit No Immunizations Found Education Materials Laparoscopic Colectomy, Care After This sheet gives [...] these instructions at home: Medicines ??? Take gdbo-ikd-nrnyjwd and prescription medicines only as told by [...] and water are not available, use hand cpr ambulance driver. ? Change your dressing as told by [...] urine clear or pale yellow. ? Take hxrf-gqb-vaduexu or prescription medicines. ? Eat foods that [...] provider. Document Revised: 03/31/2019 Document Reviewed: 04/12/2017 [employer] ?? 2020 [employer] Low Residue Diet A low residue [...] than 7-10 grams of fiber per day. correction use of this diet may not provide [...] foods with caffeine Popcorn, nuts and seeds famotidine (oral/injection) (fam [place] jayla shah) Heartburn Relief, Leader Acid Director Experimental Medicine, Pepcid, Pepcid AC, Pepcid AC Maximum Strength, Zantac 360 What is the most important information I should know about famotidine? Follow all directions on the label and package. Use exactly as directed. What is famotidine? Famotidine is used to treat and prevent ulcers in the stomach and intestines. It also treats conditions in which the stomach produces too much acid, such as Bianca-Hinojosa syndrome. Famotidine also treats gastroesophageal reflux disease (GERD) and other conditions in which acid backs up from the stomach into the esophagus, causing heartburn. The Zantac 360 brand of this medicine does not contain ranitidine, a medicine that was withdrawn from market in the [place]. Famotidine may also be used for purposes not listed in this medication guide. What should I discuss with my healthcare provider before taking famotidine? Heartburn can feel like a heart attack. Get emergency medical help if you have chest pain that spreads to your jaw or shoulder. You should not use this medicine if you are allergic to famotidine or similar medicines such as ranitidine (Zantac), cimetidine (Tagamet), or nizatidine (Axid). Ask a doctor or pharmacist if this medicine is safe to use if you have: ?? kidney disease; ?? liver disease; ?? cancer stomach; or ?? long QT syndrome (in you or a family member). Ask a doctor before using this medicine if you are or . How should I take famotidine? Use exactly as directed on the label, or as prescribed by your doctor. Famotidine oral is taken by mouth. Famotidine injection is given in a vein if you are unable to take the medicine by mouth. You may take famotidine oral with or without food. Measure liquid medicine with the supplied syringe or a dose-measuring device (not a kitchen spoon). Most ulcers heal within 4 weeks of famotidine treatment, but it may take up to 8 weeks of using this medicine before your ulcer heals. Keep using the medication as directed. Call your doctor if the condition you are treating with famotidine does not improve, or if it gets worse while using famotidine. Your treatment may also include changes in diet or lifestyle habits. Follow all instructions of your doctor or dietitian. Store at room temperature away from moisture, heat, and light. Do not allow the liquid medicine to freeze. Throw away any unused famotidine liquid that is older than 30 days. What happens if I miss a dose? Take the medicine as soon as you can, but skip the missed dose if it is almost time for your next dose. Do not take two doses at one time. What happens if I overdose? Seek emergency medical attention or call the Poison Help line at . What should I avoid while taking famotidine? Drinking alcohol may increase the risk of damage to your stomach. Avoid taking other stomach acid reducers unless your doctor has told you to. However, you may take an antacid (such as Maalox, Mylanta, Gaviscon, Milk of Magnesia, Rolaids, or Tums) with famotidine. What are the possible side effects of famotidine? Get emergency medical help if you have signs of an allergic reaction: hives; difficult breathing; swelling of your face, lips, tongue, or throat. Stop using famotidine and call your doctor at once if you have: ?? confusion, hallucinations, agitation, lack of energy; ?? a seizure; ?? fast or pounding heartbeats, sudden dizziness (like you might pass out); or ?? unexplained muscle pain, tenderness, or weakness especially if you also have fever, unusual tiredness, and dark colored urine. Some side effects may be more likely in older adults and in people who have severe kidney disease. Common side effects may include: ?? headache; ?? dizziness; or ?? constipation or diarrhea. This is not a complete list of side effects and others may occur. Call your doctor for medical advice about side effects. You may report side effects to FDA at 9-269-CZH-3647. What other drugs will affect famotidine? Famotidine oral can make it harder for your body to absorb other medicines you take by mouth. Tell your doctor if you are taking: ?? cefditoren; ?? dasatinib; ?? delavirdine; ?? fosamprenavir; or ?? tizanidine (if you are taking famotidine liquid). This list is not complete. Other drugs may affect famotidine, including prescription and awew-mzu-knebyuz medicines, vitamins, and herbal products. Not all possible drug interactions are listed here. Where can I get more information? Your doctor or pharmacist can provide more information about famotidine. Remember, keep this and all other medicines out of the reach of children, never share your medicines with others, and use this medication only for the indication prescribed. Every effort has been made to ensure that the information provided by [employer]. ('[employer]') is accurate, up-to-date, and complete, but no guarantee is made to that effect. Drug information contained herein may be time sensitive. [employer] information has been compiled for use by healthcare practitioners and consumers in the [place] and therefore [employer] does not warrant that uses outside of the [place] are appropriate, unless specifically indicated otherwise. [employer] drug information does not endorse drugs, diagnose patients or recommend therapy. [employer] drug information is an informational resource designed [...] effective or appropriate for any given patient. [employer] does not assume any responsibility for any aspect of healthcare administered with the aid of information [employer] provides. The information contained herein is not intended to cover all possible uses, directions, precautions, warnings, drug interactions, allergic reactions, or adverse effects. If you have questions about the drugs you are taking, check with your doctor, nurse or pharmacist. Copyright 2120-5641 [employer]. Version: 18.01. Revision Date: 01/02/2021. cephalexin (sef a HEMALATHA in) Keflex What is the most important information I should know about cephalexin? You should not use this medicine if you are allergic to cephalexin or to similar antibiotics, such as Ceftin, Cefzil, Omnicef, and others. Tell your doctor if you are allergic to any drugs, especially penicillins or other antibiotics. What is cephalexin? Cephalexin is a cephalosporin (SEF a low spor in) antibiotic that is used to treat bacterial infections of the lungs, ear, skin, bones, bladder, and kidneys. Cephalexin is used to treat infections in adults and children who are at least 1 year old. Cephalexin may also be used for purposes not listed in this medication guide. What should I discuss with my healthcare provider before taking cephalexin? You should not use this medicine if you are allergic to cephalexin or any other cephalosporin antibiotic (cefdinir, cefadroxil, cefoxitin, cefprozil, ceftriaxone, cefuroxime, Omnicef, and others). Tell your doctor if you have ever had: ?? an allergy to any drug (especially penicillin); ?? liver or kidney disease; or ?? intestinal problems, such as colitis. The liquid form of cephalexin may contain sugar. This may affect you if you have diabetes. Tell your doctor if you are or breast-feeding. How should I take cephalexin? Follow all directions on your prescription label and read all medication guides or instruction sheets. Use the medicine exactly as directed. Do not use cephalexin to treat any condition that has not been checked by your doctor. Measure liquid medicine carefully. Use the dosing syringe provided, or use a medicine dose-measuring device (not a kitchen spoon). Use this medicine for the full prescribed length of time, even if your symptoms quickly improve. Skipping doses can increase your risk of infection that is resistant to medication. Cephalexin will not treat a viral infection such as the flu or a common cold. Do not share cephalexin with another person, even if they have the same symptoms you have. This medicine can affect the results of certain medical tests. Tell any doctor who treats you that you are using cephalexin. Store the tablets and capsules at room temperature away from moisture, heat, and light. Store the liquid medicine in the refrigerator. Throw away any unused liquid after 14 days. What happens if I miss a dose? Take the medicine as soon as you can, but skip the missed dose if it is almost time for your next dose. Do not take two doses at one time. What happens if I overdose? Seek emergency medical attention or call the Poison Help line at . Overdose symptoms may include nausea, vomiting, stomach pain, diarrhea, and blood in your urine. What should I avoid while taking cephalexin? Antibiotic medicines can cause diarrhea, which may be a sign of a new infection. If you have diarrhea that is watery or bloody, call your doctor before using anti-diarrhea medicine. What are the possible side effects of cephalexin? Get emergency medical help if you have signs of an allergic reaction (hives, difficult breathing, swelling in your face or throat) or a severe skin reaction (fever, sore throat, burning eyes, skin pain, red or purple skin rash with blistering and peeling). Call your doctor at once if you have: ?? severe stomach pain, diarrhea that is watery or bloody (even if it occurs months after your last dose); ?? unusual tiredness, feeling light-headed or short of breath; ?? easy bruising, unusual bleeding, purple or red spots under your skin; ?? a seizure; ?? pale skin, cold hands and feet; ?? yellowed skin, dark colored urine; ?? fever, weakness; or ?? pain in your side or lower back, painful urination. Common side effects may include: ?? diarrhea; ?? nausea, vomiting; ?? indigestion, stomach pain; or ?? vaginal itching or discharge. This is not a complete list of side effects and others may occur. Call your doctor for medical advice about side effects. You may report side effects to FDA at 0-797-LKB-3995. What other drugs will affect cephalexin? Tell your doctor about all your other medicines, especially: ?? metformin; or ?? probenecid. This list is not complete. Other drugs may affect cephalexin, including prescription and zgkg-yco-tdqebfq medicines, vitamins, and herbal products. Not all possible drug interactions are listed here. Where can I get more information? Your pharmacist can provide more information about cephalexin. Remember, keep this and all other medicines out of the reach of children, never share your medicines with others, and use this medication only for the indication prescribed. Every effort has been made to ensure that the information provided by [employer]. ('[employer]') is accurate, up-to-date, and complete, but no guarantee is made to that effect. Drug information contained herein may be time sensitive. [employer] information has been compiled for use by healthcare practitioners and consumers in the [place] and therefore [employer] does not warrant that uses outside of the [place] are appropriate, unless specifically indicated otherwise. [employer]'s drug information does not endorse drugs, diagnose patients or recommend therapy. [employer] drug information is an informational resource designed [...] effective or appropriate for any given patient. [employer] does not assume any responsibility for any aspect of healthcare administered with the aid of information [employer] provides. The information contained herein is not intended to cover all possible uses, directions, precautions, warnings, drug interactions, allergic reactions, or adverse effects. If you have questions about the drugs you are taking, check with your doctor, nurse or pharmacist. Copyright 0406-6070 [employer]. Version: 10.03. Revision Date: 07/29/2020. acetaminophen and oxycodone (a [...] may report side effects to FDA at 5-038-IOJ-0455. What other drugs will affect acetaminophen and [...] affect acetaminophen and oxycodone, including prescription and fokq-rau-rmffqtz medicines, vitamins, and herbal products. Not all [...] to ensure that the information provided by [employer]. ('[employer]') is accurate, up-to-date, and complete, but no guarantee is made to that effect. Drug information contained herein may be time sensitive. [employer] information has been compiled for use by healthcare practitioners and consumers in the [place] and therefore [employer] does not warrant that uses outside of the [place] are appropriate, unless specifically indicated otherwise. [employer]'s drug information does not endorse drugs, diagnose patients or recommend therapy. [employer] drug information is an informational resource designed [...] effective or appropriate for any given patient. [facility] does not assume any responsibility for any aspect of healthcare administered with the aid of information [facility] provides. The information contained herein is not intended to cover all possible uses, directions, precautions, warnings, drug interactions, allergic reactions, or adverse effects. If you have questions about the drugs you are taking, check with your doctor, nurse or pharmacist. Copyright 9751-3313 [facility]. Version: 20.03. Revision Date: 08/30/2020. Emergency Awareness [...] Assistance with quitting is available by contacting 7-798-DRAF-NOW. This is a free resource providing counseling, [...] This Visit (last charted value for your 03/26/2021 visit) Hematology 04/01/2021 9:35 AM WBC: 9.2 K/uL -- Normal range between ( 3.6 and 9.5 ) RBC: 3.67 Million/uL -- Normal range between ( 4.20 and 5.70 ) Hct: 30.9 % -- Normal range between ( 40.1 and 51.0 ) Hgb: 9.6 g/dL -- Normal range between ( 13.5 and 17.3 ) Platelet Count: 252 K/uL -- Normal range between ( 163 and 369 ) MCH: 26.2 pg -- Normal range between ( 25.6 and 32.2 ) MCHC: 31.1 Gram/dL -- Normal range between ( 32.2 and 36.5 ) MCV: 84.2 fL -- Normal range between ( 79.0 and 94.8 ) Slide Review: No Eos %: 1.7 % -- Normal range between ( 0.0 and 7.0 ) [place] #: 0.89 K/uL -- Normal range between ( 0.16 and 1.00 ) Eos #: 0.16 x10(3)/uL -- Normal range between ( 0.00 and 0.80 ) [place] %: 9.7 % -- Normal range between ( 3.0 and 9.0 ) Baso %: 0.4 % -- Normal range between ( 0.0 and 1.5 ) Baso #: 0.04 x10(3)/uL -- Normal range between ( 0.00 and 0.20 ) RDW: 16.2 % -- Normal range between ( 11.7 and 14.9 ) Neut %: 79.1 % -- Normal range between ( 34.0 and 71.0 ) Neut #: 7.28 K/uL -- Normal range between ( 1.56 and 6.13 ) Lymph %: 5.6 % -- Normal range between ( 19.3 and 53.1 ) Lymph #: 0.52 x10(3)/uL -- Normal range between ( 1.00 and 3.90 ) MPV: 9.9 fL -- Normal range between ( 9.4 and 12.4 ) IG#: 0.32 x10(3)/uL -- Normal range between ( 0.00 and 0.05 ) IG%: 3.50 % -- Normal range between ( 0.00 and 0.60 ) 03/26/2021 1:43 PM ALYC #: 1 K/uL Hypochromia: 1+ RBC Morphology: Abnormal ANC #: 4 K/uL [place] Percent Man: 3 % -- Normal range between ( 4 and 5 ) Neutrophil Percent Man: 76 % -- Normal range between ( 50 and 65 ) Anisocytosis: 1+ Platelet Ct Estimate: Adequate Poikilocytosis: 1+ Lymph Percent Man: 21 % -- Normal range between ( 24 and 44 ) Microbiology 03/26/2021 1:43 PM SARS-CoV-2 (COVID19 PCR): Negative Blood Bank 03/26/2021 2:16 PM ABO/Rh (ECHO): B POS Antibody Screen (Tube): Negative ABSC General Chemistry 04/01/2021 9:35 AM Creatinine Level: 0.70 mg/dL -- Normal range between ( 0.70 and 1.30 ) Sodium Level: 132 mmol/L -- Normal range between ( 136 and 146 ) Potassium Level: 4.2 mmol/L -- Normal range between ( 3.5 and 5.1 ) Chloride Level: 102 mmol/L -- Normal range between ( 102 and 112 ) Carbon Dioxide Level: 25 mmol/L -- Normal range between ( 21 and 32 ) Anion Gap: 9 -- Normal range between ( 9 and 20 ) Bun/Creatinine: 18.6 -- Normal range between ( 8.0 and 20.0 ) Calcium Level: 7.8 mg/dL -- Normal range between ( 8.4 and 10.1 ) eGFR : >60 mL/min/1.73m2 eGFR NonAfrican: >60 mL/min/1.73m2 Glucose Level: 137 mg/dL -- Normal range between ( 74 and 106 ) Magnesium Level: 2.0 mg/dL -- Normal range between ( 1.5 and 2.4 ) Blood Urea Nitrogen: 13 mg/dL -- Normal range between ( 7 and 22 ) Phosphorus: 3.4 mg/dL -- Normal range between ( 2.5 and 4.9 ) 03/26/2021 1:43 PM Bilirubin Total: 1.4 mg/dL -- Normal range between ( 0.2 and 1.2 ) A/G Ratio: 0.7 -- Normal range between ( 1.1 and 2.5 ) ALT: 30 Units/Liter -- Normal range between ( 16 and 61 ) AST: 31 Units/Liter -- Normal range between ( 5 and 37 ) Globulin: 3.9 Gram/dL -- Normal range between ( 1.5 and 4.5 ) Alk Phos: 79 Units/Liter -- Normal range between ( 27 and 136 ) Protein Total: 6.8 Gram/dL -- Normal range between ( 6.4 and 8.2 ) Albumin Level: 2.9 Gram/dL -- Normal range between ( 3.4 and 5.0 ) Computed Tomography 03/26/2021 10:[address] Abdomen Pelvis W: CT Abdomen Pelvis W Patient Name:KEMI BOO I have received and understand this information and was given the opportunity to ask questions. Patient/Commercial Lender Name: Patient/Commercial Lender Signature: Relationship to Patient: Clinician/Hospital Commercial Lender Signature: Date: Electronically signed by Félix, [facility] Conversion Bricklayer Tender Cerner at 11/11/2022 6:33 PM CDT documented in this encounter Plan of Treatment Not on file documented as of this encounter Visit Diagnoses Not on filedocumented in this encounter
--- OUTSIDE RECORDS SUMMARY | 2025-02-10 00:35 | XMS_ITS | Encounter Summary ---
Author Organization [employer] ([place], [place], [place], [place]) Address [address] [place] [address] Care Team Providers Care Admittance Attendant Name Role Phone Unavailable Primary Care Provider Unavailabl e Encounter Details Date Type Department Care Team (Late st Contact Info) Description 03/31/2021 Transcribed Document [facility] [place] Family Medicine [address] [place] [address] ProviderLele MD [address] [place] [address] Social History Tobacco Use Types Packs/Day Years Used Date Smoking Tobacco: Never Assessed Sex and Gender Information Value Date Recorded Sex Assigned at Male 01/20/2022 1:57 PM CDT Legal Sex Male 1:57 PM CDT Gender Identity Male 01/20/2022 1:57 PM CDT Sexual Orientation Not on file documented as of this encounter Miscellaneous Notes * Cerner Conversion Note - Lele ProviderMD - 03/31/2021 8:17 AM CDT Patient: KEMI ZAPATA Age: 75 [...] (MAR 30 21:00) 95 (MAR 30 10:00) IV Fluids & Drains Last 24 Hours (7a-7a) Intake (1) Dextrose 5% with 0.45% NaCl and KCl 20 mEq/L 1,000 mL 525 mL Intake Total: 525mL Output (1) GI Tube Output 300 mL Output Total: 300mL Exam: Abdomen soft. Wounds clean and intact. SETH drain with minimal serous output. Impression: S/P exploratory laparotomy with excision of omentum and repair of enterotomy. Patient is progressing, but remains weak. NG tube has been removed and he is passed gas and moved his bowels. Patient has not been walking outside of the room. Vital signs are stable. Labs this morning look good. Patient is motivated to go home, even though I think he would benefit from an additional day here.. I have told him this morning that he needs to be able to tolerate food without nausea or vomiting. I have also told him that he needs to be ambulating the floor. I spoke with his nurse who said he has been to the doorway and back yesterday. If he is unable to participate in ADLs, ambulate outside the room, or tolerate regular food today, then he will need to stay an additional day. Otherwise, I have set him up to go home later today. Plan: If doing well after lunch may D/C home. Follow up with Dr. Jaime in the office in 1 week. May shower at home. Have sent a prescription of Percocet to the patient's pharmacy. documented in this encounter Plan of Treatment Not on file documented as of this encounter Visit Diagnoses Not on filedocumented in this encounter
--- OUTSIDE RECORDS SUMMARY | 2025-02-10 00:35 | XMS_ITS | Encounter Summary ---
Author Organization [employer] ([place], [place], [place], [place]) Address [address] [place] [address] Care Team Providers Care Routeman Name Role Phone Unavailable Primary Care Provider Unavailabl e Encounter Details Date Type Department Care Team (Late st Contact Info) Description 03/30/2021 Transcribed Document [facility] [place] [address] [place] [address] ProviderLele MD [address] [place] [address] Social History Tobacco Use Types Packs/Day Years Used Date Smoking Tobacco: Never Assessed Sex and Gender Information Value Date Recorded Sex Assigned at Male 01/20/2022 1:57 PM CDT Legal Sex Male 1:57 PM CDT Gender Identity Male 01/20/2022 1:57 PM CDT Sexual Orientation Not on file documented as of this encounter Miscellaneous Notes * Cerner Conversion Note - Lele ProviderMD - 03/30/2021 11:32 AM CDT Patient: KEMI BOO Age: 75 Years Sex: Male : 1945 Subjective Overall doing well. 300mL residual after clamping yesterday. No flatus or BM. Abd is soft. Incision ok. Intake & Output Intake & Output Totals Last 24 Hours (7a-7a) Intake (10 Events) Medications (30 mL) Oral Intake (360 mL) Output (11 Events) Gastric Tube Output: (2250 mL) Surgical Drain/Tube Output: (20 mL) Urine Voided (Volume) (1925 mL) Input Total: 390 mL Output Total: 4195 mL Balance: -3805 mL Vital Signs T: 37.8 ??C TMIN: 36.5 ??C TMAX: 37.8 ??C HR: 82(Monitored) RR: 18 BP: 156/82 SpO2: 93% VTE Risk Total Score VTE Prophylaxis - Surgical Aspirin 81 mg, Oral, EC Tab, Daily, Routine, Start 03/27/21 11:59:00 EDT, 03/27/21 11:59:00 EDT (LAUREN KENDALL) Heparin 5,000 Units, SubCutaneous, Inj, Q8H, Routine, Start 03/26/21 17:37:00 EDT, 03/26/21 17:37:00 EDT (RAQUEL COOPER) Sequential Compression Device Start: 03/27/21 12:19:00 EDT, Bilateral, Continuous Order (LAUREN KENDALL) Assessment/Plan Remove NGT if residual <300mL today. Continue clears. Ambulation encouraged. Abdominal pain [id number] Abnormal diagnostic test [id number] Orders: Communication to Nursing Nasogastric Orogastric Tube Management Medications Inpatient aspirin, 81 mg= 1 Tab, [...] At Bedtime Theragran, 1 Tab, Oral, Daily Tylenol, 650 mg= 2 Tab, Oral, Q6H, PRN Home Aspir-Low 81 mg oral delayed release [...] Routine Labs - Last 24 Hours MAR 30 05:34 L 134 104 11 / H 110 4.5 25 L 0.50 \ MAR 27 05:59 \ L 11.4 / H 10.7 222 / L 35.5 \ Anion Gap: 10 Calcium Level: 8 mg/dL Low Magnesium Level: 2.3 mg/dL Phosphorus: 3.9 mg/dL Imaging Results (Last 24 Hours) No Radiology [...] placed in pelvis. Allergies No Known Allergies documented in this encounter Plan of Treatment Not on file documented as of this encounter Visit Diagnoses Not on filedocumented in this encounter
--- OUTSIDE RECORDS SUMMARY | 2025-02-10 00:35 | XMS_ITS | Encounter Summary ---
Author Organization [employer] ([place], [place], [place], [place]) Address [address] [place] [address] Care Team Providers Care Film Painter Name Role Phone Unavailable Primary Care Provider Unavailabl e Encounter Details Date Type Department Care Team (Late st Contact Info) Description 03/31/2021 Transcribed Document [facility] [place] [address] [place] [address] ProviderLele MD [address] [place] [address] Social History Tobacco Use Types [...] Conversion Note - Historical ProviderMD - 03/31/2021 8:14 PM CDT Provider Notification Entered On: 03/31/2021 20:14 EDT Performed On: 03/31/2021 20:14 EDT by Mariann Zamora Lpn Provider Notification Provider Notified of Concerns/Results : Other: no ivett Mariann Zamora Lpn - 03/31/2021 20:14 EDT documented in this encounter Plan of Treatment Not on file documented as of this encounter Visit Diagnoses Not on filedocumented in this encounter
--- OUTSIDE RECORDS SUMMARY | 2025-02-10 00:35 | XMS_ITS | Encounter Summary ---
Author Organization [employer] ([place], [place], [place], [place]) Address [address] [place] [address] Care Team Providers Care Woodworking Craftsman Name Role Phone Unavailable Primary Care Provider Unavailabl e Encounter Details Date Type Department Care Team (Late st Contact Info) Description 03/30/2021 Transcribed Document [facility] Radiology [address] [place] [address] Kwame Hackett MD [address] [place] [address] [address] [place] [id number] Social History Tobacco Use Types Packs/Day Years Used Date Smoking Tobacco: Never Assessed Sex and Gender Information Value Date Recorded Sex Assigned at Male 01/20/2022 1:57 PM CDT Legal Sex Male 1:57 PM CDT Gender Identity Male 01/20/2022 1:57 PM CDT Sexual Orientation Not on file documented as of this encounter Miscellaneous Notes * Cerner Conversion Note - Kwame Hackett MD - 03/30/2021 11:43 AM EDT Patient: KEMI BOO Age: 75 years Sex: Male : 1945 Associated Diagnoses: None Author: KWAME HACKETT MD-INT Subjective Anxious and depressed. Not passing gas yet. Continue requiring nasogastric tube. Review of Systems Constitutional: Weakness, No fever, [...] At risk for sleep apnea / IMO [id number] / Confirmed, Active Problems (8) Amputation d/t trauma Angina Arthritis At risk for sleep apnea Hyperlipidemia Hypertension Nocturia Stented coronary artery Objective VS/Measurements Vitals Signs (last 24 hrs) Last Charted Minimum Maximum Temp H 100.1 (MAR 30 05:) 97.7 (MAR 30 03:18) H 100.1 (MAR 30:) Mon HR 82 (MAR 30:) 77 (MAR 29 23:00) 82 (MAR 30 05:22) Resp Rate 18 (MAR 30 05:22) 16 (MAR 29 23:00) 18 (MAR 30:) SBP H 156 (MAR 30:) 131 (MAR 29 23:00) H 156 (MAR 30:) DBP 82 (MAR 30 05:22) 72 (MAR 29 23:00) 82 (MAR 30 05:22) MAP 103 (MAR 30:22) 90 (MAR 29 23:00) 103 (MAR 30:) SpO2 L 93 (MAR 30 07:23) L 92 (MAR 30 05:22) 96 (MAR 29 20:49) General: Alert and oriented, No acute distress. [...] mood & affect. Review / Management MAR 30 05:34 L 134 104 11 / H 110 4.5 25 L 0.50 \ MAR 30 05:34 \ L 8.9 / 8.2 245 / L 28.8 \ No Radiology Results Found Results review: Labs (Last four charted values) WBC 8.2 (MAR 30) 6.9 (MAR 29) 8.8 (MAR 03) H 10.7 (MAR 02) HB L 8.9 (MAR 30) L 8.3 (MAR 04) L 8.6 (MAR 03) L 11.4 (MAR 02) HCT L 28.8 (MAR 30) L 27.1 (MAR 29) L 27.1 (MAR 03) L 35.5 (MAR 02) Plt 245 (MAR 30) 218 (MAR 29) 211 (MAR 28) 222 (MAR 27) Na L 134 (MAR 30) L 133 (MAR 04) L 133 (MAR 03) L 132 (MAR 02) K 4.5 (MAR 30) 4.2 (MAR 29) 4.2 (MAR 03) 4.1 (MAR 02) Cl 104 (MAR 30) 109 (MAR 29) 106 (MAR 28) 102 (MAR 02) CO2 25 (MAR 05) 24 (MAR 04) 21 (MAR 03) L 19 (MAR 02) BUN 11 (MAR 30) 16 (MAR 04) H 27 (MAR 03) H 24 (MAR 02) Cr L 0.50 (MAR 30) L 0.50 (MAR 04) L 0.60 (SEP 03) 0.80 (MAR 27) Glu R H 110 (MAR 30) 101 (MAR 29) H 129 (MAR 28) H 203 (MAR 27) Ca L 8.0 (MAR 30) L 7.6 (MAR 29) L 7.6 (MAR 28) L 8.0 (MAR 27) AST 31 (MAR 26) ALT 30 (MAR [...] omentum., Repair enterostomy and small bowel. Continue NGT. May need clamping today Continue IV fluid. Monitor electrolytes and replace. Pain management. Advance diet as per colorectal recommendations Initiate incentive spirometry. Lai catheter discontinued Physical therapy evaluation. Colon cancer. Status post robotic right colectomy on 03/12/2021. Coronary artery disease. Status post CABG. Resume home medications. Status post aortic valve replacement. GI and DVT prophylaxis. Physical therapy evaluation CODE STATUS Full code Disposition. Likely discharge home in 2 to 3 days Spent 25 minutes documented in this encounter Plan of Treatment Not on file documented as of this encounter Visit Diagnoses Not on filedocumented in this encounter
--- OUTSIDE RECORDS SUMMARY | 2025-02-10 00:35 | XMS_ITS | Encounter Summary ---
Author Organization [employer] ([place], [place], [place], [place]) Address [address] [place] [address] Care Team Providers Care Teaching Young Name Role Phone Unavailable Primary Care Provider Unavailabl e Encounter Details Date Type Department Care Team (Late st Contact Info) Description 03/29/2021 Transcribed Document [facility] Radiology [address] [place] [address] Kwame Hackett MD [address] [place] [address] [address] [id number] Social History Tobacco Use Types Packs/Day Years Used Date Smoking Tobacco: Never Assessed Sex and Gender Information Value Date Recorded Sex Assigned at Male 01/20/2022 1:57 PM CDT Legal Sex Male 1:57 PM CDT Gender Identity Male 01/20/2022 1:57 PM CDT Sexual Orientation Not on file documented as of this encounter Miscellaneous Notes * Cerner Conversion Note - Kwame Hackett MD - 03/29/2021 11:12 AM EDT Patient: KEMI BOO Age: 75 years Sex: Male : 1945 Associated Diagnoses: None Author: KWAME HACKETT MD-INT Subjective Patient feeling better today. Mild diffuse abdominal pain. Continue requiring nasogastric tube. Tolerated clear liquid diet. No gas yet. Ambulate few steps in the room Discussed with his at the bedside Review of Systems Constitutional: Weakness, No fever, [...] At risk for sleep apnea / IMO [id number] / Confirmed, Active Problems (8) Amputation d/t trauma Angina Arthritis At risk for sleep apnea Hyperlipidemia Hypertension Nocturia Stented coronary artery Objective VS/Measurements Vitals Signs (last 24 hrs) Last Charted Minimum Maximum Temp 97.8 (MAR 29 06:00) 97.8 (MAR 29 06:00) 99 (MAR 28 21:07) Mon HR 72 (MAR 29 06:00) 72 (MAR 29 06:00) 79 (MAR 28 21:07) Resp Rate 16 (MAR 29 06:00) 16 (MAR 29 06:00) 19 (MAR 29 02:00) SBP 138 (MAR 29 06:00) 138 (MAR 29 06:00) H 142 (MAR 29 02:16) DBP 78 (MAR 29 06:00) 76 (MAR 29 02:16) 79 (MAR 28 21:07) MAP 93 (MAR 29 06:00) 92 (MAR 29 02:16) 97 (MAR 28 21:07) SpO2 95 (MAR 29 07:14) 94 (MAR 29 02:16) 97 (MAR 28 21:07) General: Alert and oriented, No acute distress. [...] mood & affect. Review / Management MAR 29 06:06 L 133 109 16 / 101 4.2 24 L 0.50 \ MAR 29 06:06 \ L 8.3 / 6.9 218 / L 27.1 \ No Radiology Results Found Results review: Labs (Last four charted values) WBC 6.9 (MAR 29) 8.8 (MAR 28) H 10.7 (MAR 27) L 2.3 (MAR 26) HB L 8.3 (MAR 29) L 8.6 (MAR 28) L 11.4 (MAR 27) L 11.6 (MAR 26) HCT L 27.1 (MAR 29) L 27.1 (MAR 28) L 35.5 (MAR 27) L 38.2 (MAR 26) Plt 218 (MAR 29) 211 (MAR 03) 222 (MAR 02) 277 (MAR 26) Na L 133 (MAR 29) L 133 (MAR 03) L 132 (MAR 02) L 134 (MAR 26) K 4.2 (MAR 29) 4.2 (MAR 28) 4.1 (MAR 27) 4.0 (MAR 26) Cl 109 (MAR 29) 106 (MAR 03) 102 (MAR 02) L 100 (MAR 26) CO2 24 (MAR 29) 21 (MAR 03) L 19 (MAR 02) 24 (MAR 26) BUN 16 (MAR 29) H 27 (MAR 03) H 24 (MAR 02) 17 (MAR 26) Cr L 0.50 (MAR 29) L 0.60 (MAR 28) 0.80 (MAR 27) 0.80 (MAR 26) Glu R 101 (MAR 29) H 129 (MAR 28) H 203 (MAR 27) 106 (MAR 26) Ca L 7.6 (MAR 29) L 7.6 (MAR 28) L 8.0 (MAR 27) L 8.0 (MAR 26) AST 31 (MAR 26) ALT 30 (MAR 26) ALK P 79 (MAR 26) T Bili H 1.4 (MAR 26) PTN 6.8 (MAR 26) ALB L 2.9 (MAR 26) . Medication Changes from Previous Midnight to Current New Medications: acetaminophen (Tylenol) 650 mg, Oral, Tab, Q6H, PRN for Pain (Mild 1-3), Routine, Start 03/28/21 21:53:00 EDT, 03/28/21 22:10:00 EDT WIL LI MD Discontinued Medications: multivitamin 1 Tab, Oral, Tab, Daily, Routine, Start 03/27/21 11:59:00 EDT KWAME HACKETT MD-INT Impression and Plan High-grade small bowel obstruction [...]
--- OUTSIDE RECORDS SUMMARY | 2025-02-10 00:35 | XMS_ITS | Encounter Summary ---
Author Organization [employer] ([place], [place], [place], [place]) Address [address] [place] [address] Care Team Providers Care Student Services Director Name Role Phone Unavailable Primary Care Provider Unavailabl e Encounter Details Date Type Department Care Team (Late st Contact Info) Description 03/29/2021 Transcribed Document [facility] [place] [address] [place] [address] ProviderLele MD [address] [place] [address] Social History Tobacco Use Types Packs/Day Years Used Date Smoking Tobacco: Never Assessed Sex and Gender Information Value Date Recorded Sex Assigned at Male 01/20/2022 1:57 PM CDT Legal Sex Male 1:57 PM CDT Gender Identity Male 01/20/2022 1:57 PM CDT Sexual Orientation Not on file documented as of this encounter Miscellaneous Notes * Cerner Conversion Note - Lele ProviderMD - 03/29/2021 12:29 PM CDT Patient: KEMI BOO Age: 75 Years Sex: Male : 1945 Subjective Overall doing well No flatus or BM Walking Urinating Intake & Output Intake & Output Totals Last 24 Hours (7a-7a) Intake (23 Events) Continuous Infusions (900 mL) Medications (29.5 mL) Oral Intake (360 mL) Output (5 Events) Gastric Tube Output: (1700 mL) Urine Voided (Volume) (1000 mL) Input Total: 1289.5 mL Output Total: 2700 mL Balance: -1410.5 mL Vital Signs T: 36.6 ??C TMIN: 36.6 ??C TMAX: 37.2 ??C HR: 72(Monitored) RR: 16 BP: 138/78 SpO2: 95% Physical Exam NAD A&Ox3 Breathing easily Abd obese, incision ok VTE Risk Total Score VTE Prophylaxis - Surgical Aspirin 81 mg, Oral, EC Tab, Daily, Routine, Start 03/27/21 11:59:00 EDT, 03/27/21 11:59:00 EDT (LAUREN KENDALL) Heparin 5,000 Units, SubCutaneous, Inj, Q8H, Routine, Start 03/26/21 17:37:00 EDT, 03/26/21 17:37:00 EDT (RAQUEL COOPER) Sequential Compression Device Start: 03/27/21 12:19:00 EDT, Bilateral, Continuous Order (LAUREN KENDALL) Assessment/Plan STart ngt clamping trials Will not remove ngt tonight, maybe tomorrow Encouraged ambulation. at bedside. Questions answered. Abdominal pain [id number] Abnormal diagnostic test [id number] Medications Inpatient aspirin, 81 mg= 1 Tab, [...] Routine Labs - Last 24 Hours MAR 29 06:06 L 133 109 16 / 101 4.2 24 L 0.50 \ MAR 27 05:59 \ L 11.4 / H 10.7 222 / L 35.5 \ Anion Gap: 4 Low Calcium Level: 7.6 mg/dL Low Magnesium Level: 2.4 mg/dL Phosphorus: 3.1 mg/dL Imaging Results (Last 24 Hours) No [...]
--- NOTE | 2025-02-10 00:45 | XR_ITS ---
PROCEDURE INFORMATION: Exam: XR Chest Exam date and time: 02/10/2025 2:37 AM Age: 79 years old Clinical indication: Shortness of breath; Additional info: Lightheaded after strenuous day TECHNIQUE: Imaging protocol: Radiologic exam of the chest. Views: 2 views. COMPARISON: CT ABDOMEN PELVIS WO CON 12/05/2022 10:21 PM FINDINGS: Tubes, catheters and devices: There is a left-sided pacemaker in appropriate position. Lungs: No focal consolidation. No mass. Pleural spaces: No pleural effusion. No pneumothorax. Heart/Mediastinum: Unremarkable. No cardiomegaly. Bones/joints: Unremarkable. There is no acute fracture present. IMPRESSION: No acute cardiac or pulmonary process.
--- NOTE | 2025-02-10 00:57 | CT_ITS ---
PROCEDURE INFORMATION: Exam: CTA Neck With Contrast Exam date and time: 02/10/2025 3:00 AM Age: 79 years old Clinical indication: Stroke-like symptoms; Dizziness/giddiness; Additional info: Dizziness uncoordinated TECHNIQUE: Imaging protocol: Computed tomographic angiography of the neck with contrast. Exam focused on the cervical segments of the vasculature. 3D rendering (Not supervised by radiologist): MIP and/or 3D reconstructed images were created by the technologist. Radiation optimization: All CT scans at this facility use at least one of these dose optimization techniques: automated exposure control; mA and/or kV adjustment per patient size (includes targeted exams where dose is matched to clinical indication); or iterative reconstruction. Contrast material: ISOVUE; Contrast volume: 80 ml; Contrast route: INTRAVENOUS (IV); COMPARISON: CT ANGIO NECK 02/10/2025 3:00 AM FINDINGS: Right common carotid artery: No stenosis. No dissection or occlusion. Right internal carotid artery: No significant stenosis. No dissection or occlusion. Right external carotid artery: No occlusion or stenosis of the origin. Left common carotid artery: No stenosis. No dissection or occlusion. Left internal carotid artery: No significant stenosis. No dissection or occlusion. Left external carotid artery: No occlusion or stenosis of the origin. Right vertebral artery: No stenosis. No dissection or occlusion. Left vertebral artery: No stenosis. No dissection or occlusion. Soft tissues: Normal. No significant soft tissue swelling. Bones/joints: No acute fracture. IMPRESSION: Unremarkable examination with no significant stenosis, dissection, or occlusion. REFERENCES: NASCET CRITERIA. The degree of stenosis in the cervical segment of the internal carotid artery is based on NASCET criteria. Normal is no stenosis. Mild is less than 50% stenosis. Moderate is 50-69% stenosis. Severe is 70% to 99% stenosis. Total occlusion is no detectable patent lumen.
--- NOTE | 2025-02-10 00:57 | CT_ITS ---
PROCEDURE INFORMATION: Exam: CT Head Without Contrast Exam date and time: 02/10/2025 2:56 AM Age: 79 years old Clinical indication: Stroke-like symptoms; Dizziness/giddiness; Additional info: Dizziness uncoordinated TECHNIQUE: Imaging protocol: Computed tomography of the head without contrast. Radiation optimization: All CT scans at this facility use at least one of these dose optimization techniques: automated exposure control; mA and/or kV adjustment per patient size (includes targeted exams where dose is matched to clinical indication); or iterative reconstruction. Other technique: STROKE PROTOCOL was implemented. COMPARISON: No relevant prior studies available. FINDINGS: Brain: There is no area of intraparenchymal or extra-axial hemorrhage present. There is no intra-axial mass. There is no midline shift. The arevalo-white matter junction is intact. Cerebral ventricles: No ventriculomegaly. Paranasal sinuses: Moderate pansinus disease. Mastoid air cells: Visualized mastoid air cells are well aerated. Bones: Unremarkable. No acute fracture. Soft tissues: Unremarkable. IMPRESSION: 1. Moderate pansinus disease. 2. Otherwise unremarkable examination of the brain. There is no acute intracranial abnormality seen. ASSESSMENT: ASPECTS ([place] Stroke Program Early CT Score) is 10.
--- NOTE | 2025-02-10 00:57 | CT_ITS ---
PROCEDURE INFORMATION: Exam: CTA Head With Contrast, Arteriography Exam date and time: 02/10/2025 3:00 AM Age: 79 years old Clinical indication: Stroke-like symptoms; Dizziness/giddiness; Additional info: Dizziness uncoordinated TECHNIQUE: Imaging protocol: Computed tomographic angiography of the head with contrast. Exam focused on the arteries. 3D rendering (Not supervised by radiologist): MIP and/or 3D reconstructed images were created by the technologist. Radiation optimization: All CT scans at this facility use at least one of these dose optimization techniques: automated exposure control; mA and/or kV adjustment per patient size (includes targeted exams where dose is matched to clinical indication); or iterative reconstruction. Contrast material: ISOVUE; Contrast volume: 80 ml; Contrast route: INTRAVENOUS (IV); COMPARISON: CT HEAD/BRAIN WO CON 02/10/2025 2:56 AM FINDINGS: ANTERIOR CIRCULATION: Right internal carotid artery: Intracranial segment is patent with no significant stenosis or occlusion. No aneurysm. Right middle cerebral artery: No occlusion or significant stenosis. No aneurysm. Right anterior cerebral artery: No occlusion or significant stenosis. No aneurysm. Left internal carotid artery: Intracranial segment is patent with no significant stenosis. No aneurysm. Left middle cerebral artery: No occlusion or significant stenosis. No aneurysm. Left anterior cerebral artery: No occlusion or significant stenosis. No aneurysm. POSTERIOR CIRCULATION: Right vertebral artery: No occlusion or significant stenosis. No aneurysm. Left vertebral artery: No occlusion or significant stenosis. No aneurysm. Basilar artery: No occlusion or significant stenosis. No aneurysm. Right posterior cerebral artery: No occlusion or significant stenosis. No aneurysm. Left posterior cerebral artery: No occlusion or significant stenosis. No aneurysm. Veins: No venous sinus thrombosis. Brain: Normal. No hemorrhage. Unremarkable white matter. No mass effect. Cerebral ventricles: Normal. No ventriculomegaly. Bones/joints: Unremarkable. No acute fracture. Soft tissues: Unremarkable. IMPRESSION: No evidence for a embolism, occlusion, dissection, stenosis, or aneurysm.
--- NOTE | 2025-02-10 00:58 | HMH.EDGENADL ---
Discharge Plan Disposition Patient Disposition: Home, Self-Care Condition: Good Prescriptions Prescriptions: No Action atorvastatin 80 mg tablet 80 mg PO DAILY Patient Comments: TAKE 1 TABLET BY MOUTH EVERY NIGHT carvedilol 12.5 mg tablet 12.5 mg PO BID Patient Comments: TAKE 1 TABLET BY MOUTH TWICE DAILY isosorbide mononitrate 30 mg tablet extended release 24 hr 30 mg PO DAILY Patient Comments: TAKE 1 TABLET BY MOUTH DAILY ascorbic acid (vitamin C) 500 mg tablet 500 mg PO DAILY Patient Comments: TAKE 1 TABLET BY MOUTH EVERY DAY aspirin 81 mg tablet,chewable 81 mg PO DAILY Patient Comments: TAKE 1 TABLET BY MOUTH ONCE DAILY ramipril 10 mg capsule 10 mg PO DAILY Patient Comments: TAKE 1 CAPSULE BY MOUTH DAILY Referrals Follow up/Referrals: Dez Cerna MD [Primary Care Provider, Internal Medicine] - See instructions Referral Note: Please reevaluate in your office on 02/12/2025 to reassess for lightheadedness, prerenal azotemia Activity Restrictions/Add. Instructions Additional Instructions/Restrictions: You were evaluated in the ER. Your workup is reassuring but as discussed I had recommended transfer for admission and further workup which you are refusing despite the risks. Continue taking your home medications as previously prescribed. Make an appointment with your primary care doctor first thing Wednesday morning to be evaluated on Wednesday. He should recheck labs and make sure you are feeling improved still. Return to the ER immediately with any new, worsening, or otherwise concerning symptoms. Clinical Impressions Clinical Impression: Episodic lightheadedness, Prerenal azotemia Print Language Print Language: Greenlandic Discharge ED Provider: William Mcgee Adult HPI General Chief complaint: Dizziness Stated complaint: dizziness, lightheaded, cough Time Seen by Provider: 02/10/25 00:45 Mode of Arrival: Ambulatory Source of Information: Patient and Spouse Description of Symptoms (Recalled from ER Triage Doc. by RN): Pt states he has been out in heat all day working from a tractor, when he went to get up off his couch after dinner he became very light headed and dizzy. Pt does say he feels nauseated but no vomiting. History of Present Illness HPI narrative: 79-year-old male with history of CAD, four-vessel bypass, pacemaker presents to the ER complaining of lightheadedness and nausea. Patient states he was out in the heat all day working from a tractor, came inside, and this evening when he went to get off off his couch after dinner he felt lightheaded. After many questions and further investigation into this, he describes it as feeling uncoordinated like he is going to fall but he has not fallen. He has no chest pain or difficulty breathing. He has not had any vomiting or diarrhea. No abdominal pain, numbness, tingling, or weakness. He states he thinks it is all from his sinuses draining into his stomach. He denies any room spinning sensation. He states he only has this feeling when he stands up. No recent illness, no headache, no other associated symptoms. Related Data Home Medications ?Medication ?Instructions ?Recorded ?Confirmed ascorbic acid (vitamin C) 500 mg 500 mg PO DAILY Supplement 12/05/22 12/05/22 tablet aspirin 81 mg chewable tablet 81 mg PO DAILY heart health 12/05/22 12/05/22 atorvastatin 80 mg tablet 80 mg PO DAILY High cholesterol 12/05/22 12/05/22 carvedilol 12.5 mg tablet 12.5 mg PO BID High blood pressure 12/05/22 12/05/22 isosorbide mononitrate 30 mg 30 mg PO DAILY High blood pressure 12/05/22 12/05/22 tablet,extended release 24 hr ramipril 10 mg capsule 10 mg PO DAILY High blood pressure 12/05/22 12/05/22 Allergies Allergy/AdvReac Type Severity Reaction Status Date / Time No Known Allergies Allergy Unverified 07/13/17 14:25 [facility] Disclaimer: The information contained in this section may have been updated after the patient was seen, as this information can be updated by other users. Social History (Updated 12/06/22 @ 00:51 by Jori Anthony (NORY)MD) Smoking Status: Never smoker alcohol intake: never current occupational status: retired Travel in the last 8 weeks?: None Have you lived/traveled outside [place] in past 30 days?: No Contact w/someone who lives/traveled outside US past 30 days?: No Exposure to someone with infectious disease in past 14 days?: No Do you have a fever (greater than 100.4 F or 38 C)?: No Have you tested positive for COVID-19?: No Exposed to someone with COVID-19 in past 14 days?: No Do you have a sore throat?: No Do you have a cough?: Yes Do you have any weakness?: No Do you have any diarrhea?: No Are you experiencing any unusual bleeding?: No Do you have any muscle aches/pain?: No Do you have any abdominal pain?: No Are you experiencing loss of taste or smell?: No ROS Obtained: Yes Systems reviewed as appropriate & no additional complaints except as documented Per HPI Physical Exam General General appearance: alert and in no apparent distress Head Head exam: atraumatic and normocephalic Eye Eye exam: Present PERRL and EOMI; Absent nystagmus ENT ENT exam: Present mucous membranes moist Neck Neck exam: Present normal inspection and full ROM Chest Chest inspection: Present symmetric chest wall rise Respiratory Respiratory exam: Present normal lung sounds bilaterally; Absent respiratory distress, wheezes or stridor Cardiovascular Cardiovascular exam: Present regular rate and normal rhythm Abdominal Exam Abdominal exam: Present soft; Absent distention or tenderness Extremities Exam Extremities exam: Present full ROM and edema (+1 bilateral lower extremity pitting edema) Neurological Exam Neurological exam: Present alert, oriented X3, CN II-XII intact and other (Normal [id number] and [id number], NIH 0, GCS 15); Absent motor sensory deficit Psychiatric Psychiatric exam: Present normal affect and normal mood Skin Skin exam: Present warm and dry Medical Decision Making Medical Records Medical records reviewed: Yes I reviewed the patient's medical records. Screening: Per USPSTF and CDC recommendations, given the prevalence of disease in our region, it is our hospital?s policy to screen for HIV and viral Hepatitis for all patients aged 18 and over and those with ongoing risk factors. Nigel Inquiry Pt receiving controlled substance: No Vital Signs: 02/10/25 00:35 02/10/25 00:45 02/10/25 02:11 Temperature 98.3 F Temperature Source Oral Pulse Rate 62 68 Pulse Rate [Left] 64 Pulse Rate [Orthostatic Lying] Pulse Rate [Orthostatic Sitting] Pulse Rate [Orthostatic Standing] Respiratory Rate 18 14 Blood Pressure 126/72 171/87 H Blood Pressure [Orthostatic Lying Right Arm] Blood Pressure [Orthostatic Sitting Right Arm] Blood Pressure [Orthostatic Standing Right Arm] Blood Pressure [Right Arm] 137/73 Blood Pressure Mean 79 111 Blood Pressure Mean [Right Arm] 94 Blood Pressure Source Blood Pressure Source [Right Arm] Automatic Cuff Blood Pressure Position Blood Pressure Position [Right Arm] Sitting 02 Sat by Pulse Oximetry 94 L 94 L 96 Oxygen Delivery Method Room Air 02/10/25 02:14 02/10/25 03:25 02/10/25 03:27 Temperature Temperature Source Pulse Rate 69 66 72 Pulse Rate [Left] Pulse Rate [Orthostatic Lying] Pulse Rate [Orthostatic Sitting] Pulse Rate [Orthostatic Standing] Respiratory Rate Blood Pressure 162/82 H 128/69 120/59 L Blood Pressure [Orthostatic Lying Right Arm] Blood Pressure [Orthostatic Sitting Right Arm] Blood Pressure [Orthostatic Standing Right Arm] Blood Pressure [Right Arm] Blood Pressure Mean 108 79 83 Blood Pressure Mean [Right Arm] Blood Pressure Source Blood Pressure Source [Right Arm] Blood Pressure Position Blood Pressure Position [Right Arm] 02 Sat by Pulse Oximetry 97 96 96 Oxygen Delivery Method 02/10/25 03:28 02/10/25 03:37 02/10/25 04:30 Temperature 98 F Temperature Source Pulse Rate 69 65 Pulse Rate [Left] Pulse Rate [Orthostatic Lying] 66 Pulse Rate [Orthostatic Sitting] 65 Pulse Rate [Orthostatic Standing] 68 Respiratory Rate 16 Blood Pressure 124/65 124/65 Blood Pressure [Orthostatic Lying Right Arm] 128/69 Blood Pressure [Orthostatic Sitting Right Arm] 120/69 Blood Pressure [Orthostatic Standing Right Arm] 124/65 Blood Pressure [Right Arm] Blood Pressure Mean 78 Blood Pressure Mean [Right Arm] Blood Pressure Source Automatic Cuff Blood Pressure Source [Right Arm] Blood Pressure Position Sitting Blood Pressure Position [Right Arm] 02 Sat by Pulse Oximetry 95 Oxygen Delivery Method Room Air Lab Data Lab Results 02/10/25 02:35: WBC 6.9, RBC 4.98, Hgb 15.3, Hct 45.9, MCV 92.2, MCH 30.7, MCHC 33.3, RDW 13.4, Plt Count 139 L, MPV 9.9, Neut % (Auto) 71.0, Lymph % (Auto) 13.7, [place] % (Auto) 11.1 H, Eos % (Auto) 3.5, Baso % (Auto) 0.3, Neut # (Auto) 4.9, Lymph # (Auto) 1.0, [place] # (Auto) 0.8, Eos # (Auto) 0.2, Baso # (Auto) 0.0, PT 11.1, INR 1.00, VBG pH 7.33, VBG pCO2 48.0, VBG pO2 38.3, VBG HCO3 24.9, VBG Total CO2 26.3, VBG O2 Saturation 68.1, VBG Base Excess -1.0, VBG Lactic Acid 1.9, Sodium 135 L, Potassium 4.2, Chloride 100, Carbon Dioxide 26, Anion Gap 13.2, BUN 28 H, Creatinine 0.70, Estimated Creat Clear 103, Estimated GFR 109, Est GFR ( Amer) 132, Glucose 130 H, Calcium 9.7, Total Bilirubin 1.2, AST 36, ALT 44, Alkaline Phosphatase 76, Troponin I < 0.01, NT-Pro-B Natriuret Pep 121, Total Protein 7.8, Albumin 5.0, Globulin 2.8, Albumin/Globulin Ratio 1.8 02/10/25 02:35 02/10/25 02:35 Orders (Tests/Meds): ED MEDICATIONS Discontinued Medications Generic Name Dose Route Start Last Admin Trade Name Gonzalezq PRN Reason Stop Dose Admin Lactated Ringer's 1,000 mls @ 999 mls/hr 02/10/25 00:45 02/10/25 02:44 Lactated Ringer's 1000 Ml Bag IV 02/10/25 01:45 999 mls/hr .Q1H1M ONE Administration Iopamidol 80 ml 02/10/25 03:07 02/10/25 03:10 Iopamidol-370 (76%);100ml Bottle IV 02/10/25 03:08 80 ml ONCE ONE Administration Ondansetron HCl 4 mg 02/10/25 00:58 02/10/25 02:40 Ondansetron 4mg/2ml Vial IV 02/10/25 00:59 4 mg ONCE ONE Administration Sodium Chloride 50 ml 02/10/25 03:07 02/10/25 03:09 0.9 % Sodium Chloride 50 Ml Vial IV 02/10/25 03:08 50 ml ONCE ONE Administration Sodium Chloride 10 ml 02/10/25 03:07 02/10/25 03:09 Sodium Chloride 0.9% 10ml Syr (Rad Only) IV 02/10/25 03:08 10 ml ONCE ONE Administration ORDERS Category Date Time Status CT angio head Stat Cat Scan 02/10/25 00:[address] angio neck Stat Cat Scan 02/10/25 00:[address] head/brain wo con Stat Cat Scan 02/10/25 00:57 Completed CXR 2 view (NOT portable) [XR chest 2V] Stat Exams 02/10/25 00:45 Completed BNP [NT Pro Brain Natriuretic Pep.] Stat Lab 02/10/25 02:35 Completed CBC w/Auto Diff [Complete Blood Count Auto Diff] Stat Lab 02/10/25 02:35 Completed CMP [Comprehensive Metabolic Panel] Stat Lab 02/10/25 02:35 Completed PT INR [Prothrombin Time INR] Stat Lab 02/10/25 02:35 Completed Trop I [Troponin I] Stat Lab 02/10/25 02:35 Completed VBG [Venous Blood Gas] Stat RT 02/10/25 02:35 Completed Medical Decision Narrative: In summary, this 79-year-old male with comorbidities described in the HPI presents to the emergency department today with lightheadedness, nausea. On initial evaluation patient is hemodynamically stable, afebrile, GCS 15, NIH 0, no cerebellar symptoms, no nystagmus, +1 bilateral lower extremity pitting edema, murmur present. Differential diagnosis includes but is not limited to I considered ACS and PE though I am reassured that the patient does not have any chest pain, also considered electrolyte abnormality, dehydration given patient had strenuous work today, also considered the possibility of posterior stroke though patient has no neurologic deficits or findings on thorough neuroexam including GCS 15, NIH 0, among others. Patient does not meet criteria for stroke alert due to timing of onset of symptoms more than 4 and half hours ago and NIH 0. Based on these concerns, I ordered serum labs, CT imaging, cardiac workup. ECG personally interpreted demonstrates paced rhythm, rate 64, QTc 501, no STEMI. Nursing attempted multiple times to obtain IV access but was unable to. They asked me to place an ultrasound IV which I was not able to do immediately due to other patient needs, when I return to the room to perform the ultrasound IV, he refused it. He stated since have been sitting here I have been feeling quite bit better, I got up to go to the bathroom and do not feel nearly as bad. I think I want to go home. Patient would like to sign out AGAINST MEDICAL ADVICE. Patient was able to explain back to me their condition and the risks of leaving up to and including wosening of condition, severe life altering disability, or . Patient was able to provide reason for their decision and clearly express their decision. He wanted to sign out AGAINST MEDICAL ADVICE but as he was getting ready to leave stated let me sit here for few more minutes . He was preparing to leave when his finally talked him out of it. He decided to proceed with workup after waiting in the ER for quite a while. I placed ultrasound IV, see procedure note for details. Labs reviewed by me demonstrate no leukocytosis or anemia, mild thrombocytopenia actually somewhat improved from previous labs though last labs were more than 2 years ago. PT/INR normal, VBG normal, CMP demonstrates prerenal azotemia, patient is already receiving IV fluids. Initial troponin undetectably low less than 0.01 significantly reassuring given patient's duration of symptoms and nonischemic appearing ECG. BNP normal at 121. Chest x-ray personally interpreted does not demonstrate acute thoracic abnormality, specifically no significant pulmonary edema, pneumothorax, or lobar infiltrate, see radiology read for final interpretation. CT head and CT angiography head and neck were personally interpreted and I do not appreciate acute abnormality, I received a phone call from the reading radiologist who stated everything is well-appearing. There is no stenosis or occlusion. Specifically looking at the posterior circulation he has no concerns for stroke. I appreciate his interpretation. See radiology read for full interpretation. On reassessment patient continues to feel significantly improved. He has ambulated multiple times to the ER. I recommended admission for TIA workup but patient refused. I discussed this at length with the patient and his including that his CT imaging is reassuring but that this is not a perfect imaging modality and the MRI would be better but I cannot get MRI tonight and he would have to be transferred for it. I discussed the significant potential risk of if this was a TIA or other stroke precursor that he could go home and have a fulminant stroke leading to permanent disability or . He understands this but would still like to be discharged. He does have capacity to make this decision. His workup is very reassuring and he has no stenosis or other abnormalities within the blood vessels. While patient is refusing my recommendation, he and his are adamant that they can follow-up closely with Dr. Cerna first thing Wednesday. I impressed upon them that if he is going to go home it was extremely important that he see Dr. Cerna on Wednesday and be reevaluated. They both understand this and are very agreeable to this. Patient is refusing transfer or admission despite the risks. Since he is ambulating through the ER and tolerating oral intake with reassuring workup, I am not going to make him sign out AGAINST MEDICAL ADVICE though this decision is a blatant refusal of my recommendations, he and understand this. PRITESH Yates present for conversation. I gave him instructions on continued symptomatic monitoring and management including strict instructions for good hydration. I gave him explicit instructions to follow-up on Wednesday with his primary care doctor. They were both also given strict return precautions for the ER and instructed to not hesitate to return with anything new, worsening, or otherwise concerning. They both indicated understanding and the patient was discharged in stable condition. Procedures Miscellaneous Procedure Procedure Performed: Ultrasound-guided IV Indication: Multiple nursing attempts, need for peripheral IV access Risks and benefits discussed with patient. Consent provided. Procedure details: Area thoroughly cleansed with alcohol. Sterile jelly used for ultrasound. Appropriate vessel identified with real-time ultrasound guidance. 20-gauge IV placed in the right AC with real-time ultrasound guidance, needle directly visualized by me entering the vein on ultrasound. Secured with Tegaderm. IV draws and flushes. Post procedure details: Neurovascularly intact, no changes. No complications. Tolerated procedure well. Critical Care Critical Care Time Critical Care Time: No
[2025-02-10] MEDS: ONDANSETRON 4MG/2ML VIAL 4 MG IV (02:40)
[2025-02-10] MEDS: LACTATED RINGERS 1000ML 1,000 ML 999 ML IV (02:44)
[2025-02-10 02:52] LABS: Hematocrit 45.9 % (42.0-52.0); Hemoglobin 15.3 g/dL (14.1-18.0); Immature Granulocytes % 0.4 %; Mean Corpuscular HGB Conc 33.3 g/dL (31.8-35.4); Mean Corpuscular Hemoglobin 30.7 pg (27.0-31.2); Mean Corpuscular Volume 92.2 fl (80-94); Nucleated Red Blood Cells % 0 %; Platelet Count 139 K/mm3 (142-424); Red Blood Count 4.98 M/mm3 (4.60-6.20); Red Cell Distribution Width-SD 45.2 fL; White Blood Count 6.9 K/mm3 (4.8-10.8)
[2025-02-10 02:56] LABS: Albumin Level 5.0 g/dl (3.5-5.0); Chloride 100 mmol/L (98-107); Potassium 4.2 mmoL/L (3.5-5.1); Sodium 135 mmol/L (136-145)
[2025-02-10 02:59] LABS: Alanine Aminotransferase 44 U/L (12-78); Albumin/Globulin Ratio 1.8 (1.1-1.8); Alkaline Phosphatase 76 U/L (38-126); Anion Gap 13.2 mEq/L (5-15); Aspartate Amino Transferase 36 U/L (17-59); Bilirubin,Total 1.2 mg/dl (0.2-1.3); Blood Urea Nitrogen 28 mg/dl (9-20); Carbon Dioxide 26 mmol/L (22.0-30.0); Creatinine Clearance Estimated 103 mL/min (50-200); Creatinine,Serum 0.70 mg/dl (0.66-1.25); Estimated Glomerular Filt Rate 109 ml/min (>60); GFR (African American) 132 ML/MIN (>60); Globulin 2.8 g/dL (1.3-3.2); Total Protein,Serum 7.8 g/dl (6.3-8.2)
[2025-02-10 03:00] LABS: Calcium 9.7 mg/dl (8.4-10.2); Glucose 130 mg/dl (74-100)
[2025-02-10 03:01] LABS: INR 1.00 (0.9-1.1); Prothrombin Time 11.1 seconds (10.1-12.5)
[2025-02-10 03:06] LABS: Lactate Venous 1.9 mmol/L (0.4-2.0); VBG HCO3 24.9 mmol/L (23-30); VBG PCO2 48.0 mmol/L (35-51); VBG PH 7.33 mmol/L (7.31-7.41); VBG PO2 38.3 mmol/L (28-40)
[2025-02-10 03:09] LABS: NT Pro Brain Natriuretic Pep. 121 pg/mL (0-450)
[2025-02-10] MEDS: SODIUM CHLORIDE 0.9% 10ML SYR (RAD ONLY) 10 ML IV (03:09)
[2025-02-10] MEDS: 0.9 % SODIUM CHLORIDE 50 ML VIAL IV (03:09)
[2025-02-10] MEDS: IOPAMIDOL-370 (76%);100ML BOTTLE 80 ML IV (03:10)
[2025-02-10 03:15] LABS: Troponin I < 0.01 ng/ml (0.00-0.034)
== END 2025-02-10 04:31 | disposition home or self-care (01) ==
PROVIDERS: Emergency Provider Emergency Medicine; PCP Internal Medicine Adolescent Medicine
DX: R42 Dizziness and giddiness (principal); R11.0 Nausea; R39.2 Extrarenal uremia
CPT/HCPCS: 70450; 70496; 70498; 71046; 80053; 82803; 83880; 84484; 85025; 85610; 93005; 96361; 96374; 99285; J2405; J7120; Q9967

== ENCOUNTER 2025-07-15 21:21 | Emergency (ER) | payer MEDICARE, BC, SELFPAY ==
--- OUTSIDE RECORDS SUMMARY | 2024-10-28 16:30 | XMS_ITS ---
Author Organization [facility] Address [address] [place] [address] Care Team Providers Care Computer Field Technician Name Role Phone Dez Cerna Primary Care Provider Migration, Provider Unavailable Unavailable REASON FOR VISIT [facility] To [facility] Conversion Encounter Medications Medication SIG (Take, Route, Frequency, Duration) Notes Start Date End Date Status metFORMIN HCl ER (OSM) 500 MG 2 tabs orally once a day; Duration: 90 days Active Tadalafil 5 MG 1 tab(s) orally once a day; Duration: 90 days Active Vitamin C 500 MG TAKE 1 TABLET BY MOUTH EVERY DAY; Duration: 90 Active Jardiance 25 MG 1 tab(s) orally once a day (in the morning); Duration: 90 days Active NGOZI CHILDREN ASPIRIN 81 MG TAKE 1 TABLET BY MOUTH ONCE DAILY; Duration: 90 DAYS *Please review for potential replacement for e-prescription and drug interaction check* Active Isosorbide Mononitrate ER 30 MG 1 tab(s) orally once a day (in the morning) Active Ramipril 10 MG 1 cap(s) orally once a day; Duration: 90 days Active Atorvastatin Calcium 80 MG 1 tab(s) orally once a day; Duration: 90 days Active Carvedilol 12.5 MG 1 tab(s) orally 2 times a day; Duration: 90 days Active Co Q-10 100 MG 1 cap(s) orally once a day; Duration: 90 days Active Fish Oil 500 MG 1 cap(s) orally once a day Active Encounters Encounter Location Date Provider Diagnosis [facility] [address] [place] [address] 10/28/2024 Provider Migration Plan Of Treatment Medication Medication Name Sig Start Date Stop Date Notes NGOZI CHILDRENS ASPIRIN 81 MG TAKE 1 TABLET BY MOUTH ONCE DAILY; Duration: 90 DAYS *Please review for potential replacement for e-prescription and drug interaction check* Next Appt Details Provider Name:Dez Cerna, 09/05/2025 09:45:00 AM, [facility] [address], [address], [place], [address], Progress Notes * Everette BOO WDOB:[birth year] (79 yo M)Acc No.[id number]:10/28/2024 Patient: Everette GRAY Provider: Vicky Blackwood :1945 A ge:78 Y S ex:Male Date:10/28/2024 Address:[address] [place] [address], [id number] Pcp:Dez Cerna Subjective: * Chief Complaints: * [facility] . [facility] * Medical History: * Medications: T aking Fish Oil 500 MG Capsule 1 cap(s) orally once a day , Taking Atorvastatin Calcium 80 MG Tablet 1 tab(s) orally once a day , Taking Carvedilol 12.5 MG Tablet 1 tab(s) orally 2 times a day , Taking Co Q-10 100 MG Capsule 1 cap(s) orally once a day , Taking Isosorbide Mononitrate ER 30 MG Tablet Extended Release 24 Hour 1 tab(s) orally once a day (in the morning) , Taking Ramipril 10 MG Capsule 1 cap(s) orally once a day , Taking metFORMIN HCl ER (OSM) 500 MG Tablet Extended Release 24 Hour 2 tabs orally once a day , Taking Tadalafil 5 MG Tablet 1 tab(s) orally once a day , Taking Vitamin C 500 MG Tablet TAKE 1 TABLET BY MOUTH EVERY DAY , Taking Jardiance 25 MG Tablet 1 tab(s) orally once a day (in the morning) Objective: * Vitals: Assessment: Plan: * Treatment: * * Electronic signature of Alexandra glasgow Migration on 07/15/2025 at 09:33 PM EST Sign off status: Pending * Provider: Vicky koeing Migration Date: 0 10/28/2024 Generated for Shayy kimble/Alem/Nikki on: 1 09/15/2024 09:33 PM EST
--- OUTSIDE RECORDS SUMMARY | 2025-06-04 04:45 | XMS_ITS ---
Author Organization [facility] Address [address] [place] [address] Care Team Providers Care Chassis Wirer Name Role Phone Dez Cerna Primary Care Provider Allergies No Known Allergies Results Component Value Reference Range Notes LIPID PANEL, STANDARD (7600) Reviewed date:06/05/2025 01:46:46 PM Interpretation: Performing Lab:[facility], [facility] [id number], [place] [id number] Nish Squires Notes/Report: NON-FASTING; NON-FASTING; NON-FASTING; NON-FASTING FASTING:YES FASTING: YES CHOLESTEROL, TOTAL 96 <200 mg/dL HDL CHOLESTEROL 35 > OR = 40 mg/dL TRIGLYCERIDES 163 <150 mg/dL LDL-CHOLESTEROL 37 Reference range: <100 Desirable range <100 mg/dL for primary prevention; <70 mg/dL for patients with CHD or diabetic patients with > or = 2 CHD risk factors. LDL-C is now calculated using the Nuria calculation, which is a validated novel method providing better accuracy than the Friedewald equation in the estimation of LDL-C. Jorge Luis SS et al. EUGENIO. 2013;310(19): 3475-6053 (http://education.Despegar.com.ClearCare/faq/MHR612) CHOL/HDLC RATIO 2.7 <5.0 (calc) NON HDL CHOLESTEROL 61 <130 mg/dL (calc) For patients with diabetes plus 1 major ASCVD risk factor, treating to a non-HDL-C goal of <100 mg/dL (LDL-C of <70 mg/dL) is considered a therapeutic option. COMPREHENSIVE METABOLIC PANE L (36848) Reviewed date:06/05/2025 01:46:46 PM Interpretation: Performing Lab:[facility] [id number] [facility], [place] [id number] Nish Squires Notes/Report: NON-FASTING; NON-FASTING; NON-FASTING; NON-FASTING FASTING:YES FASTING: YES GLUCOSE 113 65-99 mg/dL Fasting reference interval For someone without known diabetes, a glucose value between 100 and 125 mg/dL is consistent with prediabetes and should be confirmed with a follow-up test. UREA NITROGEN (BUN) 14 7-25 mg/dL CREATININE 0.66 0.70-1.28 mg/dL EGFR 97 > OR = 60 mL/min/1.73m2 BUN/CREATININE RATIO 21 6-22 (calc) SODIUM 141 135-146 mmol/L POTASSIUM 4.1 3.5-5.3 mmol/L CHLORIDE 109 98-110 mmol/L CARBON DIOXIDE 22 20-32 mmol/L CALCIUM 9.0 8.6-10.3 mg/dL PROTEIN, TOTAL 6.7 6.1-8.1 g/dL ALBUMIN 4.6 3.6-5.1 g/dL GLOBULIN 2.1 1.9-3.7 g/dL (calc) ALBUMIN/GLOBULIN RATIO 2.2 1.0-2.5 (calc) BILIRUBIN, TOTAL 0.8 0.2-1.2 mg/dL ALKALINE PHOSPHATASE 73 35-144 U/L AST 26 10-35 U/L ALT 34 9-46 U/L CBC (INCLUDES DIFF/PLT) (639 9) Reviewed date:06/05/2025 01:46:46 PM Interpretation: Performing Lab:[facility] [id number] [facility], [facility] [id number] Nish Squires Notes/Report: NON-FASTING; NON-FASTING; NON-FASTING; NON-FASTING FASTING:YES FASTING: YES WHITE BLOOD CELL COUNT 4.6 3.8-10.8 Thousand/ uL RED BLOOD CELL COUNT 5.13 4.20-5.80 Million/uL HEMOGLOBIN 15.7 13.2-17.1 g/dL HEMATOCRIT 47.3 38.5-50.0 % MCV 92.2 80.0-100.0 fL MCH 30.6 27.0-33.0 pg MCHC 33.2 32.0-36.0 g/dL For adults, a slight decrease in the calculated MCHC value (in the range of 30 to 32 g/dL) is most likely not clinically significant; however, it should be interpreted with caution in correlation with other red cell parameters and the patient's clinical condition. RDW 12.9 11.0-15.0 % PLATELET COUNT 148 140-400 Thousand/uL MPV 11.2 7.5-12.5 fL ABSOLUTE NEUTROPHILS 2765 3538-9159 cells/uL ABSOLUTE LYMPHOCYTES 2273 372-2157 cells/uL ABSOLUTE MONOCYTES 547 200-950 cells/uL ABSOLUTE EOSINOPHILS 156 15-500 cells/uL ABSOLUTE BASOPHILS 41 0-200 cells/uL NEUTROPHILS 60.1 LYMPHOCYTES 23.7 MONOCYTES 11.9 EOSINOPHILS 3.4 BASOPHILS 0.9 HEMOGLOBIN A1c (496) Reviewed date:06/05/2025 01:46:46 PM Interpretation: Performing Lab:[facility], [facility] [facility] [place], [facility] [id number] Nish Squires Notes/Report: NON-FASTING; NON-FASTING; NON-FASTING; NON-FASTING FASTING:YES FASTING: YES HEMOGLOBIN A1c 6.9 <5.7 % For someone [...] of diabetes for children. REASON FOR VISIT F/U and Flu Shot Medications Medication SIG (Take, Route, Frequency, Duration) Notes Start Date End Date Status Co Q-10 100 MG 1 cap(s) orally once a day; Duration: 90 days Active Vineet Low Dose 81 MG TAKE 1 TABLET BY MO UTH ONCE DAILY; Duration: 90 Active Jardiance 25 MG 1 tab(s) orally once a day (in the morning); Duration: 90 days Active Ramipril 10 MG 1 cap(s) orally once a day; Duration: 90 days Active Isosorbide Mononitrate ER 30 MG 1 tab(s) orally once a day (in the morning) Active Vitamin C - as directed Orally Active Carvedilol 12.5 MG 1 tab(s) orally 2 ti mes a day; Duration: 90 days Active Atorvastatin Calcium 80 MG 1 tab(s) oral ly once a day; Duration: 90 days Active Fish Oil 500 MG 1 cap(s) orally once a day Active Immunizations Vaccine Route Administration Date Status Comme nts Fluzone High Dose IM Intramuscular 06/04/2025 Administered Social History Tobacco Use: Social History Observation Description Date Details (start date - stop date) Never Smoker NA - NA Smoking: Question Answer Notes Are you a: nonsmoker Vital Signs Temperature 97.7 degrees Fahrenheit 06/04/20 25 Blood pressure systolic 124 mm Hg 06/04/20 25 Blood pressure diastolic 78 mm Hg 025 Heart Rate 64 /min 06/04/2025 Height 5' 9 in 06/04/2025 Weight 256 lbs 06/04/2025 BMI 37.8 kg/m2 06/04/2025 Encounters Encounter Location Date Provider Diagnosis [facility] [address] [place] [address] 06/04/2025 Dez Cerna Immunization(s) administered Z23 ; Hyperlipemia, idiopathic familial E78.5 ; Hypertension, essential I10 ; Aortic valve disease I35.9 ; Type 2 diabetes mellitus with other circulatory complications E11.59 and Atherosclerotic heart disease of [place] coronary artery without angina pectoris I25.10 Assessments Encounter Date Diagnosis (ICD Code) Assessment Notes Treatment Notes Treatment Clinical Notes Section Notes 06/04/2025 Immunization(s) administered (ICD-10 - Z23) Flu shot today, declines other vaccinations 06/04/2025 Hyperlipemia, 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 I will review all labs personally 06/04/2025 Hypertension, essential (ICD-10 - I10) Excellent blood pressure control, no changes in plan 06/04/2025 Aortic valve disease (ICD-10 - I35.9) Reviewed cardiology note from April. Echocardiogram at that office visit showed slightly diminished valve area. It might have been artifact. They will be seeing him back in July to monitor valve area progression. He has no symptoms at this point. We discussed symptoms of worsening stenosis. I will see him back in 06/04/2025 Type 2 diabetes mellitus with other circulatory complications (ICD-10 - E11.59) Check A1c. Has been a much better job with diet and exercise. 06/04/2025 Atherosclerotic heart disease of [place] coronary artery without angina pectoris (ICD-10 - I25.10) See notes above, no symptoms of atherosclerosis at this point Plan Of Treatment Treatment Notes Assessment Notes Immunization(s) administered Flu shot to day, declines other vaccinations Hyperlipemia, idiopathic familial Given coronary disease needs aggressive control of lipids, continues to be on high dose statin, will check LDL. I will review all labs personally Hypertension, essential Excellent blood pressure control, no changes in plan Aortic valve disease Reviewed cardiology note from April. Echocardiogram at that office visit showed slightly diminished valve area. It might have been artifact. They will be seeing him back in July to monitor valve area progression. He has no symptoms at this point. We discussed symptoms of worsening stenosis. I will see him back in August Type 2 diabetes mellitus wit h other circulatory complications Check A1c. Has been a much better job wi th diet and exercise. Atherosclerotic heart diseas e of [place] coronary artery without angina pectoris See notes above, no symptoms of atherosclerosis at this point Next Appt Details Follow Up: 3 Months, Reason: Provider Name:Dez Cerna, 09/05/2025 09:45:00 AM, [address], [address], [place], [address], Progress Notes * Everette BOO WDOB:[birth year] (79 yo M)Acc No.[id number]:06/04/2025 Progress Notes Patient: Everette GRAY W Provider: Annika Cerna MD :1945 A ge:79 Y S ex:Male Date:06/04/2025 Address:[address] [place] [address], SPENS[place] [id number] Subjective: * Chief Complaints: * 1 . F/U and Flu Shot. * HPI: g en: Here to follow-up his multiple medical problems. Had labs done 6 months ago. Due for these again. Tolerating medications well. Feels like he feels pretty good, exertional problems are not noted. Continues to be very active. I reviewed cardiology consult notes from April, see discussion below. * Medical History: H ypertension, Hypercholestrolemia, CAD [...] in pelvis 02/2016, [place] 02/2016, colectomy 02/2021, Light headedness 01/2025. * Family History: F ather: , CAD. M other: , CAD. P aternal Grand Father: . P aternal Grand Mother: . M aternal Grand Father: . M aternal Grand Mother: . P aternal uncle: , CAD. P aternal aunt: . M aternal uncle: . S iblings: alive, 1 brother CAD. C hildren: alive. 5 brother(s) . 3 son(s) , 2 daughter(s) - healthy. . * Social History: S moking: no A re you a: n onsmoker. R ecreational drug use: no. Exercise: yes, farm, walk. Home smoke detector use: yes, Tea and pepsi on occasion. Caffeine: no. Living Will: Yes. Alcohol: no. Sexually active: yes. Travel outside [place]: no. 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 * Medications: T aking Vitamin C - Tablet Chewable as directed Orally , Taking Fish Oil 500 MG Capsule 1 cap(s) [...] cap(s) orally once a day , Taking Jardiance 25 MG Tablet 1 tab(s) orally once a day (in the morning) , Taking Vineet Low Dose 81 MG Tablet Chewable TAKE 1 TABLET BY MOUTH ONCE DAILY , Medication List reviewed and reconciled with the patient * Allergies: N .K.D.A. Objective: * Vitals: N urse: KJ, Pain: 0, Temp: 97.7, RR: 16, HR: 64, BP: 124/78, Ht: 5' 9 , Wt: 256, BMI:37.8. * Examination: G eneral Examination: General P leasant and Cooperative, NAD on RA,. Heart: P reviously noted late systolic ejection murmur, occasional ectopic beats.. Lungs: L CTAB, No wheezes, crackles or rhonchi, Good air movement,. Skin: w ithout acute rashes. Extremities: N o peripheral edema in feet. Moves all extremities well. 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 Psych N ormal Mood/Affect. Assessment: * Assessment: 1. H yperlipemia, idiopathic familial - E78.5 (Primary) 2 . I mmunization(s) administered - Z23 3 . H ypertension, essential - I10 4 . A ortic valve disease - I35.9 5 . T ype 2 diabetes mellitus with other circulatory complications - E11.59 6 . A therosclerotic heart disease of [place] coronary artery without angina pectoris - I25.10 Plan: * Treatment: Value Reference Range T RIGLYCERIDES 163 H <150 - mg/dL * C HOLESTEROL, TOTAL 96 <200 - mg/dL * H DL CHOLESTEROL 35 L > OR = 40 - mg/dL * L DL-CHOLESTEROL 37 - mg/dL (calc) * C HOL/HDLC RATIO 2.7 <5.0 - (calc) * N ON HDL CHOLESTEROL 61 <130 - mg/dL (calc) * This lab was reviewed by Grabiel Cerna on 06/05/2025 at 13:46 PM EST ?LAB: COMPREHENSIVE METABOLIC PANEL (31441)* Value Reference Range G LUCOSE 113 H 65-99 - mg/dL * U OUSMANE NITROGEN (BUN) 14 7-25 - mg/dL * C REATININE 0.66 L 0.70-1.28 - mg/dL * B UN/CREATININE RATIO 21 6-22 - (calc) * S ODIUM 141 135-146 - mmol/L * P OTASSIUM 4.1 3.5-5.3 - mmol/L * C HLORIDE 109 98-110 - mmol/L * C ARBON DIOXIDE 22 20-32 - mmol/L * C ALCIUM 9.0 8.6-10.3 - mg/dL * P ROTEIN, TOTAL 6.7 6.1-8.1 - g/dL * A LBUMIN 4.6 3.6-5.1 - g/dL * G LOBULIN 2.1 1.9-3.7 - g/dL (calc ) * A LBUMIN/GLOBULIN RATIO 2.2 1.0-2.5 - (calc) * B ILIRUBIN, TOTAL 0.8 0.2-1.2 - mg/dL * A LKALINE PHOSPHATASE 73 35-144 - U/L * A ST 26 10-35 - U/L * A LT 34 9-46 - U/L * E GFR 97 > OR = 60 - mL/min/1 .73m2 * This lab was reviewed by Grabiel Cerna on 06/05/2025 at 13:46 PM EST ?LAB: CBC (INCLUDES DIFF/PLT) (7309)* Value Reference Range W EDWARD BLOOD CELL COUNT 4.6 3.8-10.8 - Thousan d/uL * R ED BLOOD CELL COUNT 5.13 4.20-5.80 - Million/ uL * H EMOGLOBIN 15.7 13.2-17.1 - g/dL * H EMATOCRIT 47.3 38.5-50.0 - % * M CV 92.2 80.0-100.0 - fL * M CH 30.6 27.0-33.0 - pg * M CHC 33.2 32.0-36.0 - g/dL * R DW 12.9 11.0-15.0 - % * P LATELET COUNT 148 140-400 - Thousand/u L * N EUTROPHILS 60.1 - % * A BSOLUTE NEUTROPHILS 2765 9395-4119 - cells/uL * L YMPHOCYTES 23.7 - % * A BSOLUTE LYMPHOCYTES 3204 051-5223 - cells/uL * M ONOCYTES 11.9 - % * A BSOLUTE MONOCYTES 547 200-950 - cells/uL * E OSINOPHILS 3.4 - % * A BSOLUTE EOSINOPHILS 156 15-500 - cells/uL * B ASOPHILS 0.9 - % * A BSOLUTE BASOPHILS 41 0-200 - cells/uL * M PV 11.2 7.5-12.5 - fL * This lab was reviewed by Grabiel Cerna on 06/05/2025 at 13:46 PM EST ?LAB: HEMOGLOBIN A1c (496)* Value Reference Range H EMOGLOBIN A1c 6.9 H <5.7 - % * This lab was reviewed by Grabiel Cerna on 06/05/2025 at 13:46 PM EST Notes: Given coronary disease needs aggressive control of lipids, continues to be on high dose statin, will check LDL. I will review all labs personally?? 2.?Immunization(s) administered? Notes: Flu shot today, declines other vaccinations??3.?Hypertension, essential? Notes: Excellent blood pressure control, no changes in plan??4.?Aortic valve disease? Notes: Reviewed cardiology note from April. Echocardiogram at that office visit showed slightly diminished valve area. It might have been artifact. They will be seeing him back in July to monitor valve area progression. He has no symptoms at this point. We discussed symptoms of worsening stenosis. I will see him back in August??5.?Type 2 diabetes mellitus with other circulatory complications?LAB: LIPID PANEL, STANDARD (7600)* Value Reference Range T RIGLYCERIDES 163 H <150 - mg/dL * C HOLESTEROL, TOTAL 96 <200 - mg/dL * H DL CHOLESTEROL 35 L > OR = 40 - mg/dL * L DL-CHOLESTEROL 37 - mg/dL (calc) * C HOL/HDLC RATIO 2.7 <5.0 - (calc) * N ON HDL CHOLESTEROL 61 <130 - mg/dL (calc) * This lab was reviewed by Grabiel Cerna on 06/05/2025 at 13:46 PM EST ?LAB: COMPREHENSIVE METABOLIC PANEL (73220)* Value Reference Range G LUCOSE 113 H 65-99 - mg/dL * U OUSMANE NITROGEN (BUN) 14 7-25 - mg/dL * C REATININE 0.66 L 0.70-1.28 - mg/dL * B UN/CREATININE RATIO 21 6-22 - (calc) * S ODIUM 141 135-146 - mmol/L * P OTASSIUM 4.1 3.5-5.3 - mmol/L * C HLORIDE 109 98-110 - mmol/L * C ARBON DIOXIDE 22 20-32 - mmol/L * C ALCIUM 9.0 8.6-10.3 - mg/dL * P ROTEIN, TOTAL 6.7 6.1-8.1 - g/dL * A LBUMIN 4.6 3.6-5.1 - g/dL * G LOBULIN 2.1 1.9-3.7 - g/dL (calc ) * A LBUMIN/GLOBULIN RATIO 2.2 1.0-2.5 - (calc) * B ILIRUBIN, TOTAL 0.8 0.2-1.2 - mg/dL * A LKALINE PHOSPHATASE 73 35-144 - U/L * A ST 26 10-35 - U/L * A LT 34 9-46 - U/L * E GFR 97 > OR = 60 - mL/min/1 .73m2 * This lab was reviewed by Grabiel Cerna on 06/05/2025 at 13:46 PM EST ?LAB: CBC (INCLUDES DIFF/PLT) (6272)* Value Reference Range W EDWARD BLOOD CELL COUNT 4.6 3.8-10.8 - Thousan d/uL * R ED BLOOD CELL COUNT 5.13 4.20-5.80 - Million/ uL * H EMOGLOBIN 15.7 13.2-17.1 - g/dL * H EMATOCRIT 47.3 38.5-50.0 - % * M CV 92.2 80.0-100.0 - fL * M CH 30.6 27.0-33.0 - pg * M CHC 33.2 32.0-36.0 - g/dL * R DW 12.9 11.0-15.0 - % * P LATELET COUNT 148 140-400 - Thousand/u L * N EUTROPHILS 60.1 - % * A BSOLUTE NEUTROPHILS 2765 0813-6400 - cells/uL * L YMPHOCYTES 23.7 - % * A BSOLUTE LYMPHOCYTES 7716 036-1892 - cells/uL * M ONOCYTES 11.9 - % * A BSOLUTE MONOCYTES 547 200-950 - cells/uL * E OSINOPHILS 3.4 - % * A BSOLUTE EOSINOPHILS 156 15-500 - cells/uL * B ASOPHILS 0.9 - % * A BSOLUTE BASOPHILS 41 0-200 - cells/uL * M PV 11.2 7.5-12.5 - fL * This lab was reviewed by Grabiel Cerna on 06/05/2025 at 13:46 PM EST ?LAB: HEMOGLOBIN A1c (496)* Value Reference Range H EMOGLOBIN A1c 6.9 H <5.7 - % * This lab was reviewed by Grabiel Cerna on 06/05/2025 at 13:46 PM EST Notes: Check A1c. Has been a much better job with diet and exercise.?? 6.?Atherosclerotic heart disease of [place] coronary artery without angina pectoris?LAB: LIPID PANEL, STANDARD (7600)* Value Reference Range T RIGLYCERIDES 163 H <150 - mg/dL * C HOLESTEROL, TOTAL 96 <200 - mg/dL * H DL CHOLESTEROL 35 L > OR = 40 - mg/dL * L DL-CHOLESTEROL 37 - mg/dL (calc) * C HOL/HDLC RATIO 2.7 <5.0 - (calc) * N ON HDL CHOLESTEROL 61 <130 - mg/dL (calc) * This lab was reviewed by Grabiel Cerna on 06/05/2025 at 13:46 PM EST ?LAB: COMPREHENSIVE METABOLIC PANEL (54022)* Value Reference Range G LUCOSE 113 H 65-99 - mg/dL * U OUSMANE NITROGEN (BUN) 14 7-25 - mg/dL * C REATININE 0.66 L 0.70-1.28 - mg/dL * B UN/CREATININE RATIO 21 6-22 - (calc) * S ODIUM 141 135-146 - mmol/L * P OTASSIUM 4.1 3.5-5.3 - mmol/L * C HLORIDE 109 98-110 - mmol/L * C ARBON DIOXIDE 22 20-32 - mmol/L * C ALCIUM 9.0 8.6-10.3 - mg/dL * P ROTEIN, TOTAL 6.7 6.1-8.1 - g/dL * A LBUMIN 4.6 3.6-5.1 - g/dL * G LOBULIN 2.1 1.9-3.7 - g/dL (calc ) * A LBUMIN/GLOBULIN RATIO 2.2 1.0-2.5 - (calc) * B ILIRUBIN, TOTAL 0.8 0.2-1.2 - mg/dL * A LKALINE PHOSPHATASE 73 35-144 - U/L * A ST 26 10-35 - U/L * A LT 34 9-46 - U/L * E GFR 97 > OR = 60 - mL/min/1 .73m2 * This lab was reviewed by Grabiel Cerna on 06/05/2025 at 13:46 PM EST ?LAB: CBC (INCLUDES DIFF/PLT) (4639)* Value Reference Range W EDWRAD BLOOD CELL COUNT 4.6 3.8-10.8 - Thousan d/uL * R ED BLOOD CELL COUNT 5.13 4.20-5.80 - Million/ uL * H EMOGLOBIN 15.7 13.2-17.1 - g/dL * H EMATOCRIT 47.3 38.5-50.0 - % * M CV 92.2 80.0-100.0 - fL * M CH 30.6 27.0-33.0 - pg * M CHC 33.2 32.0-36.0 - g/dL * R DW 12.9 11.0-15.0 - % * P LATELET COUNT 148 140-400 - Thousand/u L * N EUTROPHILS 60.1 - % * A BSOLUTE NEUTROPHILS 2765 9921-2246 - cells/uL * L YMPHOCYTES 23.7 - % * A BSOLUTE LYMPHOCYTES 6416 292-7897 - cells/uL * M ONOCYTES 11.9 - % * A BSOLUTE MONOCYTES 547 200-950 - cells/uL * E OSINOPHILS 3.4 - % * A BSOLUTE EOSINOPHILS 156 15-500 - cells/uL * B ASOPHILS 0.9 - % * A BSOLUTE BASOPHILS 41 0-200 - cells/uL * M PV 11.2 7.5-12.5 - fL * This lab was reviewed by Grabiel Cerna on 06/05/2025 at 13:46 PM EST ?LAB: HEMOGLOBIN A1c (496)* Value Reference Range H EMOGLOBIN A1c 6.9 H <5.7 - % * This lab was reviewed by Grabiel Cerna on 06/05/2025 at 13:46 PM EST Notes: See notes above, no symptoms of atherosclerosis at this point?? * Immunizations: Fluzone High Dose : 0.7 mL (Route: Intramuscular) given by MAYO David on Right Arm (Immunization(s) administered) * Procedure Codes: 9 0662 Influenza High Dose Vaccine >65 Years Old, Units: 1.40 , G0008 ADMINISTRATION-FLU VACCINE MEDICARE ONLY, 83725 ADMINISTRATION IMMUNIZATION ONE VACCINE, G2211 Complex e/m visit add on * Follow Up: 3 Months * * Sign off status: Completed true * Provider: Annika eCrna MD Date: 1 08/04/2024 Generated for Shayy kimble/Alem/Federicoitting on: 09/15/2024 09:32 PM EST History and Physical Notes * HPI (History of Present Illness) Category Sub-Category Detail Notes Category Not es gen Here to follow-up his multiple medical problems. Had labs done 6 months ago. Due for these again. Tolerating medications well. Feels like he feels pretty good, exertional problems are not noted. Continues to be very active. I reviewed cardiology consult notes from April, see discussion below Examination Category Sub-Category Detail Notes Category Not es General Examination Heart: Previously n oted late systolic ejection murmur, occasional ectopic beats. Lungs: LCTAB, No wheezes, c rackles or rhonchi, Good air movement, Extremities: No peripheral edema in feet. Moves all extremities well. 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
--- NOTE | 2025-07-15 21:27 | ED_ITS ---
Discharge Plan Disposition Chief Complaint: Ear Prescriptions Prescriptions: No Action atorvastatin 80 mg tablet 80 mg PO DAILY Patient Comments: TAKE 1 TABLET BY MOUTH EVERY NIGHT carvedilol 12.5 mg tablet 12.5 mg PO BID Patient Comments: TAKE 1 TABLET BY MOUTH TWICE DAILY isosorbide mononitrate 30 mg tablet extended release 24 hr 30 mg PO DAILY Patient Comments: TAKE 1 TABLET BY MOUTH DAILY ascorbic acid (vitamin C) 500 mg tablet 500 mg PO DAILY Patient Comments: TAKE 1 TABLET BY MOUTH EVERY DAY aspirin 81 mg tablet,chewable 81 mg PO DAILY Patient Comments: TAKE 1 TABLET BY MOUTH ONCE DAILY ramipril 10 mg capsule 10 mg PO DAILY Patient Comments: TAKE 1 CAPSULE BY MOUTH DAILY Referrals Follow up/Referrals: Dez Cerna MD [Primary Care Provider, Internal Medicine] - See instructions Print Language Print Language: Romanian Discharge ED Provider: Radha Lindsay General Adult HPI General Chief complaint: Ear Stated complaint: Right earache Time Seen by Provider: 07/15/25 21:27 History of Present Illness HPI narrative: Patient is a 79-year-old with past medical history significant for hypertension presents to the emergency department with right ear pain. Pain started 2 hours prior to arrival patient has had congestion and sinus pressure for the last few days. No foreign bodies in the ear. Related Data Home Medications ?Medication ?Instructions ?Recorded ?Confirmed ascorbic acid (vitamin C) 500 mg 500 mg PO DAILY Suppl ement 12/05/22 12/05/22 tablet aspirin 81 mg chewable tablet 81 mg PO DAILY heart hea lth 12/05/22 12/05/22 atorvastatin 80 mg tablet 80 mg PO DAILY High choleste rol 12/05/22 12/05/22 carvedilol 12.5 mg tablet 12.5 mg PO BID High blood pr essure 12/05/22 12/05/22 isosorbide mononitrate 30 mg 30 mg PO DAILY High blood pressure 12/05/22 tablet,extended release 24 hr ramipril 10 mg capsule 10 mg PO DAILY High blood pr essure 12/05/22 12/05/22 Allergies Allergy/AdvReac Type Severity Reaction Status Date / Time No Known Allergies Allergy Unverified 07/13/17 14:25 [facility] Disclaimer: The information contained in this section may have been updated after the patient was seen, as this information can be updated by other users. Social History (Updated 12/06/22 @ 00:51 by Jori Anthony (NORY)MD) Smoking Status: Never smoker alcohol intake: never current occupational status: retired Travel in the last 8 weeks?: None Have you lived/traveled outside US in past 30 days?: No Contact w/someone who lives/traveled outside US past 30 days?: No Exposure to someone with infectious disease in past 14 days?: No Do you have a fever (greater than 100.4 F or 38 C)?: No Have you tested positive for COVID-19?: No Exposed to someone with COVID-19 in past 14 days?: No Do you have a sore throat?: No Do you have a cough?: No Do you have any weakness?: No Do you have any diarrhea?: No Are you experiencing any unusual bleeding?: No Do you have any muscle aches/pain?: No Do you have any abdominal pain?: No Are you experiencing loss of taste or smell?: No ROS Obtained: Yes All systems reviewed & no additional complaints except as documented Physical Exam General General appearance: alert and in no apparent distress ENT ENT exam: Present mucous membranes moist and other (opaque right TM with erythema lack of light reflex, congestion) Respiratory Respiratory exam: Absent respiratory distress Cardiovascular Cardiovascular exam: Present regular rate and normal rhythm Abdominal Exam Abdominal exam: Present soft; Absent tenderness Neurological Exam Neurological exam: Present alert and oriented X3 Skin Skin exam: Present warm and dry Medical Decision Making Medical Records Screening: Per USPSTF and CDC recommendations, given the prevalence of disease in our region, it is our hospital?s policy to screen for HIV and viral Hepatitis for all patients aged 18 and over and those with ongoing risk factors. Nigel Inquiry Pt receiving controlled substance: No Vital Signs: 07/15/25 21:29 Temperature 99.0 F Temperature Source Oral Pulse Rate [Right] 88 Respiratory Rate 18 Blood Pressure [Right Arm] 157/97 H Blood Pressure Mean [Right Arm] 117 Blood Pressure Source [Right Arm] Automatic Cuff Blood Pressure Position [Right Arm] Sitting 02 Sat by Pulse Oximetry 98 Oxygen Delivery Method Room Air Medical Decision Narrative: In summary, this 79-year-old male presents to the emergency department today with ear pain. On initial evaluation patient is hemodynamically stable saturating appropriately on room air afebrile no acute distress. Differential diagnosis includes but is not limited to acute otitis media serous otitis media foreign body cerumen impaction otitis externa. Exam is most significant for acute otitis media will treat with amoxicillin will give 1 dose in the emergency department and then will prescribe it to him 75 mg twice daily for the next 10 days. On repeat evaluation patient is improved and symptoms agreeable to discharge at this time. Critical Care Critical Care Time Critical Care Time: No
[2025-07-15 21:29] VITALS: BP 157/97; PULSE 88; RESP 18; TEMP 37.2; O2SAT 98; BMI 36.7
--- OUTSIDE RECORDS SUMMARY | 2025-07-15 21:31 | XMS_ITS | Encounter Summary ---
Author Organization [employer] ([place], [place], [place], [place], [place]) Address [address] [place] [address] Care Team Providers Care Oil Derrick Operator Name Role Phone Unavailable Primary Care Provider Unavailabl e Encounter Details Date Type Department Care Team (Late st Contact Info) Description 03/27/2021 Transcribed Document [facility] [place] [address] [place] [address] ProviderLele MD [address] [place] [address] Social History Tobacco Use Types [...] 03/27/2021 19:58 EDT Description of Event : Lia removed at 1330. Patient assisted to sit in chair for majority of afternoon. Patient ambulated in room with assist. Patient unable to void on own. Bladder scan at 1930 revealed <100 mL urine retention. No indication to straight cath patient at this time. Communicated this to stamp press operator RNLudin. Fluids maintained at 125 mL/hr since patient was unable to void. Cynthia Aguilar RN - 03/27/2021 19:58 EDT Electronically signed by Félix [facility] Conversion Mortgage Loan Computation Clerk Jonel at 11/11/2022 6:48 PM CDT documented in this encounter Plan of Treatment Not on file documented as of this encounter Visit Diagnoses Not on filedocumented in this encounter
--- OUTSIDE RECORDS SUMMARY | 2025-07-15 21:31 | XMS_ITS | Encounter Summary ---
Author Organization [employer] ([place], [place], [place], [place], [place]) Address [address] [place] [address] Care Team Providers Care Snow Blower Name Role Phone Unavailable Primary Care Provider Unavailabl e Encounter Details Date Type Department Care Team (Late st Contact Info) Description 03/28/2021 Transcribed Document [facility] [place] [facility] [place] [address] ProviderLele MD [address], [place] [...] Notes * Cerner Conversion Note - Historical Provider, - 03/28/2021 4:03 PM CDT Treatment Intervention, PT Entered On: 03/29/2021 16:21 EDT Performed On: 03/29/2021 16:19 EDT by ASHLEIGH COELLO PT General Information, PT Visit Type, PT : Treatment Note Patient Orders : Order Date Order Ordering 03/27/2021 12:19 PT Evaluation and Treatment Ordered By: LAUREN KENDALL MD-INT 03/28/2021 16:03 PT Additional Treatment Ordered By: CHAPIN INIGUEZ, KANDIS Active Diagnoses : 03/26/2021 12:00 Abdominal pain [...] to Sit : Rehab Minimal assistance ASHLEIGH COELLO PT - 03/29/2021 16:21 EDT Gait Training/Assessment, [...] ASHLEIGH COELLO, PT - 03/29/2021 16:21 EDT Custodial Goals Mobility/Bed Mobility LTG PT Grid Goal [...] ASHLEIGH COELLO, PT - 03/29/2021 16:21 EDT Patient/Electric Range Assembler PT LTG Grid Goal #1 Goal : [...] ASHLEIGH COELLO, PT - 03/29/2021 16:21 EDT [place] PT Charges PT Therap. Exercise 15 min : 1 PT Ther Activities Ea 15 Min : 1 ASHLEIGH COELLO, PT - 03/29/2021 16:21 EDT Electronically signed by Tony Heard Conversion Certified Professional Ergonomist Cerner at 11/13/2022 11:32 AM CDT documented in this encounter Plan of Treatment Not on file documented as of this encounter Visit Diagnoses Not on filedocumented in this encounter
--- OUTSIDE RECORDS SUMMARY | 2025-07-15 21:31 | XMS_ITS | Encounter Summary ---
Author Organization [employer] ([place], [place], [place], [place], [place]) Address [address] [place] [address] Care Team Providers Care Swimming Professor Name Role Phone Unavailable Primary Care Provider Unavailabl e Encounter Details Date Type Department Care Team (Late st Contact Info) Description 03/27/2021 Transcribed Document [facility] [address] [place] [address] ProviderLele MD [address] [place] [address] Social History Tobacco Use [...] Tere Duckworth RN - 03/27/2021 8:33 EDT Electronically signed by Iglesia Heard Conversion Assistant Golf Professional Cerrickey at 11/11/2022 6:30 PM CDT documented in this encounter Plan of Treatment Not on file documented as of this encounter Visit Diagnoses Not on filedocumented in this encounter
--- OUTSIDE RECORDS SUMMARY | 2025-07-15 21:31 | XMS_ITS | Encounter Summary ---
Author Organization [employer] ([place], [place], [place], [place], [place]) Address [address] [place] [address] Care Team Providers Care Wide Area Network Engineer Name Role Phone Unavailable Primary Care Provider Unavailabl e Encounter Details Date Type Department Care Team (Late st Contact Info) Description 03/28/2021 Transcribed Document [facility] [place] [address] [place] [address] ProviderLele MD [address] [place] [address] Social History Tobacco Use Types [...] Conversion Note - Historical ProviderMD - 03/28/2021 12:00 AM CDT Pain [...]
--- OUTSIDE RECORDS SUMMARY | 2025-07-15 21:31 | XMS_ITS | Encounter Summary ---
Author Organization [email or web address] ([place], [place], [place], [place], [place]) Address [address] [place] [address] Care Team Providers Care Saw Tailer Name Role Phone Unavailable Primary Care Provider Unavailabl e Encounter Details Date Type Department Care Team (Late st Contact Info) Description 03/27/2021 Transcribed Document [facility] [place] [address] [place] [address] ProviderLele MD [address] [place] [address] Social History Tobacco Use Types [...]
--- OUTSIDE RECORDS SUMMARY | 2025-07-15 21:31 | XMS_ITS | Encounter Summary ---
Author Organization [employer] ([place], [place], [place], [place], [place]) Address [address] [place] [address] Care Team Providers Care Genetic Counsellor Name Role Phone Unavailable Primary Care Provider Unavailabl e Encounter Details Date Type Department Care Team (Late st Contact Info) Description 03/28/2021 Transcribed Document [facility] [place] [address] [place] [address] ProviderLele MD [address] [place] [address] Social History Tobacco Use Types [...] Historical ProviderMD - 03/28/2021 2:00 AM CDT Cooperative Manager Details Entered On: 03/28/2021 5:23 EDT Performed [...] Ludin Breen RN - 03/28/2021 5:23 EDT Electronically signed by Iglesia Heard Conversion Carbon Paper Coating Supervisor Cerner at 11/11/2022 6:42 PM CDT documented in this encounter Plan of Treatment Not on file documented as of this encounter Visit Diagnoses Not on filedocumented in this encounter
--- OUTSIDE RECORDS SUMMARY | 2025-07-15 21:31 | XMS_ITS | Encounter Summary ---
Author Organization [employer] ([place], [place], [place], [place], [place]) Address [address] [place] [address] Care Team Providers Care Clerk Specialist Name Role Phone Unavailable Primary Care Provider Unavailabl e Encounter Details Date Type Department Care Team (Late st Contact Info) Description 03/29/2021 Transcribed Document [facility] [place] [address] [place] [address] ProviderLele MD [address] [place] [address] Social History Tobacco Use Types [...]
--- OUTSIDE RECORDS SUMMARY | 2025-07-15 21:31 | XMS_ITS | Encounter Summary ---
Author Organization [employer] ([place], [place], [place], [place], [place]) Address [address] [place] [address] Care Team Providers Care Woven Blind Loom Tender Name Role Phone Unavailable Primary Care Provider Unavailabl e Encounter Details Date Type Department Care Team (Late st Contact Info) Description 03/27/2021 Transcribed Document [facility] [place] [address] [place] [address] ProviderLele MD [address] [place] [address] Social History Tobacco Use Types [...] 03/27/2021 8:13 EDT Electronically signed by Félix [facility] Conversion Press Assistant Cerner at 11/11/2022 6:43 PM CDT documented in this encounter Plan of Treatment Not on file documented as of this encounter Visit Diagnoses Not on filedocumented in this encounter
--- OUTSIDE RECORDS SUMMARY | 2025-07-15 21:31 | XMS_ITS | Encounter Summary ---
Author Organization [employer] ([place], [place], [place], [place], [place]) Address [address] [place] [address] Care Team Providers Care Veneer Cutter Name Role Phone Unavailable Primary Care Provider Unavailabl e Encounter Details Date Type Department Care Team (Late st Contact Info) Description 03/27/2021 Transcribed Document [facility] [place] [address] [place] [address] ProviderLele MD [address] [place] [address] Social History Tobacco Use Types [...] On: 03/27/2021 13:17 EDT by YANCI FERRERA RN-Die Forger Initial Assessment I Previously Documented Living Environment : No qualifying data available. Patient Lives With : Spouse Emergency Contact #1 : Kaylah Pavonmk Emergency Contact #1 Phone Number : [phone] Emergency Contact #1 Relationship : spouse Emergency Contact #2 : * Emergency Contact #2 Phone Number : * Emergency Contact #2 Relationship : * Enter Doctors Name : Dez Cerna Does Patient have PCP Listed? : Yes Legal Guardian : No Is Guardianship Needed : No YANCI FERRERA RN-Die Forger - 03/27/2021 13:17 EDT Initial Assessment II Sensory and Motor Deficits : None Current Home Treatments and Equipment : None Services and Community Resources : Home Health (Comment: Pt states that he has used HH in the past, unable to recall name of agency [YANCI FERRERA RN-Die Forger - 03/27/2021 13:17 EDT] ) Services and Community Resources Addl Comments : Pt states that he has beent orehab in the past Does the Patient have a Floor to SNF Benefit? : Yes YANCI FERRERA RN-Die Forger - 03/27/2021 13:17 EDT Discharge Needs I Anticipated Discharge Date : 03/29/2021 EDT Anticipated Discharge To, CM : Home with family care Current Home Treatment/Equipment : Current Home Treatment/Equipment No qualifying data available. Post Acute/Home Treatments : None Documentation Status Complete : Yes YANCI FERRERA RN-Die Forger - 03/27/2021 13:17 EDT Discharge Needs II Professional Skilled Services : Professional Skilled Services No qualifying data available. Needs Assistance with Transportation : No Patient Discharge Goal : Home YANCI FERRERA RN-Die Forger - 03/27/2021 13:17 EDT Narrative Note Narrative [...] boost 3. CM will follow YANCI FERRERA RN-Die Forger - 03/27/2021 13:17 EDT documented in this encounter Plan of Treatment Not on file documented as of this encounter Visit Diagnoses Not on filedocumented in this encounter
--- OUTSIDE RECORDS SUMMARY | 2025-07-15 21:31 | XMS_ITS | Encounter Summary ---
Author Organization [employer] ([place], [place], [place], [place], [place]) Address [address] [place] [address] Care Team Providers Care Airplane Charter Clerk Name Role Phone Unavailable Primary Care Provider Unavailabl e Encounter Details Date Type Department Care Team (Late st Contact Info) Description 03/27/2021 Transcribed Document [facility] [place] [address] [place] [address] ProviderLele MD [address] [place] [address] Social History Tobacco Use Types [...] Cynthia Aguilar RN - 03/27/2021 19:57 EDT Electronically signed by Iglesia Heard Conversion Associate Professor Of Biostatistics Cerner at 11/11/2022 6:36 PM CDT documented in this encounter Plan of Treatment Not on file documented as of this encounter Visit Diagnoses Not on filedocumented in this encounter
--- OUTSIDE RECORDS SUMMARY | 2025-07-15 21:31 | XMS_ITS | Encounter Summary ---
Author Organization [employer] ([place], [place], [place], [place], [place]) Address [address] [place] [address] Care Team Providers Care Bmw Service Technician Name Role Phone Unavailable Primary Care Provider Unavailabl e Encounter Details Date Type Department Care Team (Late st Contact Info) Description 03/28/2021 Transcribed Document [facility] Family Medicine [address] [place] [address] ProviderLele MD [address] [place] [address] Social History Tobacco Use [...] 03/27/2021 23:47:00 EDT ketorolac,15mg IV Push,Left Antecubital Page Pain Assessment Pain Assessment : Follow-up assessment [...]
--- OUTSIDE RECORDS SUMMARY | 2025-07-15 21:31 | XMS_ITS | Encounter Summary ---
Author Organization [employer] ([place], [place], [place], [place], [place]) Address [address] [place] [address] Care Team Providers Care Indoor Plant Technician Name Role Phone Unavailable Primary Care Provider Unavailabl e Encounter Details Date Type Department Care Team (Late st Contact Info) Description 03/27/2021 Transcribed Document [facility] [place] [address] [place] [address] ProviderLele MD [address] [place] [address] Social History Tobacco Use Types [...] 03/27/2021 16:28 EDT Electronically signed by Félix [facility] Conversion Sales Representative Church Furniture Cerner at 11/11/2022 6:43 PM CDT documented in this encounter Plan of Treatment Not on file documented as of this encounter Visit Diagnoses Not on filedocumented in this encounter
--- OUTSIDE RECORDS SUMMARY | 2025-07-15 21:31 | XMS_ITS | Encounter Summary ---
Author Organization [employer] ([place], [place], [place], [place], [place]) Address [address] [place] [address] Care Team Providers Care Ball Warper Tender Name Role Phone Unavailable Primary Care Provider Unavailabl e Encounter Details Date Type Department Care Team (Late st Contact Info) Description 03/28/2021 Transcribed Document [facility] [place] [address] [place] [address] ProviderLele MD [address] [place] [address] Social History Tobacco Use Types [...] Active Orders Reviewed : Yes Ludin Breen, RN - 03/28/2021 5:24 EDT Electronically signed by Félix [facility] Conversion Cushion Gum Applicator Cerner at 11/11/2022 6:54 PM CDT documented in this encounter Plan of Treatment Not on file documented as of this encounter Visit Diagnoses Not on filedocumented in this encounter
--- OUTSIDE RECORDS SUMMARY | 2025-07-15 21:31 | XMS_ITS | Encounter Summary ---
Author Organization [employer] ([place], [place], [place], [place], [place]) Address [address] [place] [address] Care Team Providers Care Acid Operator Name Role Phone Unavailable Primary Care Provider Unavailabl e Encounter Details Date Type Department Care Team (Late st Contact Info) Description 03/28/2021 Transcribed Document [facility] Radiology [address] [place] [address] Kwame Hackett MD [address] [place] [address] [address] Social History Tobacco Use Types Packs/Day Years [...] At risk for sleep apnea / IMO [id number] / Confirmed, Active Problems (8) Amputation d/t [...]
--- OUTSIDE RECORDS SUMMARY | 2025-07-15 21:31 | XMS_ITS | Encounter Summary ---
Author Organization [employer] ([place], [place], [place], [place], [place]) Address [address] [place] [address] Care Team Providers Care Shot Peening Operator Name Role Phone Unavailable Primary Care Provider Unavailabl e Encounter Details Date Type Department Care Team (Late st Contact Info) Description 03/28/2021 Transcribed Document [facility] [address] [place] [address] ProviderLele MD [address] [place] [address] Social History Tobacco Use Types [...] labs Cont IVFs for now Abdominal pain [id number] Abnormal diagnostic test [id number] Medications Inpatient aspirin, 81 mg= 1 Tab, [...] No Known Allergies Electronically signed by Félix [facility] Conversion Trauma Registrar Cerner at 11/11/2022 6:50 PM CDT documented in this encounter Plan of Treatment Not on file documented as of this encounter Visit Diagnoses Not on filedocumented in this encounter
--- OUTSIDE RECORDS SUMMARY | 2025-07-15 21:31 | XMS_ITS | Encounter Summary ---
Author Organization [employer] ([place], [place], [place], [place], [place]) Address [address] [place] [address] Care Team Providers Care Manufacturing Coordinator Name Role Phone Unavailable Primary Care Provider Unavailabl e Encounter Details Date Type Department Care Team (Late st Contact Info) Description 03/27/2021 Transcribed Document [facility] Radiology [address] [place] [address] Kwame Hackett MD [address] [place] [address] [address] [place] [id number] Social History Tobacco Use Types Packs/Day Years [...] At risk for sleep apnea / IMO [id number] / Confirmed, Active Problems (8) Amputation d/t trauma Angina Arthritis At risk for sleep apnea Hyperlipidemia Hypertension Nocturia Stented coronary artery Family history. Positive for coronary artery disease in both his father and his mother Histories Past Medical History: No active or resolved past medical history items have been selected or recorded. Procedure history: Colectomy ([id number]) on 03/12/2021 at 75 Years. pacemaker implant - [facility]. cardiac catheterization with pci. aortic valve replaced, pig valve. CABG x4. left hand surgery. bilateral hip replacement. neva placed in pelvis. aortic valve replacement replacement. pacemaker replacement. Colonoscopy ([id number]). Social History Social & Psychosocial Habits Alcohol [...] Radiology results Radiology Results (Last 48 hours) [id number] -- 03/26/2021 19:17 CT Abdomen Pelvis W [...] Start 03/26/21 16:58:00 EDT, 03/26/21 16:58:00 EDT RAYATEVIN LOVE MD-ANS hydrALAZINE 2.5 mg, IV Push, Inj, [...]
--- OUTSIDE RECORDS SUMMARY | 2025-07-15 21:31 | XMS_ITS | Encounter Summary ---
Author Organization [employer] ([place], [place], [place], [place], [place]) Address [address] [place] [address] Care Team Providers Care Nutrition Technician Name Role Phone Unavailable Primary Care Provider Unavailabl e Encounter Details Date Type Department Care Team (Late st Contact Info) Description 03/28/2021 Transcribed Document [facility] [place] [address] [place] [address] ProviderLele MD [address] [place] [address] Social History Tobacco Use Types [...] of the form. Electronically signed by Félix, [facility] Conversion Circuit Board Drafter Cerner at 11/11/2022 6:33 PM CDT documented in this encounter Plan of Treatment Not on file documented as of this encounter Visit Diagnoses Not on filedocumented in this encounter
--- OUTSIDE RECORDS SUMMARY | 2025-07-15 21:31 | XMS_ITS | Encounter Summary ---
Author Organization [employer] ([place], [place], [place], [place], [place]) Address [address] [place] [address] Care Team Providers Care Ep Tech Name Role Phone Unavailable Primary Care Provider Unavailabl e Encounter Details Date Type Department Care Team (Late st Contact Info) Description 03/27/[address] [facility] [place] Family Medicine [address] [place] [address] ProviderLele MD [address] [place] [address] Social History Tobacco Use Types [...] Insurance 1 Health Plan: MEDICARE Policy Number: [id number] Authorization Number: Insurance 2 Health Plan: [employer] Policy Number: [id number] Authorization Number: Insurance Primary Name : MEDICARE Policy Number: [id number] Authorized Service Begin Date-Primary : 03/26/2021 EDT Historical Authorization Comments-Primary : No Authorization Comments Found MANUEL HARTMAN RN - 03/27/2021 12:35 EDT Electronically signed by Tony Heard Conversion Electrical And Electronic Assembler Cerner at 11/11/2022 6:33 PM CDT documented in this encounter Plan of Treatment Not on file documented as of this encounter Visit Diagnoses Not on filedocumented in this encounter
--- OUTSIDE RECORDS SUMMARY | 2025-07-15 21:31 | XMS_ITS | Encounter Summary ---
Author Organization [employer] ([place], [place], [place], [place], [place]) Address [address] [place] [address] Care Team Providers Care Home Energy Rater Name Role Phone Unavailable Primary Care Provider Unavailabl e Encounter Details Date Type Department Care Team (Late st Contact Info) Description 03/28/2021 Transcribed Document [facility] [place] [facility] [place] [address] ProviderLele MD [address] [place] [address] Social History Tobacco Use Types [...] On: 03/28/2021 11:24 EDT by YANCI FERRERA RN-Surgical Services AssistantScrummaster Progress Note Discharge Arrangements : Patient Post-Acute [...] Meeting Medical Necessity : Yes YANCI FERRERA RN-Surgical Services Assistant - 03/28/2021 11:24 EDT Narrative Progress Note Narrative Progress Note : RRS: High. Boost: 3. LOS: 2 days. ELOS: 3 days. COVID Neg 03/26/2021. Chart reviewed. NG tube remains in place, clear liquid diet. Continue to wait on bowel function to return. No needs anticipated for home. CM will follow. YANCI FERRERA, RN-Surgical Services Assistant - 03/28/2021 11:27 EDT documented in this encounter Plan of Treatment Not on file documented as of this encounter Visit Diagnoses Not on filedocumented in this encounter
--- OUTSIDE RECORDS SUMMARY | 2025-07-15 21:32 | XMS_ITS | Encounter Summary ---
Author Organization [employer] ([place], [place], [place], [place], [place]) Address [address] [place] [address] Care Team Providers Care Drum Builder Name Role Phone Unavailable Primary Care Provider Unavailabl e Encounter Details Date Type Department Care Team (Late st Contact Info) Description 03/12/[address] [facility] [place] Family Medicine [address] [place] [address] ProviderLele MD [address] [place] [address] Social History Tobacco Use Types [...]
--- OUTSIDE RECORDS SUMMARY | 2025-07-15 21:32 | XMS_ITS | Encounter Summary ---
Author Organization [employer] ([place], [place], [place], [place], [place]) Address [address] [place] [address] Care Team Providers Care Log Truck Driver Name Role Phone Unavailable Primary Care Provider Unavailabl e Encounter Details Date Type Department Care Team (Late st Contact Info) Description 03/12/2021 Transcribed Document [facility] [place] Family Medicine [address] [place] [address] ProviderLele MD [address] [place] [address] Social History Tobacco Use Types [...] 03/12/2021 15:48 EDT Electronically signed by Félix [facility] Conversion Land Department Head Cerner at 11/11/2022 6:29 PM CDT documented in this encounter Plan of Treatment Not on file documented as of this encounter Visit Diagnoses Not on filedocumented in this encounter
--- OUTSIDE RECORDS SUMMARY | 2025-07-15 21:32 | XMS_ITS | Encounter Summary ---
Author Organization [employer] ([place], [place], [place], [place], [place]) Address [address] [place] [address] Care Team Providers Care Customer Experience Specialist Name Role Phone Unavailable Primary Care Provider Unavailabl e Encounter Details Date Type Department Care Team (Late st Contact Info) Description 03/26/[address] [facility] [place] [address] [place] [address] ProviderLele MD [address] [place] [address] Social History Tobacco Use Types [...] ischemic omentum Repair enterotomy and small bowel Patient Financial Advocate: Megan Indications: This is a 75-year-old gentleman [...]
--- OUTSIDE RECORDS SUMMARY | 2025-07-15 21:32 | XMS_ITS | Encounter Summary ---
Author Organization [employer] ([place], [place], [place], [place], [place]) Address [address] [place] [address] Care Team Providers Care Lav Crewman Name Role Phone Unavailable Primary Care Provider Unavailabl e Encounter Details Date Type Department Care Team (Late st Contact Info) Description 03/12/2021 Transcribed Document [facility] [place] [facility] [place] [address] ProviderLele MD [address] [place] [address] Social History Tobacco Use Types [...] Conversion Note - Lele ProviderMD - 03/12/2021 12:26 PM CDT Patient: KEMI [...] At risk for sleep apnea / IMO [id number] / Confirmed, Active Problems (8) Amputation d/t [...] aortic valve replacement replacement. pacemaker replacement. Colonoscopy ([id number]). Social History Social & Psychosocial Habits Alcohol [...]
--- OUTSIDE RECORDS SUMMARY | 2025-07-15 21:32 | XMS_ITS | Encounter Summary ---
Author Organization [employer] ([place], [place], [place], [place], [place]) Address [address] [place] [address] Care Team Providers Care Derrick Helper Name Role Phone Unavailable Primary Care Provider Unavailabl e Encounter Details Date Type Department Care Team (Late st Contact Info) Description 03/12/2021 Transcribed Document [facility] [place] Family Medicine [address] [place] [address] ProviderLele MD [address] [place] [address] Social History Tobacco Use Types [...] Note - Lele Shah MD - 03/12/2021 7:30 AM CDT [facility] Main OR Preop Summary Primary Physician: RAQUEL COOPER MD-PRO Finalized Date/Time: 03/12/21 07:38:57 Pt. Name: KEMI BOO /Sex: 1945 Male Med Rec #: [id number] Physician: RAQUEL COOPER MD-PRO Financial #: [id number] Pt. Type: I Room/Bed: ASA/5 Admit/Disch: 03/12/21 06:52:00 - Institution: [facility] PreOp Case Times Entry 1 In Preop 03/12/21 05:32:00 Ready for Holding n/a Room Patient Ready for 03/12/21 07:35:00 Surgery Patient Out of Preop 03/12/21 07:36:00 Patient Out of n/a Holding Room Last Modified By: Marjan Patel RN 03/12/21 07:37:24 Finalized By: Marjan Patel, RN Document Signatures Signed By: Marjan Patel RN 03/12/21 07:38 Electronically signed by Félix [facility] Conversion Facilities Manager Cerner at 11/11/2022 6:40 PM CDT documented in this encounter Plan of Treatment Not on file documented as of this encounter Visit Diagnoses Not on filedocumented in this encounter
--- OUTSIDE RECORDS SUMMARY | 2025-07-15 21:32 | XMS_ITS | Encounter Summary ---
Author Organization [employer] ([place], [place], [place], [place], [place]) Address [address] [place] [address] Care Team Providers Care Hammerer Tab Name Role Phone Unavailable Primary Care Provider Unavailabl e Encounter Details Date Type Department Care Team (Late st Contact Info) Description 03/12/2021 Transcribed Document [facility] [place] Medicine [facility] [place] [address] ProviderLele MD [address] [place] [address] Social History Tobacco Use Types [...] Shot Peripheral Nerve Block Assisted by : aMrjan Patel RN Nerve Block Activity, Patient Tolerance : Good Marjan Patel RN - 03/12/2021 7:21 EDT Electronically signed by [facility] Conversion Cork Mixer Cerner at 11/11/2022 6:52 PM CDT documented in this encounter Plan of Treatment Not on file documented as of this encounter Visit Diagnoses Not on filedocumented in this encounter
--- OUTSIDE RECORDS SUMMARY | 2025-07-15 21:32 | XMS_ITS | Encounter Summary ---
Author Organization [employer] ([place], [place], [place], [place], [place]) Address [address] [place] [address] Care Team Providers Care Crusher Machine Operator Name Role Phone Unavailable Primary Care Provider Unavailabl e Encounter Details Date Type Department Care Team (Late st Contact Info) Description 03/12/2021 Transcribed Document [facility] [place] [address] [place] [address] ProviderLele MD [address] [place] [address] Social History Tobacco Use Types [...]
--- OUTSIDE RECORDS SUMMARY | 2025-07-15 21:32 | XMS_ITS | Encounter Summary ---
Author Organization [employer] ([place], [place], [place], [place], [place]) Address [address] [place] [address] Care Team Providers Care Health Administration Teacher Name Role Phone Unavailable Primary Care Provider Unavailabl e Encounter Details Date Type Department Care Team (Late st Contact Info) Description 03/12/2021 Transcribed Document [facility] [place] Family Medicine [address] [place] [address] ProviderLele MD [address] [place] [address] Social History Tobacco Use Types [...] Note - Lele Shah MD - 03/12/2021 11:15 AM CDT Pain Assessment [...]
--- OUTSIDE RECORDS SUMMARY | 2025-07-15 21:32 | XMS_ITS | Encounter Summary ---
Author Organization [employer] ([place], [place], [place], [place], [place]) Address [address] [place] [address] Care Team Providers Care Bull Gang Supervisor Name Role Phone Unavailable Primary Care Provider Unavailabl e Encounter Details Date Type Department Care Team (Late st Contact Info) Description 03/26/2021 Transcribed Document [facility] [place] [facility] [place] [address] [place] [address] ProviderLele MD [address] [place] [address] Social History Tobacco Use Types [...] Symptoms Indicator : Low risk (0) Brit Ceballos RN - 03/26/2021 13:44 EDT documented in this encounter Plan of Treatment Not on file documented as of this encounter Visit Diagnoses Not on filedocumented in this encounter
--- OUTSIDE RECORDS SUMMARY | 2025-07-15 21:32 | XMS_ITS | Encounter Summary ---
Author Organization [employer] ([place], [place], [place], [place], [place]) Address [address] [place] [address] Care Team Providers Care Desk Monitor Name Role Phone Unavailable Primary Care Provider Unavailabl e Encounter Details Date Type Department Care Team (Late st Contact Info) Description 03/27/2021 Transcribed Document [facility] [place] [address] [place] [address] ProviderLele MD [address] [place] [address] Social History Tobacco Use Types [...] PT Evaluation and Treatment Ordered By: LAUREN EKNDALL MD-INT Active Diagnoses : 03/26/2021 12:00 Abdominal [...] JARAMILLO PT Student - 03/28/2021 15:19 EDT Accounting Machine Servicer Goals Mobility/Bed Mobility LTG PT Grid Goal [...] JARAMILLO PT Student - 03/28/2021 15:19 EDT Patient/Mat Gauger PT LTG Grid Goal #1 Goal : [...] JARAMILLO PT Student - 03/28/2021 15:19 EDT Electronically signed by Félix [facility] Conversion Lead Web Developer Cerner at 11/11/2022 6:28 PM CDT documented in this encounter Plan of Treatment Not on file documented as of this encounter Visit Diagnoses Not on filedocumented in this encounter
--- OUTSIDE RECORDS SUMMARY | 2025-07-15 21:32 | XMS_ITS | Encounter Summary ---
Author Organization [employer] ([place], [place], [place], [place], [place]) Address [address] [place] [address] Care Team Providers Care Street Light Repairer Name Role Phone Unavailable Primary Care Provider Unavailabl e Encounter Details Date Type Department Care Team (Late st Contact Info) Description 03/26/2021 Transcribed Document [facility] [place] [address] [place] [address] ProviderLele MD [address] [place] [address] Social History Tobacco Use Types [...] EDT ALLIE JORDAN - 03/27/2021 9:12 EDT documented in this encounter Plan of Treatment Not on file documented as of this encounter Visit Diagnoses Not on filedocumented in this encounter
--- OUTSIDE RECORDS SUMMARY | 2025-07-15 21:32 | XMS_ITS | Encounter Summary ---
Author Organization [employer] ([place], [place], [place], [place], [place]) Address [address] [place] [address] Care Team Providers Care Manager Technical Training Name Role Phone Unavailable Primary Care Provider Unavailabl e Encounter Details Date Type Department Care Team (Late st Contact Info) Description 03/26/2021 Transcribed Document [facility] [place] [address] [place] [address] ProviderLele MD [address] [place] [address] Social History Tobacco Use Types [...] Historical ProviderMD - 03/26/2021 12:49 PM CDT [place] Suicide Severity Rating Scale (C-SSRS) Entered On: 03/26/2021 13:45 EDT Performed On: 03/26/2021 13:44 EDT by Brit Ceballos RN [place] Suicide Severity Rating Scale (C-SSRS) CSSRS Past [...]
--- OUTSIDE RECORDS SUMMARY | 2025-07-15 21:32 | XMS_ITS | Encounter Summary ---
Author Organization [employer] ([place], [place], [place], [place], [place]) Address [address] [place] [address] Care Team Providers Care Personal Vehicle Advisor Name Role Phone Unavailable Primary Care Provider Unavailabl e Encounter Details Date Type Department Care Team (Late st Contact Info) Description 03/26/2021 Transcribed Document [facility] [place] Family Medicine [address] [place] [address] ProviderLele MD [address] [place] [address] Social History Tobacco Use Types [...] 03/26/2021 18:15:00 EDT ketorolac,15mg IV Push,Left Antecubital [place] Pain Assessment Pain Assessment : Follow-up assessment [...] form. Electronically signed by Iglesia Heard Conversion Optical Instrument Assembly Supervisor Cerner at 11/11/2022 6:48 PM CDT documented in this encounter Plan of Treatment Not on file documented as of this encounter Visit Diagnoses Not on filedocumented in this encounter
--- OUTSIDE RECORDS SUMMARY | 2025-07-15 21:32 | XMS_ITS | Encounter Summary ---
Author Organization [employer] ([place], [place], [place], [place], [place]) Address [address] [place] [address] Care Team Providers Care Financial Planning Assistant Name Role Phone Unavailable Primary Care Provider Unavailabl e Encounter Details Date Type Department Care Team (Late st Contact Info) Description 03/12/2021 Transcribed Document [facility] [place] [facility] [place] [address] ProviderLele MD [address] [place] [address] Social History Tobacco Use Types [...] Note - Lele Shah MD - 03/12/2021 10:36 AM CDT Patient: KEMI BOO Age: 75 Years Sex: Male : 1945 CSGA Pre Op Diagnosis: Right colon polyp, probable cancer Post Op Diagnosis: Same Procedure: Robotic right colectomy Arc Furnace Operator: Callie Arreaga Indications: Pleasant 75-year-old gentleman [...] mobilize the entire right colon. A standard [id number] antiperistaltic anastomosis was performed with robotic staplers. [...]
--- OUTSIDE RECORDS SUMMARY | 2025-07-15 21:32 | XMS_ITS | Encounter Summary ---
Author Organization [employer] ([place], [place], [place], [place], [place]) Address [address] [place] [address] Care Team Providers Care Thermodynamics Professor Name Role Phone Unavailable Primary Care Provider Unavailabl e Encounter Details Date Type Department Care Team (Late st Contact Info) Description 03/27/2021 Transcribed Document [facility] [place] [address] [place] [address] ProviderLele MD [address] [place] [address] Social History Tobacco Use Types [...]
--- OUTSIDE RECORDS SUMMARY | 2025-07-15 21:32 | XMS_ITS | Encounter Summary ---
Author Organization [facility] ([place], [place], [place], [place], [place]) Address [address] [place] [id number] Care Team Providers Care Fourdrinier Wire Weaver Name Role Phone Unavailable Primary Care Provider Unavailabl e Encounter Details Date Type Department Care Team (Late st Contact Info) Description 03/12/2021 Transcribed Document [facility] [place] [facility] [address] [place] [address] ProviderLele MD [address] [place] [address] Social History Tobacco Use Types [...] Shah MD - 03/12/2021 8:05 AM CDT [facility] Main OR IntraOp Summary Primary Physician: RAQUEL COOPER MD-PRO Finalized Date/Time: 03/13/21 10:47:08 Pt. Name: MALLIKANORRISKEMI /Sex: 1945 Male Med Rec #: [id number] Physician: RAQUEL COOPER MD-PRO Financial #: [id number] Pt. Type: I Room/Bed: [facility]/ Admit/Disch: 03/12/21 06:52:00 - Institution: [facility] IntraOp Case Attendance Entry 1 Entry 2 Entry 3 Case Attendee RAQUEL COOPER MD-PRO Kim Apodaca, HEIDE OLIVEROS, INSURANCE LICENSING SUPERVISOR Role Performed Surgeon/Proceduralist, Slabber Light, First Scrub, First First Time In 03/12/21 [...] KELLY, NA CORNEA, MIHAELA, MD-ANS Role Performed Global Cmo, First KNUCKLE BENDER/Nurse Lab Rep Anesthesiologist of Record Time In 03/12/21 07:39:00 03/12/21 07:39:00 03/12/21 07:39:00 Time Out 03/12/21 10:42:00 03/12/21 10:42:00 03/12/21 10:42:00 Procedure Colon Resection Colon Resection Colon Resection Robotic(Right) Robotic(Right) Robotic(Right) Other Attendee Superficial Wound Closed By: Last Modified By: Kim Apodaca RN Montgomery, Hazel, Kim Nguyen, PRITESH 03/12/21 10:41:06 03/12/21 10:41:06 03/12/21 10:41:06 Entry 7 Entry 8 Case Attendee NABIL EARLY SSI GINTER, WENDY J RN Role Performed Hall Porter, Ancillary Slabber Light, Second Time In 03/12/21 07:39:00 03/12/21 07:39:00 Time Out 03/12/21 10:42:00 03/12/21 10:42:00 Procedure Colon Resection Colon Resection Robotic(Right) Robotic(Right) Other Attendee ORIENT Superficial Wound Closed By: Last Modified By: Kim Apodaca, Kim Nguyen, PRITESH 03/12/21 10:41:06 03/12/21 08:01:29 [facility] IntraOp Case Attendance Audit 03/12/21 10:41:06 Diesel Trailer Mechanic: LAFAVEHM Modifier: LAFAVEHM 1 <+> Time Out [...] Out 8 <*> Procedure Colon Resection Robotic(Right) [facility] IntraOp Case Times Entry 1 Patient In Room Time 03/12/21 07:39:00 Out Room Time 03/12/21 10:42:00 Anesthesia Start Time 03/12/21 07:39:00 Stop Time 03/12/21 10:42:00 Surgery / Procedure Times Start Time 03/12/21 08:05:00 Stop Time 03/12/21 10:36:00 Last Modified By: Kim Apodaca RN 03/12/21 10:40:47 [facility] IntraOp Case Times Audit 03/12/21 10:40:47 Diesel Trailer Mechanic: LAFAVEHM Modifier: LAFAVEHM <+> 1 Out Room Time <+> 1 Stop Time <+> 1 Stop Time 03/12/21 08:07:52 Diesel Trailer Mechanic: LAFAVEHM Modifier: LAFAVEHM <+> 1 Start Time [facility] IntraOp Cautery Entry 1 ESU Identification Cautery Type Monopolar ESU ID Number [id number] ID Type Hospital Number Cautery Settings Cut Setting 3 Coag Setting 3 Bipolar Setting 4 ESU Grounding Pad Ground Pad Type Adult Grounding Pad Site Right Flank Grounding Pad Kim Apodaca, PRITESH Applied By Grounding Pad Site Dry, Warm, Intact Skin Condition Before Cautery Grounding Pad Site Unchanged Skin Condition After Cautery Last Modified By: Kim Apodaca RN 03/12/21 08:08:39 [facility] IntraOp Communication Entry 1 Entry 2 Entry 3 Communication To Family/Significant other Family/Significant other Family/Significant other Comment Communication By Kim Apodaca RN Montgomery, Hazel, Kim Nguyen RN Date and Time 03/12/21 08:08:00 03/12/21 09:15:00 03/12/21 10:23:00 Last Modified By: Kim Apodaca RN Montgomery, Hazel, RN Montgomery, Hazel, RN 03/12/21 08:08:08 03/12/21 09:16:21 03/12/21 10:23:48 [facility] IntraOp Communication Audit 03/12/21 10:23:48 Diesel Trailer Mechanic: LAFAVEHM Modifier: LAFAVEHM <+> 3 Communication By <+> 3 Date and Time <+> 3 Communication To 03/12/21 09:16:21 Diesel Trailer Mechanic: LAFAVEHM Modifier: LAFAVEHM <+> 2 Communication By <+> 2 Date and Time <+> 2 Communication To [facility] IntraOp Counts Verification Entry 1 Procedure Colon Resection Robotic(Right) Count Info Count Type Sponge, Sharps, Instrument, Miscellaneous Counts Verification Closure of cavity Sequence within a cavity Counts Performed By Count Performed By HEIDE FUENTES SCRUB (Scrub) TECH Count Performed By Kim Apodaca RN (RN) Last Modified By: Kim Apodaca RN 03/12/21 08:08:53 [facility] IntraOp Counts Final Entry 1 Procedure Colon Resection Robotic(Right) Final Count Info Count Type Sponge, Sharps, Miscellaneous Counts Verification Skin Closure/end of Sequence procedure Count Results Correct, surgeon notified Counts Performed By Count Performed By HEIDE FUENTES SCRUB (Scrub) TECH Count Performed By BENITA CERON RN (RN) Last Modified By: Kim Apodaca RN 03/12/21 08:09:02 [facility] IntraOp Counts Final Audit 03/12/21 10:25:42 Diesel Trailer Mechanic: LAFAVEHM Modifier: LAFAVEHM 1 <*> Procedure Colon Resection Robotic(Right) 1 <+> Count Performed By (Scrub) 1 <+> Count Performed By (RN) [facility] IntraOp Cultures and Spec Summary Entry 1 Cultrures and Specimens Specimen Ordered: Yes Test(s) Routine/Path-Lab Requested/Final Disposition Last Modified By: Kim Apodaca RN 03/12/21 08:09:09 [facility] IntraOp Delays Entry 1 Delay Reason Ancillary department delay Duration 9 Minute(s) Comment IMKE BLOCK DELAY Last Modified By: Kim Apodaca RN 03/12/21 08:09:33 [facility] IntraOp Departure from OR Entry 1 Integumentary Assessment Transfer/Handoff Transfer to PACU Phase I Handoff Method Bedside/Face to face, Phone call, Online nursing summary Post-op Transport Stretcher/Gurney Via Patient Transport CAMRON PAT NA, Accompanied by FELICITY CAGE CSTFA Last Modified By: Kim Apodaca RN 03/12/21 08:09:40 [facility] IntraOp Dressing and Packing Entry 1 Type Dressing Location OPSITE Wound Dressing Item Skin Closure Glue Applied By FELICITY CAGE CSTFA Other Comments PRINEO Last Modified By: Kim Apodaca RN 03/12/21 08:09:52 [facility] IntraOp Fire Risk Assessment Entry [...] Modified By: Kim Apodaca RN 03/12/21 08:02:44 [facility] IntraOp Fire Risk Assessment Audit 03/12/21 08:08:01 Diesel Trailer Mechanic: DANIELLE Modifier: DANIELLE <+> 1 Fire Risk Assessment Verified Date/Time [facility] IntraOp General Case Forest Firefighter 1 Case Information OR OR 12 [facility] Case Level 1 Room Verified Yes Wound Class II - Clean-Contaminated Specialty Anesthesia Anesthesia Type General ASA Class 4 Diagnosis Preop Diagnosis ASCENDING COLON NEOPLASM Postop Same As Preop No Postop Diagnosis SEE MD POST OP NOTES Last Modified By: Kim Apodaca RN 03/12/21 08:10:44 [facility] IntraOp Intraoperative Assessment Entry 1 [...] Modified By: Kim Apodaca RN 03/12/21 08:10:54 [facility] IntraOp Intraoperative Equipment Entry 1 Type Monitoring Equipment Equipment Cecille Suction System Intraop Monitoring Antiembolic Devices Scopes Photo/Video Documentation Last Modified By: Kim Apodaca RN 03/12/21 08:10:59 [facility] IntraOp Medication Admin Entry 1 Entry 2 Medication/Irrigant INDOCYANINE GREEN .9%NaCl 25MG/VIAL Combo Med List Time Administered Route of CONTRAST IRRIGATION Administration Dose Dose 10 Unit of Measure ml Volume Administered By RAQUEL COOPER MD-PRO RAQUEL COOPER MD-PRO Procedure Irrigation Irrigant Volume In 100 mL Irrigant Volume Out Last Modified By: Kim Apodaca RN Montgomery, Hazel, RN 03/12/21 08:11:06 03/12/21 10:26:46 [facility] IntraOp Medication Admin Audit 03/12/21 10:26:46 Diesel Trailer Mechanic: LAFAVERADHA Modifier: LAFAVEHM <+> 1 Route of Administration <+> 1 Dose <+> 2 Medication/Irrigant <+> 2 Route of Administration <+> 2 Administered By <+> 2 Irrigant Volume In [facility] IntraOp Patient Positioning Entry 1 [...] CERON RN, CAMRON PAT NA, FELICITY CAGE, CSTPIERRE, RAQUEL COOPER MD-PRO Position Verified Positioning Yes Verified by Anesthesia Positioning Yes Verified by Surgeon Last Modified By: Kim Apodaca RN 03/12/21 08:11:38 [facility] IntraOp Sign In Entry 1 [...] Modified By: Kim Apodaca RN 03/12/21 08:11:41 [facility] IntraOp Sign Out Entry 1 [...] Modified By: Kim Apodaca RN 03/12/21 08:11:44 [facility] IntraOp Sign Out Audit 03/12/21 10:40:54 Diesel Trailer Mechanic: DANIELLE Modifier: [email or web address] <+> 1 RN Sign Out Signature Date/Time [facility] IntraOp Skin Prep Entry 1 Procedure Colon Resection Robotic(Right) Prescribed Yes Pre-Surgical Prep Completed Prep Area ABDOMEN Intraop Prep Prep Agents Chloraprep Prep by Kim Apodaca RN Hair Removal Methods Clipper/Scissors Hair Removal Site OPSITE Hair Removal By RAQUEL COOPER MD-PRO Last Modified By: Kim Apodaca RN 03/12/21 08:12:01 [facility] IntraOp Surgical Procedures Entry 1 Procedure Colon Resection Robotic Modifiers Right Additional ROBOTIC RIGHT COLECTOMY Procedure Description Primary Procedure Yes Primary Surgeon RAQUEL COOPER MD-PRO Start 03/12/21 08:05:00 Stop 03/12/21 10:36:00 Anesthesia Type General Specialty Colorectal Wound Class II - Clean-Contaminated Last Modified By: Kim Apodaca RN 03/12/21 08:12:10 [facility] IntraOp Surgical Procedures Audit 03/12/21 10:41:04 Diesel Trailer Mechanic: DANIELLE Modifier: LAFAVEHM 1 <*> Procedure Colon Resection Robotic 1 <*> Additional Procedure Description (ROBOTIC RT COLECTOMY) 03/12/21 10:40:48 Diesel Trailer Mechanic: DANIELLE Modifier: DANIELLE <+> 1 Stop [facility] IntraOp Temp Regulation Devices Entry 1 Temp Regulation Temperature Forced Air Warming Regulation Device device, Irrigation solution warmer, Warm blankets Temperature 45898 Regulation Device Serial/Unit Number Temperature Upper body Regulation Site Temperature Device SET AND MONITORED BY Setting ANESTHESIA Temperature CAMRON PAT NA Regulation Device Applied by Last Modified By: Kim Apodaca RN 03/12/21 08:13:35 [facility] IntraOP Time Out Entry 1 [...] Labeled and Displayed Last Modified By: Kim Aopdaca RN 03/12/21 08:05:13 [facility] IntraOP Time Out Audit 03/12/21 08:05:13 Diesel Trailer Mechanic: DANIELLE Modifier: DANIELLE 1 <*> Beta Mary [...]
--- OUTSIDE RECORDS SUMMARY | 2025-07-15 21:32 | XMS_ITS | Encounter Summary ---
Author Organization [employer] ([place], [place], [place], [place], [place]) Address [address] [place] [address] Care Team Providers Care Multicultural Internship Name Role Phone Unavailable Primary Care Provider Unavailabl e Encounter Details Date Type Department Care Team (Late st Contact Info) Description 03/27/2021 Transcribed Document [facility] [place] [address] [place] [address] ProviderLele MD [address] [place] [address] Social History Tobacco Use Types [...] 03/27/2021 13:17:00 EDT ketorolac,15mg IV Push,Left Antecubital Hayden Pain Assessment Pain Assessment : Follow-up assessment Cynthia Aguilar RN - 03/27/2021 16:32 EDT documented in this encounter Plan of Treatment Not on file documented as of this encounter Visit Diagnoses Not on filedocumented in this encounter
--- OUTSIDE RECORDS SUMMARY | 2025-07-15 21:32 | XMS_ITS | Encounter Summary ---
Author Organization [facility] ([place], [place], [place], [place], [place]) Address [address] [place] [id number] Care Team Providers Care Fry Cook Name Role Phone Unavailable Primary Care Provider Unavailabl e Encounter Details Date Type Department Care Team (Late st Contact Info) Description 03/13/2021 Transcribed Document [facility] Family Medicine [address] [place] [address] ProviderLele MD [address] [place] [address] Social History Tobacco Use Types [...] Insurance 1 Health Plan: MEDICARE Policy Number: [id number] Authorization Number: Insurance 2 Health Plan: [facility] Policy Number: [id number] Authorization Number: Insurance Primary Name : MEDICARE Policy Number: [id number] Authorized Service Begin Date-Primary : 03/12/2021 EDT Historical Authorization Comments-Primary : No Authorization Comments Found MANUEL HARTMAN RN - 03/13/2021 14:02 EDT Electronically signed by Félix [facility] Conversion Overhead Line Worker Cerner at 11/11/2022 6:49 PM CDT documented in this encounter Plan of Treatment Not on file documented as of this encounter Visit Diagnoses Not on filedocumented in this encounter
--- OUTSIDE RECORDS SUMMARY | 2025-07-15 21:32 | XMS_ITS | Encounter Summary ---
Author Organization [employer] ([place], [place], [place], [place], [place]) Address [address] [place] [address] Care Team Providers Care Curator Of Collections Name Role Phone Unavailable Primary Care Provider Unavailabl e Encounter Details Date Type Department Care Team (Late st Contact Info) Description 03/26/2021 Transcribed Document [facility] [place] [address] [place] [address] ProviderLele MD [address] [place] [address] Social History Tobacco Use Types [...] Shah MD - 03/26/2021 3:30 PM CDT [facility] Main OR IntraOp Summary Primary Physician: RAQUEL COOPER MD-PRO Finalized Date/Time: 03/27/21 10:02:16 Pt. Name: MALLIKANORRIS KEMI WERO /Sex: 1945 Male Med Rec #: [id number] Physician: DANI BATISTA MD Financial #: [id number] Pt. Type: I Room/Bed: [facility]/ Admit/Disch: 03/26/21 19:17:00 - Institution: [facility] IntraOp Case Attendance Entry 1 Entry 2 Entry 3 Case Attendee RAQUEL COOPER MD-PRO Alyx Larson, HEIDE Domínguez, COURTESY BUS DRIVER Role Performed Surgeon/Proceduralist, Floral Arranger, First Scrub, First First Time In 03/26/21 15:10:00 09/01/21 15:10:00 03/26/21 15:10:00 Time Out 03/26/21 17:03:00 03/26/21 17:03:00 03/26/21 15:15:00 Procedure Colon Resection Colon Resection Colon Resection Laparoscopic Laparoscopic Laparoscopic Other Attendee Superficial Wound Closed By: Last Modified By: Alyx Larson, Rn Alyx Larson, Alyx Patricio, Pritesh 03/26/21 17:03:12 03/26/21 17:03:12 03/26/21 17:03:12 Entry 4 Entry 5 Entry 6 Case Attendee PETEY ANGEL Krista, Cezar Johnson, Meal Room Hand Role Performed Integration Aide, First Floral Arranger, Second Scrub, First Time In 03/26/21 15:10:00 03/26/21 15:10:00 03/26/21 15:13:00 Time Out 03/26/21 15:55:00 03/26/21 15:32:00 03/26/21 17:03:00 Procedure Colon Resection Colon Resection Colon Resection Laparoscopic Laparoscopic Laparoscopic Other Attendee Superficial Wound Closed By: Last Modified By: Alyx Larson, Alyx Patricio, Alyx Patricio, Pritesh 03/26/21 17:03:12 03/26/21 17:03:12 03/26/21 17:03:12 Entry 7 Entry 8 Entry 9 Case Attendee ELSIE TRUONG Sarah, THERAPY TECH SALAZAR MUNSON MD-ANS Role Performed Integration Aide, First THERAPY TECH/Nurse Assistant Clinical Director Anesthesiologist of Record Time In 03/26/21 15:33:00 03/26/21 15:10:00 03/26/21 15:10:00 Time Out 03/26/21 17:03:00 03/26/21 16:00:00 03/26/21 17:03:00 Procedure Colon Resection Colon Resection Colon Resection Laparoscopic Laparoscopic Laparoscopic Other Attendee Superficial Wound Closed By: Last Modified By: Alyx Larson, Alyx Patricio, Alyx Patricio, Pritesh 03/26/21 17:03:12 03/26/21 17:03:12 03/26/21 17:03:12 Entry 10 Entry 11 Entry 12 Case Attendee LOGAN CONNELL Gordon, Mark, THERAPY TECH Poppy Min, REP-[facility] SPECIALTY CARE STAFF Role Performed Face And Fill Packer, Ancillary THERAPY TECH/Nurse Assistant Clinical Director Face And Fill Packer, Ancillary Time In 03/26/21 15:10:00 03/26/21 16:00:00 03/26/21 15:40:00 Time Out 03/26/21 15:45:00 03/26/21 17:03:00 03/26/21 17:03:00 Procedure Colon Resection Colon Resection Colon Resection Laparoscopic Laparoscopic Laparoscopic Other Attendee SSI SSI Superficial Wound Closed By: Last Modified By: Alyx Larson, Rn Alyx Larson, Rn Alyx Larson, Pritesh 03/26/21 17:03:12 03/26/21 17:03:12 03/26/21 17:03:12 [facility] IntraOp Case Attendance Audit 03/26/21 17:03:12 Manager Special Events: [id number] Modifier: [id number] 1 <+> Time Out 1 <*> Procedure [...] <*> Procedure Colon Resection Laparoscopic 03/26/21 17:01:42 Manager Special Events: [id number] Modifier: [id number] 10 <*> Time Out 03/26/21 15:55:00 10 <*> Procedure Colon Resection Laparoscopic <+> 12 Case Attendee <+> 12 Role Performed <+> 12 Time In <+> 12 Procedure <+> 12 Other Attendee 03/26/21 16:03:39 Manager Special Events: [id number] Modifier: [id number] 9 <*> Case Attendee TEVIN DOS SANTOS MD-ANS 9 <*> Procedure Colon Resection Laparoscopic 03/26/21 16:03:15 Manager Special Events: [id number] Modifier: [id number] <+> Time Out 4 <*> Procedure Colon Resection Laparoscopic 8 <*> Time Out 03/26/21 15:56:00 8 <*> Procedure Colon Resection Laparoscopic 10 <+> Time Out 10 <*> Procedure Colon Resection Laparoscopic 11 <*> Time In 03/26/21 15:56:00 11 <*> Procedure Colon Resection Laparoscopic 03/26/21 15:56:20 Manager Special Events: [id number] Modifier: [id number] 1 <*> Procedure Colon Resection Laparoscopic 2 [...] Time In <+> 11 Procedure 03/26/21 15:34:02 Manager Special Events: [id number] Modifier: [id number] 1 <+> Time In 1 <*> Procedure [...] Procedure <+> 10 Other Attendee 03/26/21 14:27:12 Manager Special Events: [id number] Modifier: [id number] <+> 1 Procedure 2 <*> Procedure Colon Resection Laparoscopic 3 <*> Procedure Colon Resection Laparoscopic 4 <*> Procedure Colon Resection Laparoscopic 03/26/21 14:24:52 Manager Special Events: [id number] Modifier: [id number] <+> 4 Case Attendee <+> 4 Role Performed <+> 4 Procedure 03/26/21 14:23:52 Manager Special Events: [id number] Modifier: [id number] <+> 3 Case Attendee <+> 3 Role Performed <+> 3 Procedure 03/26/21 14:23:21 Manager Special Events: [id number] Modifier: [id number] <+> 2 Case Attendee <+> 2 Role Performed <+> 2 Procedure [facility] IntraOp Case Times Entry 1 Patient In Room Time 03/26/21 15:10:00 Out Room Time 03/26/21 17:03:00 Anesthesia Start Time 03/26/21 15:10:00 Stop Time 03/26/21 17:03:00 Surgery / Procedure Times Start Time 03/26/21 15:30:00 Stop Time 03/26/21 16:58:00 Last Modified By: Alyx Larson Rn 03/26/21 17:03:11 [facility] IntraOp Case Times Audit 03/26/21 17:03:11 Manager Special Events: [id number] Modifier: [id number] <+> 1 Out Room Time <+> 1 Stop Time 03/26/21 17:01:49 Manager Special Events: [id number] Modifier: [id number] <+> 1 Stop Time 03/26/21 15:31:51 Manager Special Events: [id number] Modifier: [id number] <+> 1 Start Time [facility] IntraOp Cautery Entry 1 ESU Identification Cautery Type Monopolar ESU ID Number [id number] ID Type Hospital Number Cautery Settings Cut Setting 1 Coag Setting 30 ESU Grounding Pad Ground Pad Type Adult Grounding Pad Site Posterior Grounding Pad Alyx Larson Rn Applied By Grounding Pad Site Warm, Dry, Intact Skin Condition Before Cautery Grounding Pad Site Intact Skin Condition After Cautery Last Modified By: Alyx Larson Rn 03/26/21 14:23:27 [facility] IntraOp Cautery Audit 03/26/21 14:23:27 Manager Special Events: [id number] Modifier: [id number] <+> 1 Grounding Pad Applied By [facility] IntraOp Communication Entry 1 Communication To Family/Significant other Communication By Xochilt Whitt RN Date and Time 03/26/21 15:34:00 Last Modified By: Alyx Larson Rn 03/26/21 15:34:16 [facility] IntraOp Counts Verification Entry 1 Entry 2 [...] By HEIDE FUENTES, Cezar Beasley, Cezar Beasley, Scrkatelynn (Scrub) TECH Tech Tech Count Performed By Alyx Larson, Alyx Patricio, Alyx Patricio Rn (RN) Last Modified By: Alyx Larson, Alyx Patricio Rn Taylor, Carolyn, Rn 03/26/21 15:35:17 03/26/21 15:35:17 03/26/21 16:35:59 [facility] IntraOp Counts Verification Audit 03/26/21 16:35:59 Manager Special Events: [id number] Modifier: [id number] 3 <*> Procedure Colon Resection Laparoscopic 3 <+> Count Performed By (Scrub) 3 <+> Count Performed By (RN) 03/26/21 15:35:17 Manager Special Events: [id number] Modifier: [id number] 1 <*> Procedure Colon Resection Laparoscopic 1 <*> Count Type Sponge, Sharps, Instrument, Miscellaneous 1 <*> Counts Verification Sequence Baseline/pre-procedure 1 <*> Count Results Not Applicable 1 <*> Count Performed By (Scrub) HEIDE FUENTES, COURTESY BUS DRIVER 1 <*> Count Performed By (RN) Alyx Larson, Pritesh 2 <*> Procedure Colon Resection Laparoscopic 2 <*> Count Type Sponge, Sharps, Instrument, Miscellaneous 2 <*> Counts Verification Sequence At time of permanent relief 2 <*> Count Results Not Applicable 2 <*> Count Performed By (Scrub) Cezar Landeros, Meal Room Hand 2 <*> Count Performed By (RN) Alyx [...] By (RN) Alyx Larson Rn 03/26/21 15:34:48 Manager Special Events: [id number] Modifier: [id number] <+> 2 Procedure <+> 2 Count Type <+> 2 Counts Verification Sequence <+> 2 Count Results <+> 2 Count Performed By (Scrub) <+> 2 Count Performed By (RN) <+> 3 Procedure <+> 3 Count Type <+> 3 Counts Verification Sequence <+> 3 Count Performed By (Scrub) <+> 3 Count Performed By (RN) 03/26/21 14:23:59 Manager Special Events: [id number] Modifier: [id number] 1 <*> Procedure Colon Resection Laparoscopic 1 <+> Count Performed By (Scrub) [facility] IntraOp Counts Final Entry 1 Procedure Colon Resection Laparoscopic Final Count Info Count Type Sponge, Sharps, Miscellaneous Counts Verification Skin Closure/end of Sequence procedure Count Results Correct, surgeon notified Counts Performed By Count Performed By Cezar Landeros Scrub (Scrub) Tech Count Performed By Alyx Larson Rn (RN) Last Modified By: Alyx Larson Rn 03/26/21 16:36:10 [facility] IntraOp Counts Final Audit 03/26/21 16:36:10 Manager Special Events: [id number] Modifier: [id number] 1 <*> Procedure Colon Resection Laparoscopic 1 <+> Count Performed By (Scrub) 1 <+> Count Performed By (RN) [facility] IntraOp Cultures and Spec Summary Entry 1 Cultrures and Specimens Specimen Ordered: Yes Test(s) Routine/Path-Lab Requested/Final Disposition Last Modified By: Alyx Larson Rn 03/26/21 16:36:17 [facility] IntraOp Departure from OR Entry 1 Integumentary Assessment Integumentary WDL Assessment WDL Transfer/Handoff Transfer to PACU Phase I Handoff Method Online nursing summary Post-op Transport Stretcher/Gurlemuel Via Patient Transport ELSIE TRUONG, Accompanied by Dani Andino CRNA Last Modified By: Alyx Larson Rn 03/26/21 15:59:35 [facility] IntraOp Departure from OR Audit 03/26/21 15:59:35 Manager Special Events: [id number] Modifier: [id number] 1 <*> Patient Transport Accompanied by Debby Caraballo CRNA 03/26/21 15:35:43 Manager Special Events: [id number] Modifier: [id number] <+> 1 Patient Transport Accompanied by [facility] Intra Drains and Tubes Entry 1 Device Type Luc Patel flat drain Size 10FR Drain/Tube Activity Inserted Drain/Tube Suction Bulb Device Location ABD Method of Drainage Compression Chest Tubes Bulb suction Connectivity Tube Dressing Dry, Intact Condition Last Modified By: Alyx Larson Rn 03/26/21 16:36:51 [facility] IntraOp Dressing and Packing Entry 1 Entry 2 Type Dressing Dressing Location abd DRAIN COVERAGE/ABD Wound Dressing Item Skin Closure [place] Wound Packing Type Tape Type Supplemental Applications Applied By ELSIE TRUONG CANDY L. Other Comments COVADERM Last Modified By: Alyx Larson Rn Taylor, Carolyn, Rn 03/26/21 16:37:34 03/26/21 16:37:34 [facility] IntraOp Dressing and Packing Audit 03/26/21 16:37:34 Manager Special Events: [id number] Modifier: [id number] 1 <-> Other Comments COVADERM <+> 2 Type <+> 2 Location <+> 2 Wound Dressing Item <+> 2 Applied By <+> 2 Other Comments 03/26/21 15:35:55 Manager Special Events: [id number] Modifier: [id number] 1 <*> Applied By PETEY ANGEL 03/26/21 14:24:57 Manager Special Events: [id number] Modifier: [id number] 1 <*> Applied By RAQUEL COOPER MD-PRO [facility] IntraOp Fire Risk Assessment Entry 1 Fire Info Surgical Site or 0- No Incision Above the Xyphoid Open O2 Source 0- No (Mask or Cannula) Available Ignition 1- Yes (ESU, Laser, Light Source) Fire Risk 1 Assessment Score Fire Score Fire Risk Yes Assessment Complete Fire Risk Xochilt Whitt, robotic machine operator Verified By Fire Risk 03/26/21 15:29:00 Assessment Verified Date/Time Fire Risk High Risk Protocol Yes Implemented Standard Fire Yes Safety Precautions Followed Last Modified By: Alyx Larson Rn 03/26/21 15:36:08 [facility] IntraOp Fire Risk Assessment Audit 03/26/21 15:36:08 Manager Special Events: [id number] Modifier: [id number] 1 <*> Fire Risk Assessment Verified By Alyx Larson Rn 1 <+> Fire Risk Assessment Verified Date/Time [facility] IntraOp General Case Developmental Mathematics Professor 1 Case Information OR OR 08 [facility] Case Level 1 Room Verified Yes Wound Class III - Contaminated Specialty Gastroenterology Anesthesia Type General ASA Class 4 Diagnosis Preop Diagnosis PARTIAL SMALL BOWEL OBSTRUCTION Postop Diagnosis SEE MD POST OP NOTE Last Modified By: Alyx Larson Rn 03/26/21 15:36:14 [facility] IntraOp General Case Data Audit 03/26/21 15:36:14 Manager Special Events: [id number] Modifier: [id number] 1 <*> ASA Class 3E [facility] IntraOp Intraoperative Assessment Entry 1 Handoff Method [...] Modified By: Alyx Larson Rn 03/26/21 14:25:38 [facility] IntraOp Intraoperative Equipment Entry 1 Type Equipment Equipment Equipment Cecille Suction System ID Number [id number] Setting H Intraop Monitoring Antiembolic Devices Antiembolic Device NA PER DR Setting Scopes Photo/Video Documentation Last Modified By: Alyx Larson Rn 03/26/21 14:25:56 [facility] IntraOp Medication Admin Entry 1 Entry 2 Entry 3 Medication/Irrigant NS 0.9% 3000ml TAP BLOCK NS 0.9% 1500ml irrigation bag irrigation --[id number] --[id number] Combo Med List Time Administered 03/26/21 16:38:00 03/26/21 15:00:00 03/26/21 16:38:00 Route of IRRIGATION COMPLETED IN PREOP BY IRRIGATION Administration ANES Dose Dose Unit of Measure Volume Administered By RAQUEL COOPER MD-PRO RAQUEL COOPER MD-PRO Procedure Irrigation Irrigant Volume In Irrigant Volume Out Last Modified By: Alyx Larson, Alyx Patricio, Rn Alyx Larson Rn 03/26/21 16:38:27 03/26/21 16:04:29 03/26/21 16:38:27 [facility] IntraOp Medication Admin Audit 03/26/21 16:38:27 Manager Special Events: [id number] Modifier: [id number] 1 <*> Medication/Irrigant Normal Saline 0.9% 1000ml irrigation - [id number] 1 <+> Time Administered <+> 3 Medication/Irrigant <+> 3 Route of Administration <+> 3 Administered By <+> 3 Time Administered 03/26/21 16:04:29 Manager Special Events: [id number] Modifier: [id number] 1 <*> Medication/Irrigant Normal Saline 0.9% 1000ml irrigation - [id number] 1 <*> Route of Administration IRRIGATION 1 <*> Administered By RAQUEL COOPER MD-PRO Entry 2 was deleted. Higher numbered entries shifted one position to fill the gap. <-> 2 Medication/Irrigant TAP BLOCK <-> 2 Route of Administration COMPLETED IN PREOP <-> 2 Administered By Dani Andino CRNA <-> 2 Time Administered 03/26/21 15:00:00 <-> 2 Unit of Measure ml 03/26/21 16:03:28 Manager Special Events: [id number] Modifier: [id number] 2 <*> Administered By TEVIN DOS SANTOS MD-ANS 03/26/21 15:55:55 Manager Special Events: [id number] Modifier: [id number] Entry 1 was deleted. Higher numbered entries shifted one position to fill the gap. <-> 1 Medication/Irrigant Marcaine 0.25% 30ml vial - [id number] <-> 1 Route of Administration LOCAL <-> 1 Administered By RAQUEL COOPER MD-PRO <-> 1 Unit of Measure ml Entry 2 was deleted. Higher numbered entries shifted one position to fill the gap. <-> 2 Medication/Irrigant lidocaine 1% w/ epinephrine 1:200,000 30ml vial - [id number] <-> 2 Route of Administration LOCAL <-> 2 Administered By RAQUEL COOPER MD-PRO <-> 2 Time Administered <-> 2 Unit of Measure ml [facility] IntraOp Patient Positioning Entry 1 Procedure Colon [...] Modified By: Alyx Larson Rn 03/26/21 15:36:58 [facility] IntraOp Patient Positioning Audit 03/26/21 15:36:58 Manager Special Events: [id number] Modifier: [id number] 1 <*> Procedure Colon Resection Laparoscopic 1 <*> Positioning Devices Arm Board, Head Rest, Pad, Elbow, Safety Strap, Thighs 1 <*> Positioned By Alyx Larson Rn [facility] IntraOp Sign In Entry 1 Patient, Site, [...] Modified By: Alyx Larson Rn 03/26/21 15:37:08 [facility] IntraOp Sign In Audit 03/26/21 15:37:08 Manager Special Events: [id number] Modifier: [id number] <+> 1 Difficult Airway/Aspiration Risk 03/26/21 14:26:26 Manager Special Events: [id number] Modifier: [id number] <+> 1 Blood Loss Risk [facility] IntraOp Sign Out Entry 1 RN Confirmation [...] Modified By: Alyx Larson Rn 03/26/21 17:03:17 [facility] IntraOp Sign Out Audit 03/26/21 17:03:17 Manager Special Events: [id number] Modifier: [id number] <+> 1 RN Sign Out Signature Date/Time 03/26/21 17:02:21 Manager Special Events: [id number] Modifier: [id number] 1 <*> Specimen Labeled Correctly N/A 03/26/21 15:37:18 Manager Special Events: [id number] Modifier: [id number] <+> 1 Urinary Catheter Documented in IView 03/26/21 14:26:39 Manager Special Events: [id number] Modifier: [id number] 1 <*> Specimen Labeled Correctly Yes [facility] IntraOp Skin Prep Entry 1 Procedure Colon Resection Laparoscopic Prescribed Yes Pre-Surgical Prep Completed Prep Area ABDOMEN Intraop Prep Integumentary WDL Assessment WDL Prep Agents Chloraprep Prep by PETEY ANGEL Hair Removal Methods No hair removal performed Hair Removal By PETEY ANGEL Last Modified By: Alyx Larson Rn 03/26/21 15:37:34 [facility] IntraOp Skin Prep Audit 03/26/21 15:37:34 Manager Special Events: [id number] Modifier: [id number] 1 <*> Methods Clipper/Scissors 1 <-> Hair Removal Site ABD 1 <*> Procedure Colon Resection Laparoscopic 1 <*> Prep by Alyx Larson Rn [facility] IntraOp Surgical Procedures Entry 1 Procedure Colon Resection Laparoscopic Additional HAND-ASSISTED Procedure EXPLORATORY LAPAROSCOPY Description CONVERTED TO LAPAROTOMY, OMENTECTOMY Primary Procedure Yes Primary Surgeon RAQUEL COOPER MD-PRO Start 03/26/21 15:30:00 Stop 03/26/21 16:58:00 Anesthesia Type General Specialty Gastroenterology Wound Class III - Contaminated Last Modified By: Alyx Larson Rn 03/26/21 17:01:51 [facility] IntraOp Surgical Procedures Audit 03/26/21 17:01:51 Manager Special Events: [id number] Modifier: [id number] <+> 1 Stop 03/26/21 16:39:43 Manager Special Events: [id number] Modifier: [id number] 1 <*> Procedure Colon Resection Laparoscopic 1 <*> Additional Procedure Description HAND-ASSISTED EXPLORATORY LAPAROSCOPY 03/26/21 15:38:05 Manager Special Events: [id number] Modifier: [id number] 1 <*> Procedure Colon Resection Laparoscopic 1 <+> Start 1 <*> Additional Procedure Description (EXPLORATORY LAPAROSCOPY [facility] IntraOp Temp Regulation Devices Entry 1 Temp Regulation Temperature Forced Air Warming Regulation Device device, Irrigation solution warmer, Warm blankets Temperature 36873 Regulation Device Serial/Unit Number Temperature Upper body Regulation Site Temperature Device 43 DEGREES CELCUIS Setting Temperature Justice, Debby, THERAPY TECH Regulation Device Applied by Last Modified By: Alyx Larson Rn 03/26/21 15:38:15 [facility] IntraOp Temp Regulation Devices Audit 03/26/21 15:38:15 Manager Special Events: [id number] Modifier: [id number] 1 <*> Temperature Regulation Device Alyx Larson Rn Applied by [facility] IntraOP Time Out Entry 1 Procedure to [...] Modified By: Alyx Larson Rn 03/26/21 15:38:32 [facility] IntraOP Time Out Audit 03/26/21 15:38:32 Manager Special Events: [id number] Modifier: [id number] 1 <+> Time Out Pause Time 1 [...]
--- OUTSIDE RECORDS SUMMARY | 2025-07-15 21:32 | XMS_ITS | Encounter Summary ---
Author Organization [employer] ([place], [place], [place], [place], [place]) Address [address] [place] [address] Care Team Providers Care Stationary Engineer Refrigeration Name Role Phone Unavailable Primary Care Provider Unavailabl e Encounter Details Date Type Department Care Team (Late st Contact Info) Description 03/12/2021 Transcribed Document [facility] Family Medicine [address] [place] [address] ProviderLele MD [address] [place] [address] Social History Tobacco Use Types [...] Ambulatory Legal Guardian : Spouse Support Person/Patient Playground Equipment Erector : Yes Support Person/Pt Rep Name : Kaylah Lyle Support Person/Pt Rep Contact Information : [phone] Want Family/Rep/Phys Notified of Admit : No Emergency Contact #1 : Kaylah Jo Emergency Contact #1 ` Emergency Contact #1 Relationship : ` Emergency Contact #2 : none` Emergency Contact #2 Phone Number : none` Emergency Contact #2 Relationship : none` Information Obtained From : Patient Primary Language : Azeri Communication Barrier : None Workforce Management Consultant Needed : No BYRON DAMON RN - [...] ability [place] Fall Risk Score : 35 GUZMNA Fall Scale Risk Level : 25-45 Medium Risk [place] Fall Interventions : Adequate lighting, Personal items within reach BYRON DAMON RN - 03/12/2021 17:10 EDT Health Histories Smoking Status : Former smoker, quit more than 30 days ago Smokeless Tobacco Status : Never Implant/Device Type, Senior Pl Sql Developer and Model : cardiac stent cardiac pacemaker [...] Source : Measured Height Entry Format : [place] Height, Feet : 5 ft(Converted to: 152 cm, 60 Inch) Height, Inches : 9 Inch(Converted to: 0 ft 9 Inch, 22.86 cm) Clinical Height : 175.26 cm Weight Source : Standing scale Weight Entry Format : [place] Clinical Dosing Weight : 118.18 kg Weight, Pounds : 260.0 lb Body Surface Area (BSA) : 2.31 m2 Body Mass Index : 38.5 kg/m2 (HI) [place] Body Weight : 70 kg BYRON DAMON [...] BYRON DAMON RN - 03/12/2021 17:10 EDT [place] Suicide Severity Rating Scale (C-SSRS) CSSRS Past [...]
--- OUTSIDE RECORDS SUMMARY | 2025-07-15 21:32 | XMS_ITS | Encounter Summary ---
Author Organization [employer] ([place], [place], [place], [place], [place]) Address [address] [place] [address] Care Team Providers Care Cake Mixer Name Role Phone Unavailable Primary Care Provider Unavailabl e Encounter Details Date Type Department Care Team (Late st Contact Info) Description 03/13/2021 Transcribed Document [facility] Family Medicine [address] [place] [address] ProviderLele MD [address] [place] [address] Social History Tobacco Use Types [...] At risk for sleep apnea / IMO [id number] / Confirmed, Active Problems (8) Amputation d/t [...] tenderness, No swelling, No deformity. Integumentary: Warm, [place], Moist, No rash. Neurologic: Alert, Oriented, Normal [...] tolerates diet TIME SPENT : 20 minutes documented in this encounter Plan of Treatment Not on file documented as of this encounter Visit Diagnoses Not on filedocumented in this encounter
--- OUTSIDE RECORDS SUMMARY | 2025-07-15 21:32 | XMS_ITS | Encounter Summary ---
Author Organization [employer] ([place], [place], [place], [place], [place]) Address [address] [place] [address] Care Team Providers Care Policy Writer Name Role Phone Unavailable Primary Care Provider Unavailabl e Encounter Details Date Type Department Care Team (Late st Contact Info) Description 03/26/2021 Transcribed Document [facility] [facility] [place] [address] ProviderLele MD [address] [place] [address] Social History Tobacco Use Types [...] - 03/26/2021 15:09 EDT Electronically signed by Félix [facility] Conversion Composite Bond Technician Cerner at 11/11/2022 6:50 PM CDT documented in this encounter Plan of Treatment Not on file documented as of this encounter Visit Diagnoses Not on filedocumented in this encounter
--- OUTSIDE RECORDS SUMMARY | 2025-07-15 21:32 | XMS_ITS | Patient Health Record ---
Author Organization [facility] Address [address] [place] [address] Care Team Providers Care Director Of Business Continuity Name Role Phone Dez Cerna Primary Care Provider Debby Gary Unavailable [phone] Migration, Provider Unavailable Unavailable Allergies No Known Allergies Results Component Value Reference Range Notes COMPREHENSIVE METABOLIC PANE Chan ([id number]) Reviewed date:06/05/2025 01:46:46 PM Interpretation: Performing Lab:[facility], [facility] [address], [facility] CampusTfqgVZ[address] Nish Squires Notes/Report: NON-FASTING; NON-FASTING; NON-FASTING; NON-FASTING [...] 26 10-35 U/L ALT 34 9-46 U/L HEMOGLOBIN A1c (496) Reviewed date:12/25/2024 09:39:57 AM Interpretation: Performing Lab:[facility] itzbig-MPVe1355 [facility] MPVZbmmVX[address] Nish Squires Notes/Report: NON-FASTING; NON-FASTING; NON-FASTING; NON-FASTING [...] A1c for diagnosis of diabetes for children. CBC (INCLUDES DIFF/PLT) (639 9) Reviewed date:12/25/2024 09:39:56 AM Interpretation: Performing Lab:[facility] itzbig-MPVe1355 [address], [place] KdqyHE[address] Nish Squires Notes/Report: NON-FASTING; NON-FASTING; NON-FASTING; NON-FASTING [...] MPV 10.8 7.5-12.5 fL ABSOLUTE NEUTROPHILS 4514 6033-5619 cells/uL ABSOLUTE LYMPHOCYTES 847 918-6567 cells/uL ABSOLUTE MONOCYTES 744 200-950 cells/uL ABSOLUTE EOSINOPHILS 174 15-500 cells/uL ABSOLUTE BASOPHILS 43 0-200 cells/uL NEUTROPHILS 72.8 LYMPHOCYTES 11.7 MONOCYTES 12.0 EOSINOPHILS 2.8 BASOPHILS 0.7 COMPREHENSIVE METABOLIC PANE L (24347) Reviewed date:12/25/2024 09:39:56 AM Interpretation: Performing Lab:[facility], [facility] L[address] [place], MPVEyluLG[address] Nish Squires Notes/Report: NON-FASTING; NON-FASTING; NON-FASTING; NON-FASTING [...] 21 10-35 U/L ALT 30 9-46 U/L LIPID PANEL, STANDARD (3760) Reviewed date:12/25/2024 09:39:56 AM Interpretation: Performing Lab:[facility] [address], MPVCcngFU[address] Nish Squires Notes/Report: NON-FASTING; NON-FASTING; NON-FASTING; NON-FASTING [...] Jorge Luis SS et al. EUGENIO. 2013;310(19): 7846-2310 (http://education.Moonshoot.UTILICASE/faq/SXU925) CHOL/HDLC RATIO 3.4 <5.0 (calc) NON HDL CHOLESTEROL 64 <130 mg/dL (calc) For patients with diabetes plus 1 major ASCVD risk factor, treating to a non-HDL-C goal of <100 mg/dL (LDL-C of <70 mg/dL) is considered a therapeutic option. PSA, TOTAL (5363) Reviewed date:08/25/2024 10:54:41 AM Interpretation: Performing Lab:[facility] itzbig-Actacell35GlassesGroupGlobalamrita [employer] [employer] NetworkMfygVR[address] Nish Squires Notes/Report: NON-FASTING; NON-FASTING; NON-FASTING; NON-FASTING; NON-FAST FASTING:YES FASTING: YES PSA, TOTAL 1.53 < OR = 4.00 ng/mL The total PSA value from this assay system is standardized against the WHO standard. The test result will be approximately 20% lower when compared to the equimolar-standardized total PSA (Alejandra Sherman). Comparison of serial PSA results should be interpreted with this fact in mind. This test was performed using the Siemens chemiluminescent method. Values obtained from different assay methods cannot be used interchangeably. PSA levels, regardless of value, should not be interpreted as absolute evidence of the presence or absence of disease. CEA (978) Reviewed date:08/25/2024 10:54:41 AM Interpretation: Performing Lab:[facility] itzbig-MPVe1355 [address], [employer] Rep[employer] NetworkDadlPC[address] Nish Squires Notes/Report: NON-FASTING; NON-FASTING; NON-FASTING; NON-FASTING; NON-FAST FASTING:YES FASTING: YES CEA 2.8 See Note: ng/mL Reference Range: Non-Smoker: <2.5 Smoker: <5.0 This test was performed using the Siemens chemiluminescent method. Values obtained from different assay methods cannot be used interchangeably. CEA levels, regardless of value, should not be interpreted as absolute evidence of the presence or absence of disease. HEMOGLOBIN A1c (496) Reviewed date:08/25/2024 10:54:41 AM Interpretation: Performing Lab:[facility] Mvlc54[address] [employer] [facility], [facility] CampusQlcrVS[address] Nish Squires Notes/Report: NON-FASTING; NON-FASTING; NON-FASTING; NON-FASTING; [...] A1c for diagnosis of diabetes for children. CBC (INCLUDES DIFF/PLT) (639 9) Reviewed date:08/25/2024 10:54:41 AM Interpretation: Performing Lab:[facility] [id number] 3CI[employer] [facility], [facility] CampusBxqcVH[address] Nish Squires Notes/Report: NON-FASTING; NON-FASTING; NON-FASTING; NON-FASTING; [...] MPV 11.1 7.5-12.5 fL ABSOLUTE NEUTROPHILS 3115 5277-1404 cells/uL ABSOLUTE LYMPHOCYTES 118 242-4302 cells/uL ABSOLUTE MONOCYTES 665 200-950 cells/uL ABSOLUTE EOSINOPHILS 200 15-500 cells/uL ABSOLUTE BASOPHILS 40 0-200 cells/uL NEUTROPHILS 62.3 LYMPHOCYTES 19.6 MONOCYTES 13.3 EOSINOPHILS 4.0 BASOPHILS 0.8 COMPREHENSIVE METABOLIC PANE L (72868) Reviewed date:08/25/2024 10:54:41 AM Interpretation: Performing Lab:[facility], [facility] Gvgy2765 [facility], [facility] HospitalBkviTB[address] Nish Squires Notes/Report: NON-FASTING; NON-FASTING; NON-FASTING; NON-FASTING; [...] 28 10-35 U/L ALT 43 9-46 U/L LIPID PANEL, STANDARD (7600) Reviewed date:08/25/2024 10:54:41 AM Interpretation: Performing Lab:[facility] Svln0165 [facility], [facility] CenterRwtsIQ[address] Nish Squires Notes/Report: NON-FASTING; NON-FASTING; NON-FASTING; NON-FASTING; [...] Jorge Luis SS et al. EUGENIO. 2013;310(19): 3825-3819 (http://education.Moonshoot.com/faq/MJA167) CHOL/HDLC RATIO 3.5 <5.0 (calc) NON HDL CHOLESTEROL 74 <130 mg/dL (calc) For patients with diabetes plus 1 major ASCVD risk factor, treating to a non-HDL-C goal of <100 mg/dL (LDL-C of <70 mg/dL) is considered a therapeutic option. Microalbumin (In-House) Reviewed date:08/23/2024 04:57:58 PM Interpretation:Normal Performing Lab: Notes/Report: Normal ALB 10mg/L CRE 50mg/dL A:C <30mg HEMOGLOBIN A1c (496) Reviewed date:06/05/2025 01:46:46 PM Interpretation: Performing Lab:[facility] Vdix6968 [facility], [facility] CenterHwyzDH[address] Nish Squires Notes/Report: NON-FASTING; NON-FASTING; NON-FASTING; NON-FASTING [...] A1c for diagnosis of diabetes for children. CBC (INCLUDES DIFF/PLT) (639 9) Reviewed date:06/05/2025 01:46:46 PM Interpretation: Performing Lab:[facility], [facility] [address], MPVMuziHE[address] Nish Squires Notes/Report: NON-FASTING; NON-FASTING; NON-FASTING; NON-FASTING [...] MPV 11.2 7.5-12.5 fL ABSOLUTE NEUTROPHILS 2765 6238-7431 cells/uL ABSOLUTE LYMPHOCYTES 9025 620-7990 cells/uL ABSOLUTE MONOCYTES 547 200-950 cells/uL ABSOLUTE EOSINOPHILS 156 15-500 cells/uL ABSOLUTE BASOPHILS 41 0-200 cells/uL NEUTROPHILS 60.1 LYMPHOCYTES 23.7 MONOCYTES 11.9 EOSINOPHILS 3.4 BASOPHILS 0.9 LIPID PANEL, STANDARD (9950) Reviewed date:06/05/2025 01:46:46 PM Interpretation: Performing Lab:[facility], [facility] [address], MPVCqpyXU[address] Nish Squires Notes/Report: NON-FASTING; NON-FASTING; NON-FASTING; NON-FASTING [...] LDL-C. Jorge Luis MCNAMARA et al. EUGENIO. 2013;310(55): 1782-0430 (http://education.Moonshoot.UTILICASE/faq/YPB592) CHOL/HDLC RATIO 2.7 <5.0 (calc) NON HDL CHOLESTEROL 61 <130 mg/dL (calc) For patients with diabetes plus 1 major ASCVD risk factor, treating to a non-HDL-C goal of <100 mg/dL (LDL-C of <70 mg/dL) is considered a therapeutic option. Medications Medication SIG (Take, Route, Frequency, Duration) Notes Start Date End Date Status Vitamin C - as directed Orally Active Co Q-10 100 MG 1 cap(s) orally once a day; Duration: 90 days Active Carvedilol 12.5 MG 1 tab(s) orally 2 ti mes a day; Duration: 90 days Active Atorvastatin Calcium 80 MG 1 tab(s) oral ly once a day; Duration: 90 days Active Fish Oil 500 MG 1 cap(s) orally once a day Active Vineet Low Dose 81 MG TAKE 1 TABLET BY [facility] ONCE DAILY; Duration: 90 Active Jardiance 25 MG 1 tab(s) orally once a day (in the morning); Duration: 90 days Active Ramipril 10 MG 1 cap(s) orally once a day; Duration: 90 days Active Isosorbide Mononitrate ER 30 MG 1 tab(s) orally once a day (in the morning) Active Immunizations Vaccine Route Administration Date Status Comme nts Fluzone High Dose IM Intramuscular 04/22/2018 Administered Fluzone High Dose IM Intramuscular 06/19/2019 Administered Fluzone High Dose IM Intramuscular 05/10/2020 Administered Fluzone High Dose IM Intramuscular 05/28/2021 Administered Fluzone High Dose IM Intramuscular 04/22/2022 Administered Fluzone High Dose IM Intramuscular 06/21/2023 Administered Fluzone High Dose IM Intramuscular 06/27/2024 Administered Fluzone High Dose IM Intramuscular 06/04/2025 Administered Influenza (Fluzone)--Medicare only IM Intramuscular 05/28/2017 Administered PPD ID Intradermal 02/22/2009 Administered Prevnar PCV-13 (Pneumococcal conjugate 13) IM Intramuscular 05/28/2017 Administered Prevnar PCV-20 (Pneumococcal conjugate 20) IM Intramuscular 06/21/2023 Administered Social History Tobacco Use: Social History Observation Description Date Details (start date - stop date) Never Smoker NA - NA Smoking: Question Answer Notes Are you a: nonsmoker Problems Problem Type SNOMED Code ICD Code Onset Dates Problem Status W/U Status Risk Notes Problem Peripheral circulatory disorder associated with diabetes mellitus (093912338) Type 2 diabetes mellitus with other circulatory complications (E11.59) Active confirmed Problem 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 (042158836397246) 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 Problem Hyperlipidemia (19491980) Hyperlipemia, 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 Problem Essential hypertension (56385901) Hypertension, essential (I10) Active confirmed Problem Pulmonary emphysema (05242156) Pulmonary emphysema, unspecified emphysema type (J43.9) Active confirmed Problem Malignant neoplasm of colon (606995795) Malignant neoplasm of colon, unspecified part of colon (C18.9) Active confirmed Problem Lower urinary tract symptoms due to benign prostatic hypertrophy (41993901451937) Benign prostatic hyperplasia with lower urinary tract symptoms (N40.1) Active confirmed Problem Aortic valve disease (3955141) Aortic valve disease (I35.9) Active confirmed Vital Signs Heart Rate 64 /min 06/04/2025 Temperature 97.7 degrees Fahrenheit 06/04/2025 Blood pressure diastolic 78 mm Hg 06/04/2025 Height 5' 9 in 06/04/2025 Blood pressure systolic 124 mm Hg 06/04/2025 Weight 256 lbs 06/04/2025 BMI 37.8 kg/m2 06/04/2025 Encounters Encounter Location Date Provider Diagnosis [facility] [address] [place] [address] 10/28/2024 Provider Migration [facility] [address] [facility] [address] [place] [address] 08/23/2024 Dez Eryn Type 2 diabetes mellitus with other circulatory complications E11.59 ; Hyperlipemia, idiopathic familial E78.5 ; 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 I25.10 ; Benign prostatic hyperplasia with lower urinary tract symptoms N40.1 ; Pulmonary emphysema, unspecified emphysema type J43.9 ; Malignant neoplasm of colon, unspecified part of colon C18.9 and Routine medical exam Z00.00 [facility] [address] [facility] [address] [place] [address] 11/20/2024 Dezangel Crena Acute cough R05.1 [facility] [address] [place], [place] [address] 12/20/2024 Dezangel Cerna Hypertension, essent ial I10 ; Hyperlipemia, idiopathic familial E78.5 ; Type 2 diabetes mellitus with other circulatory complications E11.59 ; 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 I25.10 ; Ventral hernia without obstruction or gangrene K43.9 and Left sciatic nerve pain M54.32 [facility] [address] [place] [address] 02/12/2025 Debby Gary Acute non-recurrent pansinusitis J01.40 ; Lightheadedness R42 ; Hypertension, essential I10 ; Aortic valve disease I35.9 and 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 I25.10 [facility] [address] [place] [address] 04/25/2025 Dez Besdorian Type 2 diabetes mellitus with other circulatory complications E11.59 ; 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 I25.10 ; Hyperlipemia, idiopathic familial E78.5 and Hypertension, essential I10 [facility] [address] [facility] [address] [place] [address] 06/04/2025 Dez Riosson Immunization(s) administered Z23 ; Hyperlipemia, idiopathic familial E78.5 ; Hypertension, essential I10 ; Aortic valve disease I35.9 ; Type 2 diabetes mellitus with other circulatory complications E11.59 and 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 I will review labs personally. Overall good medication. On goal-directed therapy given his heart disease 08/23/2024 Hyperlipemia, idiopathic familial (ICD-10 - E78.5) 11/20/2024 Acute cough (ICD-10 - R05.1) 2-3 [...] Continue current regimen, BP looks good today 04/25/2025 Type 2 diabetes mellitus with other circulatory complications (ICD-10 - E11.59) A1c in November was 6.1. Will drawl in May when he comes in for his flu shot. 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 No changes in plan on high intensity statin. No evidence of side effects 02/12/2025 Acute non-recurrent pansinusitis (ICD-10 - J01.40) Recommend resume regular use of Flonase, Augmentin as noted. Return precautions reviewed 02/12/2025 Lightheadedness (ICD-10 - R42) Suspect this episode was likely multifactorial, mild dehydration and standing after being seated for quite some time. His blood pressures in the emergency department were primarily normal but he is low normal today. Recommend monitor blood pressure at home and he may need his antihypertensive regimen adjusted. He has routine follow-up with cardiology through [facility] and was just seen in October. 06/04/2025 Hyperlipemia, 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 He denies any dizziness or orthostasis. Have instructed him if this happens to come back right away as he is out on his tractor by himself quite a bit I do not want to have him have any kind of presyncope episodes. He understands, does a good job of keeping himself hydrated. Follow-up in May for flu shot and will get labs at that point 02/12/2025 Aortic valve disease (ICD-10 - I35.9) 06/04/2025 Aortic valve disease (ICD-10 - I35.9) [...] much better job with diet and exercise. 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 Check CEA and other labs. No recent falls. Depression screening negative. Up-to-date with vaccinations, does decline shingles vaccine. is healthcare surrogate. Reviewed HRA. Plan Of Treatment Pending Test Test Name Order Date C-CBC 01/14/2021 C-CBC 08/18/2017 C-BASIC METABOLIC 02/11/2010 C-CMP 08/26/2020 C-CMP 01/22/2010 C-CMP 07/27/2013 C-CMP 08/18/2017 C-CMP 01/14/2021 C-CMP 11/05/2020 C-LIPID PANEL 01/14/2021 C-LIPID PANEL 08/18/2017 C-LIPID PANEL 07/27/2013 C-LIPID PANEL 08/26/2020 C-PSA 07/27/2013 C-PSA 01/22/2010 Cardiac Rehab 12/25/2020 Future Test Test Name Order Date C-CBC 07/27/2016 C-CMP 07/27/2016 C-LIPID PANEL 07/27/2016 C-THYROID PROFILE 01/24/2018 C-CBC 08/01/2018 C-CMP 08/01/2018 C-LIPID PANEL 08/01/2018 C-PSA 08/01/2018 C-CBC 03/18/2020 C-CMP 03/18/2020 C-LIPID PANEL 03/18/2020 C-TSH 03/18/2020 C-VITAMIN B12 03/18/2020 C-VITAMIN D, 25-HYDROXY 03/18/2020 Next Appt Details Provider Name:Dez Cerna, 09/05/2025 09:45:00 AM, [address], [place], [address], Insurance Providers Payer Name Payer Address Payer Phone Subscriber Number Group Number Insured Name Patient Relationship to Insured Coverage Start Date Coverage End Date MEDICARE [place] [address] [place] [place] [phone] [id number] Everette Boo Self - patient is the insured [facility] [address] [place] [address] [id number] Everette Boo Self - patient is the insured [employer] [address] [place] [address] ACL Everette Boo Self - patient is [...] 10/13 colectomy 02/2021 Hospitalization History Reason Date(Month/Year) Light headedness 01/2025 colectomy 02/2021 [place] 02/2016 -chest tube, screws in pelvis 02/2016 all above surgeries
--- OUTSIDE RECORDS SUMMARY | 2025-07-15 21:33 | XMS_ITS | Encounter Summary ---
Author Organization [employer] ([place], [place], [place], [place], [place]) Address [address] [place] [address] Care Team Providers Care Nca Certified Concierge Name Role Phone Unavailable Primary Care Provider Unavailabl e Encounter Details Date Type Department Care Team (Late st Contact Info) Description 03/26/2021 Transcribed Document [facility] [place] [facility] [address] [place] [address] ProviderLele MD [address] [place] [address] Social History Tobacco Use Types [...] Exposure: No. Last Used: quit smoking 1979. Electronically signed by Iglesia Heard Conversion Senior Government Program Analyst Cerner at 11/11/2022 6:29 PM CDT documented in this encounter Plan of Treatment Not on file documented as of this encounter Visit Diagnoses Not on filedocumented in this encounter
--- OUTSIDE RECORDS SUMMARY | 2025-07-15 21:33 | XMS_ITS | Encounter Summary ---
Author Organization [employer] ([place], [place], [place], [place], [place]) Address [address] [place] [address] Care Team Providers Care Torts Law Professor Name Role Phone Unavailable Primary Care Provider Unavailabl e Encounter Details Date Type Department Care Team (Late st Contact Info) Description 07/23/2020 Transcribed Document [facility] [place] [facility] [address] [place] [address] ProviderLele MD [address] [place] [address] Social History Tobacco Use [...] Conversion Note - Lele ProviderMD - 07/23/2020 8:51 AM DENTAL MANAGER Pre Procedure Adult Entered On: 07/23/2020 8:54 EST Performed On: 07/23/2020 8:51 EST by AURE LINCOLN RN Height and Weight, Clinical Dosing Height Source : Stated Height Entry Format : Appling Height, Feet : 5 ft(Converted to: 152 cm, 60 Inch) Height, Inches : 10 Inch(Converted to: 0 ft 10 Inch, 25.40 cm) Clinical Height : 177.8 cm Weight Source : Standing scale Weight Entry Format : Appling Clinical Dosing Weight : 113.64 kg Weight, Pounds : 250 lb Body Surface Area (BSA) : 2.3 m2 Body Mass Index : 35.9 kg/m2 (HI) Bryant Body Weight : 72 kg AURE LINCOLN [...] ALLIE BRIDGES RN - 07/23/2020 8:55 EST [place] Suicide Severity Rating Scale (C-SSRS) CSSRS Past [...] spouse Support Person/Pt Rep Contact Information : [phone] Want Family/Rep/Phys Notified of Admit : No Emergency Contact #1 : see above Emergency Contact #1 Phone Number : na Emergency Contact #1 Relationship : na Emergency Contact #2 : na Emergency Contact #2 Phone Number : na Emergency Contact #2 Relationship : na Primary Language : Serbian Communication Barrier : None Quality Control Tester Needed : No ALLIE BRIDGES RN - [...] Level : 46 or > High Risk [place] Fall Interventions : Adequate lighting, Bed in [...] With patient, Declines to send to security/safe ALLIE BRIDGES RN - 07/23/2020 8:55 EST [...]
--- OUTSIDE RECORDS SUMMARY | 2025-07-15 21:33 | XMS_ITS ---
Author Organization Unknown ENCOUNTERS Encounter Performer Location Date Diagnosis Diagnosis Status Emergency [place] [address] [place] [address] [id number] Pre Admit [place] [address] [place] [address] [phone] Pre Admit [place] [address] [place] [address] [id number] Emergency [place] [address] [place] [address] [phone] JUSTIN Emergency Jori Anthony (ED) [place] [address] [place] [address] [phone] JUSTIN *Note: Encounters from your own facility or health system may be excluded. Allergies, Adverse Reactions, Alerts Allergen Type Severity Identification Date Medications Name Date Quantity Days Supplied [facility] Number
--- OUTSIDE RECORDS SUMMARY | 2025-07-15 21:33 | XMS_ITS | Encounter Summary ---
Author Organization [employer] ([place], [place], [place], [place], [place]) Address [address] [place] [address] Care Team Providers Care Hand Decorator Name Role Phone Unavailable Primary Care Provider Unavailabl e Encounter Details Date Type Department Care Team (Late st Contact Info) Description 03/12/2021 Transcribed Document [facility] [place] Family Medicine [address] [place] [address] ProviderLele MD [address] [place] [address] Social History Tobacco Use Types [...] Ministry Provided to : Patient, Family/Significant other Taoist Preference : Samaritan, independent ELLIOTT PANTOJA P - 03/12/2021 15:57 EDT Spiritual Assessment Spiritual Assessment Comment/Summary Points : Provided pre-surgery visit and prayer with patient and . Spirital Assessment Comment/Summary Report : SPIRITUAL ASSESSMENT COMMENT/SUMMARY No qualifying data available. ELLIOTT PANTOJA - 03/12/2021 15:57 EDT Interventions Emotional Support : Empathic/Engaged listening, Family/Significant other supported Spiritual and Taoist : Verify wai group connection, Prayer shared, Spiritual/Taoist support provided ELLIOTT PANTOJA - 03/12/2021 15:57 EDT Electronically signed by Félix, [facility] Conversion Lead Technologist In Cytogenetics Cerner at 11/11/2022 6:41 PM CDT documented in this encounter Plan of Treatment Not on file documented as of this encounter Visit Diagnoses Not on filedocumented in this encounter
--- OUTSIDE RECORDS SUMMARY | 2025-07-15 21:33 | XMS_ITS | Encounter Summary ---
Author Organization [employer] ([place], [place], [place], [place], [place]) Address [address] [place] [address] Care Team Providers Care Licensed Journeyman Electrician Name Role Phone Unavailable Primary Care Provider Unavailabl e Encounter Details Date Type Department Care Team (Late st Contact Info) Description 03/14/[address] [facility] [place] [address] [place] [address] ProviderLele MD [address] [place] [address] Social History Tobacco Use Types [...] Shah MD - 03/14/2021 4:58 PM CDT [facility] [place], [place] [id number] KEMI BOO :1945 Visit Time:03/12/2021 Your Visit Summary Your Care Team Admitting Physician - RAQUEL JAIME MD-PRO Attending Physician - RAQUEL JAIME MD-PRO Primary Care Physician - SULLY BLANKENSHIP (REF)MD-[facility] Referring Physician - SONIA, NOT LISTED [...] Bring discharge instructions with you Where: [address] [place] [address]- Follow Up with SULLY BLANKENSHIP (MD KARRIE-FAM When 03/20/2021 02:45 PM EDT Comments PCP follow up Appointment has been made Bring discharge instructions with you Where: [address] [place] [address] [place] [address]- Medications What How Much When Instructions Next Dose acetaminophen-oxyCODONE (Percocet 5 mg-325 mg oral tablet) 1 Tablet(s) Oral Every 4 Hours as needed for as needed for pain Pickup at [id number] as needed pantoprazole (pantoprazole 40 mg oral delayed release tablet) 1 Tablet(s) Oral Two Times A Day Duration: 7 Day(s) Pickup at [facility] #[id number] this evening ascorbic acid (Vitamin C) 500 [...] Milligram(s) Oral Every Day tomorrow [id number] [address] [address] [address] Ben[address] [phone] Take your medications faithfully. Do NOT skip [...] Follow these instructions at home: ??? Take urut-qkt-bdoohpg and prescription medicines only as told by your health care provider. ??? Try to eat regular, healthy meals. Some of your treatments might affect your appetite. If you are having problems eating or with your appetite, ask to meet with a food and clinical nutrition manager (dietitian). ??? Consider joining a support group. [...] age. Where to find more information ??? [employer]: https://www.cancer.org ??? National Cancer [place] (NCI): https://www.cancer.gov Contact a health care provider [...] provider. Document Revised: 09/01/2018 Document Reviewed: 08/13/2017 [employer] Patient Education ?? 2020 [employer] Laparoscopic Colectomy, Care After This sheet [...] these instructions at home: Medicines ??? Take iiny-zhp-ngbepyc and prescription medicines only as told by [...] and water are not available, use hand contracts director. ? Change your dressing as told by [...] urine clear or pale yellow. ? Take rvfo-ysv-pzioksx or prescription medicines. ? Eat foods that [...] provider. Document Revised: 03/31/2019 Document Reviewed: 04/12/2017 [employer] Patient Education ?? 2020 [employer] Low-Fiber Eating Plan Fiber is found [...] that you work with a diet and clinical nutrition manager (dietitian). What are tips for following this [...] made with white flour. Waffles, pancakes, and Micronesian toast. Bagels. Pretzels. [place] toast, zwieback, and matzoh. Cooked and dried cereals that do not contain whole grains, added fiber, seeds, or dried fruit. Cornmeal. Hortense. Hot and cold cereals made with refined [...] Sports drinks. Herbal tea. Fats and oils Savage oil, canola oil, sunflower oil, flaxseed oil, [...] breads and crackers. Multigrain breads and crackers. [place] bread. Whole grain or multigrain cereals. Cereals with nuts, raisins, or coconut. Bran. Coarse wheat cereals. Granola. High-fiber cereals. Cornmeal or corn bread. Whole grain pasta. Wild or brown rice. Quinoa. Popcorn. Buckwheat. Wheat germ. Vegetables Potato skins. Raw or undercooked vegetables. All beans and rojas sprouts. Cooked greens. [place]. Peas. Cabbage. Beets. Broccoli. [place] sprouts. Cauliflower. Mushrooms. Onions. Peppers. Parsnips. Okra. [...] are not allowed. Seasoning and other foods [place] tortilla chips. Soups made with vegetables or [...] provider. Document Revised: 11/03/2019 Document Reviewed: 09/14/2017 [employer] Patient Education ?? 2020 [employer] Low Residue Diet A low residue [...] than 7-10 grams of fiber per day. violin teacher use of this diet may not provide [...] a broken bone while taking this medicine body and fender worker or more than once per day. What [...] may report side effects to FDA at 4-424-TEZ-3524. What other drugs will affect pantoprazole? Tell your doctor about all your other medicines, especially: ?? digoxin; ?? methotrexate; or ?? a diuretic or 'water pill.' This list is not complete. Other drugs may affect pantoprazole, including prescription and hyfk-poq-bhlofhs medicines, vitamins, and herbal products. Not all [...] to ensure that the information provided by [employer] ('[employer]') is accurate, up-to-date, and complete, but no guarantee is made to that effect. Drug information contained herein may be time sensitive. [employer] information has been compiled for use by healthcare practitioners and consumers in the [place] and therefore [employer] does not warrant that uses outside of the [place] are appropriate, unless specifically indicated otherwise. [employer]'s drug information does not endorse drugs, diagnose patients or recommend therapy. [employer] drug information is an informational resource designed [...] effective or appropriate for any given patient. [facility] does not assume any responsibility for any aspect of healthcare administered with the aid of information [facility] provides. The information contained herein is not intended to cover all possible uses, directions, precautions, warnings, drug interactions, allergic reactions, or adverse effects. If you have questions about the drugs you are taking, check with your doctor, nurse or pharmacist. Copyright 6363-1312 [facility]. Version: .. Revision Date: 07/29/2020. acetaminophen and [...] may report side effects to FDA at 8-165-IML-4897. What other drugs will affect acetaminophen and [...] affect acetaminophen and oxycodone, including prescription and lbpe-umx-qqndsno medicines, vitamins, and herbal products. Not all [...] to ensure that the information provided by [employer]') is accurate, up-to-date, and complete, but no guarantee is made to that effect. Drug information contained herein may be time sensitive. [employer] information has been compiled for use by healthcare practitioners and consumers in the [place] and therefore [employer] does not warrant that uses outside of the [place] are appropriate, unless specifically indicated otherwise. [employer] drug information does not endorse drugs, diagnose patients or recommend therapy. [employer] drug information is an informational resource designed [...] effective or appropriate for any given patient. [employer] does not assume any responsibility for any aspect of healthcare administered with the aid of information [employer] provides. The information contained herein is not intended to cover all possible uses, directions, precautions, warnings, drug interactions, allergic reactions, or adverse effects. If you have questions about the drugs you are taking, check with your doctor, nurse or pharmacist. Copyright 0553-9149 [employer] Version: 20.03. Revision Date: 08/30/2020. Emergency Awareness [...] Assistance with quitting is available by contacting 8-682-VFRB-NOW. This is a free resource providing counseling, [...] 11 ) RBC Morphology: Abnormal Polychromasia: 1+ Assumption Percent Man: 20 % -- Normal range [...] was given the opportunity to ask questions. Patient/Wheat Grower Name: Patient/Wheat Grower Signature: Relationship to Patient: Clinician/Hospital Wheat Grower Signature: Date: documented in this encounter Plan of Treatment Not on file documented as of this encounter Visit Diagnoses Not on filedocumented in this encounter
--- OUTSIDE RECORDS SUMMARY | 2025-07-15 21:33 | XMS_ITS | Encounter Summary ---
Author Organization [employer] ([place], [place], [place], [place], [place]) Address [address] [place] [address] Care Team Providers Care Hardwood Sawyer Name Role Phone Unavailable Primary Care Provider Unavailabl e Encounter Details Date Type Department Care Team (Late st Contact Info) Description 03/26/2021 Transcribed Document [facility] [place] Family Medicine [address] [place] [address] ProviderLele MD [address] [place] [address] Social History Tobacco Use Types [...] Lele ProviderMD - 03/26/2021 1:30 PM CDT [facility] Main OR Preop Summary Primary Physician: RAQUEL COOPER MD-PRO Finalized Date/Time: 03/26/21 15:09:01 Pt. Name: KEMI BOO /Sex: 1945 Male Med Rec #: [id number] Physician: KALIA SCOTT Financial #: [id number] Pt. Type: E Room/Bed: / Admit/Disch: 03/26/21 12:49:00 - Institution: [facility] PreOp Case Times Entry 1 In Preop 03/26/21 13:45:00 Ready for Holding n/a Room Patient Ready for 03/26/21 14:40:00 Surgery Patient Out of Preop 03/26/21 15:07:00 Patient Out of n/a Holding Room Last Modified By: Kiara Forrest RN 03/26/21 15:07:15 [facility] PreOp Case Times Audit 03/26/21 15:07:15 Entry Specialist: [id number] Modifier: [id number] <*> Patient Out of Preop 03/26/21 15:03:00 03/26/21 15:07:09 Entry Specialist: [id number] Modifier: [id number] <+> 1 Patient Out of Preop 03/26/21 14:59:05 Entry Specialist: [id number] Modifier: [id number] <+> 1 Patient Ready for Surgery Finalized By: Kiara Forrest, RN Document Signatures Signed By: Kiara Forrest RN 03/26/21 15:09 Electronically signed by Félix [facility] Conversion Tobacco Packing Machine Operator Cerner at 11/11/2022 6:28 PM CDT documented in this encounter Plan of Treatment Not on file documented as of this encounter Visit Diagnoses Not on filedocumented in this encounter
--- OUTSIDE RECORDS SUMMARY | 2025-07-15 21:33 | XMS_ITS | Encounter Summary ---
Author Organization [employer] ([place], [place], [place], [place], [place]) Address [address] [place] [address] Care Team Providers Care Chief Operating Officer Name Role Phone Unavailable Primary Care Provider Unavailabl e Encounter Details Date Type Department Care Team (Late st Contact Info) Description 03/14/2021 Transcribed Document [facility] [address] [place] [address] ProviderLele MD [address] [place] [address] Social History Tobacco Use Types [...] On: 03/14/2021 13:21 EDT by YANCI FERRERA RN-Otr Refrigerated Cdl Truck Driver Final Discharge Planning Discharge Arrangements : Patient [...] : Yes Discharge To Care Management : Home/Residential/Group Home or Self Care -01 YANCI FERRERA RN-Otr Refrigerated Cdl Truck Driver - 03/14/2021 13:21 EDT Final Narrative Note Final Narrative Note : Discharged to home, after transfusion completed, agreeable. No needs verbalized at this time. YANCI FERRERA RN-Otr Refrigerated Cdl Truck Driver - 03/14/2021 13:21 EDT documented in this encounter Plan of Treatment Not on file documented as of this encounter Visit Diagnoses Not on filedocumented in this encounter
--- OUTSIDE RECORDS SUMMARY | 2025-07-15 21:33 | XMS_ITS | Encounter Summary ---
Author Organization [employer] ([place], [place], [place], [place], [place]) Address [address] [place] [address] Care Team Providers Care Pulmonology Physician Name Role Phone Unavailable Primary Care Provider Unavailabl e Encounter Details Date Type Department Care Team (Late st Contact Info) Description 03/26/2021 Transcribed Document [facility] [place] Family Medicine [address] [place] [address] ProviderLele MD [address] [place] [address] Social History Tobacco Use Types [...] Rajeev Emergency Contact #1 Phone Number : [phone] Emergency Contact #1 Relationship : spouse Emergency Contact #2 : * Emergency Contact #2 Phone Number : * Emergency Contact #2 Relationship : * Primary Language : Zambian Communication Barrier : None Bankruptcy Law Specialist Needed : No Kimberlyn Aguilar RN-PATIENT CARE BEDSIDE NON-EXEMPT - 03/26/2021 20:44 EDT Fall Risk Scales ABCs Fall Injury Risk Identification : Surgery Kimberlyn Aguilar RN-PATIENT CARE BEDSIDE NON-EXEMPT - 03/26/2021 20:44 EDT documented in this encounter Plan of Treatment Not on file documented as of this encounter Visit Diagnoses Not on filedocumented in this encounter
--- OUTSIDE RECORDS SUMMARY | 2025-07-15 21:33 | XMS_ITS | Encounter Summary ---
Author Organization [employer] ([place], [place], [place], [place], [place]) Address [address] [place] [address] Care Team Providers Care Dialysis Nurse Name Role Phone Unavailable Primary Care Provider Unavailabl e Encounter Details Date Type Department Care Team (Late st Contact Info) Description 03/26/2021 Transcribed Document [facility] [place] [address] [place] [address] ProviderLele MD [address] [place] [address] Social History Tobacco Use Types [...] Lele ProviderMD - 03/26/2021 3:30 PM CDT [facility] Main OR PACU Summary Primary Physician: RAQUEL COOPER MD-PRO Finalized Date/Time: 03/27/21 15:18:00 Pt. Name: KEMI BOO /Sex: 1945 Male Med Rec #: [id number] Physician: DANI BATISTA MD Financial #: [id number] Pt. Type: I Room/Bed: [facility]/ Admit/Disch: 03/26/21 19:17:00 - Institution: [facility] Main OR PACU I Case Times Entry 1 In PACU I 03/26/21 17:05:00 Ready for PACU 03/26/21 18:05:00 Discharge Discharge from PACU 03/26/21 18:50:00 I Last Modified By: Ebony Molina RN-PATIENT CARE BEDSIDE NON-EXEMPT 03/26/21 19:12:42 [facility] Main OR PACU Acuity Entry 1 Start Time 03/26/21 18:05:00 Stop Time 03/26/21 18:50:00 Acuity Level [facility] PACU Acuity I Last Modified By: Ebony Molina RN-PATIENT CARE BEDSIDE NON-EXEMPT 03/26/21 19:13:07 [facility] Main OR PACU Acuity Audit 03/27/21 15:17:57 Apprenticeship Training Representative: [id number] Modifier: [id number] <*> Start Time 03/26/21 17:05:00 Finalized By: Skylar Barrientos, Nurse Press Bucker Signatures Signed By: Ebony Molina RN-PATIENT CARE BEDSIDE NON-EXEMPT 03/26/21 19:13 Skylar Barrientos, Nurse Supervisor Carton And Can Supply 03/27/21 15:18 Unfinalized History Date/Time Username Reason for Unfinalizing Freetext Reason for Unfinalizing 03/27/21 15:17 [id number] Correct Billing Electronically signed by Félix [facility] Conversion Wool Handler Cerner at 11/11/2022 6:45 PM CDT documented in this encounter Plan of Treatment Not on file documented as of this encounter Visit Diagnoses Not on filedocumented in this encounter
--- OUTSIDE RECORDS SUMMARY | 2025-07-15 21:33 | XMS_ITS | Encounter Summary ---
Author Organization [employer] ([place], [place], [place], [place], [place]) Address [address] [place] [address] Care Team Providers Care Market Risk Specialist Name Role Phone Unavailable Primary Care Provider Unavailabl e Encounter Details Date Type Department Care Team (Late st Contact Info) Description 07/23/2020 Transcribed Document [facility] [place] Family Medicine [address] [place] [address] ProviderLele MD [address] [place] [address] Social History Tobacco Use Types [...] Note - Lele Shah MD - 07/23/2020 8:56 AM CASINO FLOOR PERSON [address] [address] KEMI ZAPATA :1945 Visit Time:07/23/2020 [...] with you to next appointment Where: [address] [facility] [address] [place] [address]- Medications What How Much When Instructions Next [...] including vitamins, herbs, eye drops, creams, and vaen-htk-jxrftfg medicines. ??? Any problems you or family [...] by your health care provider. ??? Take xqxs-xig-lucdhkk and prescription medicines only as told by [...] 03/04/2005 Document Revised: 09/20/2019 Document Reviewed: 09/21/2019 [employer] Patient Education ?? 2020 [employer] Emergency Awareness and Preventative Care STROKE [...] Assistance with quitting is available by contacting 7-071-EKFM-NOW. This is a free resource providing counseling, [...] Other Results This Visit Patient Name:KEMI ZAPATA RICKEY I have received and understand this information and was given the opportunity to ask questions. Patient/Guest Relations Executive Name: Patient/Guest Relations Executive Signature: Relationship to Patient: Clinician/Hospital Guest Relations Executive Signature: Date: Electronically signed by Félix, [facility] Conversion Roll Dough Divider Jonel at 11/11/2022 6:41 PM CDT documented in this encounter Plan of Treatment Not on file documented as of this encounter Visit Diagnoses Not on filedocumented in this encounter
--- OUTSIDE RECORDS SUMMARY | 2025-07-15 21:33 | XMS_ITS | Encounter Summary ---
Author Organization [employer] ([place], [place], [place], [place], [place]) Address [address] [place] [address] Care Team Providers Care Chief Digital Officer Name Role Phone Unavailable Primary Care Provider Unavailabl e Encounter Details Date Type Department Care Team (Late st Contact Info) Description 03/26/2021 Transcribed Document [facility] [place] [address] [place] [address] ProviderLele MD [address] [place] [address] Social History Tobacco Use Types [...] other Legal Guardian : No Support Person/Patient Director : Yes Support Person/Pt Rep Name : Kaylah Boo - Support Person/Pt Rep Contact Information : [phone] Want Family/Rep/Phys Notified of Admit : No Emergency Contact #1 : Kaylah Boo Emergency Contact #1 Phone Number : [phone] Emergency Contact #1 Relationship : spouse Emergency Contact #2 : * Emergency Contact #2 Phone Number : * Emergency Contact #2 Relationship : * Chief Complaint : had colon surgery 2 weeks ago here by dr vazquez. had ct scan [employer], showed bowel blockage, sent here for further eval Information Obtained From : Patient Primary Language : Sudanese Communication Barrier : None Superintendent Landfill Operations Needed : Kimberlyn Griffin RN-PATIENT CARE BEDSIDE [...] Scale Risk Level : 25-45 Medium Risk [place] Fall Interventions : Adequate lighting, Assistive devices [...] Smokeless Tobacco Status : Never Implant/Device Type, Area Plant Manager and Model : cardiac stent cardiac pacemaker [...] No. (Last Updated: 03/04/2021 10:49:40 EDT by Efrani Ruvalcaba Rn) Alcohol: Date/Time of Last Drink: [...] Source : Stated Height Entry Format : [place] Height, Feet : 5 ft(Converted to: 152 cm, 60 Inch) Height, Inches : 10 Inch(Converted to: 0 ft 10 Inch, 25.40 cm) Clinical Height : 177.8 cm Weight Source : Stated [place] Body Weight : 72 kg Kimberlyn Aguilar RN-PATIENT CARE BEDSIDE NON-EXEMPT - 03/26/2021 21:02 EDT Estimated Weight Type of Weight Measurement Est : [place] Weight, est lb : 258 lb(Converted to: [...] Order Details Transport Mode Order Detail : Simoner/Cr Isolation Precautions Order Detail : Standard Precautions [...] Mariann Zamora Lpn - 03/31/2021 20:14 EDT [place] Suicide Severity Rating Scale (C-SSRS) CSSRS Past [...]
--- OUTSIDE RECORDS SUMMARY | 2025-07-15 21:33 | XMS_ITS | Encounter Summary ---
Author Organization [employer] ([place], [place], [place], [place], [place]) Address [address] [place] [address] Care Team Providers Care Medical Logistics Specialist Name Role Phone Unavailable Primary Care Provider Unavailabl e Encounter Details Date Type Department Care Team (Late st Contact Info) Description 03/14/2021 Transcribed Document [facility] [place] [address] [place] [address] ProviderLele MD [address] [place] [address] Social History Tobacco Use Types [...] EDT Electronically signed by Iglesia Heard Conversion Felting Machine Operator Helper Cerner at 11/11/2022 6:54 PM CDT documented in this encounter Plan of Treatment Not on file documented as of this encounter Visit Diagnoses Not on filedocumented in this encounter
--- OUTSIDE RECORDS SUMMARY | 2025-07-15 21:33 | XMS_ITS | Encounter Summary ---
Author Organization [employer] ([place], [place], [place], [place], [place]) Address [address] [place] [address] Care Team Providers Care Mate Relief Name Role Phone Unavailable Primary Care Provider Unavailabl e Encounter Details Date Type Department Care Team (Late st Contact Info) Description 03/14/2021 Transcribed Document [facility] Family Medicine [address] [place] [address] ProviderLele MD [address] [place] [...] On: 03/14/2021 15:25 EDT by Isi Heredia, Hospital Admissions Clerk Patient Resource Center Provider Status : EST Other Established Provider Name : SULLY CARROLL Patient Phone Number : [phone] Patient Insurance Type : Medicare Source of Referral : Case management Location of Patient : Case management referral Primary Care Scheduled : Yes Primary Care Scheduled Type : Non CMG Primary Care Provider Name : SULLY CARROLL Primary Care Appointment Date/Time : 03/20/2021 14:45 [...] at ED : Other Primary Language : Indonesian Patient Resource Center Comment : Patient needs follow up appointments. Called offices and scheduled appointments with Dr. Jaime and Dr. Carroll Follow Up Needed : No Isi Heredia, Hospital Admissions Clerk - 03/14/2021 15:25 EDT Electronically signed by Félix [facility] Conversion Weld Lay Out Worker Cerner at 11/11/2022 6:54 PM CDT documented in this encounter Plan of Treatment Not on file documented as of this encounter Visit Diagnoses Not on filedocumented in this encounter
--- OUTSIDE RECORDS SUMMARY | 2025-07-15 21:33 | XMS_ITS | Encounter Summary ---
Author Organization [employer] ([place], [place], [place], [place], [place]) Address [address] [place] [address] Care Team Providers Care Mounter Clarinets Name Role Phone Unavailable Primary Care Provider Unavailabl e Encounter Details Date Type Department Care Team (Late st Contact Info) Description 03/26/2021 Transcribed Document [facility] [place] Family Medicine [address] [place] [address] ProviderLele MD [address] [place] [address] Social History Tobacco Use Types [...]
--- OUTSIDE RECORDS SUMMARY | 2025-07-15 21:33 | XMS_ITS | Encounter Summary ---
Author Organization [employer] ([place], [place], [place], [place], [place]) Address [address] [place] [address] Care Team Providers Care Research Program Manager Name Role Phone Unavailable Primary Care Provider Unavailabl e Encounter Details Date Type Department Care Team (Late st Contact Info) Description 03/14/2021 Transcribed Document [facility] [place] Family Medicine [address] [place] [address] ProviderLele MD [address] [place] [address] Social History Tobacco Use Types [...] Historical ProviderMD - 03/14/2021 2:00 AM CDT Crown Attacher Details Entered On: 03/14/2021 8:04 EDT Performed [...] Adore Shepherd RN - 03/14/2021 8:04 EDT documented in this encounter Plan of Treatment Not on file documented as of this encounter Visit Diagnoses Not on filedocumented in this encounter
--- OUTSIDE RECORDS SUMMARY | 2025-07-15 21:33 | XMS_ITS | Encounter Summary ---
Author Organization [employer] ([place], [place], [place], [place], [place]) Address [address] [place] [address] Care Team Providers Care Juke Box Servicer Name Role Phone Unavailable Primary Care Provider Unavailabl e Encounter Details Date Type Department Care Team (Late st Contact Info) Description 03/12/2021 Transcribed Document [facility] [place] [address] [place] [address] ProviderLele MD [address] [place] [address] Social History Tobacco Use Types [...] Shah MD - 03/12/2021 8:05 AM CDT [facility] Main OR PACU Summary Primary Physician: RAQUEL COOPER MD-PRO Finalized Date/Time: 03/12/21 18:05:22 Pt. Name: KEMI BOO/Sex: 1945 Male Med Rec #: [id number] Physician: RAQUEL COOPER MD-PRO Financial #: [id number] Pt. Type: I Room/Bed: [facility]/ Admit/Disch: 03/12/21 06:52:00 - Institution: [facility] Main OR PACU I Case Times Entry 1 In PACU I 03/12/21 10:43:00 Ready for PACU 03/12/21 11:50:00 Discharge Discharge from PACU 03/12/21 16:45:00 I Last Modified By: WILMAN PUGA RN 03/12/21 17:45:15 [facility] Main OR PACU I Case Times Audit 03/12/21 17:45:15 Guide Excursion: EMILIE Modifier: TERRANCEEP <+> 1 Ready for PACU Discharge <+> 1 Discharge from PACU I [facility] Main OR PACU Acuity Entry 1 Start Time 03/12/21 11:50:00 Stop Time 03/12/21 16:45:00 Acuity Level [facility] PACU Acuity I Last Modified By: WILMAN PUGA RN 03/12/21 18:05:21 Finalized By: WILMAN PUGA RN Document Signatures Signed By: WILMAN PUGA RN 03/12/21 18:05 Electronically signed by Félix [facility] Conversion Hvac Service Manager Cerner at 11/11/2022 6:50 PM CDT documented in this encounter Plan of Treatment Not on file documented as of this encounter Visit Diagnoses Not on filedocumented in this encounter
--- OUTSIDE RECORDS SUMMARY | 2025-07-15 21:33 | XMS_ITS | Encounter Summary ---
Author Organization [employer] ([place], [place], [place], [place], [place]) Address [address] [place] [address] Care Team Providers Care Structural Steel Erector Name Role Phone Unavailable Primary Care Provider Unavailabl e Encounter Details Date Type Department Care Team (Late st Contact Info) Description 07/23/2020 Transcribed Document [facility] [place] Family Medicine [address] [place] [address] ProviderLele MD [address] [place] [address] Social History Tobacco Use Types [...] - Lele ProviderMD - 07/23/2020 2:30 PM COMMUNITY ORGANIZER Nursing Discharge Summary Entered On: 07/23/2020 14:36 [...] 07/23/2020 14:36 EST Electronically signed by Félix, [facility] Conversion Wheel Press Operator Cerner at 11/11/2022 6:34 PM CDT documented in this encounter Plan of Treatment Not on file documented as of this encounter Visit Diagnoses Not on filedocumented in this encounter
--- OUTSIDE RECORDS SUMMARY | 2025-07-15 21:33 | XMS_ITS | Encounter Summary ---
Author Organization [employer] ([place], [place], [place], [place], [place]) Address [address] [place] [address] Care Team Providers Care Dramatic Critic Name Role Phone Unavailable Primary Care Provider Unavailabl e Encounter Details Date Type Department Care Team (Late st Contact Info) Description 03/26/2021 Transcribed Document [facility] [place] [facility] [place] [address] ProviderLele MD [address] [place] [address] Social History Tobacco Use Types [...] On: 03/26/2021 13:02 EDT by Sana Napier COMMISSIONED POLICE OFFICER Triage Across the Room Chief Complaint : had colon surgery 2 weeks ago here by dr vazquez. had ct scan [place], showed bowel blockage, sent here for further eval Triage Date/Time : 03/26/2021 13:02 EDT Sana Napier RN - 03/26/2021 13:02 EDT DCP GENERIC CODE Tracking Acuity : 3 - Urgent Tracking Group : [facility] ED Sana Napier RN - 03/26/2021 13:02 EDT Mode of Arrival : Ambulatory Transported to ED by : Private vehicle To Room Via : Ambulate Accompanied By : Significant other ED Vital Signs : Document Height & Weight : Document ED Allergies : Document ED Reason for Visit : Document Tetanus Immunization : Unknown Bar Host Needed : No Sana Napier RN - [...] EDT) Problems(Active) Amputation d/t trauma (SNOMED CT :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 ; Recorder: AURE LINCOLN RN; Confirmation: Confirmed ; Classification: Patient Stated ; Code: [id number] ; Contributor System: A[employer]Native ; Last Updated: 07/23/2020 8:50 EST ; Life Cycle Date: 07/23/2020 ; Life Cycle Status: Active ; Vocabulary: SNOMED CT Angina (SNOMED CT :139456815 ) Name of Problem: Angina ; Recorder: AURE LINCOLN RN; Confirmation: Confirmed ; Classification: Patient Stated ; Code: 525266987 ; Contributor System: AdsNative ; Last Updated: 07/23/2020 8:47 EST ; Life Cycle Date: 07/23/2020 ; Life Cycle Status: Active ; Vocabulary: SNOMED CT Arthritis (SNOMED CT :0888018 ) Name of Problem: Arthritis ; Recorder: AURE LINCOLN RN; Confirmation: Confirmed ; Classification: Patient Stated ; Code: 6451435 ; Contributor System: PowerChart ; Last Updated: 07/23/2020 8:50 EST ; Life Cycle Date: 07/23/2020 ; Life Cycle Status: Active ; Vocabulary: SNOMED CT At risk for sleep apnea (IMO :37025326 ) Name of Problem: At risk for sleep apnea ; Recorder: SYSTEM, SYSTEM; Confirmation: Confirmed ; Classification: Medical ; Code: 85424509 ; Last Updated: 07/23/2020 9:00 EST ; Life Cycle Date: 07/23/2020 ; Life Cycle Status: Active ; Vocabulary: IMO Hyperlipidemia (SNOMED CT :81210916 ) Name of Problem: Hyperlipidemia ; Recorder: AURE LINCOLN RN; Confirmation: Confirmed ; Classification: Patient Stated ; Code: 68681897 ; Contributor System: PowerChart ; Last Updated: 07/23/2020 8:47 EST ; Life Cycle Date: 07/23/2020 ; Life Cycle Status: Active ; Vocabulary: SNOMED CT Hypertension (SNOMED CT :94736273 ) Name of Problem: Hypertension ; Recorder: AURE LINCOLN RN; Confirmation: Confirmed ; Classification: Patient Stated ; Code: 75250641 ; Contributor System: PowerChart ; Last Updated: 07/23/2020 8:47 EST ; Life Cycle Date: 07/23/2020 ; Life Cycle Status: Active ; Vocabulary: SNOMED CT Nocturia (SNOMED CT :347582965 ) Name of Problem: Nocturia ; Recorder: AURE LINCOLN RN; Confirmation: Confirmed ; Classification: Patient Stated ; Code: 751041166 ; Contributor System: PowerChart ; Last Updated: 07/23/2020 8:50 EST ; Life Cycle Date: 07/23/2020 ; Life Cycle Status: Active ; Vocabulary: SNOMED CT Stented coronary artery (SNOMED CT :2620787729 ) Name of Problem: Stented coronary artery ; Recorder: AURE LINCOLN RN; Confirmation: Confirmed ; Classification: Patient Stated ; Code: 1880561261 ; Contributor System: PowerChart ; Last Updated: 07/23/2020 8:46 EST ; Life Cycle Date: 07/23/2020 ; Life Cycle Status: Active ; Vocabulary: SNOMED CT Diagnoses(Active) Abdominal pain Date: 03/26/2021 ; Diagnosis Type: Reason For Visit ; Confirmation: Complaint of ; Clinical Dx: Abdominal pain ; Classification: Medical ; Clinical Service: Emergency medicine ; Code: PNED ; Probability: 0 ; Diagnosis Code: [id number] Abnormal diagnostic test Date: 03/26/2021 ; Diagnosis Type: Reason For Visit ; Confirmation: Complaint of ; Clinical Dx: Abnormal diagnostic test ; Classification: Medical ; Clinical Service: Emergency medicine ; Code: PNED ; Probability: 0 ; Diagnosis Code: [id number] ED Height and Weight Height Source : Stated Height Entry Format : [place] Height, Feet : 5 ft(Converted to: 152 cm, 60 Inch) Height, Inches : 10 Inch(Converted to: 0 ft 10 Inch, 25.40 cm) Clinical Height : 177.8 cm Weight Source, ED : Critical estimated dosing weight Weight Entry Format : [place] Weight, Pounds : 258 lb Clinical Dosing Weight : 117.27 kg Body Surface Area (BSA) : 2.33 m2 Body Mass Index : 37.1 kg/m2 (HI) Anton Body Weight (IBW) : 72.02 kg Sana Napier RN - 03/26/2021 13:02 EDT documented in this encounter Plan of Treatment Not on file documented as of this encounter Visit Diagnoses Not on filedocumented in this encounter
--- OUTSIDE RECORDS SUMMARY | 2025-07-15 21:33 | XMS_ITS | Encounter Summary ---
Author Organization [email or web address] ([place], [place], [place], [place], [place]) Address [address] [place] [address] Care Team Providers Care Immigration Paralegal Name Role Phone Unavailable Primary Care Provider Unavailabl e Encounter Details Date Type Department Care Team (Late st Contact Info) Description 07/23/2020 Transcribed Document [facility] [place] Family Medicine [address] [place] [address] ProviderLele MD [address] [place] [address] Social History Tobacco Use Types [...] Lele Shah MD - 07/23/2020 8:55 AM DOCTOR PODIATRIC MEDICINE Patient Education Materials Follows: Myelogram A myelogram [...] including vitamins, herbs, eye drops, creams, and kyya-ogh-kqtvkdb medicines. ??? Any problems you or family [...] by your health care provider. ??? Take olak-jkf-advebco and prescription medicines only as told by [...] Reviewed: 09/21/2019 Elsevier Patient Education ? 2019 [employer] documented in this encounter Plan of Treatment Not on file documented as of this encounter Visit Diagnoses Not on filedocumented in this encounter
--- OUTSIDE RECORDS SUMMARY | 2025-07-15 21:33 | XMS_ITS | Encounter Summary ---
Author Organization [employer] ([place], [place], [place], [place], [place]) Address [address] [place] [address] Care Team Providers Care Diversional Therapist Name Role Phone Unavailable Primary Care Provider Unavailabl e Encounter Details Date Type Department Care Team (Late st Contact Info) Description 03/04/2021 Transcribed Document [facility] [place] [address] [place] [address] ProviderLele MD [address] [place] [address] Social History Tobacco Use Types [...] Source : Measured Height Entry Format : [place] Height, Feet : 5 ft(Converted to: 152 cm, 60 Inch) Height, Inches : 9 Inch(Converted to: 0 ft 9 Inch, 22.86 cm) Clinical Height : 175.26 cm Weight Source : Standing scale Weight Entry Format : [place] Clinical Dosing Weight : 118.18 kg Weight, Pounds : 260.0 lb Body Surface Area (BSA) : 2.31 m2 Body Mass Index : 38.5 kg/m2 (HI) [place] Body Weight : 70 kg VIRGINIA MOREL RN - 03/05/2021 10:22 EDT Health Histories Smoking Status : Former smoker, quit more than 30 days ago Smokeless Tobacco Status : Never Implant/Device Type, Pathology Supervisor and Model : cardiac stent cardiac pacemaker [...] : Yes Spiritual/Cultural Needs Comment : 03/12 Mormonism Preference : Orthodox, independent Spiritual/Cultural Needs Comment : 03/12 Efrain Ruvalcaba Rn - 03/04/2021 10:49 EDT Ovid Suicide Severity Rating Scale (C-SSRS) CSSRS Past [...] EDT Legal Guardian : Spouse Support Person/Patient Hotel Or Motel Receptionist : Yes Support Person/Pt Rep Name : Kaylah Boo - Support Person/Pt Rep Contact Information : [phone] Want Family/Rep/Phys Notified of Admit : Efrain Coulter Rn - 03/04/2021 10:49 EDT Emergency Contact #1 : Kaylah Libradoangle Emergency Contact #1 ` Emergency Contact #1 Relationship : ` Emergency Contact #2 : none` Emergency Contact #2 Phone Number : none` Emergency Contact #2 Relationship : none` Marjan Patel RN - 03/12/2021 6:29 EDT Information Obtained From : Patient Primary Language : Brazilian Communication Barrier : None Machine Etcher Needed : Efrain Coulter Rn - 03/04/2021 [...] Efrain Ruvalcaba Rn - 03/04/2021 10:49 EDT Electronically signed by Iglesia Heard Conversion All Source Collection Manager Cerner at 11/11/2022 6:48 PM CDT documented in this encounter Plan of Treatment Not on file documented as of this encounter Visit Diagnoses Not on filedocumented in this encounter
--- OUTSIDE RECORDS SUMMARY | 2025-07-15 21:33 | XMS_ITS | Encounter Summary ---
Author Organization [employer] ([place], [place], [place], [place], [place]) Address [address] [place] [address] Care Team Providers Care Generator Mechanic Name Role Phone Unavailable Primary Care Provider Unavailabl e Encounter Details Date Type Department Care Team (Late st Contact Info) Description 03/26/2021 Transcribed Document [facility] [place] [address] [place] [address] ProviderLele MD [address] [place] [address] Social History Tobacco Use Types [...] and Left Message Electronically signed by Félix [facility] Conversion Cable Tender Cerner at 11/11/2022 6:32 PM CDT documented in this encounter Plan of Treatment Not on file documented as of this encounter Visit Diagnoses Not on filedocumented in this encounter
--- OUTSIDE RECORDS SUMMARY | 2025-07-15 21:33 | XMS_ITS | Encounter Summary ---
Author Organization [employer] ([place], [place], [place], [place], [place]) Address [address] [place] [address] Care Team Providers Care Assembler Filters Name Role Phone Unavailable Primary Care Provider Unavailabl e Encounter Details Date Type Department Care Team (Late st Contact Info) Description 07/23/2020 Transcribed Document [facility] [place] [address] [place] [address] ProviderLele MD [address] [place] [address] Social History Tobacco Use Types [...] - Historical ProviderMD - 07/23/2020 8:[address] Stroke/Warfarin Instructions Entered On: 07/23/2020 8:55 EST Performed On: 07/23/2020 8:55 EST by AURE LINCOLN RN Stroke/Warfarin Instructions Stroke/TIA Discharge Ins : N/A Warfarin Discharge Ins : N/A AURE LINCOLN RN - 07/23/2020 8:55 EST Electronically signed by Iglesia Heard Conversion Wide Area Network Systems Administrator Cerner at 11/11/2022 6:28 PM CDT documented in this encounter Plan of Treatment Not on file documented as of this encounter Visit Diagnoses Not on filedocumented in this encounter
--- OUTSIDE RECORDS SUMMARY | 2025-07-15 21:33 | XMS_ITS | Encounter Summary ---
Author Organization [employer] ([place], [place], [place], [place], [place]) Address [address] [place] [address] Care Team Providers Care Grades 1 Through 5 Teacher Name Role Phone Unavailable Primary Care Provider Unavailabl e Encounter Details Date Type Department Care Team (Late st Contact Info) Description 03/26/2021 Transcribed Document [facility] [place] Family Medicine [address] [place] [address] ProviderLele MD [address] [place] [address] Social History Tobacco Use Types [...] Communication Barrier : None Primary Language : Welsh Any Spiritual/Cultural Needs or Requests : No [...] Cardiovascular ASMT, ED Cardiovascular Assessment WDL : [facility] Brit Ceballos RN - 03/26/2021 13:44 EDT Respiratory Respiratory Assessment WDL : [facility] Brit Ceballos RN - 03/26/2021 13:44 EDT Gastrointestinal ED Gastrointestinal Assessment WDL : [facility] with exceptions (Comment: known bowel blockage [Brit Ceballos RN - 03/26/2021 13:44 EDT] ) Brit Ceballos RN - 03/26/2021 13:44 EDT Neurologic ASMT, ED Neurologic Assessment WDL : [facility] [place] Coma Scale Link : Open [facility] Brit Ceballos RN - 03/26/2021 13:44 EDT Leatha Coma [place] Best Motor Response : Obey commands [place] Best Verbal Response : Oriented [place] Eye Opening Response : Spontaneous [place] Coma Score : 15 Brit Ceballos RN - 03/26/2021 13:44 EDT Electronically signed by Félix, [facility] Conversion Accounts Receivable Bookkeeper Cerner at 11/11/2022 6:36 PM CDT documented in this encounter Plan of Treatment Not on file documented as of this encounter Visit Diagnoses Not on filedocumented in this encounter
--- OUTSIDE RECORDS SUMMARY | 2025-07-15 21:33 | XMS_ITS | Encounter Summary ---
Author Organization [employer] ([place], [place], [place], [place], [place]) Address [address] [place] [address] Care Team Providers Care Erp Implementation Consultant Name Role Phone Unavailable Primary Care Provider Unavailabl e Encounter Details Date Type Department Care Team (Late st Contact Info) Description 03/14/2021 Transcribed Document [facility] [place] Family Medicine [address] [place] [address] ProviderLele MD [address] [place] [address] Social History Tobacco Use Types [...] Conversion Note - Historical ProviderMD - 03/14/2021 7:16 PM CDT Patient: [...] Record Time Spent on Discharge 32 minutes documented in this encounter Plan of Treatment Not on file documented as of this encounter Visit Diagnoses Not on filedocumented in this encounter
--- OUTSIDE RECORDS SUMMARY | 2025-07-15 21:33 | XMS_ITS | Clinical Summary ---
Author Organization [facility] Address [address] [place] [address] Care Team Providers Care Coagulating Bath Mixer Name Role Phone Dez Cerna MD Primary Care Provider [phone] Allergies No known active allergies Medications aspirin 81 MG EC tablet Take 1 tablet by mouth Daily. Active [place]-3 Fatty Acids (FISH OIL) 1000 MG capsule [...] mouth Daily. 90 tablet 3 08/16/2024 Active carvedilol (COREG) 12.5 MG tablet Take 1 tablet by mouth 2 (Two) Times a Day. 180 tablet 3 10/05/2024 Active ramipril (ALTACE) 10 MG capsule TAKE 1 CAPSULE BY MOUTH DAILY 90 capsule 1 03/20/2025 Active Active Problems Problem Noted Date Diagnosed Date S/P TAVR (transcatheter aortic valve replacement ) 04/20/2025 CHB (complete heart block) 05/15/2024 Pulmonary emphysema 12/04/2021 Malignant neoplasm of colon 12/04/2021 Malignant carcinoid tumor of rectum 12/04/2021 Hyperlipidemia 12/04/2021 Thoracic ascending aortic an eurysm s/p aortoplasty repair 200512/04/2021 Carotid artery stenosis, asymptomatic, left 11/23 Iron deficiency anemia 11/11/2020 TAVR 11/04/20 10/25/2020 Coronary artery disease invo lving choctaw coronary artery of choctaw heart without angina pectoris 10/14/2020 S/P AVR (aortic valve replacement) 200509/25/19 Chronic systolic (congestive) heart failure 09/2018 Complete AV block s/p PPM 2005; Upgrade to BiV 2 019 09/02/2017 Overview (11/05/2020): PPM 2005; change out to [facility] BiV in 2018 Essential hypertension 07/16/2016 Obesity 07/16/2016 Resolved Problems Problem Noted Date Diagnosed Date Resolved Date Aortic valve disease 07/01/2023 024 Encounters Date Type Department Care Team Description 04/25/2025 1:30 PM EDT Office Visit [facility] [address] [place] [address] Luz Betancur PA-C Coronary artery disease involving choctaw coronary artery of choctaw heart without angina pectoris (Primary Dx); Chronic systolic (congestive) heart failure; Carotid artery stenosis, asymptomatic, left; Essential hypertension; Mixed hyperlipidemia; S/P TAVR (transcatheter aortic valve replacement) 04/25/2025 11:00 AM EDT - 04/25/2025 11:59 PM EDT Hospital Encounter [facility] [address] [place] [id number] Luz Betancur PA-C S/P TAVR (transcatheter aortic valve replacement) Discharge Disposition: Home or Self Care 04/25/2025 Results Follow-Up [facility] [address] [place] [address] Luz Betancur PA-C 04/25/2025 Travel from Last 3 Months Family History Medical History Relation Name Comments [...] Value Date Recorded Sex Assigned at Male 04/24/2025 2:12 PM EDT Legal Sex Male 12:26 PM EDT Gender Identity Not on file Sexual Orientation Straight 04/24/2025 2: 12 PM EDT Occupation Industry Job Start Date Job End Date [place] Not on file Not on file Not on file Last Filed Vital Signs Vital Sign Reading Time Taken Comments Blood Pressure 124/70 04/25/2025 1:08 PM EDT Pulse 80 04/25/2025 1:08 PM EDT Temperature 36.2 C (97.1 F) 05/15/2024 6:40 AM EDT Respiratory Rate 12 05/15/2024 8:29 AM EDT Oxygen Saturation 95% 04/25/2025 1:08 PM EDT Inhaled Oxygen Concentration - - Weight 116 kg (256 lb) 04/25/2025 1:08 PM EDT Height 177.8 cm (5' 10 ) 04/25/2025 1:08 PM EDT Body Mass Index 36.73 04/25/2025 1:08 PM EDT Plan of Treatment Upcoming Encounters Date Type Department Care Team (Late st Contact Info) Description 07/30/2025 2:00 PM EST Appointment [facility] [place] [address] [facility] [address] [place] [address] 01/30/2026 1:30 PM EDT Office Visit [facility] [address] [facility] [address] [place] [phone] Marcus Wyman MD [address] [facility] [address] [place] [address] 05/22/2026 1:30 PM EDT Office Visit [facility] [address] [facility] [address] [place] [phone] Noelle Maciel MD [address] [facility] [address] [place] [address] Health Maintenance Due Date Last Done Comments TDAP/TD VACCINES (1 - Tdap) 11/05/1966 ZOSTER VACCINE (1 of 2) 11/05/1997 ANNUAL WELLNESS VISIT 12/29/2016 HEPATITIS C SCREENING 12/29/2016 COVID-19 Vaccine (2 - Jansse n risk series) 08/11/2021 07/14/2021 LIPID PANEL 10/04/2021 10/04/2020, 08/26/2016 RSV Vaccine - Adults (1 - 1- dose 75+ series) 11/05/2022 INFLUENZA VACCINE 02/23/2025 06/27/2024, , 04/22/2022, Additional history exists COLOGUARD Discontinued 11/14/2020 COLORECTAL CANCER SCREENING Discontinued Pneumococcal Vaccine 50+ Completed 023, 05/28/2017, 03/13/2016 HEMOGLOBIN A1C Discontinued 05/15/2024, 04/0 03/2021, 10/04/2020, Additional history exists COLON CANCER SCREENING 5 YEA R SIGMOIDOSCOPY Discontinued COLONOSCOPY Discontinued CT COLONOGRAPHY Discontinued FECAL OCCULT BLOOD TEST Discontinued FIT Testing (1 year) Discontinued Medical Devices Implanted Type Area Rehab/Pre Vocational Counselor Device Identifier Shelf Expiration Date Model / Serial / Lot Implant Implant Description:Bilateral hip im plant Implant Implant Description:Pig valve Vlv Heart Trnscath Sapien3 26mm - [id number] - [id number] Implanted:Qty: 1 on 11/04/2020 by Nish Barrow MD at [facility] Implant N/A: Aorta [employer] NICHELLE 11/21/2021 [id number] / [id number] / Ld Quartet Refrigerator Car Icer Vent Lng Spacing 86cm - [id number] - [id number] Implanted:Qty: 1 on 11/22/2018 by Marcus Wyman MD at [facility] Lead [employer] 07/25/2021 [id number] / [id number] / [id number] Pacemaker- 006 Implanted:2005 by Yonny Heaton MD (Quantity not on file) Explanted:2018 (Quantity not on file) Pacemaker [employer] SJM IDENTITY ADX XL DR [id number] / [id number] / Gen Pm Allure Quadra Bivent Rf Crtp [id number] - [id number] - [id number] Implanted:Qty: 1 on 11/22/2018 by Marcus Wyman MD at [facility] Pacemaker [employer] 03/25/2020 PM3 262 / [id number] / [id number] Description:Last interrogati on 10/16/2020 with battery life of 4.5 years Gen Pm Quadra Allure Mp Crtp [id number] - [id number] - [id number] Implanted:Qty: 1 on 05/15/2024 by Marcus Wyman MD at [facility] Pacemaker Left: Chest [employer] [id number] / [id number] / Stent Xience Michael Kerwin Rx [id number] - [id number] Implanted:Qty: 1 on 08/26/2016 by Jori Zamora MD at [facility] BETTS VASCULAR [id number] / / Procedures Procedure Name Priority Date/Time Associated Diagnosis Comments REMOTE DEVICE CHECK 07/06/2025 4 :00 AM EST REMOTE DEVICE CHECK 05/03/2025 2 :00 AM EDT ECHO COMPLETE W/ DOPPLER, COLOR FLOW AND STRAIN Routine 04/25/2025 11:39 AM EDT S/P TAVR (transcatheter aortic valve replacement) HEMOGLOBIN A1C STAT 05/15/2024 6:51 AM EDT LIPID PANEL STAT 10/04/2020 8:31 AM EST from Last 3 Months or Most Recently Relevant to Health Maintenance Results * Remote Device Check (07/06/2025 4:00 AM EST) Only the most recent of2 resultswithin the time period is included. Date Time Interrogation Session [id number] [facility] Type Interrogation Session Remote Scheduled [facility] Implantable Pulse Generator Rehab/Pre Vocational Counselor [employer] [facility] Implantable Pulse Generator Type INVESTIGATOR FRAUD-P [facility] Implantable Pulse Generator Model 3562 Quadra Allure MP(TM) [facility] Implantable Pulse Generator Serial Number [id number] [facility] Implantable Pulse Generator Implant Date 20240515 [facility] Battery Remaining Percentage 84.00 % [facility] Battery Remaining Longevity 70.0 mo [facility] Battery Voltage 2.990 [facility] Battery SENIOR CLINICAL DATA MANAGER Trigger 2.620 [facility] Battery Status Middle of Service [facility] Mukesh Statistic RA Percent Paced 3.60 [facility] Mukesh Statistic RV Percent Paced 93.10 [facility] INVESTIGATOR FRAUD Statistic INVESTIGATOR FRAUD Percent Paced 93.00 [facility] Atrial Tachy Statistic AT/AF Swisher Percent 1.00 [facility] [employer] [facility] Lead Channel RA Sensing Intrinsic Amplitude 1.400 [facility] [employer] [facility] Lead Channel Setting RA Sensing Sensitivity 0.50 [facility] [employer] [facility] Lead Channel RA Impedance Value 450 [facility] [facility] Lead Channel RA Pacing Threshold Amplitude 1.375 [facility] [facility] Lead Channel RA Pacing Threshold Pulse Width 0.5 [facility] [employer] [facility] Lead Channel RA Measurements Date and Time [id number] [facility] [employer] [facility] Lead Channel Setting RA Pacing Amplitude 2.500 [facility] [facility] Lead Channel Setting RA Pacing Pulse Width 0.5 [facility] [employer] [facility] Lead Channel RV Sensing Intrinsic Amplitude 7.000 [facility] [employer] [facility] Lead Channel Setting RV Sensing Sensitivity 2.00 [facility] [facility] Lead Channel RV Impedance Value 380 [facility] [facility] Lead Channel Setting RV Pacing Amplitude 2.000 [facility] [facility] Lead Channel Setting RV Pacing Pulse Width 0.5 [facility] [facility] Lead Channel LV Impedance Value 480 [facility] [facility] Lead Channel Setting LV Pacing Amplitude 2.500 [facility] [employer] [facility] Lead Channel Setting LV Pacing Pulse Width 0.5 [facility] Mukesh Setting Mode (NBG Code) DDD [facility] Ventricular chambers paced during INVESTIGATOR FRAUD pacing. BiV [facility] Mukesh Setting Lower Rate Limit 60 [facility] Mukesh Setting AT Mode Switch Rate 180 [facility] Mukesh Setting Maximum Tracking Rate 130 [facility] Mukesh Setting Maximum Sensor Rate 130 [facility] Mukesh Setting PAV Delay 180 [facility] Mukesh Setting KANDACE Delay 130 [facility] INVESTIGATOR FRAUD LV-RV Delay 0 [facility] Lead Channel Setting RA Sensing Polarity Bipolar [facility] [employer] [facility] Lead Channel Setting RV Sensing Polarity Bipolar [facility] [facility] Lead Channel Setting RA Pacing Polarity Bipolar [facility] [facility] Lead Channel Setting RV Pacing Polarity Bipolar [facility] [facility] Lead Channel Setting LV Pacing Polarity Bipolar [facility] [facility] Lead Channel RA Pacing Threshold Polarity Bipolar [facility] [facility] Lead Channel RV Pacing Threshold Polarity Bipolar [facility] [employer] [facility] Lead Channel LV Pacing Threshold Polarity Bipolar [facility] [employer] [facility] 07/06/2025 4:00 AM EST us Marcus Wyman MD CV IMPLANTABLE CARDIAC DEVIC E Final Result [facility] * ECHO COMPLETE W/ DOPPLER, COLOR FLOW AND STRAIN (04/25/2025 11:39 AM EDT) EF(MOD-bp) 58.5 % LVIDd 4.8 cm LVIDs 3.4 cm IVSd 1.50 cm LVPWd 1.50 cm FS 29.2 % IVS/LVPW 1.00 cm ESV(cubed) 39.3 ml LV Sys Vol (BSA corrected) 37.4 cm2 EDV(cubed) 110.6 ml LV Fu Vol (BSA corrected) 84.7 cm2 LV mass(C)d 303.4 grams LVOT area 3.1 cm2 LVOT diam 2.3 cm EDV(MOD-sp2) 193.0 ml EDV(MOD-sp4) 200.0 ml ESV(MOD-sp2) 79.4 ml ESV(MOD-sp4) 88.3 ml SV(MOD-sp2) 113.6 ml SV(MOD-sp4) 111.7 ml SVi(MOD-SP2) 48.1 ml/m2 SVi(MOD-SP4) 47.3 ml/m2 SVi (LVOT) 20.8 ml/m2 EF(MOD-sp2) 58.9 % EF(MOD-sp4) 55.9 % MV E max evangelist 72.8 cm/sec MV A max evangelist 88.6 cm/sec MV dec time 0.36 sec MV E/A 0.82 LA ESV Index (BP) 35.0 ml/m2 Med Peak E' Evangelist 7.2 cm/sec Lat Peak E' Evangelist 7.6 cm/sec Avg E/e' ratio 9.84 SV(LVOT) 49.0 ml RV Base 4.6 cm RV Mid 3.5 cm RV Length 8.9 cm TAPSE (>1.6) 2.25 cm RV S' 8.6 cm/sec LV V1 max 72.1 cm/sec LV V1 max PG 2.08 mmHg LV V1 mean PG 1.00 mmHg LV V1 VTI 15.6 cm Ao pk evangelist 249.5 cm/sec Ao max PG 24.9 mmHg Ao mean PG 12.8 mmHg Ao V2 VTI 51.0 cm SUNSHINE(I,D) 1.1 cm2 Dimensionless Index 0.30 (DI) Ao root diam 4.3 cm TR max evangelist 229.9 cm/sec TR max PG 21.1 mmHg LV GLOBAL STRAIN -14.7 % LA dimension (2D) 4.3 cm RVSP(TR) 23 mmHg RAP systole 3 mmHg Ao root area (BSA corrected) 1.8 cm2 Echo EF Estimated 60.0 % Anatomical Region Laterality Modality Ultrasound Addenda Addendum by Noelle Maciel MD on 04/25/2025 12:46 PM EDT Left ventricular systolic function is normal. Calculated left ventricular EF = 58.5% Left ventricular wall thickness is consistent with moderate concentric hypertrophy. S/p placement of a 26 mm Recinos MAXIMUS 3 pericardial prosthesis within a degenerated, stenotic, 27 mm Recinos pericardial valve placed 09/18/2005. No paravalvular leak seen. Aortic valve mean pressure gradient is 12.8 mmHg. Aortic valve area is 1.1 cm2. (The LVOT VTI is approximately 4 mmHg less than on the last 2 echocardiograms. This results in the lower calculated valve area. The LVOT interrogation was somewhat off axis. ( Trace to mild mitral regurgitation. Trace to mild tricuspid regurgitation. Calculated right ventricular systolic pressure from tricuspid regurgitation is 23 mmHg. Repeat echocardiogram for aortic valve gradients and calculated valve area only in 3 months. Left Ventricle Left ventricular systolic function is normal. Calculated left ventricular EF = 58.5% Global longitudinal LV strain (GLS) = -14.7%. Normal left ventricular cavity size noted. Left ventricular wall thickness is consistent with moderate concentric hypertrophy. All left ventricular wall segments contract normally. Right Ventricle Normal right ventricular systolic function and septal motion noted. The right ventricular cavity is mildly dilated. Left Atrium The left atrial cavity is mildly dilated. Left atrial volume is mildly increased. Right Atrium The right atrial cavity is mildly dilated. The inferior vena cava is normally sized. Normal IVC inspiratory collapse of greater than 50% noted. Mitral Valve The mitral valve is grossly normal in structure. Trace to mild mitral valve regurgitation is present. No significant mitral valve stenosis is present. Tricuspid Valve The tricuspid valve is structurally normal with no significant stenosis present. Trace to mild tricuspid valve regurgitation is present. Calculated right ventricular systolic pressure from tricuspid regurgitation is 23 mmHg. Aortic Valve Aortic valve area is 1.1 cm2. Aortic valve mean pressure gradient is 12.8 mmHg. There is a 26 mm TAVR valve present. Recinos MAXIMUS S/p placement of a 26 mm Recinos MAXIMUS 3 pericardial prosthesis within a degenerated, stenotic, 27 mm Recinos pericardial valve placed 09/18/2005. Pulmonic Valve The pulmonic valve is grossly normal in structure. There is mild to moderate pulmonic valve regurgitation present. There is no pulmonic valve stenosis present. Pericardium The pericardium is normal. There is no evidence of pericardial effusion. . Greater Vessels Aortic root = 4.3 cm Aortic root (corrected for BSA) = 1.8 cm Study Quality The study is technically adequate for diagnosis. The quality of the study is limited due to patient body habitus . Luz Betancur PA-C CV ECHO ORDERABLES Edited Res ult - Final * (ABNORMAL) Hemoglobin A1c (05/15/2024 6:51 AM EDT) Hemoglobin A1C 7.00(H) 4.80 - 5.60 % 05/15/2024 7:35 AM EDT [facility] Blood Line / Unknown 05/15/2024 6: 51 AM EDT 05/15/2024 6:57 AM EDT Narrative [facility] - 05/15/2024 7:35 AM EDT Hemoglobin A1C Ranges: Increased Risk for Diabetes 5.7% to 6.4% Diabetes >= 6.5% Diabetic Goal < 7.0% Priscilla Santana PROFESSIONAL SYSTEM ADMINISTRATOR LAB BLOOD ORDERABLES Final Result [facility]
[address] [place] [address], * (ABNORMAL) Lipid Panel (10/04/2020 8:31 AM EST) Total Cholesterol 101 0 - 200 mg/dL 10/04/2020 9:22 AM EST [facility] Triglycerides 168(H) 0 - 150 mg/dL 10/04/2020 9:22 AM EST [facility] HDL Cholesterol 36(L) 40 - 60 mg/dL 10/04/2020 9:22 AM EST [facility] LDL Cholesterol 37 0 - 100 mg/dL 10/04/2020 9:22 AM EST [facility] VLDL Cholesterol 28 5 - 40 mg/dL 10/04/2020 9:22 AM EST [facility] LDL/HDL Ratio 0.87 10/04/2020 9:22 AM EST [facility] Blood Line / Unknown 10/04/2020 8: 31 AM EST 10/04/2020 8:37 AM EST [facility] - 10/04/2020 9:22 AM EST Cholesterol [...] Cummins PA-C LAB BLOOD ORDERABLES Final Result [facility]
[address] [place] [address], from Last 3 Months or Most Recently Relevant to Health Maintenance Insurance MEDICARE A & B Member Subscriber Plan / Payer (Ef fective 2012-Present) Name:Everette Boo Member ID:[id number] Relation to Subscriber:Self Name:Everette Boo Subscriber ID:[id number] Payer ID:[id number] Group ID:Not on file Type:Not on file Address: [address] [place] [id number] [facility] Advance Directives Documents on File Type Date Recorded Patient Habilitative Interventionist Expl anation LIVING WILL - SCAN 11/28/2018 9:18 AM 2005 POWER OF INJECTOR ASSEMBLER - SCAN 11/28/2018 9:18 AM 09/16/2005 * [...] Name Relationship Healthcare Agent Relationship Communication Kaylah Boo Spouse Power of Attorn for [facility] Care Teams Coagulating Bath Mixer Relationship Specialty Start Date End Date Dez Cerna MD [address] [place] [facility] [address] [address] PCP - General 03/07/15
--- OUTSIDE RECORDS SUMMARY | 2025-07-15 21:33 | XMS_ITS | Encounter Summary ---
Author Organization [employer] ([place], [place], [place], [place], [place]) Address [address] [place] [address] Care Team Providers Care Pluck Separator Name Role Phone Unavailable Primary Care Provider Unavailabl e Encounter Details Date Type Department Care Team (Late st Contact Info) Description 03/14/2021 Transcribed Document [facility] Family Medicine [address] [place] [address] ProviderLele MD [address] [place] [address] Social History Tobacco Use Types [...]
--- OUTSIDE RECORDS SUMMARY | 2025-07-15 21:33 | XMS_ITS | Encounter Summary ---
Author Organization [employer] ([place], [place], [place], [place], [place]) Address [address] [place] [address] Care Team Providers Care Edi Programmer Analyst Name Role Phone Unavailable Primary Care Provider Unavailabl e Encounter Details Date Type Department Care Team (Late st Contact Info) Description 03/12/2021 Transcribed Document [facility] Family Medicine [facility] [place] [address] ProviderLele MD [address] [place] [address] Social History Tobacco Use Types [...] Marjan Patel RN - 03/12/2021 10:05 EDT Electronically signed by Félix, [facility] Conversion Cattle Broker Cerner at 11/11/2022 6:51 PM CDT documented in this encounter Plan of Treatment Not on file documented as of this encounter Visit Diagnoses Not on filedocumented in this encounter
--- OUTSIDE RECORDS SUMMARY | 2025-07-15 21:34 | XMS_ITS | Encounter Summary ---
Author Organization [employer] ([place], [place], [place], [place], [place]) Address [address] [place] [address] Care Team Providers Care Water Restoration Technician Name Role Phone Unavailable Primary Care Provider Unavailabl e Encounter Details Date Type Department Care Team (Late st Contact Info) Description 03/14/2021 Transcribed Document [facility] [address] [place] [address] ProviderLele MD [address] [place] [address] Social History Tobacco Use Types [...] : 3B staff attempted PIV 3 times. ELEVATOR CONSTRUCTOR RN attempted 2 more sticks without success. [...] 38.5 kg/m2 High (03/04/21 10:49:00) Rapid Response Water Restoration Technician #1 : MAREK LOVING RN MAREK LOVING RN - 03/14/2021 6:19 EDT Electronically signed by Félix [facility] Conversion Medical Records Custodian Cerner at 11/11/2022 6:28 PM CDT documented in this encounter Plan of Treatment Not on file documented as of this encounter Visit Diagnoses Not on filedocumented in this encounter
--- OUTSIDE RECORDS SUMMARY | 2025-07-15 21:34 | XMS_ITS | Encounter Summary ---
Author Organization [employer] ([place], [place], [place], [place], [place]) Address [address] [place] [address] Care Team Providers Care Digital Marketing Project Manager Name Role Phone Unavailable Primary Care Provider Unavailabl e Encounter Details Date Type Department Care Team (Late st Contact Info) Description 03/14/2021 Transcribed Document [facility] [facility] Family Medicine [address] [place] [address] ProviderLele MD [address] [place] [address] Social History Tobacco Use Types [...] CARE BEDSIDE NON-EXEMPT - 03/14/2021 18:29 EDT Electronically signed by Félix, [facility] Conversion Human Resources Operations Specialist Cerner at 11/11/2022 6:38 PM CDT documented in this encounter Plan of Treatment Not on file documented as of this encounter Visit Diagnoses Not on filedocumented in this encounter
--- OUTSIDE RECORDS SUMMARY | 2025-07-15 21:34 | XMS_ITS | Encounter Summary ---
Author Organization [employer] ([place], [place], [place], [place], [place]) Address [address] [place] [address] Care Team Providers Care Bilingual Teacher Name Role Phone Unavailable Primary Care Provider Unavailabl e Encounter Details Date Type Department Care Team (Late st Contact Info) Description 03/31/2021 Transcribed Document [facility] Medicine [address] [place] [address] ProviderLele MD [address] [place] [address] Social History Tobacco Use Types [...] Conversion Note - Historical ProviderMD - 03/31/2021 8:17 AM CDT Patient: [...]
--- OUTSIDE RECORDS SUMMARY | 2025-07-15 21:34 | XMS_ITS | Encounter Summary ---
[facility] Organization [facility] Address [address] [place] [address] Care Team Providers Care Hydrochloric Manufacturing Supervisor Name Role Phone Dez Cerna MD Primary Care Provider Encounter Details Date Type Department Care Team (Late st Contact Info) Description 04/25/2025 Results Follow-Up [facility] CARD[facility] [address] [facility] [address] [address] [place] [address] Luz Betancur PA-C [address] [facility] [address] [place] [address] Social History Tobacco Use Types Packs/Day Years Used Date Smoking Tobacco: Former Cigarettes 1 10 0 08/18/1966 - 08/18/1976 Passive Smoke Exposure: Past Smokeless Tobacco: Former Chew Quit: 10/14/1965 Alcohol Use Standard Drinks/Week Comments No 0 [...] file Not on file Not on file documented as of this encounter Plan of Treatment Upcoming Encounters Date Type Department Care Team (Late st Contact Info) Description 07/30/2025 2:00 PM EST Appointment [facility] NONINVASIVE LAB [place] [address] [facility] [address] [place] [address] 01/30/2026 1:30 PM EDT Office Visit [facility] C[facility] [address] [facility] [address] [address] [place] [address] Marcus Wyman MD [address] [facility] [address] [facility] [address] [place] [address] 05/22/2026 1:30 PM EDT Office Visit [facility] [address] [facility] [address] [place] [address] Noelle Maciel MD [address] [facility] [address] [place] [address] documented as of this encounter Visit Diagnoses Not on filedocumented in this encounter Care Teams Hydrochloric Manufacturing Supervisor Relationship Specialty Start Date End Date Dez Cerna MD [address] [place] [address] [facility] [address] [facility] [place] [address] PCP - General 03/07/15 documented as of this encounter
--- OUTSIDE RECORDS SUMMARY | 2025-07-15 21:34 | XMS_ITS | Encounter Summary ---
Author Organization [employer] ([place], [place], [place], [place], [place]) Address [address] [place] [address] Care Team Providers Care Web Feeder Name Role Phone Unavailable Primary Care Provider Unavailabl e Encounter Details Date Type Department Care Team (Late st Contact Info) Description 04/01/2021 Transcribed Document [facility] Radiology 1 [place] [address] Kwame Hackett MD [address] [place] [address] [address] [id number] Social History Tobacco Use Types Packs/Day Years [...] 13:05 Primary Care Provider SULLY BLANKENSHIP (MD [facility] Discharge Diagnosis High-grade small bowel obstruction [...] home health Consulting Physicians AMBROSE DELGADO MD-ANS OUSMANEFLORES MD-PRO Current Diet Order No qualifying data available. Pending Labs No Labs on Record Time Spent on Discharge 45 minutes documented in this encounter Plan of Treatment Not on file documented as of this encounter Visit Diagnoses Not on filedocumented in this encounter
--- OUTSIDE RECORDS SUMMARY | 2025-07-15 21:34 | XMS_ITS | Encounter Summary ---
Author Organization [employer] ([place], [place], [place], [place], [place]) Address [address] [place] [address] Care Team Providers Care Oriental Rug Stretcher Name Role Phone Unavailable Primary Care Provider Unavailabl e Encounter Details Date Type Department Care Team (Late st Contact Info) Description 04/01/2021 Transcribed Document [facility] [place] [facility] [address] [place] [address] ProviderLele MD [address] [place] [address] Social History Tobacco Use Types [...] than 7-10 grams of fiber per day. intermediate school teacher use of this diet may not [...] these instructions at home: Medicines ??? Take plix-stm-epcytxm and prescription medicines only as told by [...] and water are not available, use hand compliance and control analyst. ? Change your dressing as told by [...] urine clear or pale yellow. ? Take shvg-xaj-blsxpcq or prescription medicines. ? Eat foods that [...] provider. Document Revised: 03/31/2019 Document Reviewed: 04/12/2017 [employer] Patient Education ? 2020 [employer] documented in this encounter Plan of Treatment Not on file documented as of this encounter Visit Diagnoses Not on filedocumented in this encounter
--- OUTSIDE RECORDS SUMMARY | 2025-07-15 21:34 | XMS_ITS | Encounter Summary ---
Author Organization [employer] ([place], [place], [place], [place], [place]) Address [address] [place] [address] Care Team Providers Care Washtub Worker Helper Name Role Phone Unavailable Primary Care Provider Unavailabl e Encounter Details Date Type Department Care Team (Late st Contact Info) Description 04/01/2021 Transcribed Document [facility] Family Medicine [address] [place] [address] ProviderLele MD [address] [place] [address] Social History Tobacco Use Types [...]
--- OUTSIDE RECORDS SUMMARY | 2025-07-15 21:34 | XMS_ITS | Encounter Summary ---
Author Organization [employer] ([place], [place], [place], [place], [place]) Address [address] [place] [address] Care Team Providers Care Milk Hauler Name Role Phone Unavailable Primary Care Provider Unavailabl e Encounter Details Date Type Department Care Team (Late st Contact Info) Description 03/29/2021 Transcribed Document [facility] Radiology 1 [place] [address] Kwame Hackett MD [address] [place] [address] [address] Social History Tobacco Use Types [...] At risk for sleep apnea / IMO [id number] / Confirmed, Active Problems (8) Amputation d/t [...] 29) 8.8 (MAR 28) H 10.7 (MAR 02) L 2.3 (MAR 26) HB L 8.3 (MAR 29) L 8.6 (MAR 03) L 11.4 (MAR 02) L 11.6 (MAR 26) HCT L 27.1 (MAR 29) L 27.1 (MAR 28) L 35.5 (MAR 27) L 38.2 (MAR 26) Plt 218 (MAR 29) 211 (MAR 03) 222 (MAR 02) 277 (MAR 26) Na L 133 (MAR 29) L 133 (MAR 03) L 132 (MAR 02) L 134 (MAR 26) K 4.2 (MAR 29) 4.2 (MAR 03) 4.1 (MAR 02) 4.0 (MAR 26) Cl 109 (MAR 04) 106 (MAR 03) 102 (MAR 02) L 100 (MAR 01) CO2 24 (MAR 04) 21 (MAR 03) L 19 (SEP 02) 24 (MAR 26) BUN 16 (MAR 04) H 27 (MAR 03) [...]
--- OUTSIDE RECORDS SUMMARY | 2025-07-15 21:34 | XMS_ITS | Encounter Summary ---
Author Organization [employer] ([place], [place], [place], [place], [place]) Address [address] [place] [address] Care Team Providers Care Network Technical Analyst Name Role Phone Unavailable Primary Care Provider Unavailabl e Encounter Details Date Type Department Care Team (Late st Contact Info) Description 04/01/2021 Transcribed Document [facility] Family Medicine [address] [place] [address] ProviderLele MD [address] [place] [address] Social History Tobacco Use Types [...] Conversion Note - Historical ProviderMD - 04/01/2021 11:51 AM CDT Nursing [...] Moraima Stevenson RN - 04/01/2021 11:51 EDT Electronically signed by Iglesia Heard Conversion Workers Compensation Administrator Cerner at 11/11/2022 6:36 PM CDT documented in this encounter Plan of Treatment Not on file documented as of this encounter Visit Diagnoses Not on filedocumented in this encounter
--- OUTSIDE RECORDS SUMMARY | 2025-07-15 21:34 | XMS_ITS | Encounter Summary ---
Author Organization [employer] ([place], [place], [place], [place], [place]) Address [address] [place] [address] Care Team Providers Care Addiction Therapist Name Role Phone Unavailable Primary Care Provider Unavailabl e Encounter Details Date Type Department Care Team (Late st Contact Info) Description 03/29/2021 Transcribed Document [facility] Family Medicine [address] [place] [address] ProviderLele MD [address] [place] [address] Social History Tobacco Use [...] Conversion Note - Historical ProviderMD - 03/29/2021 12:29 PM CDT Patient: [...] ambulation. at bedside. Questions answered. Abdominal pain [id number] Abnormal diagnostic test [id number] Medications Inpatient aspirin, 81 mg= 1 Tab, [...]
--- OUTSIDE RECORDS SUMMARY | 2025-07-15 21:34 | XMS_ITS | Encounter Summary ---
Author Organization [employer] ([place], [place], [place], [place], [place]) Address [address] [place] [address] Care Team Providers Care Career Specialist Name Role Phone Unavailable Primary Care Provider Unavailabl e Encounter Details Date Type Department Care Team (Late st Contact Info) Description 03/31/2021 Transcribed Document [facility] Radiology 1 [place] [address] Kwame Hackett MD [address] [place] [address] [address] Social History Tobacco Use Types [...] At risk for sleep apnea / IMO [id number] / Confirmed, Active Problems (8) Amputation d/t [...] 8.3 (MAR 29) L 8.6 (MAR 03) HCT L 31.1 (MAR 06) L 28.8 (MAR 05) L 27.1 (MAR 04) L 27.1 (MAR 03) Plt 279 (MAR 31) 245 (MAR 05) 218 (MAR 29) 211 (MAR 03) Na L 134 (MAR 31) L 134 (MAR 05) L 133 (MAR 29) L 133 (MAR 28) K 4.5 (MAR 06) 4.5 (MAR 05) 4.2 (MAR 29) 4.2 (MAR 03) Cl 102 (MAR 06) 104 (MAR 05) 109 (MAR 29) 106 (MAR 03) CO2 26 (MAR 31) 25 (MAR 30) 24 (MAR 29) 21 (MAR 28) BUN 10 (MAR 31) 11 (MAR 30) [...]
--- OUTSIDE RECORDS SUMMARY | 2025-07-15 21:34 | XMS_ITS | Encounter Summary ---
Author Organization [employer] ([place], [place], [place], [place], [place]) Address [address] [place] [address] Care Team Providers Care Remote Computer Terminal Operator Name Role Phone Unavailable Primary Care Provider Unavailabl e Encounter Details Date Type Department Care Team (Late st Contact Info) Description 04/01/2021 Transcribed Document [facility] Family Medicine [address] [place] [address] ProviderLele MD [address] [place] [address] Social History Tobacco Use Types [...] On: 04/01/2021 10:52 EDT by Isi Heredia, Graphic Design Specialist Patient Resource Center Provider Status : EST Other Established Provider Name : SULLY BLANKENSHIP Patient Phone Number : [phone] Patient Insurance Type : Medicare Source of Referral : Case management Location of Patient : Case management referral Primary Care Scheduled : Yes Primary Care Scheduled Type : Non CMG Primary Care Provider Name : SULLY BLANKENSHIP Primary Care Appointment Date/Time : 04/07/2021 10:30 [...] at ED : Other Primary Language : Polish Patient Resource Center Comment : Patient needs follow up appointments. Called offices and scheduled appointments with Dr. Jaime and Dr. Blankenship Follow Up Needed : Isi Dillard, Graphic Design Specialist - 04/01/2021 10:52 EDT Electronically signed by Félix [facility] Conversion Roll Mechanic Cerner at 11/11/2022 6:28 PM CDT documented in this encounter Plan of Treatment Not on file documented as of this encounter Visit Diagnoses Not on filedocumented in this encounter
--- OUTSIDE RECORDS SUMMARY | 2025-07-15 21:34 | XMS_ITS | Encounter Summary ---
Author Organization [employer] ([place], [place], [place], [place], [place]) Address [address] [place] [address] Care Team Providers Care Dry Cleaning Attendant Name Role Phone Unavailable Primary Care Provider Unavailabl e Encounter Details Date Type Department Care Team (Late st Contact Info) Description 03/31/2021 Transcribed Document [facility] [place] Medicine [address] [place] [address] ProviderLele MD [address] [place] [address] Social History Tobacco Use Types [...]
--- OUTSIDE RECORDS SUMMARY | 2025-07-15 21:34 | XMS_ITS | Encounter Summary ---
Author Organization [employer] ([place], [place], [place], [place], [place]) Address [address] [place] [address] Care Team Providers Care Full Time Staff Interpreter Name Role Phone Unavailable Primary Care Provider Unavailabl e Encounter Details Date Type Department Care Team (Late st Contact Info) Description 03/30/2021 Transcribed Document [facility] Radiology 1 [place] [address] Kwame Hackett MD [address] [place] [address] [address] Social History Tobacco Use Types [...] At risk for sleep apnea / IMO [id number] / Confirmed, Active Problems (8) Amputation d/t trauma Angina Arthritis At risk for sleep apnea Hyperlipidemia Hypertension Nocturia Stented coronary artery Objective VS/Measurements Vitals Signs (last 24 hrs) Last Charted Minimum Maximum Temp H 100.1 (MAR 30:) 97.7 (MAR 30 03:18) H 100.1 (MAR 30:) Mon HR 82 (MAR 30:) 77 (MAR 29 23:00) 82 (MAR 30 05:22) Resp Rate 18 (MAR 30:22) 16 (MAR 29 23:00) 18 (MAR 30:) SBP H 156 (MAR 30:) 131 (MAR 29 23:00) H 156 (MAR 30:) DBP 82 (MAR 30 05:22) 72 (MAR 29 23:00) 82 (MAR 30:22) MAP 103 (MAR 30:22) 90 (MAR 29 23:00) 103 (MAR 30:22) SpO2 L 93 (SEP 05 07:23) L 92 (MAR 30 05:22) 96 [...] (MAR 29) 211 (MAR 28) 222 (MAR 02) Na L 134 (MAR 30) L 133 (MAR 04) L 133 (MAR 03) L 132 (MAR 02) K 4.5 (MAR 30) 4.2 (MAR 29) 4.2 (MAR 03) 4.1 (MAR 02) Cl 104 (MAR 30) 109 (MAR 29) 106 (MAR 03) 102 (MAR 02) CO2 25 (MAR 05) 24 (MAR 04) 21 (MAR 03) L 19 (MAR 02) BUN 11 (MAR 05) 16 (MAR 04) H 27 (MAR 03) [...]
--- OUTSIDE RECORDS SUMMARY | 2025-07-15 21:34 | XMS_ITS | Encounter Summary ---
Author Organization [employer] ([place], [place], [place], [place], [place]) Address [address] [place] [address] Care Team Providers Care Float Phlebotomist Name Role Phone Unavailable Primary Care Provider Unavailabl e Encounter Details Date Type Department Care Team (Late st Contact Info) Description 04/01/2021 Transcribed Document [facility] [place] [address] ProviderLele MD [address] [place] [address] Social History Tobacco Use [...]
--- OUTSIDE RECORDS SUMMARY | 2025-07-15 21:34 | XMS_ITS | Encounter Summary ---
Author Organization [employer] ([place], [place], [place], [place], [place]) Address [address] [place] [address] Care Team Providers Care Lead Cytogenetic Technologist Name Role Phone Unavailable Primary Care Provider Unavailabl e Encounter Details Date Type Department Care Team (Late st Contact Info) Description 03/14/[address] [facility] Family Medicine [address] [place] [address] ProviderLele MD [address] [place] [address] Social History Tobacco Use Types [...]
--- OUTSIDE RECORDS SUMMARY | 2025-07-15 21:34 | XMS_ITS | Encounter Summary ---
Author Organization [employer] ([place], [place], [place], [place], [place]) Address [address] [place] [address] Care Team Providers Care Loss Control Engineer Name Role Phone Unavailable Primary Care Provider Unavailabl e Encounter Details Date Type Department Care Team (Late st Contact Info) Description 03/14/2021 Transcribed Document [facility] Family Medicine [address] [place] [address] ProviderLele MD [address] [place] [address] Social History Tobacco Use Types [...] than 7-10 grams of fiber per day. detention use of this diet may not provide [...] these instructions at home: Medicines ??? Take zvua-dft-xniocoo and prescription medicines only as told by [...] and water are not available, use hand school cafeteria cook head. ? Change your dressing as told by [...] urine clear or pale yellow. ? Take bosp-ctn-ycmxrtf or prescription medicines. ? Eat foods that [...] provider. Document Revised: 03/31/2019 Document Reviewed: 04/12/2017 [employer] Patient Education ? 2020 [employer] Low-Fiber Eating Plan Fiber is found [...] that you work with a diet and renal medicine specialist (dietitian). What are tips for following [...] made with white flour. Waffles, pancakes, and English toast. Bagels. Pretzels. [place] toast, zwieback, and matzoh. Cooked and dried cereals that do not contain whole grains, added fiber, seeds, or dried fruit. Cornmeal. [place]. Hot and cold cereals made with refined [...] Sports drinks. Herbal tea. Fats and oils [place] oil, canola oil, sunflower oil, flaxseed oil, [...] breads and crackers. Multigrain breads and crackers. [place] bread. Whole grain or multigrain cereals. Cereals with nuts, raisins, or coconut. Bran. Coarse wheat cereals. Granola. High-fiber cereals. Cornmeal or corn bread. Whole grain pasta. Wild or brown rice. Quinoa. Popcorn. Buckwheat. Wheat germ. Vegetables Potato skins. Raw or undercooked vegetables. All beans and rojas sprouts. Cooked greens. [place]. Peas. Cabbage. Beets. Broccoli. Prole sprouts. Cauliflower. Mushrooms. Onions. Peppers. Parsnips. Okra. [...] are not allowed. Seasoning and other foods [place] tortilla chips. Soups made with vegetables or [...] provider. Document Revised: 11/03/2019 Document Reviewed: 09/14/2017 [employer] Patient Education ? 2020 [employer]. Oncology Colorectal Cancer Colorectal cancer is an [...] Follow these instructions at home: ??? Take ozpq-omp-jhozhoa and prescription medicines only as told by your health care provider. ??? Try to eat regular, healthy meals. Some of your treatments might affect your appetite. If you are having problems eating or with your appetite, ask to meet with a food and renal medicine specialist (dietitian). ??? Consider joining a support [...] age. Where to find more information ??? [place] [employer]: https://www.cancer.org ??? National Cancer [place] (NCI): https://www.cancer.gov Contact a health care provider [...] provider. Document Revised: 09/01/2018 Document Reviewed: 08/13/2017 [employer] Patient Education ? 2020 [employer] documented in this encounter Plan of Treatment Not on file documented as of this encounter Visit Diagnoses Not on filedocumented in this encounter
--- OUTSIDE RECORDS SUMMARY | 2025-07-15 21:34 | XMS_ITS | Encounter Summary ---
Author Organization [id number] ([place], [place], [place], [place], [place]) Address [address] [place] [address] Care Team Providers Care Professor Of Radiology Name Role Phone Unavailable Primary Care Provider Unavailabl e Encounter Details Date Type Department Care Team (Late st Contact Info) Description 03/30/2021 Transcribed Document [facility] [place] Family Medicine [address] [place] [address] ProviderLele MD [address] [place] [address] Social History Tobacco Use Types Packs/Day Years Used Date Smoking Tobacco: Never Assessed Sex and Gender Information Value Date Recorded Sex Assigned at Male 01/20/2022 1:57 PM CDT Legal Sex Male 1:57 PM CDT Gender Identity Male 01/20/2022 1:57 PM CDT Sexual Orientation Not on file documented as of this encounter Miscellaneous Notes * [employer] Conversion Note - Historical ProviderMD - 03/30/2021 11:32 AM CDT Patient: [...] today. Continue clears. Ambulation encouraged. Abdominal pain [id number] Abnormal diagnostic test [id number] Orders: Communication to Nursing Nasogastric Orogastric Tube [...]
--- OUTSIDE RECORDS SUMMARY | 2025-07-15 21:34 | XMS_ITS ---
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
--- OUTSIDE RECORDS SUMMARY | 2025-07-15 21:34 | XMS_ITS | Encounter Summary ---
Author Organization [employer] ([place], [place], [place], [place], [place]) Address [address] [place] [address] Care Team Providers Care Exhibit Builder Name Role Phone Unavailable Primary Care Provider Unavailabl e Encounter Details Date Type Department Care Team (Late st Contact Info) Description 04/01/2021 Transcribed Document [facility] [place] [address] [place] [address] ProviderLele MD [address] [place] [address] Social History Tobacco Use Types [...] Mariann Zamora Lpn - 04/01/2021 4:52 EDT documented in this encounter Plan of Treatment Not on file documented as of this encounter Visit Diagnoses Not on filedocumented in this encounter
--- OUTSIDE RECORDS SUMMARY | 2025-07-15 21:34 | XMS_ITS | Encounter Summary ---
Author Organization [employer] ([place], [place], [place], [place], [place]) Address [address] [place] [address] Care Team Providers Care Youth Services Librarian Name Role Phone Unavailable Primary Care Provider Unavailabl e Encounter Details Date Type Department Care Team (Late st Contact Info) Description 04/01/2021 Transcribed Document [facility] [place] [address] [place] [address] ProviderLele MD [address] [place] [address] Social History Tobacco Use Types [...] L 58 (MAR 31 10:30) H 92 (APR 01 06:00) MAP 108 (APR 01 06:00) 66 [...] repair of enterotomy and possible wound infection. documented in this encounter Plan of Treatment Not on file documented as of this encounter Visit Diagnoses Not on filedocumented in this encounter
--- OUTSIDE RECORDS SUMMARY | 2025-07-15 21:34 | XMS_ITS | Encounter Summary ---
Author Organization [employer] ([place], [place], [place], [place], [place]) Address [address] [place] [address] Care Team Providers Care Exhaust Emissions Automotive Technician Name Role Phone Unavailable Primary Care Provider Unavailabl e Encounter Details Date Type Department Care Team (Late st Contact Info) Description 04/01/2021 Transcribed Document [facility] [place] [address] [place] [address] ProviderLele MD [address] [place] [address] Social History Tobacco Use Types [...] NATALIE FIELDS, PT - 04/01/2021 14:55 EDT Skilled Nursing Goals Mobility/Bed Mobility LTG PT Grid Goal [...] NATALIE FIELDS, PT - 04/01/2021 14:55 EDT Patient/Patient Support Associate PT LTG Grid Goal #1 Goal : [...]
--- OUTSIDE RECORDS SUMMARY | 2025-07-15 21:34 | XMS_ITS | Clinical Summary ---
Author Organization [employer] ([place], [place], [place], [place], [place]) Address [address] [place] [address] Care Team Providers Care Dopster Name Role Phone Unavailable Primary Care Provider [...]
--- OUTSIDE RECORDS SUMMARY | 2025-07-15 21:34 | XMS_ITS | Encounter Summary ---
Author Organization [employer] ([place], [place], [place], [place], [place]) Address [address] [place] [address] Care Team Providers Care Binder Lockstitch Name Role Phone Unavailable Primary Care Provider Unavailabl e Encounter Details Date Type Department Care Team (Late st Contact Info) Description 03/29/2021 Transcribed Document [facility] [place] [address] [place] [address] ProviderLele MD [address] [place] [address] Social History Tobacco Use [...] Historical ProviderMD - 03/29/2021 2:00 AM CDT Customer Support Analyst Details Entered On: 03/30/2021 3:27 EDT Performed [...] NON EMP RN - 03/30/2021 3:27 EDT Electronically signed by Iglesia Heard Conversion Cylinder Inspector And Tester Cerner at 11/11/2022 6:47 PM CDT documented in this encounter Plan of Treatment Not on file documented as of this encounter Visit Diagnoses Not on filedocumented in this encounter
--- OUTSIDE RECORDS SUMMARY | 2025-07-15 21:34 | XMS_ITS | Encounter Summary ---
Author Organization [employer] ([place], [place], [place], [place], [place]) Address [address] [place] [address] Care Team Providers Care Congressional District Aide Name Role Phone Unavailable Primary Care Provider Unavailabl e Encounter Details Date Type Department Care Team (Late st Contact Info) Description 04/01/2021 Transcribed Document [facility] [place] [address] [place] [address] ProviderLele MD [address] [place] [address] Social History Tobacco Use Types [...] Shah MD - 04/01/2021 11:25 AM CDT [facility] [place], [place] [id number] JODI KEMI LANG :1945 Visit Time:03/26/2021 Your Visit Summary Your Care Team Admitting Physician - DANI BATISTA MD Attending Physician - DANI BATISTA MD Primary Care Physician - SULLY BLANKENSHIP (REF)MD-[facility] Referring Physician - RAQUEL COOPER MD-PRO Your [...] Bring discharge instructions with you Where: [address] [facility] [address] [place] [address]- Follow Up with SULLY BLANKENSHIP MD (REF)-FAM When 04/07/2021 10:30 AM EDT Comments PCP follow up Appointment has been made Bring discharge instructions with you Where: [address] [place] [address]- Medications What How Much When Instructions Next Dose acetaminophen-oxyCODONE (Percocet 5/ 325 oral tablet) 1 Tablet(s) Oral Every 6 Hours as needed for for pain Pickup at [facility] #[id number] as needed cephalexin (Keflex 500 mg oral capsule) 1 Capsule(s) Oral Every 8 Hours Pickup at [facility] #[id number] this afternoon and bedtime famotidine (Pepcid 20 mg oral tablet) 1 Tablet(s) Oral Two Times A Day Pickup at [facility] #[id number] tonight ascorbic acid (Vitamin C 500 mg [...] Capsule(s) Oral At Bedtime bedtime Pharmacy Information [facility] #[id number]: [address] [address] [address] [phone] Take your medications faithfully. Do NOT skip [...] these instructions at home: Medicines ??? Take yrlv-eht-tsrddko and prescription medicines only as told by [...] and water are not available, use hand roller bearing inspector. ? Change your dressing as told by [...] urine clear or pale yellow. ? Take bhfv-ibz-vrymudx or prescription medicines. ? Eat foods that [...] provider. Document Revised: 03/31/2019 Document Reviewed: 04/12/2017 [employer] Patient Education ?? 2020 [employer] Low Residue Diet A low residue [...] than 7-10 grams of fiber per day. FDC use of this diet may not provide [...] [place] jayla shah) Heartburn Relief, Leader Acid Adolescent Medicine Specialist, Pepcid, Pepcid AC, Pepcid AC Maximum Strength, [...] may report side effects to FDA at 6-453-LHQ-1194. What other drugs will affect famotidine? Famotidine oral can make it harder for your body to absorb other medicines you take by mouth. Tell your doctor if you are taking: ?? cefditoren; ?? dasatinib; ?? delavirdine; ?? fosamprenavir; or ?? tizanidine (if you are taking famotidine liquid). This list is not complete. Other drugs may affect famotidine, including prescription and tepb-ovr-gdgmgat medicines, vitamins, and herbal products. Not all [...] to ensure that the information provided by [facility]. ('[employer]') is accurate, up-to-date, and complete, but no guarantee is made to that effect. Drug information contained herein may be time sensitive. [employer] information has been compiled for use by healthcare practitioners and consumers in the [place] and therefore [employer] does not warrant that uses outside of the [place] are appropriate, unless specifically indicated otherwise. [employer] drug information does not endorse drugs, diagnose patients or recommend therapy. [employer] drug information is an informational resource designed [...] effective or appropriate for any given patient. [employer] does not assume any responsibility for any aspect of healthcare administered with the aid of information [employer] provides. The information contained herein is not intended to cover all possible uses, directions, precautions, warnings, drug interactions, allergic reactions, or adverse effects. If you have questions about the drugs you are taking, check with your doctor, nurse or pharmacist. Copyright 3368-9236 [facility]. Version: 18.01. Revision Date: 01/02/2021. cephalexin (sef [...] may report side effects to FDA at 1-462-ANF-8530. What other drugs will affect cephalexin? Tell your doctor about all your other medicines, especially: ?? metformin; or ?? probenecid. This list is not complete. Other drugs may affect cephalexin, including prescription and oimm-wzi-llvninh medicines, vitamins, and herbal products. Not all [...] to ensure that the information provided by [facility]. ('[employer]') is accurate, up-to-date, and complete, but no guarantee is made to that effect. Drug information contained herein may be time sensitive. [employer] information has been compiled for use by healthcare practitioners and consumers in the [place] and therefore [employer] does not warrant that uses outside of the [place] are appropriate, unless specifically indicated otherwise. [employer] drug information does not endorse drugs, diagnose patients or recommend therapy. [employer] drug information is an informational resource designed [...] effective or appropriate for any given patient. [employer] does not assume any responsibility for any aspect of healthcare administered with the aid of information [employer] provides. The information contained herein is not intended to cover all possible uses, directions, precautions, warnings, drug interactions, allergic reactions, or adverse effects. If you have questions about the drugs you are taking, check with your doctor, nurse or pharmacist. Copyright 0596-8321 [facility]. Version: 10.03. Revision Date: 07/29/2020. acetaminophen and [...] may report side effects to FDA at 9-188-ZCN-3898. What other drugs will affect acetaminophen and [...] affect acetaminophen and oxycodone, including prescription and iufr-yuc-rcamiet medicines, vitamins, and herbal products. Not all [...] to ensure that the information provided by [facility]. ('[employer]') is accurate, up-to-date, and complete, but no guarantee is made to that effect. Drug information contained herein may be time sensitive. [employer] information has been compiled for use by healthcare practitioners and consumers in the [place] and therefore [employer] does not warrant that uses outside of the [place] are appropriate, unless specifically indicated otherwise. [employer]'s drug information does not endorse drugs, diagnose patients or recommend therapy. [employer] drug information is an informational resource designed [...] effective or appropriate for any given patient. [facility] does not assume any responsibility for any aspect of healthcare administered with the aid of information [facility] provides. The information contained herein is not intended to cover all possible uses, directions, precautions, warnings, drug interactions, allergic reactions, or adverse effects. If you have questions about the drugs you are taking, check with your doctor, nurse or pharmacist. Copyright 7947-1091 [facility]. Version: .. Revision Date: 08/30/2020. Emergency Awareness and Preventative [...] Assistance with quitting is available by contacting 1-747-DJVM-NOW. This is a free resource providing counseling, [...] range between ( 0.0 and 7.0 ) [place] #: 0.89 K/uL -- Normal range between ( 0.16 and 1.00 ) Eos #: 0.16 x10(3)/uL -- Normal range between ( 0.00 and 0.80 ) [place] %: 9.7 % -- Normal range between [...] RBC Morphology: Abnormal ANC #: 4 K/uL [place] Percent Man: 3 % -- Normal range [...] was given the opportunity to ask questions. Patient/Integrated Specialist Name: Patient/Integrated Specialist Signature: Relationship to Patient: Clinician/Hospital Integrated Specialist Signature: Date: Electronically signed by Félix, [facility] Conversion Sales And Leasing Agent Cerner at 11/11/2022 6:33 PM CDT documented in this encounter Plan of Treatment Not on file documented as of this encounter Visit Diagnoses Not on filedocumented in this encounter
--- OUTSIDE RECORDS SUMMARY | 2025-07-15 21:34 | XMS_ITS | Encounter Summary ---
Author Organization [employer] ([place], [place], [place], [place], [place]) Address [address] [place] [address] Care Team Providers Care Attendant Coin Operated Laundry Name Role Phone Unavailable Primary Care Provider Unavailabl e Encounter Details Date Type Department Care Team (Late st Contact Info) Description 04/01/2021 Transcribed Document [facility] [place] Family Medicine [address] [place] [address] ProviderLele MD [address] [place] [address] Social History Tobacco Use Types [...] 04/01/2021 14:52 EDT Electronically signed by Félix [facility] Conversion Airport Operations Specialist Cerner at 11/11/2022 6:53 PM CDT documented in this encounter Plan of Treatment Not on file documented as of this encounter Visit Diagnoses Not on filedocumented in this encounter
--- OUTSIDE RECORDS SUMMARY | 2025-07-15 21:34 | XMS_ITS | Encounter Summary ---
Author Organization [employer] ([place], [place], [place], [place], [place]) Address [address] [place] [address] Care Team Providers Care Microchip Specialist Name Role Phone Unavailable Primary Care Provider Unavailabl e Encounter Details Date Type Department Care Team (Late st Contact Info) Description 03/13/2021 Transcribed Document [facility] [place] Medicine [address] [place] [address] ProviderLele MD [address] [place] [address] Social History Tobacco Use Types [...]
--- OUTSIDE RECORDS SUMMARY | 2025-07-15 21:34 | XMS_ITS | Encounter Summary ---
Author Organization [employer] ([place], [place], [place], [place], [place]) Address [address] [place] [address] Care Team Providers Care Environmental Health Technologist Name Role Phone Unavailable Primary Care Provider Unavailabl e Encounter Details Date Type Department Care Team (Late st Contact Info) Description 03/14/2021 Transcribed Document [facility] [place] Family Medicine [address] [place] [address] ProviderLele MD [address] [place] [address] Social History Tobacco Use Types [...]
--- OUTSIDE RECORDS SUMMARY | 2025-07-15 21:34 | XMS_ITS | Encounter Summary ---
Author Organization [employer] ([place], [place], [place], [place], [place]) Address [address] [place] [address] Care Team Providers Care Loftsman Name Role Phone Unavailable Primary Care Provider Unavailabl e Encounter Details Date Type Department Care Team (Late st Contact Info) Description 04/01/2021 Transcribed Document [facility] [place] [address] [place] [address] ProviderLele MD [address] [place] [address] Social History Tobacco Use Types [...] On: 04/01/2021 12:07 EDT by YANCI FERRERA RN-Warehouse Forklift Operator Final Discharge Planning Discharge Arrangements : Patient [...] Services (Related/SOC within 3 days)-06 YANCI FERRERA RN-Warehouse Forklift Operator - 04/01/2021 12:07 EDT Final Narrative Note Final Narrative Note : Discharged to home, agreeable. Orders noted for home health, quality and resource use information provided to Pt and his , [facility] was chosen as they had used them in the past. Referral sent via [facility] and call was placed. No other needs verbalized at this time. YANCI FERRERA RN-Warehouse Forklift Operator - 04/01/2021 12:07 EDT documented in this encounter Plan of Treatment Not on file documented as of this encounter Visit Diagnoses Not on filedocumented in this encounter
--- OUTSIDE RECORDS SUMMARY | 2025-07-15 21:34 | XMS_ITS | Encounter Summary ---
Author Organization [employer] ([place], [place], [place], [place], [place]) Address [address] [place] [address] Care Team Providers Care Chip Bin Operator Name Role Phone Unavailable Primary Care Provider Unavailabl e Encounter Details Date Type Department Care Team (Late st Contact Info) Description 07/23/[address] [facility] [place] Family Medicine [address] [place] [address] ProviderLele MD [address] [place] [address] Social History Tobacco Use Types [...] Note - Lele Shah MD - 07/23/2020 11:34 AM FINANCIAL ANALYST Patient: KEMI BOO Age: 74 years Sex: Male : 1945 Associated Diagnoses: None Author: ROGER KIRKLAND PA-C Fluoroscopically guided lumbar puncture was performed at the L4-5 level and 12 mls of contrast injected. The patient tolerated the procedure well. Lumbar myelogram was then performed. CT and report to follow. documented in this encounter Plan of Treatment Not on file documented as of this encounter Visit Diagnoses Not on filedocumented in this encounter
--- OUTSIDE RECORDS SUMMARY | 2025-07-15 21:34 | XMS_ITS | Encounter Summary ---
Author Organization [employer] ([place], [place], [place], [place], [place]) Address [address] [place] [address] Care Team Providers Care Traffic Law Attorney Name Role Phone Unavailable Primary Care Provider Unavailabl e Encounter Details Date Type Department Care Team (Late st Contact Info) Description 04/01/2021 Transcribed Document [facility] [place] Family Medicine [address] [place] [address] ProviderLele MD [address] [place] [address] Social History Tobacco Use Types [...] Source : Stated Height Entry Format : [place] Height, Feet : 5 ft Height, Inches [...]
--- OUTSIDE RECORDS SUMMARY | 2025-07-15 21:34 | XMS_ITS | Referral Summary ---
Author Organization [employer] ([place], [place], [place], [place], [place]) Address [address] [place] [address] Care Team Providers Care Motor Scooter Repairer Name Role Phone Unavailable Primary Care [...]
--- OUTSIDE RECORDS SUMMARY | 2025-07-15 21:34 | XMS_ITS | Encounter Summary ---
Author Organization [employer] ([place], [place], [place], [place], [place]) Address [address] [place] [address] Care Team Providers Care Catalogue And Special Products Manager Name Role Phone Unavailable Primary Care Provider Unavailabl e Encounter Details Date Type Department Care Team (Late st Contact Info) Description 04/01/2021 Transcribed Document [facility] [place] Family Medicine [address] [place] [address] ProviderLele MD [address] [place] [address] Social History Tobacco Use Types [...] Historical ProviderMD - 04/01/2021 2:00 AM CDT Coal Equipment Operator Details Entered On: 04/01/2021 1:10 EDT Performed [...]
--- OUTSIDE RECORDS SUMMARY | 2025-07-15 21:34 | XMS_ITS | Encounter Summary ---
Author Organization [employer] ([place], [place], [place], [place], [place]) Address [address] [place] [address] Care Team Providers Care Exchange Engineer Name Role Phone Unavailable Primary Care Provider Unavailabl e Encounter Details Date Type Department Care Team (Late st Contact Info) Description 03/14/2021 Transcribed Document [facility] [place] [address] [place] [address] ProviderLele MD [address] [place] [address] Social History Tobacco Use Types [...] On: 03/14/2021 11:24 EDT by YANCI FERRERA RN-Planer Operator Initial Assessment I Previously Documented Living Environment [...] Is Guardianship Needed : No YANCI FERRERA RN-Planer Operator - 03/14/2021 11:24 EDT Initial Assessment II Sensory and Motor Deficits : None Current Home Treatments and Equipment : None Services and Community Resources : Home Health (Comment: Pt states that he has used [facility] in the past [YANCI FERRERA RN-Planer Operator - 03/14/2021 11:24 EDT] ) Services and Community Resources Addl Comments : [facility] Does the Patient have a Floor to SNF Benefit? : Yes YANCI FERRERA RN-Planer Operator - 03/14/2021 11:24 EDT Discharge Needs I Anticipated Discharge Date : 03/15/2021 EDT Anticipated Discharge To, CM : Home with family care Current Home Treatment/Equipment : Current Home Treatment/Equipment No qualifying data available. Post Acute/Home Treatments : None Documentation Status Complete : Yes YANCI FERRERA RN-Planer Operator - 03/14/2021 11:24 EDT Discharge Needs II Professional Skilled Services : Professional Skilled Services No qualifying data available. Needs Assistance with Transportation : No Patient Discharge Goal : Home YANCI FERRERA RN-Planer Operator - 03/14/2021 11:24 EDT Narrative Note Narrative [...] boost 4. CM will follow. YANCI FERRERA RN-Planer Operator - 03/14/2021 11:24 EDT documented in this encounter Plan of Treatment Not on file documented as of this encounter Visit Diagnoses Not on filedocumented in this encounter
--- OUTSIDE RECORDS SUMMARY | 2025-07-15 21:34 | XMS_ITS | Encounter Summary ---
Author Organization [employer] ([place], [place], [place], [place], [place]) Address [address] [place] [address] Care Team Providers Care Senior Procurement Specialist Name Role Phone Unavailable Primary Care Provider Unavailabl e Encounter Details Date Type Department Care Team (Late st Contact Info) Description 03/31/2021 Transcribed Document [facility] [place] [address] [place] [address] ProviderLele MD [address] [place] [address] Social History Tobacco Use Types [...] Historical ProviderMD - 03/31/2021 2:00 AM CDT Panel Machine Setter Details Entered On: 03/31/2021 2:28 EDT Performed [...]
--- OUTSIDE RECORDS SUMMARY | 2025-07-15 21:34 | XMS_ITS | Clinical Summary ---
Author Organization [facility] Address [address] [id number] Care Team Providers Care Mri Tech Name Role Phone Unavailable Primary Care [...]
[2025-07-15] MEDS: AMOXICILLIN 500MG CAPSULE 1000 MG PO (22:02)
[2025-07-15] MEDS: ACETAMINOPHEN 500MG TAB 1000 MG PO (22:02)
[2025-07-15 22:09] VITALS: BP 141/78; PULSE 80; RESP 18; TEMP 37.2; O2SAT 97
== END 2025-07-15 22:20 | disposition home or self-care (01) ==
PROVIDERS: Emergency Provider Student in an Organized Health Care Education/Training Program; PCP Internal Medicine Adolescent Medicine
DX: H66.91 Otitis media, unspecified, right ear (principal)
CPT/HCPCS: 99283